=== PATIENT | female | born 1960 | race Two or more races ===

== ENCOUNTER → 2017-08-25 | Outpatient (REF) | payer BC, SELFPAY ==
[2017-08-25 16:26] LABS: BASO # 0.1 10^3/uL (0.0-0.2); BASO % 0.5 % (0.0-1.0); EOS % 0.4 % (0.0-3.0); IMMATURE GRANULOCYTE % 0.3 % (0-0); LYMPH # 2.6 10^3/uL (1.5-4.5); LYMPH % 27.1 % (24.0-44.0); MEAN CORPUSCULAR HEMOGLOBIN 32.8 pg (27.0-33.0); MEAN CORPUSCULAR HGB CONC 32.8 g/dl (32.0-36.5); MONO # 0.8 10^3/uL (0.0-0.8); MONO % 7.9 % (0.0-5.0); NEUTROPHILS # 6.2 10^3/uL (1.8-7.7); NEUTROPHILS % 63.8 % (36.0-66.0); PLATELET COUNT, AUTOMATED 323 10^3/uL (150-450); RED CELL DISTRIBUTION WIDTH 13.4 % (11.5-14.5); WHITE BLOOD COUNT 9.7 10^3/uL (4.0-10.0)
[2017-08-25 16:27] LABS: ADD MORPHOLOGY? NO
[2017-08-25 17:00] LABS: ESTRADIOL < 19.0 PG/ML; FOLLICLE STIMULATING HORMONE 45.3 mIU/mL; VITAMIN B12 LEVEL 240 PG/ML (247-911)
[2017-08-25 17:05] LABS: ALBUMIN/GLOBULIN RATIO 1.33 (1.00-1.93); ALKALINE PHOSPHATASE 128 U/L (45-117); ALT/SGPT 24 U/L (12-78); ANION GAP 12 MEQ/L (8-16); AST/SGOT 12 U/L (15-37); BILIRUBIN,TOTAL 0.3 MG/DL (0.2-1.0); BLOOD UREA NITROGEN 29 MG/DL (7-18); CALCIUM LEVEL 8.8 MG/DL (8.5-10.1); CARBON DIOXIDE LEVEL 20 MEQ/L (21-32); CHLORIDE LEVEL 104 MEQ/L (98-107); CHOLESTEROL LEVEL 146 MG/DL (<200); CREATININE FOR GFR 1.19 MG/DL (0.55-1.02); FERRITIN 67 NG/ML (8-252); FREE T4 1.21 NG/DL (0.76-1.46); GLOMERULAR FILTRATION RATE 50.1 (>51); GLUCOSE, FASTING 88 MG/DL (70-105); PERCENT SATURATION 20.6 % (13.2-45.0); POTASSIUM SERUM 4.3 MEQ/L (3.5-5.1); SODIUM LEVEL 136 MEQ/L (136-145); TOTAL IRON BINDING CAPACITY 369 UG/DL (250-450); TRIGLYCERIDES LEVEL 85 MG/DL (<150)
[2017-08-26 10:18] LABS: THYROID PEROXIDASE ANTIBODY < 28.0 U/ML (<60.0)
[2017-08-26 12:24] LABS: PRETREATED FOLATE FOR RBCFOL 5.2 NG/ML
== END ==
LOC: M SFHCPLAZ 14:33
PROVIDERS: ATTEND Family Medicine
DX: E06.3 Autoimmune thyroiditis (principal); I10 Essential (primary) hypertension; N92.1 Excessive and frequent menstruation with irregular cycle; D50.9 Iron deficiency anemia, unspecified; Z98.84 Bariatric surgery status

== ENCOUNTER → 2017-09-30 | Outpatient (CLI) | payer BC ==
--- NOTE | 2017-10-04 08:51 | DEXA ---
AP SPINE L1 - L4 1.231 0.3 1.1 LT FEMUR TOTAL 0.837 -1.4 -0.7 RT FEMUR TOTAL 0.805 -1.6 -0.9 TOTAL BODY TOTAL OTHER DUAL FEMUR FRAX* ASSESSMENT Risk factors: 10 year probability of fracture Major osteoporotic fracture % Hip fracture % COMMENTS: Normal bone densitometry of the spine. There is low bone density of the hips. FOLLOW-UP: Recommendation for the next bone density exam: 2 years. PUNEET
== END ==
LOC: M WHC 14:35
PROVIDERS: ATTEND Family Medicine
DX: Z12.31 Encounter for screening mammogram for malignant neoplasm of breast (principal); E55.9 Vitamin D deficiency, unspecified
CPT/HCPCS: 77080; G0202

== ENCOUNTER → 2017-10-07 | Outpatient (REF) | payer BC ==
[2017-10-07 18:04] LABS: BASO % 0.6 % (0.0-1.0); EOS # 0.1 10^3/uL (0.0-0.50); EOS % 0.9 % (0.0-3.0); IMMATURE GRANULOCYTE % 0.3 % (0-0); LYMPH # 2.4 10^3/uL (1.5-4.5); LYMPH % 36.7 % (24.0-44.0); MEAN CORPUSCULAR HEMOGLOBIN 32.4 pg (27.0-33.0); MEAN CORPUSCULAR HGB CONC 32.9 g/dl (32.0-36.5); MEAN CORPUSCULAR VOLUME 98.5 fl (80.0-96.0); MONO # 0.7 10^3/uL (0.0-0.8); MONO % 9.8 % (0.0-5.0); NEUTROPHILS # 3.4 10^3/uL (1.8-7.7); NEUTROPHILS % 51.7 % (36.0-66.0); PLATELET COUNT, AUTOMATED 330 10^3/uL (150-450); RED CELL DISTRIBUTION WIDTH 12.4 % (11.5-14.5); WHITE BLOOD COUNT 6.6 10^3/uL (4.0-10.0)
[2017-10-07 18:09] LABS: ALBUMIN 3.9 GM/DL (3.2-5.2); ALBUMIN/GLOBULIN RATIO 1.15 (1.00-1.93); ALKALINE PHOSPHATASE 162 U/L (45-117); ALT/SGPT 29 U/L (12-78); ANION GAP 10 MEQ/L (8-16); AST/SGOT 12 U/L (7-37); BILIRUBIN,TOTAL 0.3 MG/DL (0.2-1.0); BLOOD UREA NITROGEN 25 MG/DL (7-18); CALCIUM LEVEL 9.1 MG/DL (8.5-10.1); CARBON DIOXIDE LEVEL 23 MEQ/L (21-32); CHLORIDE LEVEL 104 MEQ/L (98-107); CREATININE FOR GFR 1.08 MG/DL (0.55-1.02); GLOMERULAR FILTRATION RATE 56.1 (>51); GLUCOSE, FASTING 96 MG/DL (70-105); SODIUM LEVEL 137 MEQ/L (136-145); TOTAL PROTEIN 7.3 GM/DL (6.4-8.2)
[2017-10-07 19:47] LABS: VITAMIN B12 LEVEL 998 PG/ML (247-911)
[2017-10-11 11:02] LABS: PRETREATED FOLATE FOR RBCFOL 7.7 NG/ML
[2017-10-11 13:48] LABS: ALBUMIN 4.16 GM/DL (3.29-5.55); GAMMA GLOBULIN % 13.6 % (11.1-18.8)
== END ==
LOC: M SFHCPLAZ 16:04
PROVIDERS: ATTEND Family Medicine
DX: E53.8 Deficiency of other specified B group vitamins (principal); E55.9 Vitamin D deficiency, unspecified; D50.9 Iron deficiency anemia, unspecified

== ENCOUNTER → 2017-10-18 | Outpatient (CLI) | payer BC ==
--- NOTE | 2017-10-18 10:39 | REP ---
Clinical: Stage III chronic medical renal disease. Technique: Simmons scale and color Doppler evaluation of the kidneys and renal vasculature using curved array transducer. Findings: The kidneys are essentially normal in size, echogenicity and reniform shape without hydronephrosis, nephrolithiasis, cystic or renal mass lesion. Mildly increased central sinus fat is consistent with chronic medical renal disease. Right kidney measures 9.7 x 4.9 x 4.8 cm . Left kidney measures 10.5 x 5.5 x 5.4 cm . Bladder is incompletely distended and grossly normal by current evaluation. Color Doppler evaluation of the renal vasculature demonstrates normal arterial wave patterns, velocities, renal aortic ratios, resistive indices and the acceleration time. No sonographic evidence for renal arterial stenosis noted. Renal vein is patent. Right Kidney: Peak arterial velocity: 87.7 cm/sec . Renal aortic ratio: 1.09 . Resistive indices: 0.76 - 0.81 . Acceleration times: 0.031 - 0.039 . Left kidney: Peak arterial velocity: 79 cm/sec . Renal aortic ratio: 0.98 . Resistive indices: 0.72 - 0.78 . Acceleration times: 0.033 - 0.044 . Impression: relatively normal appearance of the bilateral kidneys by ultrasound. No sonographic evidence for renal artery stenosis. Signed by Royce Allred MD 10/18/2017 10:31 A
--- NOTE | 2017-10-18 11:19 | REP ---
Clinical: Pain. Technique: AP, lateral, bilateral oblique views of the right and left knee. Findings: Marked, advanced tricompartmental osteoarthritic degenerative changes are appreciated (right greater than left). Findings include osteophytosis, cortical irregularity, joint space narrowing, and elements of chondrocalcinosis. Partially calcified loose bodies within the joint spaces (right greater left) are also suspected. No acute fracture dislocation. No definite effusion. Impression: Advanced bilateral arthritic changes (right greater than left). Signed by Royce Allred MD 10/18/2017 11:11 A
== END ==
LOC: M RAD 08:16
PROVIDERS: ATTEND Family Medicine
DX: N18.3 Chronic kidney disease, stage 3 (moderate) (principal); M17.0 Bilateral primary osteoarthritis of knee

== ENCOUNTER → 2017-11-02 | Outpatient (CLI) | payer BC ==
--- NOTE | 2017-11-02 14:19 | REP ---
NUCLEAR PARATHYROID SESTAMIBI SCAN: Following the intravenous administration of 25.4 mCi of technetium-99m sestamibi, multiple images of the neck are performed 15 minutes and 4 hours post injection. Delayed SPECT images are also performed. Initial images show bilateral salivary gland and thyroid gland uptake. Delayed images show persistent salivary gland uptake. There is washout of activity from the thyroid bed. There is no persistent focus of increased uptake in the region of the thyroid bed. IMPRESSION: No compelling scintigraphic evidence of parathyroid adenoma. Signed by J Carlos Simmons MD 11/03/2017 09:14 A
== END ==
LOC: M RAD 07:34
PROVIDERS: ATTEND Family Medicine
DX: E21.3 Hyperparathyroidism, unspecified (principal)
CPT/HCPCS: 78070; 78803; A9500

== ENCOUNTER → 2018-01-04 | Outpatient (REF) | payer BC ==
[2018-01-04 11:00] LABS: BASO % 0.7 % (0.0-1.0); EOS # 0.1 10^3/uL (0.0-0.50); EOS % 1.3 % (0.0-3.0); HEMATOCRIT 38.2 % (36.0-47.0); HEMOGLOBIN 12.5 g/dl (12.0-16.0); IMMATURE GRANULOCYTE % 0.4 % (0-3.0); LYMPH # 1.6 10^3/uL (1.5-4.5); LYMPH % 28.9 % (24.0-44.0); MEAN CORPUSCULAR HEMOGLOBIN 31.6 pg (27.0-33.0); MEAN CORPUSCULAR HGB CONC 32.7 g/dl (32.0-36.5); MEAN CORPUSCULAR VOLUME 96.5 fl (80.0-96.0); MONO # 0.5 10^3/uL (0.0-0.8); MONO % 9.1 % (0.0-5.0); NEUTROPHILS # 3.3 10^3/uL (1.8-7.7); NEUTROPHILS % 59.6 % (36.0-66.0); PLATELET COUNT, AUTOMATED 317 10^3/uL (150-450); RED BLOOD COUNT 3.96 10^6/uL (4.00-5.40); RED CELL DISTRIBUTION WIDTH 13.2 % (11.5-14.5); WHITE BLOOD COUNT 5.5 10^3/uL (4.0-10.0)
[2018-01-04 11:14] LABS: ALBUMIN 3.9 GM/DL (3.2-5.2); ALBUMIN/GLOBULIN RATIO 1.22 (1.00-1.93); ALKALINE PHOSPHATASE 156 U/L (45-117); ALT/SGPT 25 U/L (12-78); ANION GAP 9 MEQ/L (8-16); AST/SGOT 13 U/L (7-37); BILIRUBIN,TOTAL 0.4 MG/DL (0.2-1.0); BLOOD UREA NITROGEN 25 MG/DL (7-18); CALCIUM LEVEL 9.1 MG/DL (8.5-10.1); CARBON DIOXIDE LEVEL 25 MEQ/L (21-32); CHLORIDE LEVEL 106 MEQ/L (98-107); CREATININE FOR GFR 1.27 MG/DL (0.55-1.30); GLOMERULAR FILTRATION RATE 46.5 (>51); GLUCOSE, FASTING 106 MG/DL (70-100); POTASSIUM SERUM 4.5 MEQ/L (3.5-5.1); SODIUM LEVEL 140 MEQ/L (136-145); TOTAL PROTEIN 7.1 GM/DL (6.4-8.2)
[2018-01-04 11:18] LABS: ESTIMATED AVERAGE GLUCOSE 111 MG/DL (60-110); HEMOGLOBIN A1c 5.5 %
[2018-01-04 11:26] LABS: VITAMIN B12 LEVEL 1352 PG/ML (247-911)
[2018-01-05 14:17] LABS: INSULIN LEVEL 12.1 uIU/mL (2.6-24.9)
== END ==
LOC: M SFHCPLAZ 07:57
DX: E53.8 Deficiency of other specified B group vitamins (principal); R73.01 Impaired fasting glucose

== ENCOUNTER → 2018-01-10 | Outpatient (CLI) | payer BC | LOC: M PAIN 09:00 | DX: M53.3 Sacrococcygeal disorders, not elsewhere classified (principal); M54.40 Lumbago with sciatica, unspecified side; I10 Essential (primary) hypertension; J45.909 Unspecified asthma, uncomplicated; N18.3 Chronic kidney disease, stage 3 (moderate); E06.9 Thyroiditis, unspecified; E78.2 Mixed hyperlipidemia; Z98.84 Bariatric surgery status; Z79.899 Other long term (current) drug therapy; Z88.8 Allergy status to other drugs, medicaments and biological substances | CPT/HCPCS: G0463 ==

== ENCOUNTER → 2018-02-07 | Outpatient (CLI) | payer BC | LOC: M PAIN 09:30 | DX: R29.898 Other symptoms and signs involving the musculoskeletal system (principal); M53.3 Sacrococcygeal disorders, not elsewhere classified; M54.40 Lumbago with sciatica, unspecified side; E03.9 Hypothyroidism, unspecified; I10 Essential (primary) hypertension; K21.9 Gastro-esophageal reflux disease without esophagitis; Z79.899 Other long term (current) drug therapy; J30.9 Allergic rhinitis, unspecified; Z88.8 Allergy status to other drugs, medicaments and biological substances; Z98.84 Bariatric surgery status | CPT/HCPCS: G0463 ==

== ENCOUNTER → 2018-04-10 | Outpatient (CLI) | payer BC | LOC: M RAD 06:38 | DX: M79.604 Pain in right leg (principal); M79.605 Pain in left leg; I89.0 Lymphedema, not elsewhere classified | CPT/HCPCS: 93971 ==

== ENCOUNTER → 2018-04-11 | Outpatient (CLI) | payer BC | LOC: M RAD 06:41 | DX: M79.604 Pain in right leg (principal); M79.605 Pain in left leg; I89.0 Lymphedema, not elsewhere classified ==

== ENCOUNTER 2018-04-25 09:05 | Outpatient (RCR) | payer BC | END 2018-05-20 | LOC: M PT 09:05 | DX: Z51.89 Encounter for other specified aftercare (principal); I89.0 Lymphedema, not elsewhere classified | CPT/HCPCS: 97140 ==

== ENCOUNTER 2018-05-22 08:26 | Outpatient (RCR) | payer BC | END 2018-06-20 | LOC: M PT 08:26 | DX: Z51.89 Encounter for other specified aftercare (principal); I89.0 Lymphedema, not elsewhere classified; M79.604 Pain in right leg; M79.605 Pain in left leg ==

== ENCOUNTER → 2018-06-20 | Outpatient (CLI) | payer BC | LOC: M PAIN 14:45 | DX: R29.898 Other symptoms and signs involving the musculoskeletal system (principal); M53.3 Sacrococcygeal disorders, not elsewhere classified; M54.40 Lumbago with sciatica, unspecified side; J45.909 Unspecified asthma, uncomplicated; E11.22 Type 2 diabetes mellitus with diabetic chronic kidney disease; I12.9 Hypertensive chronic kidney disease with stage 1 through stage 4 chronic kidney disease, or unspecified chronic kidney disease; N18.3 Chronic kidney disease, stage 3 (moderate); F10.21 Alcohol dependence, in remission; M17.12 Unilateral primary osteoarthritis, left knee; D50.9 Iron deficiency anemia, unspecified; E53.8 Deficiency of other specified B group vitamins; Z79.84 Long term (current) use of oral hypoglycemic drugs; Z79.899 Other long term (current) drug therapy; Z88.1 Allergy status to other antibiotic agents; Z88.5 Allergy status to narcotic agent; Z88.8 Allergy status to other drugs, medicaments and biological substances; Z98.84 Bariatric surgery status | CPT/HCPCS: G0463 ==

== ENCOUNTER → 2018-07-10 | Outpatient (REF) | payer BC ==
[2018-07-10 12:20] LABS: APPEARANCE, URINE HAZY (CLEAR); BACTERIA, URINE AUTO NEGATIVE (NEGATIVE); BILIRUBIN, URINE AUTO NEGATIVE (NEGATIVE); BLOOD, URINE BLOOD NEGATIVE (NEGATIVE); COLOR, URINE YELLOW (YELLOW); GLUCOSE, URINE (UA) AUTO NEGATIVE (NEGATIVE); KETONE, URINE AUTO NEGATIVE (NEGATIVE); LEUKOCYTE ESTERASE, URINE AUTO NEGATIVE (NEGATIVE); NITRITE, URINE AUTO POSITIVE (NEGATIVE); PROTEIN, URINE AUTO NEGATIVE (NEGATIVE); RBC, URINE AUTO 3 /HPF (0-3); SPECIFIC GRAVITY URINE AUTO 1.013 (1.002-1.035); SQUAMOUS EPITHELIAL CELL UR AU 0 /HPF (0-6); UROBILINOGEN, URINE AUTO 0.2 mg/dL (0.0-2.0); WBC, URINE AUTO 0 /HPF (0-3)
[2018-07-10 12:21] LABS: ESTIMATED AVERAGE GLUCOSE 105 MG/DL (60-110); HEMOGLOBIN A1c 5.3 %
[2018-07-10 12:30] LABS: ALBUMIN 3.6 GM/DL (3.2-5.2); ANION GAP 9 MEQ/L (8-16); BLOOD UREA NITROGEN 23 MG/DL (7-18); CALCIUM LEVEL 9.3 MG/DL (8.5-10.1); CARBON DIOXIDE LEVEL 27 MEQ/L (21-32); CHLORIDE LEVEL 103 MEQ/L (98-107); CREATININE FOR GFR 1.24 MG/DL (0.55-1.30); FREE T4 1.19 NG/DL (0.76-1.46); GLOMERULAR FILTRATION RATE 47.6 (>51); GLUCOSE, FASTING 101 MG/DL (70-100); PHOSPHORUS LEVEL 3.5 MG/DL (2.5-4.9); POTASSIUM SERUM 4.7 MEQ/L (3.5-5.1); SODIUM LEVEL 139 MEQ/L (136-145)
[2018-07-10 12:31] LABS: TOTAL 25(OH) VITAMIN D 40.1 NG/ML (30.0-100.0)
[2018-07-10 12:32] LABS: PTH INTACT 124.6 PG/ML (18.5-88.0)
[2018-07-10 12:39] LABS: MALB URINE SIEMENS 7.3 MG/L; MAU/CREAT RATIO 7.3 MCG/MG (0.0-30.0)
[2018-07-10 13:03] LABS: BASO % 0.6 % (0.0-1.0); EOS # 0.1 10^3/uL (0.0-0.50); EOS % 1.1 % (0.0-3.0); HEMATOCRIT 36.7 % (36.0-47.0); IMMATURE GRANULOCYTE % 0.2 % (0-3.0); LYMPH # 1.4 10^3/uL (1.5-4.5); LYMPH % 26.2 % (24.0-44.0); MEAN CORPUSCULAR HEMOGLOBIN 31.5 pg (27.0-33.0); MEAN CORPUSCULAR HGB CONC 32.7 g/dl (32.0-36.5); MEAN CORPUSCULAR VOLUME 96.3 fl (80.0-96.0); MONO # 0.5 10^3/uL (0.0-0.8); MONO % 9.8 % (0.0-5.0); NEUTROPHILS # 3.3 10^3/uL (1.8-7.7); NEUTROPHILS % 62.1 % (36.0-66.0); PLATELET COUNT, AUTOMATED 282 10^3/uL (150-450); RED BLOOD COUNT 3.81 10^6/uL (4.00-5.40); RED CELL DISTRIBUTION WIDTH 13.7 % (11.5-14.5); RETIC HEMOGLOBIN EQUIVALENT 36.1 pg (24-36); RETICULOCYTE # 50.7 10^9/L (17-77); RETICULOCYTE % 1.3 % (0.5-1.5); WHITE BLOOD COUNT 5.3 10^3/uL (4.0-10.0)
== END ==
LOC: M SFHCPLAZ 08:41
DX: D50.9 Iron deficiency anemia, unspecified (principal); E06.3 Autoimmune thyroiditis; R73.01 Impaired fasting glucose; N18.3 Chronic kidney disease, stage 3 (moderate)
CPT/HCPCS: 84443

== ENCOUNTER → 2018-07-10 | Outpatient (CLI) | payer BC | LOC: M RAD 09:48 | DX: R29.898 Other symptoms and signs involving the musculoskeletal system (principal) ==

== ENCOUNTER → 2018-07-15 | Outpatient (CLI) | payer BC | LOC: M RAD 13:03 | DX: R29.898 Other symptoms and signs involving the musculoskeletal system (principal); M54.40 Lumbago with sciatica, unspecified side | CPT/HCPCS: 72148 ==

== ENCOUNTER → 2018-08-01 | Outpatient (CLI) | payer BC | LOC: M PAIN 14:30 | DX: M48.07 Spinal stenosis, lumbosacral region (principal); M43.17 Spondylolisthesis, lumbosacral region; J45.30 Mild persistent asthma, uncomplicated; F32.9 Major depressive disorder, single episode, unspecified; F41.1 Generalized anxiety disorder; E66.9 Obesity, unspecified; Z68.43 Body mass index [BMI] 50.0-59.9, adult; K21.9 Gastro-esophageal reflux disease without esophagitis; I89.0 Lymphedema, not elsewhere classified; N18.3 Chronic kidney disease, stage 3 (moderate); E53.8 Deficiency of other specified B group vitamins; E55.9 Vitamin D deficiency, unspecified; K58.1 Irritable bowel syndrome with constipation; E11.22 Type 2 diabetes mellitus with diabetic chronic kidney disease; Z98.84 Bariatric surgery status; Z79.84 Long term (current) use of oral hypoglycemic drugs; Z79.891 Long term (current) use of opiate analgesic; Z79.899 Other long term (current) drug therapy; Z88.5 Allergy status to narcotic agent; Z88.8 Allergy status to other drugs, medicaments and biological substances | CPT/HCPCS: G0463 ==

== ENCOUNTER → 2018-09-04 | Outpatient (CLI) | payer BC ==
[~2018-09-04] MED LIST: ISOVUE-M 300 61% 15ML VIAL (Q9967) As Ordered; LIDOCAINE 1% SDV INJ 30 ML VIAL As Ordered; diazePAM 5 MG TAB As Ordered; methylPREDNISolone SUSP 40 MG/ML (DEPO-medrol) VIAL (J1030) As Ordered; oxyCODONE 5MG TAB As Ordered
== END ==
LOC: M PAIN 08:45
DX: G89.29 Other chronic pain (principal); M48.061 Spinal stenosis, lumbar region without neurogenic claudication; M51.16 Intervertebral disc disorders with radiculopathy, lumbar region; J45.909 Unspecified asthma, uncomplicated; E11.22 Type 2 diabetes mellitus with diabetic chronic kidney disease; I12.9 Hypertensive chronic kidney disease with stage 1 through stage 4 chronic kidney disease, or unspecified chronic kidney disease; N18.3 Chronic kidney disease, stage 3 (moderate); F32.9 Major depressive disorder, single episode, unspecified; F10.21 Alcohol dependence, in remission; K21.9 Gastro-esophageal reflux disease without esophagitis; E53.8 Deficiency of other specified B group vitamins; M17.12 Unilateral primary osteoarthritis, left knee; E55.9 Vitamin D deficiency, unspecified; E66.01 Morbid (severe) obesity due to excess calories; Z68.43 Body mass index [BMI] 50.0-59.9, adult; Z79.84 Long term (current) use of oral hypoglycemic drugs; Z79.899 Other long term (current) drug therapy; Z88.1 Allergy status to other antibiotic agents; Z88.5 Allergy status to narcotic agent; Z88.8 Allergy status to other drugs, medicaments and biological substances; Z98.84 Bariatric surgery status
CPT/HCPCS: J1030

== ENCOUNTER 2018-09-21 08:55 | Outpatient (RCR) | payer MEDICAID, BC, SELFPAY | END 2018-10-20 | disposition home or self-care (01) | LOC: M PT 08:55 | DX: I89.0 Lymphedema, not elsewhere classified (principal) | CPT/HCPCS: 97140 ==

== ENCOUNTER → 2018-09-26 | Outpatient (CLI) | payer MEDICAID | LOC: M PAIN 14:15 | DX: M48.07 Spinal stenosis, lumbosacral region (principal); J45.909 Unspecified asthma, uncomplicated; E11.22 Type 2 diabetes mellitus with diabetic chronic kidney disease; I12.9 Hypertensive chronic kidney disease with stage 1 through stage 4 chronic kidney disease, or unspecified chronic kidney disease; N18.3 Chronic kidney disease, stage 3 (moderate); K21.9 Gastro-esophageal reflux disease without esophagitis; M17.0 Bilateral primary osteoarthritis of knee; E55.9 Vitamin D deficiency, unspecified; E53.8 Deficiency of other specified B group vitamins; F10.21 Alcohol dependence, in remission; E66.01 Morbid (severe) obesity due to excess calories; Z68.43 Body mass index [BMI] 50.0-59.9, adult; Z79.84 Long term (current) use of oral hypoglycemic drugs; Z79.899 Other long term (current) drug therapy; Z88.1 Allergy status to other antibiotic agents; Z88.5 Allergy status to narcotic agent; Z88.8 Allergy status to other drugs, medicaments and biological substances; Z98.84 Bariatric surgery status | CPT/HCPCS: G0463 ==

== ENCOUNTER → 2018-10-19 | Outpatient (CLI) | payer MEDICAID | LOC: M PAIN 08:45 | DX: G89.29 Other chronic pain (principal); M51.16 Intervertebral disc disorders with radiculopathy, lumbar region; M48.061 Spinal stenosis, lumbar region without neurogenic claudication; N18.3 Chronic kidney disease, stage 3 (moderate); J45.909 Unspecified asthma, uncomplicated; E11.22 Type 2 diabetes mellitus with diabetic chronic kidney disease; I12.9 Hypertensive chronic kidney disease with stage 1 through stage 4 chronic kidney disease, or unspecified chronic kidney disease; K21.9 Gastro-esophageal reflux disease without esophagitis; E53.8 Deficiency of other specified B group vitamins; E55.9 Vitamin D deficiency, unspecified; M16.0 Bilateral primary osteoarthritis of hip; E66.01 Morbid (severe) obesity due to excess calories; Z68.43 Body mass index [BMI] 50.0-59.9, adult; Z79.84 Long term (current) use of oral hypoglycemic drugs; Z79.899 Other long term (current) drug therapy; Z88.1 Allergy status to other antibiotic agents; Z88.5 Allergy status to narcotic agent; Z88.8 Allergy status to other drugs, medicaments and biological substances; Z86.59 Personal history of other mental and behavioral disorders; Z98.84 Bariatric surgery status | CPT/HCPCS: J1030 ==

== ENCOUNTER → 2018-11-06 | Outpatient (CLI) | payer OTHER ==
--- NOTE | 2018-11-30 01:25 | ECWPNPC ---
PATIENT NAME: MUNIR WILLAMS : 1960 GENDER: FEMALE VISIT DATE: 11/06/2018 DISCHARGE DATE: 11/06/18 1558 VISIT LOCKED DATE TIME: PHYSICIAN: TASHI RODRIGUEZ PHYSICIAN PAGER NO: [phone] RESOURCE: TASHI RODRIGUEZ REASON FOR APPOINTMENT 1. POST LESI HISTORY OF PRESENT ILLNESS HISTORY OF PRESENT ILLNESS: HERE FOR POST PROCEDURE F/U.HAD LESI ON 10-19-18.DOING WELL.RATING PAIN VAS 5/10.USING TRAMADO L50MG PRN FOR SEVERE PAIN WITH IMPROVEMENT.DISCUSSED MEDICATION AND TREATMENT OPTIONS. PAIN THE PATIENT DESCRIBES THE PAIN... FALL RISK SCREENING: SCREENING :NO FALLS IN THE PAST YEAR CURRENT MEDICATIONS TAKING ATORVASTATIN CALCIUM 20 MG TABLET 1 TABLET ORALLY ONCE A DAY TAKING FOLIC ACID 1 MG TABLET 1 TABLET ORALLY ONCE A DAY TAKING TUMS ULTRA 1000 1000 MG TABLET CHEWABLE 4 TABLET ORALLY DAILY TAKING CITALOPRAM HYDROBROMIDE 40 MG TABLET 1 TABLET ORALLY ONCE A DAY TAKING CYANOCOBALAMIN 500 MCG TABLET 1 TABLET ORALLY ONCE A DAY TAKING QVAR 80 MCG/ACT AEROSOL SOLUTION 1 PUFF INHALATION TWICE A DAY, NOTES: WEEKS AGO TAKING FERROUS SULFATE 325 (65 FE) MG TABLET 1 TABLET ORALLY ONCE A DAY TAKING PROAIR HFA 108 (90 BASE) MCG/ACT AEROSOL SOLUTION 2 PUFFS NEEDED INHALATION QID PRN, NOTES: WEEKS AGO TAKING BUPROPION HCL 150 MG TABLET EXTENDED RELEASE 1 TAB ORALLY BID TAKING LISINOPRIL 10 MG TABLET 1 TABLET ORALLY ONCE A DAY TAKING METFORMIN HCL ER 500 MG TABLET EXTENDED RELEASE 24 HOUR 1 TABLET WITH EVENING MEAL ORALLY AC DINNER TAKING LEVOTHYROXINE SODIUM 100 MCG TABLET 1 TABLET ON AN EMPTY STOMACH IN THE MORNING ORALLY ONCE A DAY TAKING ERGOCALCIFEROL 55523 UNIT CAPSULE 1 CAPSULE ORALLY ONCE A WEEK TAKING TRAMADOL HCL 50 MG TABLET 1-2 TABLETS NEEDED ORALLY EVERY 4-6 HRS MAXIMUM 6 PER DAY TAKING PREVACID 30 MG CAPSULE DELAYED RELEASE 1 CAPSULE ORALLY ONCE A DAY TAKING BLOOD GLUCOSE TEST - STRIP DIRECTED SUBCUTANEOUSLY DAILY DX: E11.9 TAKING NASONEX 50 MCG/ACT SUSPENSION 2 SPRAYS IN EACH NOSTRIL NASALLY ONCE A DAY, NOTES: 0630 TAKING SINGULAIR 10 MG TABLET TAKE ONE TABLET BY MOUTH EVERY DAY AT BEDTIME , NOTES: 10/18/18 1800 TAKING TRIAMTERENE-HCTZ 37.5-25 MG TABLET 1 TAB ORALLY DAILY, NOTES: 10/18/18 1800 UNKNOWN LANCETS - MISCELLANEOUS DIRECTED SUBCUTANEOUSLY DAILY DX: E11.9 UNKNOWN GLUCOMETER DIRECTED DX: E11.9 BID UNKNOWN TYLENOL EXTRA STRENGTH 500 MG TABLET 3TABLETS ORALLY TWICE DAILY MEDICATION LIST REVIEWED AND RECONCILED WITH THE PATIENT PAST MEDICAL HISTORY ASTHMA, MILD PERSISTENT ALLERGIC RHINITIS MDD/MORRO, H/O ETHOH ABUSE-NONE SINCE 04/2016 BLE LYMPHEDEMA/LIPEDEMA SUPER OBESITY S/P MEAGAN GB 09/2007-PRESURGICAL WEIGHT 650 GERD/H/O GASTRITIS DX BY PREVIOUS EGD CKD3-09/2017 NORMAL B RENAL US S EVIDENCE OF MINH VITAMIN B12/FA DEFICIENCY-09/2017 IF 1 (0-1), PARIETAL 34 (0-20) R>L MARKED ADVANCED KNEE OA BY 09/2017 XRAY VITAMIN D DEFICIENCY IRITABLE BOWEL SYNDROME, CONSTIPATION-TYPE MDD/MORRO TYPE II DIABETES LIPEDEMA CHRONIC KIDNEY DISEASE STAGE III ALLERGIES MORPHINE: NAUSEA/VOMITING: SIDE EFFECTS REGLAN: ANAPHYLAXIS: ALLERGY "CILLIANS": HIVES: SIDE EFFECTS Z-PACK: HIVES: SIDE EFFECTS SYMBICORT: THRUSH SEVERE: SIDE EFFECTS SURGICAL HISTORY GALLBLADDER/LIVER STONE REMOVAL 1989 GASTRIC BYPASS-DR.WOLF FRENCH 09/2007 FAMILY HISTORY FATHER: ALIVE, FIRST [place] AT 58Y, T2DM DX IN 70S, DIAGNOSED WITH DIABETES MOTHER: 57 YRS, FIRST [place] AT 37, 2 [place], HEAVY SMOKER/ETHOH, DIAGNOSED WITH HEART DISEASE, STROKE MATERNAL GRAND FATHER: DIAGNOSED WITH HEART DISEASE, CANCER 1 SISTER(S) . SISTER-SVT1/2 BROTHER-UNKNOWNNO CANCERS IN 1DRFATHER -DIAGNOSED WITH DM. SOCIAL HISTORY GENERAL: TOBACCO USE ARE YOU A:NONSMOKER BMI CARE GOAL FOLLOW-UP ABOVE NORMAL BMI FOLLOW-UPGIVING ENCOURAGEMENT TO EXERCISE ALCOHOL SCREENING DID YOU HAVE A DRINK CONTAINING ALCOHOL IN THE PAST YEAR?NO POINTS0 INTERPRETATIONNEGATIVE RECREATIONAL DRUG USE DRUG USE?NO PATIENT DENIES ABUSE OR MISSUSED OF ANY MEDICATION. PATIENT DENIES USE OF ANY ILLEGAL SUBSTANCE INCLUDING MARIJUANA OR COCAINE. CAFFEINE CAFFEINE USE?YES HOW OFTEN AND HOW MUCH? 2 CUPS OF COFFEE PER DAY SEXUAL HX HAD SEX IN THE LAST 12 MONTHS (VAGINAL, ORAL, OR ANAL)?NO HIV / HEP-C SCREENING HIV TEST OFFERED TO PATIENT:YES DATE OFFERED:08/25/2017 TEST ACCEPTED:NO HEP-C TEST OFFERED TO PATIENT:YES DATE OFFERED:08/25/2017 REASON:PATIENT DECLINED TEST ACCEPTED:NO REASON:PATIENT DECLINED HINDUISM [id number] CONGREGATION NO AMISH BELIEFS THAT WOULD IMPACT HEALTH CARE. 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 MARITAL STATUS: . PAIN CLINIC PFS, CLERGY, PUBLIC HEALTH REFERRALS HAS THE PATIENT BEEN EDUCATED REGARDING HIS/HER PLAN OF CARE?YES HAS THE PATIENT BEEN EDUCATED REGARDING PAIN, THE RISK FOR PAIN, THE IMPORTANCE OF EFFECTIVE PAIN MANAGEMENT, AND THE PAIN ASSESSMENT PROCESS?YES ADVANCE DIRECTIVE ADVANCE DIRECTIVE DISCUSSED WITH PATIENT:YES HEALTH CARE PROXY DAMI WILLAMS [phone] LIVES [facility] , DAMI WILLAMSREVIEWED WITH PT 08/01/18 1530 BVREVIEWED WITH PT 09/04/18 0910 LASREVIEWED WITH PATIENT 10/19/18 0915 JS. HOSPITALIZATION/MAJOR DIAGNOSTIC PROCEDURE SURGERIES REVIEW OF SYSTEMS REVIEWED BY: PROVIDER: TASHI GALEANO . CONSTITUTIONAL: ANY CHANGE IN YOUR MEDICAL CONDITION? NO . CHILLS NO . FEVER NO . INFECTION: DO YOU HAVE NEW INFECTIONS? NO . DO YOU HAVE HISTORY OF MRSA? NO . MUSCULOSKELETAL: ANY NEW PATTERNS OF PAIN OR NUMBNESS? NO . GASTROENTEROLOGY: ANY NEW CHANGE IN BOWEL CONTROL? NO . GENITOURINARY: ANY NEW CHANGE IN BLADDER CONTROL? NO . IS THERE A CHANCE YOU COULD BE ? NO . HEMATOLOGY/LYMPH: DO YOU TAKE ANY BLOOD THINNERS? (FOR EXAMPLE- COUMADIN, PLAVIX, AGGRENOX, PLATEL, PRADAXA, OR XARELTO) NO . WHEN WAS YOUR LAST DOSE? DATE: TIME: . NEUROLOGY: HAVE YOU FALLEN IN THE PAST 6 MONTHS? NO . ANY NEW EXTREMITY NUMBNESS OR WEAKNESS? NO . CARDIOLOGY: DO YOU HAVE A PACEMAKER OR DEFIBRILLATOR? NO . RESPIRATORY: HAVE YOU BEEN SICK IN THE PAST WEEK? NO . FEVER NO . FLU LIKE SYMPTOMS? NO . COUGH NO . INTEGUMENTARY: DO YOU HAVE ANY RASHES OR OPEN SORES? NO . ALLERGIC/IMMUNO: ARE YOU ALLERGIC TO SHELLFISH OR IV DYE? NO . ANY NEW ALLERGIES? NO . PSYCHIATRIC: DO YOU HAVE THOUGHTS OF HURTING YOURSELF OR SOMEONE ELSE? NO . ARE YOU ABUSED, NEGLECTED, OR IN AN UNSAFE ENVIRONMENT? NO . ENDOCRINOLOGY: ARE YOU DIABETIC? NO . OTHER: DO YOU NEED ANY PRESCRIPTIONS? NO . IF YES, PLEASE LIST: ____ . ANY NEW PROBLEMS WITH YOUR MEDICATIONS? NO . WHEN DID YOU LAST EAT? ____ . WHEN DID YOU LAST DRINK? ____ . WHAT DID YOU LAST DRINK? ____ . NAME OF PERSON DRIVING YOU HOME? ____ . DO YOU HAVE ANY OTHER QUESTIONS OR CONCERNS NO . VITAL SIGNS WT 316.2 LBS, HT 66", BMI 51.03 INDEX, BP 107/62 MM HG, HR 82 /MIN, RR 18 /MIN, TEMP 97.4 F, OXYGEN SAT % 99%, NA INITIALS SC 15:17, REVIEWED BY: KG. EXAMINATION GENERAL EXAMINATION: GENERAL APPEARANCE:AWAKE,ALERT ,PLEAASANT . PSYCHAFFECT NORMAL . LUNGS:LUNG SANDRA ARE CLEAR TO AUSCULTATION BILATERALLY. GOOD MOVEMENT OF AIR . HEART:S1, S2 IN A REGULAR RATE AND RHYTHM. NO SIGNIFICANT MURMURS, RUBS OR GALLOPS NOTED . ASSESSMENTS LUMBOSACRAL SPINAL STENOSIS - M48.07 (PRIMARY) TREATMENT LUMBOSACRAL SPINAL STENOSIS CONTINUE TRAMADOL HCL TABLET, 50 MG, 1-2 TABLETS NEEDED, ORALLY, EVERY 4-6 HRS MAXIMUM 6 PER DAY PROCEDURE CODES FA211 ESTABILISHED PATIENT [facility] CHARGE DISPOSITION & COMMUNICATION FOLLOW UP F/U December ELECTRONICALLY SIGNED BY FROYLAN LEUNG ON 11/29/2018 AT 09:26 AM EST DISCLAIMER : THIS IS A VISIT SUMMARY EXTRACTED FROM THE [employer] CHART. IT IS NOT A COPY OF THE [employer] PROGRESS NOTE. PUNEET
== END ==
LOC: M PAIN 15:00
PROVIDERS: ATTEND Nurse Practitioner Family
DX: M48.07 Spinal stenosis, lumbosacral region (principal); J45.909 Unspecified asthma, uncomplicated; I12.9 Hypertensive chronic kidney disease with stage 1 through stage 4 chronic kidney disease, or unspecified chronic kidney disease; N18.3 Chronic kidney disease, stage 3 (moderate); E11.22 Type 2 diabetes mellitus with diabetic chronic kidney disease; F10.10 Alcohol abuse, uncomplicated; M17.0 Bilateral primary osteoarthritis of knee; E66.01 Morbid (severe) obesity due to excess calories; Z68.43 Body mass index [BMI] 50.0-59.9, adult; Z79.84 Long term (current) use of oral hypoglycemic drugs; Z79.899 Other long term (current) drug therapy; Z88.1 Allergy status to other antibiotic agents; Z88.5 Allergy status to narcotic agent; Z88.8 Allergy status to other drugs, medicaments and biological substances; Z98.84 Bariatric surgery status

== ENCOUNTER → 2019-01-12 | Outpatient (REF) | payer OTHER ==
[2019-01-12 11:56] LABS: BASO % 0.6 % (0.0-1.0); EOS # 0.1 10^3/uL (0.0-0.50); EOS % 1.2 % (0.0-3.0); HEMATOCRIT 36.3 % (36.0-47.0); HEMOGLOBIN 11.8 g/dl (12.0-15.5); LYMPH # 1.4 10^3/uL (1.5-4.5); LYMPH % 28.3 % (24.0-44.0); MEAN CORPUSCULAR HEMOGLOBIN 31.3 pg (27.0-33.0); MEAN CORPUSCULAR HGB CONC 32.5 g/dl (32.0-36.5); MEAN CORPUSCULAR VOLUME 96.3 fl (80.0-96.0); MONO # 0.5 10^3/uL (0.0-0.8); MONO % 10.1 % (0.0-5.0); NEUTROPHILS % 59.2 % (36.0-66.0); PLATELET COUNT, AUTOMATED 273 10^3/uL (150-450); RED BLOOD COUNT 3.77 10^6/uL (4.00-5.40); WHITE BLOOD COUNT 5.1 10^3/uL (4.0-10.0)
[2019-01-12 12:32] LABS: ALBUMIN 3.9 GM/DL (3.2-5.2); ALT/SGPT 22 U/L (12-78); BILIRUBIN,TOTAL 0.4 MG/DL (0.2-1.0); BLOOD UREA NITROGEN 25 MG/DL (7-18); CALCIUM LEVEL 9.2 MG/DL (8.5-10.1); CARBON DIOXIDE LEVEL 23 MEQ/L (21-32); CHLORIDE LEVEL 108 MEQ/L (98-107); CHOLESTEROL LEVEL 163 MG/DL (<200); CHOLESTEROL RISK RATIO 2.116 (<5); CREATININE FOR GFR 1.12 MG/DL (0.55-1.30); FREE T4 1.25 NG/DL (0.76-1.46); GLOMERULAR FILTRATION RATE 53.6 (>51); GLUCOSE, FASTING 105 MG/DL (70-100); HDL CHOLESTEROL 77 MG/DL (>40); LDL CHOLESTEROL 70 MG/DL (<100); NON-HDL-C 86 MG/DL; POTASSIUM SERUM 4.7 MEQ/L (3.5-5.1); SODIUM LEVEL 139 MEQ/L (136-145); THYROID STIMULATING HORMONE 0.612 uIU/ML (0.358-3.740); TOTAL PROTEIN 7.2 GM/DL (6.4-8.2); TRIGLYCERIDES LEVEL 81 MG/DL (<150)
[2019-01-12 13:24] LABS: HEMOGLOBIN A1c 5.8 %
[2019-01-12 15:25] LABS: TOTAL 25(OH) VITAMIN D 46.4 NG/ML (30.0-100.0)
[2019-01-12 15:26] LABS: FOLATE > 24.0 NG/ML (>5.4); VITAMIN B12 LEVEL 1155 PG/ML (247-911)
== END ==
LOC: M SFHCPLAZ 08:48
PROVIDERS: ATTEND Nurse Practitioner Family
DX: N18.3 Chronic kidney disease, stage 3 (moderate) (principal); E53.8 Deficiency of other specified B group vitamins; E06.3 Autoimmune thyroiditis; R73.01 Impaired fasting glucose; E78.2 Mixed hyperlipidemia; E55.9 Vitamin D deficiency, unspecified

== ENCOUNTER → 2019-01-12 | Outpatient (CLI) | payer OTHER ==
--- NOTE | 2019-01-27 23:28 | ECWPNPC ---
PATIENT NAME: MUNIR WILLAMS : 1960 GENDER: FEMALE VISIT DATE: 01/12/2019 DISCHARGE DATE: 01/12/19 1127 VISIT LOCKED DATE TIME: PHYSICIAN: TASHI RODRIGUEZ PHYSICIAN PAGER NO: [phone] RESOURCE: TASHI RODRIGUEZ REASON FOR APPOINTMENT 1. F/U END OF DECEMBER HISTORY OF PRESENT ILLNESS HISTORY OF PRESENT ILLNESS: HERE FOR F/U OF CHRONIC LOW BACK PAIN.WAS DOING WELL UP UNTIL THE PAST FEW WEEKS.RATING PAIN VAS 9/10.PAIN IS ACROSS LOW BACK AND RADIATES INTO LEGS BILAT.HAS RESPONDED WELL TO LESI IN PAST. PAIN THE PATIENT DESCRIBES THE PAIN... FALL RISK SCREENING: SCREENING : NO FALLS IN THE PAST YEAR. CURRENT MEDICATIONS TAKING CYANOCOBALAMIN 500 MCG TABLET 1 TABLET ORALLY ONCE A DAY TAKING QVAR 80 MCG/ACT AEROSOL SOLUTION 1 PUFF INHALATION TWICE A DAY, NOTES: WEEKS AGO TAKING FERROUS SULFATE 325 (65 FE) MG TABLET 1 TABLET ORALLY ONCE A DAY TAKING PROAIR HFA 108 (90 BASE) MCG/ACT AEROSOL SOLUTION 2 PUFFS NEEDED INHALATION QID PRN, NOTES: WEEKS AGO TAKING LISINOPRIL 10 MG TABLET 1 TABLET ORALLY ONCE A DAY TAKING PREVACID 30 MG CAPSULE DELAYED RELEASE 1 CAPSULE ORALLY ONCE A DAY TAKING BLOOD GLUCOSE TEST - STRIP DIRECTED SUBCUTANEOUSLY DAILY DX: E11.9 TAKING NASONEX 50 MCG/ACT SUSPENSION 2 SPRAYS IN EACH NOSTRIL NASALLY ONCE A DAY, NOTES: 0630 TAKING TRIAMTERENE-HCTZ 37.5-25 MG TABLET 1 TAB ORALLY DAILY, NOTES: 10/18/18 1800 TAKING TRAMADOL HCL 50 MG TABLET 1-2 TABLETS NEEDED ORALLY EVERY 4-6 HRS MAXIMUM 6 PER DAY TAKING ERGOCALCIFEROL 33191 UNIT CAPSULE 1 CAPSULE ORALLY ONCE A WEEK TAKING LEVOTHYROXINE SODIUM 100 MCG TABLET 1 TABLET ON AN EMPTY STOMACH IN THE MORNING ORALLY ONCE A DAY TAKING BUPROPION HCL 150 MG TABLET EXTENDED RELEASE 1 TAB ORALLY BID TAKING FOLIC ACID 1 MG TABLET 1 TABLET ORALLY ONCE A DAY TAKING CITALOPRAM HYDROBROMIDE 40 MG TABLET 1 TABLET ORALLY ONCE A DAY TAKING METFORMIN HCL ER 500 MG TABLET EXTENDED RELEASE 24 HOUR 1 TABLET WITH EVENING MEAL ORALLY AC DINNER TAKING ATORVASTATIN CALCIUM 20 MG TABLET 1 TABLET ORALLY ONCE A DAY TAKING MONTELUKAST SODIUM 10 MG TABLET 1 TABLET ORALLY AT BEDTIME NOT-TAKING TUMS ULTRA 1000 1000 MG TABLET CHEWABLE 4 TABLET ORALLY DAILY NOT-TAKING LANCETS - MISCELLANEOUS DIRECTED SUBCUTANEOUSLY DAILY DX: E11.9 NOT-TAKING GLUCOMETER DIRECTED DX: E11.9 BID NOT-TAKING TYLENOL EXTRA STRENGTH 500 MG TABLET 3TABLETS ORALLY TWICE DAILY MEDICATION LIST REVIEWED AND RECONCILED WITH THE PATIENT PAST MEDICAL HISTORY ASTHMA, MILD PERSISTENT ALLERGIC RHINITIS MDD/MORRO, H/O ETHOH ABUSE-NONE SINCE 04/2016 BLE LYMPHEDEMA/LIPEDEMA SUPER OBESITY S/P MEAGAN GB 09/2007-PRESURGICAL WEIGHT 650 GERD/H/O GASTRITIS DX BY PREVIOUS EGD CKD3-09/2017 NORMAL B RENAL US S EVIDENCE OF MINH VITAMIN B12/FA DEFICIENCY-09/2017 IF 1 (0-1), PARIETAL 34 (0-20) R>L MARKED ADVANCED KNEE OA BY 09/2017 XRAY VITAMIN D DEFICIENCY IRITABLE BOWEL SYNDROME, CONSTIPATION-TYPE MDD/MORRO TYPE II DIABETES LIPEDEMA CHRONIC KIDNEY DISEASE STAGE III ALLERGIES MORPHINE: NAUSEA/VOMITING: SIDE EFFECTS REGLAN: ANAPHYLAXIS: ALLERGY "CILLIANS": HIVES: SIDE EFFECTS Z-PACK: HIVES: SIDE EFFECTS SYMBICORT: THRUSH SEVERE: SIDE EFFECTS SURGICAL HISTORY GALLBLADDER/LIVER STONE REMOVAL 1989 GASTRIC BYPASS-DR.WOLF FRENCH 09/2007 FAMILY HISTORY FATHER: ALIVE, FIRST [place] AT 58Y, T2DM DX IN 70S, DIAGNOSED WITH DIABETES MOTHER: 57 YRS, FIRST [place] AT 37, 2 [place], HEAVY SMOKER/ETHOH, DIAGNOSED WITH HEART DISEASE, STROKE MATERNAL GRAND FATHER: DIAGNOSED WITH HEART DISEASE, CANCER 1 SISTER(S) . SISTER-SVT1/2 BROTHER-UNKNOWNNO CANCERS IN 1DRFATHER -DIAGNOSED WITH DM. SOCIAL HISTORY GENERAL: TOBACCO USE ARE YOU A:NONSMOKER BMI CARE GOAL FOLLOW-UP ABOVE NORMAL BMI FOLLOW-UPGIVING ENCOURAGEMENT TO EXERCISE ALCOHOL SCREENING DID YOU HAVE A DRINK CONTAINING ALCOHOL IN THE PAST YEAR?NO POINTS0 INTERPRETATIONNEGATIVE RECREATIONAL DRUG USE DRUG USE?NO PATIENT DENIES ABUSE OR MISSUSED OF ANY MEDICATION. PATIENT DENIES USE OF ANY ILLEGAL SUBSTANCE INCLUDING MARIJUANA OR COCAINE. CAFFEINE CAFFEINE USE?YES HOW OFTEN AND HOW MUCH? 2 CUPS OF COFFEE PER DAY SEXUAL HX HAD SEX IN THE LAST 12 MONTHS (VAGINAL, ORAL, OR ANAL)?NO HIV / HEP-C SCREENING HIV TEST OFFERED TO PATIENT:YES DATE OFFERED:08/25/2017 TEST ACCEPTED:NO REASON:PATIENT DECLINED HEP-C TEST OFFERED TO PATIENT:YES DATE OFFERED:08/25/2017 TEST ACCEPTED:NO REASON:PATIENT DECLINED YAZDANISM [id number] JEW NO ORTHODOXY BELIEFS THAT WOULD IMPACT HEALTH CARE. 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 MARITAL STATUS: . PAIN CLINIC PFS, CLERGY, PUBLIC HEALTH REFERRALS HAS THE PATIENT BEEN EDUCATED REGARDING HIS/HER PLAN OF CARE?YES HAS THE PATIENT BEEN EDUCATED REGARDING PAIN, THE RISK FOR PAIN, THE IMPORTANCE OF EFFECTIVE PAIN MANAGEMENT, AND THE PAIN ASSESSMENT PROCESS?YES ADVANCE DIRECTIVE ADVANCE DIRECTIVE DISCUSSED WITH PATIENT:YES HEALTH CARE PROXY DAMI WILLAMS [phone] LIVES C , DAMI WILLAMSREVIEWED WITH PT 08/01/18 1530 BVREVIEWED WITH PT 09/04/18 0910 LASREVIEWED WITH PATIENT 10/19/18 0915 JS. HOSPITALIZATION/MAJOR DIAGNOSTIC PROCEDURE SURGERIES REVIEW OF SYSTEMS REVIEWED BY: PROVIDER: TASHI GALEANO . CONSTITUTIONAL: ANY CHANGE IN YOUR MEDICAL CONDITION? NO . CHILLS NO . FEVER NO . INFECTION: DO YOU HAVE NEW INFECTIONS? NO . DO YOU HAVE HISTORY OF MRSA? NO . MUSCULOSKELETAL: ANY NEW PATTERNS OF PAIN OR NUMBNESS? NO . GASTROENTEROLOGY: ANY NEW CHANGE IN BOWEL CONTROL? NO . GENITOURINARY: ANY NEW CHANGE IN BLADDER CONTROL? NO . IS THERE A CHANCE YOU COULD BE ? NO . HEMATOLOGY/LYMPH: DO YOU TAKE ANY BLOOD THINNERS? (FOR EXAMPLE- COUMADIN, PLAVIX, AGGRENOX, PLATEL, PRADAXA, OR XARELTO) NO . WHEN WAS YOUR LAST DOSE? DATE: TIME: . NEUROLOGY: HAVE YOU FALLEN IN THE PAST 12 MONTHS? NO . ANY NEW EXTREMITY NUMBNESS OR WEAKNESS? NO . CARDIOLOGY: DO YOU HAVE A PACEMAKER OR DEFIBRILLATOR? NO . RESPIRATORY: HAVE YOU BEEN SICK IN THE PAST WEEK? NO . FEVER NO . FLU LIKE SYMPTOMS? NO . COUGH NO . INTEGUMENTARY: DO YOU HAVE ANY RASHES OR OPEN SORES? NO . ALLERGIC/IMMUNO: ARE YOU ALLERGIC TO IV DYE? NO . ANY NEW ALLERGIES? NO . PSYCHIATRIC: DO YOU HAVE THOUGHTS OF HURTING YOURSELF OR SOMEONE ELSE? NO . ARE YOU ABUSED, NEGLECTED, OR IN AN UNSAFE ENVIRONMENT? NO . ENDOCRINOLOGY: ARE YOU DIABETIC? YES . OTHER: DO YOU NEED ANY PRESCRIPTIONS? NO . IF YES, PLEASE LIST: ____ . ANY NEW PROBLEMS WITH YOUR MEDICATIONS? NO . WHEN DID YOU LAST EAT? ____ . WHEN DID YOU LAST DRINK? ____ . WHAT DID YOU LAST DRINK? ____ . NAME OF PERSON DRIVING YOU HOME? ____ . DO YOU HAVE ANY OTHER QUESTIONS OR CONCERNS NO . VITAL SIGNS WT 316 LBS, HT 66", BMI 51.00 INDEX, BP 111/58 MM HG, HR 90 /MIN, RR 18 /MIN, TEMP 98.6 F, OXYGEN SAT % 96%, NA INITIALS AW 1025, REVIEWED BY: KATIE. EXAMINATION GENERAL EXAMINATION: GENERAL APPEARANCE:AWAKE,ALERT ,PLEAASANT . PSYCHAFFECT NORMAL . LUNGS:LUNG SANDRA ARE CLEAR TO AUSCULTATION BILATERALLY. GOOD MOVEMENT OF AIR . HEART:S1, S2 IN A REGULAR RATE AND RHYTHM. NO SIGNIFICANT MURMURS, RUBS OR GALLOPS NOTED . LUMBAR SACRAL SPINEPALPATION: + FOR PAIN OVER L/S SPINE. + FOR PAIN OVER L/S PARASPINALS. NEUROLOGIC EXAM:NORMAL SENSATION LIGHT TOUCH BILAT. LOWER EXTREMITIES. ASSESSMENTS LUMBOSACRAL SPINAL STENOSIS - M48.07 TREATMENT LUMBOSACRAL SPINAL STENOSIS CONTINUE TRAMADOL HCL TABLET, 50 MG, 1-2 TABLETS NEEDED, ORALLY, EVERY 4-6 HRS MAXIMUM 6 PER DAY START GABAPENTIN CAPSULE, 100 MG, 1 CAPSULE, ORALLY, BID, 30 DAY(S), 60 CAPSULE, REFILLS 5 OTHERS NOTES: L4/5 LESI. PROCEDURE CODES FA211 ESTABILISHED PATIENT [facility] CHARGE DISPOSITION & COMMUNICATION FOLLOW UP POST (REASON: L4/5 LESI) ELECTRONICALLY SIGNED BY FROYLAN LEUNG ON 01/26/2019 AT 01:45 PM EST DISCLAIMER : THIS IS A VISIT SUMMARY EXTRACTED FROM THE [employer] CHART. IT IS NOT A COPY OF THE [employer] PROGRESS NOTE. JAKID
== END ==
LOC: M PAIN 10:45
PROVIDERS: ATTEND Nurse Practitioner Family
DX: M48.07 Spinal stenosis, lumbosacral region (principal); G89.29 Other chronic pain; E11.22 Type 2 diabetes mellitus with diabetic chronic kidney disease; J45.30 Mild persistent asthma, uncomplicated; I12.9 Hypertensive chronic kidney disease with stage 1 through stage 4 chronic kidney disease, or unspecified chronic kidney disease; N18.3 Chronic kidney disease, stage 3 (moderate); F10.10 Alcohol abuse, uncomplicated; K21.9 Gastro-esophageal reflux disease without esophagitis; E66.01 Morbid (severe) obesity due to excess calories; Z68.43 Body mass index [BMI] 50.0-59.9, adult; Z79.84 Long term (current) use of oral hypoglycemic drugs; Z79.899 Other long term (current) drug therapy; Z88.5 Allergy status to narcotic agent; Z88.1 Allergy status to other antibiotic agents; Z88.8 Allergy status to other drugs, medicaments and biological substances; Z98.84 Bariatric surgery status

== ENCOUNTER → 2019-02-06 | Outpatient (CLI) | payer OTHER ==
[~2019-02-06] MED LIST changes: -ISOVUE-M 300 61% 15ML VIAL (Q9967) As Ordered; +ISOVUE-M 300 61% 15ML VIAL (Q9967) As Ordered ONE; -LIDOCAINE 1% SDV INJ 30 ML VIAL As Ordered; +LIDOCAINE 1% SDV INJ 30 ML VIAL As Ordered ONE; -diazePAM 5 MG TAB As Ordered; +diazePAM 5 MG TAB As Ordered ONE; -methylPREDNISolone SUSP 40 MG/ML (DEPO-medrol) VIAL (J1030) As Ordered; +methylPREDNISolone SUSP 40 MG/ML (DEPO-medrol) VIAL (J1030) As Ordered ONE; -oxyCODONE 5MG TAB As Ordered; +oxyCODONE 5MG TAB As Ordered ONE
--- NOTE | 2019-02-06 12:41 | REP ---
Partial lumbar spine series: Three views . History: Injection procedure for pain. 12 seconds of fluoroscopy time is reported. Findings: A sequence of three fluoroscopically obtained last image hold procedural spot radiographs of the lumbar spine document needle position and contrast injection associated with injection procedure. Electronically Signed by Arnulfo Alva MD 02/06/2019 12:33 P
--- NOTE | 2019-02-16 01:13 | ECWPNPC ---
PATIENT NAME: MUNIR WILLAMS : 1960 GENDER: FEMALE VISIT DATE: 02/06/2019 DISCHARGE DATE: 02/06/19 1056 VISIT LOCKED DATE TIME: PHYSICIAN: CHRISTY SALINAS MD PHYSICIAN PAGER NO: [phone] RESOURCE: CHRISTY SALINAS MD REASON FOR APPOINTMENT 1. LESI HISTORY OF PRESENT ILLNESS HISTORY OF PRESENT ILLNESS: PAIN THE PATIENT DESCRIBES THE PAIN... FALL RISK SCREENING: SCREENING : NO FALLS IN THE PAST YEAR. CURRENT MEDICATIONS TAKING PREVACID 30 MG CAPSULE DELAYED RELEASE 1 CAPSULE ORALLY ONCE A DAY, NOTES: 02/05/19 TAKING CLARISPRAY 50 MCG/ACT SUSPENSION 2 SPRAYS IN EACH NOSTRIL NASALLY TWICE DAILY, NOTES: 02/05/19 TAKING NASONEX 50 MCG/ACT SUSPENSION 2 SPRAYS IN EACH NOSTRIL NASALLY ONCE A DAY, NOTES: 02/05/19 TAKING TRIAMTERENE-HCTZ 37.5-25 MG TABLET 1 TAB ORALLY DAILY, NOTES: 02/05/19 TAKING ATORVASTATIN CALCIUM 20 MG TABLET 1 TABLET ORALLY ONCE A DAY, NOTES: 02/05/19 TAKING FOLIC ACID 1 MG TABLET 1 TABLET ORALLY ONCE A DAY, NOTES: 02/05/19 TAKING ERGOCALCIFEROL 56019 UNIT CAPSULE 1 CAPSULE ORALLY ONCE A WEEK, NOTES: TUESDAY TAKING TUMS ULTRA 1000 1000 MG TABLET CHEWABLE 1 TABLET ORALLY ONCE A DAY, NOTES: 02/05/19 TAKING METFORMIN HCL ER 500 MG TABLET EXTENDED RELEASE 24 HOUR 1 TABLET WITH EVENING MEAL ORALLY AC DINNER, NOTES: 02/05/19 TAKING CYANOCOBALAMIN 500 MCG TABLET 1 TABLET ORALLY ONCE A DAY, NOTES: 02/05/19 TAKING FERROUS SULFATE 325 (65 FE) MG TABLET 1 TABLET ORALLY EVER OTHER DAY, NOTES: 02/05/19 TAKING LEVOTHYROXINE SODIUM 100 MCG TABLET 1 TABLET ON AN EMPTY STOMACH IN THE MORNING ORALLY ONCE A DAY, NOTES: 02/05/19 TAKING QVAR 80 MCG/ACT AEROSOL SOLUTION 1 PUFF INHALATION TWICE A DAY, NOTES: NONE LATELY TAKING PROAIR HFA 108 (90 BASE) MCG/ACT AEROSOL SOLUTION 2 PUFFS NEEDED INHALATION QID PRN, NOTES: NONE LATELY TAKING MONTELUKAST SODIUM 10 MG TABLET 1 TABLET ORALLY AT BEDTIME, NOTES: 02/05/19 TAKING CITALOPRAM HYDROBROMIDE 40 MG TABLET 1 TABLET ORALLY ONCE A DAY, NOTES: 02/05/19 TAKING BUPROPION HCL 150 MG TABLET EXTENDED RELEASE 1 TAB ORALLY BID, NOTES: 02/05/19 TAKING TRAMADOL HCL 50 MG TABLET 1-2 TABLETS NEEDED ORALLY EVERY 4-6 HRS MAXIMUM 6 PER DAY, NOTES: 02/05/19 TAKING PREVACID 30 MG CAPSULE DELAYED RELEASE 1 CAPSULE ORALLY ONCE A DAY, NOTES: 02/05/19 TAKING BLOOD GLUCOSE TEST - STRIP DIRECTED SUBCUTANEOUSLY DAILY DX: E11.9 TAKING LISINOPRIL 10 MG TABLET 1 TABLET ORALLY ONCE A DAY, NOTES: 02/05/19 NOT-TAKING TYLENOL EXTRA STRENGTH 500 MG TABLET 3TABLETS ORALLY TWICE DAILY DISCONTINUED GABAPENTIN 100 MG CAPSULE 1 CAPSULE ORALLY BID DISCONTINUED NASONEX 50 MCG/ACT SUSPENSION 2 SPRAYS IN EACH NOSTRIL NASALLY ONCE A DAY, NOTES: 0630 DISCONTINUED TRIAMTERENE-HCTZ 37.5-25 MG TABLET 1 TAB ORALLY DAILY, NOTES: 10/18/18 1800 DISCONTINUED ERGOCALCIFEROL 09806 UNIT CAPSULE 1 CAPSULE ORALLY ONCE A WEEK DISCONTINUED LEVOTHYROXINE SODIUM 100 MCG TABLET 1 TABLET ON AN EMPTY STOMACH IN THE MORNING ORALLY ONCE A DAY DISCONTINUED CITALOPRAM HYDROBROMIDE 40 MG TABLET 1 TABLET ORALLY ONCE A DAY DISCONTINUED METFORMIN HCL ER 500 MG TABLET EXTENDED RELEASE 24 HOUR 1 TABLET WITH EVENING MEAL ORALLY AC DINNER DISCONTINUED MONTELUKAST SODIUM 10 MG TABLET 1 TABLET ORALLY AT BEDTIME MEDICATION LIST REVIEWED AND RECONCILED WITH THE PATIENT PAST MEDICAL HISTORY ASTHMA, MILD PERSISTENT ALLERGIC RHINITIS MDD/MORRO, H/O ETHOH ABUSE-NONE SINCE 04/2016 BLE LYMPHEDEMA/LIPEDEMA SUPER OBESITY S/P MEAGAN GB 09/2007-PRESURGICAL WEIGHT 650 GERD/H/O GASTRITIS DX BY PREVIOUS EGD CKD3-09/2017 NORMAL B RENAL US S EVIDENCE OF MINH VITAMIN B12/FA DEFICIENCY-09/2017 IF 1 (0-1), PARIETAL 34 (0-20) R>L MARKED ADVANCED KNEE OA BY 09/2017 XRAY VITAMIN D DEFICIENCY IRITABLE BOWEL SYNDROME, CONSTIPATION-TYPE MDD/MORRO TYPE II DIABETES LIPEDEMA CHRONIC KIDNEY DISEASE STAGE III 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, SEVERE L3/4 C GRADE 1 LITHESIS C B L3 COMPRESSION, MILD L4/5 C GRADE 1 LITHESIS, B L5 COMPRESSION IN NF BY 06/2018 MRI ALLERGIES MORPHINE: NAUSEA/VOMITING - SIDE EFFECTS REGLAN: ANAPHYLAXIS - ALLERGY "CILLIANS": HIVES - SIDE EFFECTS Z-PACK: HIVES - SIDE EFFECTS SYMBICORT: THRUSH SEVERE - SIDE EFFECTS SURGICAL HISTORY GALLBLADDER/LIVER STONE REMOVAL 1989 GASTRIC BYPASS-DR.WOLF FRENCH 09/2007 FAMILY HISTORY FATHER: ALIVE, FIRST [place] AT 58Y, T2DM DX IN 70S, DIAGNOSED WITH DIABETES MOTHER: 57 YRS, FIRST AL AT 37, 2 [place], HEAVY SMOKER/ETHOH, STROKE, HEART DISEASE MATERNAL GRAND FATHER: HEART DISEASE, CANCER 1 SISTER(S) . SISTER-SVT\\N1\\/2 BROTHER-UNKNOWN\\N\\NNO CANCERS IN 1DR\\NFATHER -DIAGNOSED WITH DM. SOCIAL HISTORY GENERAL: TOBACCO USE ARE YOU A:NONSMOKER BMI CARE GOAL FOLLOW-UP ABOVE NORMAL BMI FOLLOW-UPGIVING ENCOURAGEMENT TO EXERCISE ALCOHOL SCREENING DID YOU HAVE A DRINK CONTAINING ALCOHOL IN THE PAST YEAR?NO POINTS0 INTERPRETATIONNEGATIVE RECREATIONAL DRUG USE DRUG USE?NO PATIENT DENIES ABUSE OR MISSUSED OF ANY MEDICATION. PATIENT DENIES USE OF ANY ILLEGAL SUBSTANCE INCLUDING MARIJUANA OR COCAINE. CAFFEINE CAFFEINE USE?YES HOW OFTEN AND HOW MUCH? 2 CUPS OF COFFEE PER DAY SEXUAL HX HAD SEX IN THE LAST 12 MONTHS (VAGINAL, ORAL, OR ANAL)?NO HIV / HEP-C SCREENING HIV TEST OFFERED TO PATIENT:YES DATE OFFERED:08/25/2017 TEST ACCEPTED:NO HEP-C TEST OFFERED TO PATIENT:YES DATE OFFERED:08/25/2017 REASON:PATIENT DECLINED TEST ACCEPTED:NO REASON:PATIENT DECLINED MU-ISM [id number] NO BAHAI BELIEFS THAT WOULD IMPACT HEALTH CARE. 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 MARITAL STATUS: . PAIN CLINIC PFS, CLERGY, PUBLIC HEALTH REFERRALS HAS THE PATIENT BEEN EDUCATED REGARDING HIS/HER PLAN OF CARE?YES HAS THE PATIENT BEEN EDUCATED REGARDING PAIN, THE RISK FOR PAIN, THE IMPORTANCE OF EFFECTIVE PAIN MANAGEMENT, AND THE PAIN ASSESSMENT PROCESS?YES ADVANCE DIRECTIVE ADVANCE DIRECTIVE DISCUSSED WITH PATIENT:YES HEALTH CARE PROXY DAMI WILLAMS [phone] LIVES [facility] , DAMI WILLAMSREVIEWED WITH PT 08/01/18 1530 BVREVIEWED WITH PT 09/04/18 0910 LASREVIEWED WITH PATIENT 10/19/18 0915 JS. HOSPITALIZATION/MAJOR DIAGNOSTIC PROCEDURE SURGERIES REVIEW OF SYSTEMS REVIEWED BY: PROVIDER: . CONSTITUTIONAL: ANY CHANGE IN YOUR MEDICAL CONDITION? NO . CHILLS NO . FEVER NO . INFECTION: DO YOU HAVE NEW INFECTIONS? NO . DO YOU HAVE HISTORY OF MRSA? NO . MUSCULOSKELETAL: ANY NEW PATTERNS OF PAIN OR NUMBNESS? NO . GASTROENTEROLOGY: ANY NEW CHANGE IN BOWEL CONTROL? NO . GENITOURINARY: ANY NEW CHANGE IN BLADDER CONTROL? NO . IS THERE A CHANCE YOU COULD BE ? NO . HEMATOLOGY/LYMPH: DO YOU TAKE ANY BLOOD THINNERS? (FOR EXAMPLE- COUMADIN, PLAVIX, AGGRENOX, PLATEL, PRADAXA, OR XARELTO) NO . WHEN WAS YOUR LAST DOSE? DATE: TIME: . NEUROLOGY: HAVE YOU FALLEN IN THE PAST 12 MONTHS? NO . ANY NEW EXTREMITY NUMBNESS OR WEAKNESS? NO . CARDIOLOGY: DO YOU HAVE A PACEMAKER OR DEFIBRILLATOR? NO . RESPIRATORY: HAVE YOU BEEN SICK IN THE PAST WEEK? NO . FEVER NO . FLU LIKE SYMPTOMS? NO . COUGH NO . INTEGUMENTARY: DO YOU HAVE ANY RASHES OR OPEN SORES? NO . ALLERGIC/IMMUNO: ARE YOU ALLERGIC TO IV DYE? NO . ANY NEW ALLERGIES? NO . PSYCHIATRIC: DO YOU HAVE THOUGHTS OF HURTING YOURSELF OR SOMEONE ELSE? NO . ARE YOU ABUSED, NEGLECTED, OR IN AN UNSAFE ENVIRONMENT? NO . ENDOCRINOLOGY: ARE YOU DIABETIC? NO . OTHER: DO YOU NEED ANY PRESCRIPTIONS? NO . IF YES, PLEASE LIST: ____ . ANY NEW PROBLEMS WITH YOUR MEDICATIONS? NO . WHEN DID YOU LAST EAT? 02/05/19 1800 . WHEN DID YOU LAST DRINK? 02/05/19 1800 . WHAT DID YOU LAST DRINK? WATER . NAME OF PERSON DRIVING YOU HOME? . DO YOU HAVE ANY OTHER QUESTIONS OR CONCERNS NO . VITAL SIGNS WT 303.2 LBS, HT 66", BMI 48.93 INDEX, BP 117/69 MM HG, HR 85 /MIN, RR 18 /MIN, TEMP 97.2 F, OXYGEN SAT % 100%, NA INITIALS SC 09:14, REVIEWED BY: KATIE. ASSESSMENTS LUMBOSACRAL SPINAL STENOSIS - M48.07 (PRIMARY) INTERVERTEBRAL DISC DISORDER WITH RADICULOPATHY OF LUMBOSACRAL REGION - M51.17 TREATMENT LUMBOSACRAL SPINAL STENOSIS [facility] FLUORO GUIDE SPINE INJECTION (PAIN)[id number] PROCEDURES PRE PROCEDURE DIAGNOSIS LUMBOSACRAL SPINAL STENOSIS, LUMBOSACRAL DISC DISORDER WITH RADICULOPATHY POST PROCEDURE DIAGNOSIS LUMBOSACRAL SPINAL STENOSIS , LUMBOSACRAL DISC DISORDER WITH RADICULOPATHY PROCEDURE LUMBAR EPIDURAL STEROID INJECTION UNDER FLUOROSCOPIC GUIDANCE SURGEON DR. CHRISTY SALINAS TABLE SAW OPERATOR NONE ANESTHESIA LOCAL PRE PROCEDURE NOTE THE PATIENT HAS A HISTORY OF CHRONIC LOW BACK PAIN. I EVALUATE THE PATIENT AND REVIEWED THE CHART. I WENT OVER THE RISKS, ALTERNATIVES, AND BENEFITS ASSOCIATED WITH THIS PROCEDURE. THE PATIENT WOULD LIKE TO PROCEED AND GIVE CONSENT TO PERFORMED THE PROCEDURE. THE PATIENT DENIES UNEXPLAINABLE WEIGHT LOSS, FEVER, CHILLS, OR NEW CHANGES IN URINARY OR BOWEL CONTROL. DESCRIPTION OF PROCEDURE THE PATIENT WAS BROUGHT TO THE PROCEDURE ROOM AND PLACED IN THE PRONE POSITION. THE LUMBOSACRAL AREA WAS CLEANED WITH BETADINE SOLUTION AND DRAPED ASEPTICALLY. THE PROCEDURE WAS DONE UNDER STERILE CONDITIONS. I CHECKED LATERALITY AND THE LEVEL WHERE THE PROCEDURE WAS GOING TO BE PERFORMED WITH THE PATIENT AND THE SUPPORTING STAFF AT THE MOMENT OF THE TIME OUT IN THE PROCEDURE ROOM. UNDER FLUOROSCOPIC GUIDANCE, THE TARGET POINT WAS SELECTED AT THE INTERLAMINAR LEVEL OF L5-S1. LIDOCAINE WAS USED TO NUMB THE SKIN AND THE SUBCUTANEOUS TISSUE BELOW IT. EPIDURAL TUOHY NEEDLE, 17-GAUGE, WAS ADVANCED UNDER FLUOROSCOPIC GUIDANCE AND FOLLOWING PATIENT FEEDBACK UNTIL THE EPIDURAL SPACE WAS REACHED, 7 CM DEEP INTO THE SKIN BY THE LOSS OF RESISTANCE TECHNIQUE. ISOVUE M DYE 30%, 0.25 ML, WAS INJECTED SHOWING ADEQUATE SPREAD OF THE DYE. THEN, A SOLUTION OF 3 ML OF NORMAL SALINE WITH DEPO-MEDROL 60 MG WAS INJECTED SLOWLY FOLLOWING PATIENT FEEDBACK. THERE WAS NO EVIDENCE OF BLOOD, PARESTHESIA OR CEREBROSPINAL FLUID DURING THE PROCEDURE. THE PATIENT WAS SENT TO THE RECOVERY ROOM. THE PATIENT WAS MOVING THE EXTREMITIES AND DOING WELL. THERE WAS NO COMPLICATION DURING THE PROCEDURE. FLUOROSCOPY TIME WAS 12 SECONDS. POST PROCEDURE NOTE THE PATIENT WILL BE SEEN IN A FOLLOW UP IN THE NEXT FEW WEEKS. INSTRUCTIONS WERE GIVEN, QUESTIONS WERE ANSWERED, AND THE PATIENT EXPRESSED UNDERSTANDING AND AGREES WITH THE PLAN. I, SAMANTHA STALEY, DOCUMENTED THE ABOVE INFORMATION ACTING A SCRIBE FOR DR. SALINAS. I HAVE REVIEWED THE ABOVE DOCUMENT, WRITTEN BY SAMANTHA SILVER AND I VERIFY THAT IT IS ACCURATE. PROCEDURE CODES 6045F RADXPS IN END [id number] PXD [id number] LUMBAR/SACRAL W/ IMAGING DISPOSITION & COMMUNICATION FOLLOW UP 2 WEEKS ELECTRONICALLY SIGNED BY CHRISTY SALINAS MD, MD ON 02/15/2019 AT 09:27 AM EDT DISCLAIMER : THIS IS A VISIT SUMMARY EXTRACTED FROM THE [employer] CHART. IT IS NOT A COPY OF THE [employer] PROGRESS NOTE. MTDD
== END ==
LOC: M PAIN 08:30
PROVIDERS: ATTEND Anesthesiology
DX: G89.29 Other chronic pain (principal); M48.07 Spinal stenosis, lumbosacral region; M51.17 Intervertebral disc disorders with radiculopathy, lumbosacral region; N18.3 Chronic kidney disease, stage 3 (moderate); E11.22 Type 2 diabetes mellitus with diabetic chronic kidney disease; J45.909 Unspecified asthma, uncomplicated; I12.9 Hypertensive chronic kidney disease with stage 1 through stage 4 chronic kidney disease, or unspecified chronic kidney disease; K21.9 Gastro-esophageal reflux disease without esophagitis; E66.01 Morbid (severe) obesity due to excess calories; Z68.42 Body mass index [BMI] 45.0-49.9, adult; Z79.84 Long term (current) use of oral hypoglycemic drugs; Z79.899 Other long term (current) drug therapy; Z88.1 Allergy status to other antibiotic agents; Z88.5 Allergy status to narcotic agent; Z88.8 Allergy status to other drugs, medicaments and biological substances; Z86.59 Personal history of other mental and behavioral disorders
CPT/HCPCS: 62323; J1030; Q9967

== ENCOUNTER → 2019-03-09 | Outpatient (CLI) | payer OTHER ==
--- NOTE | 2019-03-09 07:54 | REP ---
Abdominal aorta ultrasound: Abdominal Aortic Measurements are as follows: Proximal 2.2 cm AP 2.5 cm TRV Renal Artery Level 2.1 cm AP 2.4 cm TRV Mid Aorta 2.0 cm AP 1.9 cm TRV Distal Aorta 1.8 cm AP 2.0 cm TRV R Iliac Artery 0.9 cm AP 1.0 cm TRV L Iliac Artery 1.0 cm AP 1.1 cm TRV Impression: There is no abdominal aortic aneurysm. There is occasional shallow atheromatous plaque. Electronically Signed by J Carlos Lawrence MD 03/09/2019 07:46 A
== END ==
LOC: M RAD 07:02
PROVIDERS: ATTEND Surgery Vascular Surgery
DX: Z86.79 Personal history of other diseases of the circulatory system (principal)

== ENCOUNTER → 2019-03-12 | Outpatient (CLI) | payer OTHER ==
--- NOTE | 2019-03-28 01:23 | ECWPNPC ---
PATIENT NAME: MUNIR WILLAMS : 1960 GENDER: FEMALE VISIT DATE: 03/12/2019 DISCHARGE DATE: 03/12/19 1008 VISIT LOCKED DATE TIME: PHYSICIAN: TASHI RODRIGUEZ PHYSICIAN PAGER NO: [phone] RESOURCE: TASHI RODRIGUEZ REASON FOR APPOINTMENT 1. POST PROC HISTORY OF PRESENT ILLNESS HISTORY OF PRESENT ILLNESS: HERE FOR POST PROCEDURE F/U.HAD L4/5 LESI ON 02-06-19.REPORTING 100 PERCENT REDUCTION IN PAIN X4 WEEKS THEN PAIN HAS ESCALATED OVER THE PAST 4 DAYS.RATING PAIN VAS 10/10.USING TRAMADO 50MG PRN FOR SEVERE PAIN WITHOUT IMPROVEMENT.GABAPENTIN 100MG TID STARTED AT LAST VISIT AND SHE STOPPED THIS DUE TO LOWER EXTREMITY SWELLING.DISCUSSED MEDICATION AND TREATMENT OPTIONS. PAIN THE PATIENT DESCRIBES THE PAIN... THE PATIENT DESCRIBES THE PAIN... FALL RISK SCREENING: SCREENING :NO FALLS REPORTED IN THE LAST YEAR CURRENT MEDICATIONS TAKING PREVACID 30 MG CAPSULE DELAYED RELEASE 1 CAPSULE ORALLY ONCE A DAY TAKING CLARISPRAY 50 MCG/ACT SUSPENSION 2 SPRAYS IN EACH NOSTRIL NASALLY TWICE DAILY TAKING NASONEX 50 MCG/ACT SUSPENSION 2 SPRAYS IN EACH NOSTRIL NASALLY ONCE A DAY TAKING ATORVASTATIN CALCIUM 20 MG TABLET 1 TABLET ORALLY ONCE A DAY TAKING FOLIC ACID 1 MG TABLET 1 TABLET ORALLY ONCE A DAY TAKING ERGOCALCIFEROL 04806 UNIT CAPSULE 1 CAPSULE ORALLY ONCE A WEEK TAKING TUMS ULTRA 1000 1000 MG TABLET CHEWABLE 1 TABLET ORALLY ONCE A DAY TAKING METFORMIN HCL ER 500 MG TABLET EXTENDED RELEASE 24 HOUR 1 TABLET WITH EVENING MEAL ORALLY AC DINNER TAKING CYANOCOBALAMIN 500 MCG TABLET 1 TABLET ORALLY ONCE A DAY TAKING FERROUS SULFATE 325 (65 FE) MG TABLET 1 TABLET ORALLY EVER OTHER DAY TAKING LEVOTHYROXINE SODIUM 100 MCG TABLET 1 TABLET ON AN EMPTY STOMACH IN THE MORNING ORALLY ONCE A DAY TAKING QVAR 80 MCG/ACT AEROSOL SOLUTION 1 PUFF INHALATION TWICE A DAY TAKING PROAIR HFA 108 (90 BASE) MCG/ACT AEROSOL SOLUTION 2 PUFFS NEEDED INHALATION QID PRN TAKING MONTELUKAST SODIUM 10 MG TABLET 1 TABLET ORALLY AT BEDTIME TAKING BUPROPION HCL 150 MG TABLET EXTENDED RELEASE 1 TAB ORALLY BID TAKING TRAMADOL HCL 50 MG TABLET 1-2 TABLETS NEEDED ORALLY EVERY 4-6 HRS MAXIMUM 6 PER DAY TAKING PREVACID 30 MG CAPSULE DELAYED RELEASE 1 CAPSULE ORALLY ONCE A DAY TAKING BLOOD GLUCOSE TEST - STRIP DIRECTED SUBCUTANEOUSLY DAILY DX: E11.9 TAKING LISINOPRIL 10 MG TABLET 1 TABLET ORALLY ONCE A DAY TAKING TRIAMTERENE-HCTZ 37.5-25 MG TABLET 1 TAB ORALLY DAILY TAKING CITALOPRAM HYDROBROMIDE 40 MG TABLET 1 TABLET ORALLY ONCE A DAY NOT-TAKING TYLENOL EXTRA STRENGTH 500 MG TABLET 3TABLETS ORALLY TWICE DAILY MEDICATION LIST REVIEWED AND RECONCILED WITH THE PATIENT PAST MEDICAL HISTORY ASTHMA, MILD PERSISTENT ALLERGIC RHINITIS MDD/MORRO, H/O ETHOH ABUSE-NONE SINCE 04/2016 BLE LYMPHEDEMA/LIPEDEMA SUPER OBESITY S/P MEAGAN GB 09/2007-PRESURGICAL WEIGHT 650 GERD/H/O GASTRITIS DX BY PREVIOUS EGD CKD3-09/2017 NORMAL B RENAL US S EVIDENCE OF MINH VITAMIN B12/FA DEFICIENCY-09/2017 IF 1 (0-1), PARIETAL 34 (0-20) R>L MARKED ADVANCED KNEE OA BY 09/2017 XRAY VITAMIN D DEFICIENCY IRITABLE BOWEL SYNDROME, CONSTIPATION-TYPE MDD/MORRO TYPE II DIABETES LIPEDEMA CHRONIC KIDNEY DISEASE STAGE III 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, SEVERE L3/4 C GRADE 1 LITHESIS C B L3 COMPRESSION, MILD L4/5 C GRADE 1 LITHESIS, B L5 COMPRESSION IN NF BY 06/2018 MRI ALLERGIES MORPHINE: NAUSEA/VOMITING - SIDE EFFECTS REGLAN: ANAPHYLAXIS - ALLERGY "CILLIANS": HIVES - SIDE EFFECTS Z-PACK: HIVES - SIDE EFFECTS SYMBICORT: THRUSH SEVERE - SIDE EFFECTS SURGICAL HISTORY GALLBLADDER/LIVER STONE REMOVAL 1989 GASTRIC BYPASS-DR.WOLF FRENCH 09/2007 FAMILY HISTORY FATHER: ALIVE, FIRST [place] AT 58Y, T2DM DX IN 70S, DIAGNOSED WITH DIABETES MOTHER: 57 YRS, FIRST WI AT 37, 2 WI, HEAVY SMOKER/ETHOH, STROKE, HEART DISEASE MATERNAL GRAND FATHER: HEART DISEASE, CANCER 1 SISTER(S) . SISTER-SVT\\\\N1\\\\\\/2 BROTHER-UNKNOWN\\\\N\\\\NNO CANCERS IN 1DR\\\\NFATHER -DIAGNOSED WITH DM. SOCIAL HISTORY GENERAL: TOBACCO USE ARE YOU A:NONSMOKER LATEX QUESTIONNAIRE LATEX ALLERGY : HAVE YOU EVER DEVELOPED ANY TYPE OF REACTION AFTER HANDLING LATEX PRODUCTS SUCH RUBBER GLOVES, CONDOMS, DIAPHRAGMS, BALLOONS, SOCKS, OR UNDERWEAR?NO LATEX ALLERGY : HAVE YOU EVER DEVELOPED ANY TYPE OF REACTION DURING OR AFTER DENTAL APPOINTMENT, VAGINAL/RECTAL EXAMINATION, SURGICAL PROCEDURE, OR ANY OTHER EXPOSURE?NO LATEX RISK : HAVE YOU EVER HAD ANY DIFFICULTY BREATHING OR HIVES AFTER EATING OR HANDLING ANY FRUITS, OR VEGETABLES; SUCH KIWI, BANANAS, STONE FRUITS, OR CHESTNUTSNO LATEX RISK : DO YOU HAVE A PREVIOUS PERSONAL HISTORY OF MORE THAN NINE SURGERIES, SPINA BIFIDA, OR REPEATED CATHERTIZATIONS? NO LATEX RISK : ARE YOU FREQUENTLY EXPOSED TO LATEX PRODUCTS IN YOUR OCCUPATION?NO DATE ASKED : 03/12/2019 BMI CARE GOAL FOLLOW-UP ABOVE NORMAL BMI FOLLOW-UPGIVING ENCOURAGEMENT TO EXERCISE ALCOHOL SCREENING DID YOU HAVE A DRINK CONTAINING ALCOHOL IN THE PAST YEAR?NO POINTS0 INTERPRETATIONNEGATIVE RECREATIONAL DRUG USE DRUG USE?NO PATIENT DENIES ABUSE OR MISSUSED OF ANY MEDICATION. PATIENT DENIES USE OF ANY ILLEGAL SUBSTANCE INCLUDING MARIJUANA OR COCAINE. CAFFEINE CAFFEINE USE?YES HOW OFTEN AND HOW MUCH? 2 CUPS OF COFFEE PER DAY SEXUAL HX HAD SEX IN THE LAST 12 MONTHS (VAGINAL, ORAL, OR ANAL)?NO HIV / HEP-C SCREENING HIV TEST OFFERED TO PATIENT:YES DATE OFFERED:08/25/2017 TEST ACCEPTED:NO HEP-C TEST OFFERED TO PATIENT:YES DATE OFFERED:08/25/2017 REASON:PATIENT DECLINED TEST ACCEPTED:NO REASON:PATIENT DECLINED MORMONISM [id number] YARS[employer] NO YAZIDI BELIEFS THAT WOULD IMPACT HEALTH CARE. 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 MARITAL STATUS: . PAIN CLINIC PFS, CLERGY, PUBLIC HEALTH REFERRALS HAS THE PATIENT BEEN EDUCATED REGARDING HIS/HER PLAN OF CARE?YES HAS THE PATIENT BEEN EDUCATED REGARDING PAIN, THE RISK FOR PAIN, THE IMPORTANCE OF EFFECTIVE PAIN MANAGEMENT, AND THE PAIN ASSESSMENT PROCESS?YES ADVANCE DIRECTIVE ADVANCE DIRECTIVE DISCUSSED WITH PATIENT:YES HEALTH CARE PROXY DAMI WILLAMS [phone] LIVES [facility] , DAMI WILLAMSREVIEWED WITH PT 08/01/18 1530 BVREVIEWED WITH PT 09/04/18 0910 LASREVIEWED WITH PATIENT 10/19/18 0915 JS REVIEWED WITH PATIENT 03/12/19 5560 KASEY. HOSPITALIZATION/MAJOR DIAGNOSTIC PROCEDURE SURGERIES REVIEW OF SYSTEMS REVIEWED BY: PROVIDER: TASHI GALEANO . CONSTITUTIONAL: ANY CHANGE IN YOUR MEDICAL CONDITION? NO . CHILLS NO . FEVER NO . INFECTION: DO YOU HAVE NEW INFECTIONS? NO . DO YOU HAVE HISTORY OF MRSA? NO . MUSCULOSKELETAL: ANY NEW PATTERNS OF PAIN OR NUMBNESS? NO . GASTROENTEROLOGY: ANY NEW CHANGE IN BOWEL CONTROL? NO . GENITOURINARY: ANY NEW CHANGE IN BLADDER CONTROL? NO . IS THERE A CHANCE YOU COULD BE ? NO . HEMATOLOGY/LYMPH: DO YOU TAKE ANY BLOOD THINNERS? (FOR EXAMPLE- COUMADIN, PLAVIX, AGGRENOX, PLATEL, PRADAXA, OR XARELTO) NO . WHEN WAS YOUR LAST DOSE? DATE: TIME: . NEUROLOGY: HAVE YOU FALLEN IN THE PAST 12 MONTHS? NO . ANY NEW EXTREMITY NUMBNESS OR WEAKNESS? NO . CARDIOLOGY: DO YOU HAVE A PACEMAKER OR DEFIBRILLATOR? NO . RESPIRATORY: HAVE YOU BEEN SICK IN THE PAST WEEK? NO . FEVER NO . FLU LIKE SYMPTOMS? NO . COUGH NO . INTEGUMENTARY: DO YOU HAVE ANY RASHES OR OPEN SORES? NO . ALLERGIC/IMMUNO: ARE YOU ALLERGIC TO IV DYE? NO . ANY NEW ALLERGIES? NO . PSYCHIATRIC: DO YOU HAVE THOUGHTS OF HURTING YOURSELF OR SOMEONE ELSE? NO . ARE YOU ABUSED, NEGLECTED, OR IN AN UNSAFE ENVIRONMENT? NO . ENDOCRINOLOGY: ARE YOU DIABETIC? YES . OTHER: DO YOU NEED ANY PRESCRIPTIONS? NO . IF YES, PLEASE LIST: ____ . ANY NEW PROBLEMS WITH YOUR MEDICATIONS? YES, TOOK THE GABAPENTIN FOR ABOUT 1 WEEK, CAUSED INCREASED LEG SWELLING SO SHE STOPPED THE MEDICATION . WHEN DID YOU LAST EAT? ____ . WHEN DID YOU LAST DRINK? ____ . WHAT DID YOU LAST DRINK? ____ . NAME OF PERSON DRIVING YOU HOME? ____ . DO YOU HAVE ANY OTHER QUESTIONS OR CONCERNS YES, STATES THE TRAMADOL NO LONGER HELPING WITH THE PAIN AT ALL . VITAL SIGNS WT 296.4 LBS, HT 66", BMI 47.83 INDEX, BP 112/72 MM HG, HR 88 /MIN, RR 18 /MIN, TEMP 96.4 F, OXYGEN SAT % 98%, SAFE IN ENV? (Y/N) YES, NA INITIALS KS 09:58, REVIEWED BY: KASEY. EXAMINATION GENERAL EXAMINATION: GENERAL APPEARANCE:AWAKE,ALERT ,PLEAASANT . PSYCHAFFECT NORMAL . LUNGS:LUNG SANDRA ARE CLEAR TO AUSCULTATION BILATERALLY. GOOD MOVEMENT OF AIR . HEART:S1, S2 IN A REGULAR RATE AND RHYTHM. NO SIGNIFICANT MURMURS, RUBS OR GALLOPS NOTED . LUMBAR SACRAL SPINEPALPATION: + FOR PAIN OVER L/S SPINE. + FOR PAIN OVER L/S PARASPINALS. NEUROLOGIC EXAM:NORMAL SENSATION LIGHT TOUCH BILAT. LOWER EXTREMITIES. ASSESSMENTS LUMBOSACRAL SPINAL STENOSIS - M48.07 (PRIMARY) TREATMENT LUMBOSACRAL SPINAL STENOSIS START LYRICA CAPSULE, 100 MG, 1 CAPSULE, ORALLY, BID MDD2, 30 DAY(S), 60, REFILLS 2 START PERCOCET TABLET, 5-325 MG, 1 TABLET NEEDED, ORALLY, Q8H PRN MDD3, 10 DAY(S), 30, REFILLS 0 NOTES: L5/S1 LESI, ISTOP REGISTRY REVIEWED AND DEMONSTRATES COMPLLIANCE. , RISKS AND BENEFITS OF NARCOTIC/OPIOD MEDICATIONS WERE REVIEWED WITH PATIENT - THIS INCLUDES BUT IS NOT LIMITED TO RISK OF DEPENDANCE/DEVELOPMENT OF ADDICTION, MOOD DISTURBANCE AND DEPRESSION, OSTEOPOROSIS, HORMONAL AND LABIDAL CHANGES, RESPIRATORY DEPRESSION AND . PATIENT IS ADVISED NOT TO DRIVE OR DRINK ALCOHOL WHILE ON THESE MEDICATIONS, [facility] NARCOTIC AGREEMENT WAS REVIEWED AND SIGNED TODAY BY THE PATIENT. SEE ATTACHED DOCUMENT FOR FULL DETAILS; SPECIFIC ISSUES WERE REVIEWED: 1) KEEP PAIN MEDS IN THEIR ORIGINAL BOTTLES AND ANY WEEKLY PLANNERS ARE TO BE BROUGHT TO THE PAIN CENTER AT EVERY VISIT. 2) THE PATIENT IS NOT TO INCREASE DOSING OR TIMING OF THEIR PAIN MEDICATION WITHOUT SPECIFIC DIRECTION OF THEIR PAIN CENTERPROVIDER (NOT ER OR OTHER PROVIDERS). 3) ALL PAIN MEDS ARE TO BE KEPT SECURED, IN A LOCKED BOX. 4) NO PAIN MEDS ARE TO BE SHARED WITH ANY OTHER PERSON FOR ANY REASON. 5) NO PAIN MEDS MAY BE TAKEN FROM ANY FRIENDS OR RELATIVES FOR ANY REASON 6) NO MEDS OR SUBSTANCES WHICH ARE NOT LEGAL ARE TO BE USED- NO MARIJUANA, NO COCAINE, AMPHETAMINES, HEROIN, OR OTHERS ARE EVER TO BE USED. 7)URINE TESTING IS DONE TO ACCOUNT FOR MEDS AND SUBSTANCES BEING TAKEN AND WILL BE DONE RANDOMLY. PREVENTIVE MEDICINE PAIN CLINIC TEACHING: MEDICATIONS PRINTED AND REVIEWED INFORMATION ON NEW MEDICATIONS, PERCOCET AND LYRICA. PATIENT VERBALIZED AN UNDERSTANDING. ESTEFANI TIWARI 03/12/2019 10:10:14 AM > . PROCEDURE TEACHING REVIEWED INFORMATION ON EPIDURAL PROCEDURE WITH PATIENT. ALSO REVIEWED PRE-PROCEDURE INSTRUCTIONS. PATIENT VERBALIZED AN UNDERSTANDING. ESTEFANI TIWARI 03/12/2019 10:09:38 AM > . PROCEDURE CODES FA211 ESTABILISHED PATIENT [facility] CHARGE DISPOSITION & COMMUNICATION FOLLOW UP POST (REASON: L5/S1 LESI) ELECTRONICALLY SIGNED BY FROYLAN LEUNG ON 03/27/2019 AT 10:26 AM EDT DISCLAIMER : THIS IS A VISIT SUMMARY EXTRACTED FROM THE [employer] CHART. IT IS NOT A COPY OF THE [employer] PROGRESS NOTE. PUNEET
== END ==
LOC: M PAIN 09:15
PROVIDERS: ATTEND Nurse Practitioner Family
DX: M48.07 Spinal stenosis, lumbosacral region (principal); J45.909 Unspecified asthma, uncomplicated; I12.9 Hypertensive chronic kidney disease with stage 1 through stage 4 chronic kidney disease, or unspecified chronic kidney disease; N18.3 Chronic kidney disease, stage 3 (moderate); E11.22 Type 2 diabetes mellitus with diabetic chronic kidney disease; K21.9 Gastro-esophageal reflux disease without esophagitis; M17.0 Bilateral primary osteoarthritis of knee; E55.9 Vitamin D deficiency, unspecified; E53.8 Deficiency of other specified B group vitamins; E66.01 Morbid (severe) obesity due to excess calories; Z68.42 Body mass index [BMI] 45.0-49.9, adult; Z79.84 Long term (current) use of oral hypoglycemic drugs; Z79.899 Other long term (current) drug therapy; Z88.5 Allergy status to narcotic agent; Z88.1 Allergy status to other antibiotic agents; Z88.8 Allergy status to other drugs, medicaments and biological substances; Z86.59 Personal history of other mental and behavioral disorders; Z98.84 Bariatric surgery status

== ENCOUNTER → 2019-03-28 | Outpatient (CLI) | payer OTHER ==
--- NOTE | 2019-03-28 14:53 | REP ---
Partial lumbar spine series: Four views . History: Injection procedure for pain. 22 seconds of fluoroscopy time is reported. Findings: A sequence of four fluoroscopically obtained last image hold procedural spot radiographs of the lumbar spine document needle position and contrast injection associated with injection procedure. Electronically Signed by Arnulfo Alva MD 03/28/2019 02:45 P
--- NOTE | 2019-04-14 23:23 | ECWPNPC ---
PATIENT NAME: MUNIR WILLAMS : 1960 GENDER: FEMALE VISIT DATE: 03/28/2019 DISCHARGE DATE: 03/28/19 1139 VISIT LOCKED DATE TIME: PHYSICIAN: CHRISTY SALINAS MD PHYSICIAN PAGER NO: [phone] RESOURCE: CHRISTY SALINAS MD REASON FOR APPOINTMENT 1. L5/S1 LESI HISTORY OF PRESENT ILLNESS HISTORY OF PRESENT ILLNESS: PAIN THE PATIENT DESCRIBES THE PAIN... FALL RISK SCREENING: SCREENING :NO FALLS REPORTED IN THE LAST YEAR CURRENT MEDICATIONS TAKING PREVACID 30 MG CAPSULE DELAYED RELEASE 1 CAPSULE ORALLY ONCE A DAY, NOTES: 03/27/192099 TAKING CLARISPRAY 50 MCG/ACT SUSPENSION 2 SPRAYS IN EACH NOSTRIL NASALLY TWICE DAILY, NOTES: 03/27/19 AM TAKING NASONEX 50 MCG/ACT SUSPENSION 2 SPRAYS IN EACH NOSTRIL NASALLY ONCE A DAY, NOTES: 03/27/19 TAKING ATORVASTATIN CALCIUM 20 MG TABLET 1 TABLET ORALLY ONCE A DAY, NOTES: 03/27/192099 TAKING FOLIC ACID 1 MG TABLET 1 TABLET ORALLY ONCE A DAY, NOTES: 03/27/19 TAKING ERGOCALCIFEROL 29279 UNIT CAPSULE 1 CAPSULE ORALLY ONCE A WEEK, NOTES: 03/24/19 TAKING TUMS ULTRA 1000 1000 MG TABLET CHEWABLE 1 TABLET ORALLY ONCE A DAY, NOTES: 03/27/19 AM TAKING METFORMIN HCL ER 500 MG TABLET EXTENDED RELEASE 24 HOUR 1 TABLET WITH EVENING MEAL ORALLY AC DINNER, NOTES: 03/27/19 AM TAKING CYANOCOBALAMIN 500 MCG TABLET 1 TABLET ORALLY ONCE A DAY, NOTES: 03/27/19 AM TAKING FERROUS SULFATE 325 (65 FE) MG TABLET 1 TABLET ORALLY EVER OTHER DAY, NOTES: 03/27/192099 TAKING LEVOTHYROXINE SODIUM 100 MCG TABLET 1 TABLET ON AN EMPTY STOMACH IN THE MORNING ORALLY ONCE A DAY, NOTES: 03/27/192099 TAKING QVAR 80 MCG/ACT AEROSOL SOLUTION 1 PUFF INHALATION TWICE A DAY, NOTES: WEEKS AGO TAKING PROAIR HFA 108 (90 BASE) MCG/ACT AEROSOL SOLUTION 2 PUFFS NEEDED INHALATION QID PRN, NOTES: WEEKS AGO TAKING MONTELUKAST SODIUM 10 MG TABLET 1 TABLET ORALLY AT BEDTIME, NOTES: 03/27/192099 TAKING BUPROPION HCL 150 MG TABLET EXTENDED RELEASE 1 TAB ORALLY BID, NOTES: 03/27/192099 TAKING LISINOPRIL 10 MG TABLET 1 TABLET ORALLY ONCE A DAY, NOTES: 03/27/192099 TAKING TRIAMTERENE-HCTZ 37.5-25 MG TABLET 1 TAB ORALLY DAILY, NOTES: 03/27/19 AM TAKING CITALOPRAM HYDROBROMIDE 40 MG TABLET 1 TABLET ORALLY ONCE A DAY, NOTES: 03/27/192099 TAKING LYRICA 100 MG CAPSULE 1 CAPSULE ORALLY BID MDD2, NOTES: 03/27/192099 TAKING PERCOCET 5-325 MG TABLET 1 TABLET NEEDED ORALLY Q8H PRN MDD3, NOTES: 3-4 DAYS AGO TAKING BLOOD GLUCOSE TEST - STRIP DIRECTED SUBCUTANEOUSLY DAILY DX: E11.9 TAKING LANCETS - MISCELLANEOUS DIRECTED SUBCUTANEOUSLY DAILY DX: E11.9 NOT-TAKING TRAMADOL HCL 50 MG TABLET 1-2 TABLETS NEEDED ORALLY EVERY 4-6 HRS MAXIMUM 6 PER DAY NOT-TAKING PREVACID 30 MG CAPSULE DELAYED RELEASE 1 CAPSULE ORALLY ONCE A DAY, NOTES: DUPLICATE NOT-TAKING TYLENOL EXTRA STRENGTH 500 MG TABLET 3TABLETS ORALLY TWICE DAILY MEDICATION LIST REVIEWED AND RECONCILED WITH THE PATIENT PAST MEDICAL HISTORY ASTHMA, MILD PERSISTENT ALLERGIC RHINITIS MDD/MORRO, H/O ETHOH ABUSE-NONE SINCE 04/2016 BLE LYMPHEDEMA/LIPEDEMA SUPER OBESITY S/P MEAGAN GB 09/2007-PRESURGICAL WEIGHT 650 GERD/H/O GASTRITIS DX BY PREVIOUS EGD CKD3-09/2017 NORMAL B RENAL US S EVIDENCE OF MINH VITAMIN B12/FA DEFICIENCY-09/2017 IF 1 (0-1), PARIETAL 34 (0-20) R>L MARKED ADVANCED KNEE OA BY 09/2017 XRAY VITAMIN D DEFICIENCY IRITABLE BOWEL SYNDROME, CONSTIPATION-TYPE MDD/MORRO TYPE II DIABETES LIPEDEMA CHRONIC KIDNEY DISEASE STAGE III 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, SEVERE L3/4 C GRADE 1 LITHESIS C B L3 COMPRESSION, MILD L4/5 C GRADE 1 LITHESIS, B L5 COMPRESSION IN NF BY 06/2018 MRI ALLERGIES MORPHINE: NAUSEA/VOMITING - SIDE EFFECTS REGLAN: ANAPHYLAXIS - ALLERGY "CILLIANS": HIVES - SIDE EFFECTS Z-PACK: HIVES - SIDE EFFECTS SYMBICORT: THRUSH SEVERE - SIDE EFFECTS SURGICAL HISTORY GALLBLADDER/LIVER STONE REMOVAL 1989 GASTRIC BYPASS-DR.WOLF FRENCH 09/2007 FAMILY HISTORY FATHER: ALIVE, FIRST MD AT 58Y, T2DM DX IN 70S, DIAGNOSED WITH DIABETES MOTHER: 57 YRS, FIRST MD AT 37, 2 MD, HEAVY SMOKER/ETHOH, HEART DISEASE, STROKE MATERNAL GRAND FATHER: HEART DISEASE, CANCER 1 SISTER(S) . SISTER-SVT\\\\\\\\N1\\\\\\\\\\\\\\/2 BROTHER-UNKNOWN\\\\\\\\N\\\\\\\\NNO CANCERS IN 1DR\\\\\\\\NFATHER -DIAGNOSED WITH DM. SOCIAL HISTORY GENERAL: TOBACCO USE ARE YOU A:NONSMOKER HIV / HEP-C SCREENING HIV TEST OFFERED TO PATIENT:YES DATE OFFERED:08/25/2017 TEST ACCEPTED:NO HEP-C TEST OFFERED TO PATIENT:YES DATE OFFERED:08/25/2017 REASON:PATIENT DECLINED TEST ACCEPTED:NO REASON:PATIENT DECLINED DIET: LOW CARB, HIGH VEGETABLES AND FRUITS, 8-10 OZ PER DAY OF LEAN PROTEIN. LANGUAGE LANGUAGES SPOKEN:FRISIAN DOMESTIC VIOLENCE DO YOU FEEL SAFE IN YOUR ENVIRONMENT?YES BMI CARE GOAL FOLLOW-UP ABOVE NORMAL BMI FOLLOW-UPGIVING ENCOURAGEMENT TO EXERCISE RECREATIONAL DRUG USE DRUG USE?NO PATIENT DENIES ABUSE OR MISSUSED OF ANY MEDICATION. PATIENT DENIES USE OF ANY ILLEGAL SUBSTANCE INCLUDING MARIJUANA OR COCAINE. LEARNING BARRIERS / SPECIAL NEEDS CHANGE FROM LAST VISIT?NO BARRIERS TO LEARNING?NO HEARING IMPAIRED?NO VISION IMPAIRED?YES COGNITIVELY IMPAIRED?NO :CORRECTIVE LENSES READINESS TO LEARN?YES LEARNING PREFERENCES?NO LEARNING CAPABILITIES PRESENT?YES EMOTIONAL BARRIERS?NO SPECIAL DEVICES?YES :CANE RELATIONSHIP ASSOC NEEDED?NO PAIN CLINIC PFS, CLERGY, PUBLIC HEALTH REFERRALS HAS THE PATIENT BEEN EDUCATED REGARDING HIS/HER PLAN OF CARE?YES HAS THE PATIENT BEEN EDUCATED REGARDING PAIN, THE RISK FOR PAIN, THE IMPORTANCE OF EFFECTIVE PAIN MANAGEMENT, AND THE PAIN ASSESSMENT PROCESS?YES LATEX QUESTIONNAIRE LATEX ALLERGY : HAVE YOU EVER DEVELOPED ANY TYPE OF REACTION AFTER HANDLING LATEX PRODUCTS SUCH RUBBER GLOVES, CONDOMS, DIAPHRAGMS, BALLOONS, SOCKS, OR UNDERWEAR?NO LATEX ALLERGY : HAVE YOU EVER DEVELOPED ANY TYPE OF REACTION DURING OR AFTER DENTAL APPOINTMENT, VAGINAL/RECTAL EXAMINATION, SURGICAL PROCEDURE, OR ANY OTHER EXPOSURE?NO DATE ASKED : 03/12/2019 LATEX RISK : HAVE YOU EVER HAD ANY DIFFICULTY BREATHING OR HIVES AFTER EATING OR HANDLING ANY FRUITS, OR VEGETABLES; SUCH KIWI, BANANAS, STONE FRUITS, OR CHESTNUTSNO LATEX RISK : DO YOU HAVE A PREVIOUS PERSONAL HISTORY OF MORE THAN NINE SURGERIES, SPINA BIFIDA, OR REPEATED CATHERTIZATIONS? NO LATEX RISK : ARE YOU FREQUENTLY EXPOSED TO LATEX PRODUCTS IN YOUR OCCUPATION?NO CAFFEINE CAFFEINE USE?YES HOW OFTEN AND HOW MUCH? 2 CUPS OF COFFEE PER DAY ADVANCE DIRECTIVE ADVANCE DIRECTIVE DISCUSSED WITH PATIENT:YES HEALTH CARE PROXY DAMI WILLAMS [phone] SABIANIST [id number] MANDAEISM NO ANGLICAN BELIEFS THAT WOULD IMPACT HEALTH CARE. MARITAL STATUS: . ALCOHOL SCREENING DID YOU HAVE A DRINK CONTAINING ALCOHOL IN THE PAST YEAR?NO POINTS0 INTERPRETATIONNEGATIVE SEXUAL HX HAD SEX IN THE LAST 12 MONTHS (VAGINAL, ORAL, OR ANAL)?NO LIVES C , DAMI WILLAMSREVIEWED WITH PT 08/01/18 1530 BVREVIEWED WITH PT 09/04/18 0910 LASREVIEWED WITH PATIENT 10/19/18 0915 JS REVIEWED WITH PATIENT 03/12/19 0936 JSREVIEWED WITH PATIENT 03/28/19 0925 JS. HOSPITALIZATION/MAJOR DIAGNOSTIC PROCEDURE SURGERIES REVIEW OF SYSTEMS REVIEWED BY: PROVIDER: . CONSTITUTIONAL: ANY CHANGE IN YOUR MEDICAL CONDITION? NO . CHILLS NO . FEVER NO . INFECTION: DO YOU HAVE NEW INFECTIONS? NO . DO YOU HAVE HISTORY OF MRSA? NO . MUSCULOSKELETAL: ANY NEW PATTERNS OF PAIN OR NUMBNESS? NO . GASTROENTEROLOGY: ANY NEW CHANGE IN BOWEL CONTROL? NO . GENITOURINARY: ANY NEW CHANGE IN BLADDER CONTROL? NO . IS THERE A CHANCE YOU COULD BE ? NO . HEMATOLOGY/LYMPH: DO YOU TAKE ANY BLOOD THINNERS? (FOR EXAMPLE- COUMADIN, PLAVIX, AGGRENOX, PLATEL, PRADAXA, OR XARELTO) NO . WHEN WAS YOUR LAST DOSE? DATE: TIME: . NEUROLOGY: HAVE YOU FALLEN IN THE PAST 12 MONTHS? NO . ANY NEW EXTREMITY NUMBNESS OR WEAKNESS? NO . CARDIOLOGY: DO YOU HAVE A PACEMAKER OR DEFIBRILLATOR? NO . RESPIRATORY: HAVE YOU BEEN SICK IN THE PAST WEEK? NO . FEVER NO . FLU LIKE SYMPTOMS? NO . COUGH NO . INTEGUMENTARY: DO YOU HAVE ANY RASHES OR OPEN SORES? NO . ALLERGIC/IMMUNO: ARE YOU ALLERGIC TO IV DYE? NO . ANY NEW ALLERGIES? NO . PSYCHIATRIC: DO YOU HAVE THOUGHTS OF HURTING YOURSELF OR SOMEONE ELSE? NO . ARE YOU ABUSED, NEGLECTED, OR IN AN UNSAFE ENVIRONMENT? NO . ENDOCRINOLOGY: ARE YOU DIABETIC? YES, FSBS 87 AT 0700 THIS MORNING . OTHER: DO YOU NEED ANY PRESCRIPTIONS? NO . IF YES, PLEASE LIST: ____ . ANY NEW PROBLEMS WITH YOUR MEDICATIONS? NO . WHEN DID YOU LAST EAT? ____03/27/19 1800 . WHEN DID YOU LAST DRINK? ____03/27/19 1800 . WHAT DID YOU LAST DRINK? ____ICED TEA . NAME OF PERSON DRIVING YOU HOME? ____DAMI WILLAMS () . DO YOU HAVE ANY OTHER QUESTIONS OR CONCERNS NO . VITAL SIGNS WT 302.4 LBS, HT 66", BMI 48.80 INDEX, BP 92/51 MM HG, REPEAT BP 100/60 MM HG, HR 70 /MIN, RR 18 /MIN, TEMP 97.9 F, OXYGEN SAT % 99%, BLOOD GLUCOSE LEVEL 87 THIS AM, SAFE IN ENV? (Y/N) YES, NA INITIALS SC 09:10, REVIEWED BY: KASEY. ASSESSMENTS INTERVERTEBRAL DISC DISORDER WITH RADICULOPATHY OF LUMBOSACRAL REGION - M51.17 (PRIMARY) LUMBOSACRAL SPINAL STENOSIS - M48.07 TREATMENT INTERVERTEBRAL DISC DISORDER WITH RADICULOPATHY OF LUMBOSACRAL REGION [facility] FLUORO GUIDE SPINE INJECTION (PAIN)[id number] PROCEDURES PRE PROCEDURE DIAGNOSIS LUMBOSACRAL DISC DISORDER WITH RADICULOPATHY, LUMBOSACRAL SPINAL STENOSIS POST PROCEDURE DIAGNOSIS LUMBOSACRAL DISC DISORDER WITH RADICULOPATHY , LUMBOSACRAL SPINAL STENOSIS PROCEDURE LUMBAR EPIDURAL STEROID INJECTION UNDER FLUOROSCOPIC GUIDANCE SURGEON DR. CHRISTY SALINAS ASTRONOMY TEACHER NONE ANESTHESIA LOCAL PRE PROCEDURE NOTE THE PATIENT HAS A HISTORY OF CHRONIC LOW BACK PAIN. I EVALUATE THE PATIENT AND REVIEWED THE CHART. I WENT OVER THE RISKS, ALTERNATIVES, AND BENEFITS ASSOCIATED WITH THIS PROCEDURE. THE PATIENT WOULD LIKE TO PROCEED AND GIVE CONSENT TO PERFORMED THE PROCEDURE. THE PATIENT DENIES UNEXPLAINABLE WEIGHT LOSS, FEVER, CHILLS, OR NEW CHANGES IN URINARY OR BOWEL CONTROL. DESCRIPTION OF PROCEDURE THE PATIENT WAS BROUGHT TO THE PROCEDURE ROOM AND PLACED IN THE PRONE POSITION. THE LUMBOSACRAL AREA WAS CLEANED WITH BETADINE SOLUTION AND DRAPED ASEPTICALLY. THE PROCEDURE WAS DONE UNDER STERILE CONDITIONS. I CHECKED LATERALITY AND THE LEVEL WHERE THE PROCEDURE WAS GOING TO BE PERFORMED WITH THE PATIENT AND THE SUPPORTING STAFF AT THE MOMENT OF THE TIME OUT IN THE PROCEDURE ROOM. UNDER FLUOROSCOPIC GUIDANCE, THE TARGET POINT WAS SELECTED AT THE INTERLAMINAR LEVEL OF L5-S1. LIDOCAINE WAS USED TO NUMB THE SKIN AND THE SUBCUTANEOUS TISSUE BELOW IT. EPIDURAL TUOHY NEEDLE, 17-GAUGE, WAS ADVANCED UNDER FLUOROSCOPIC GUIDANCE AND FOLLOWING PATIENT FEEDBACK UNTIL THE EPIDURAL SPACE WAS REACHED, 7 CM DEEP INTO THE SKIN BY THE LOSS OF RESISTANCE TECHNIQUE. ISOVUE M DYE 30%, 0.25 ML, WAS INJECTED SHOWING ADEQUATE SPREAD OF THE DYE. THEN, A SOLUTION OF 3 ML OF NORMAL SALINE WITH DEPO-MEDROL 60 MG WAS INJECTED SLOWLY FOLLOWING PATIENT FEEDBACK. THERE WAS NO EVIDENCE OF BLOOD, PARESTHESIA OR CEREBROSPINAL FLUID DURING THE PROCEDURE. THE PATIENT WAS SENT TO THE RECOVERY ROOM. THE PATIENT WAS MOVING THE EXTREMITIES AND DOING WELL. THERE WAS NO COMPLICATION DURING THE PROCEDURE. FLUOROSCOPY TIME WAS 22 SECONDS. POST PROCEDURE NOTE THE PATIENT WILL BE SEEN IN A FOLLOW UP IN THE NEXT FEW WEEKS. INSTRUCTIONS WERE GIVEN, QUESTIONS WERE ANSWERED, AND THE PATIENT EXPRESSED UNDERSTANDING AND AGREES WITH THE PLAN. I, SAMANTHA STALEY, DOCUMENTED THE ABOVE INFORMATION ACTING A SCRIBE FOR DR. SALINAS. I HAVE REVIEWED THE ABOVE DOCUMENT, WRITTEN BY SAMANTHA STALEY SCRIBE AND I VERIFY THAT IT IS ACCURATE. PROCEDURE CODES 6045F RADXPS IN END [id number] PXD [id number] LUMBAR/SACRAL W/ IMAGING DISPOSITION & COMMUNICATION FOLLOW UP 2 WEEKS ELECTRONICALLY SIGNED BY CHRISTY SALINAS MD, MD ON 04/14/2019 AT 04:04 PM EDT DISCLAIMER : THIS IS A VISIT SUMMARY EXTRACTED FROM THE Interactive TKO CHART. IT IS NOT A COPY OF THE Interactive TKO PROGRESS NOTE. MTDD
== END ==
LOC: M PAIN 08:30
PROVIDERS: ATTEND Anesthesiology
DX: G89.29 Other chronic pain (principal); M51.17 Intervertebral disc disorders with radiculopathy, lumbosacral region; M48.07 Spinal stenosis, lumbosacral region; J45.909 Unspecified asthma, uncomplicated; I12.9 Hypertensive chronic kidney disease with stage 1 through stage 4 chronic kidney disease, or unspecified chronic kidney disease; N18.3 Chronic kidney disease, stage 3 (moderate); E11.22 Type 2 diabetes mellitus with diabetic chronic kidney disease; F10.10 Alcohol abuse, uncomplicated; I89.0 Lymphedema, not elsewhere classified; K21.9 Gastro-esophageal reflux disease without esophagitis; M17.0 Bilateral primary osteoarthritis of knee; Z79.84 Long term (current) use of oral hypoglycemic drugs; Z79.899 Other long term (current) drug therapy; Z88.1 Allergy status to other antibiotic agents; Z88.5 Allergy status to narcotic agent; Z88.8 Allergy status to other drugs, medicaments and biological substances; Z98.84 Bariatric surgery status
CPT/HCPCS: 62323; J1030; Q9967

== ENCOUNTER → 2019-05-16 | Outpatient (CLI) | payer OTHER ==
--- NOTE | 2019-06-05 01:49 | ECWPNPC ---
PATIENT NAME: MUNIR WILLAMS : 1960 GENDER: FEMALE VISIT DATE: 05/16/2019 DISCHARGE DATE: 05/16/19 1449 VISIT LOCKED DATE TIME: PHYSICIAN: TASHI RODRIGUEZ PHYSICIAN PAGER NO: [phone] RESOURCE: TASHI RODRIGUEZ REASON FOR APPOINTMENT 1. POST PROC HISTORY OF PRESENT ILLNESS HISTORY OF PRESENT ILLNESS: HERE FOR POST PROCEDURE F/U.HAD L5/S1 LESI ON 03-28-19.REPORTING REDUCTION IN PAIN X7-10 DAYS THEN PAIN HAS ESCALATED OVER THE PAST 10 DAYS.RATING PAIN VAS 10/10. LYRICA STARTED AT LAST VIST IS HELPING WITH RIGHT LEG PAIN ALTHOUGH TODAY SHE IS VERY UNCOMFORTABLE.USING TRAMADOL 50MG PRN FOR SEVERE PAIN WITH SOME IMPROVEMENT.DISCUSSED MEDICATION AND TREATMENT OPTIONS. PAIN THE PATIENT DESCRIBES THE PAIN... THE PATIENT DESCRIBES THE PAIN... THE PATIENT DESCRIBES THE PAIN... FALL RISK SCREENING: SCREENING :NO FALLS REPORTED IN THE LAST YEAR CURRENT MEDICATIONS TAKING CLARISPRAY 50 MCG/ACT SUSPENSION 2 SPRAYS IN EACH NOSTRIL NASALLY TWICE DAILY TAKING NASONEX 50 MCG/ACT SUSPENSION 2 SPRAYS IN EACH NOSTRIL NASALLY ONCE A DAY TAKING ATORVASTATIN CALCIUM 20 MG TABLET 1 TABLET ORALLY ONCE A DAY TAKING TUMS ULTRA 1000 1000 MG TABLET CHEWABLE 1 TABLET ORALLY ONCE A DAY TAKING CYANOCOBALAMIN 500 MCG TABLET 1 TABLET ORALLY ONCE A DAY TAKING FERROUS SULFATE 325 (65 FE) MG TABLET 1 TABLET ORALLY EVER OTHER DAY TAKING QVAR 80 MCG/ACT AEROSOL SOLUTION 1 PUFF INHALATION TWICE A DAY TAKING PROAIR HFA 108 (90 BASE) MCG/ACT AEROSOL SOLUTION 2 PUFFS NEEDED INHALATION QID PRN TAKING MONTELUKAST SODIUM 10 MG TABLET 1 TABLET ORALLY AT BEDTIME TAKING LISINOPRIL 10 MG TABLET 1 TABLET ORALLY ONCE A DAY TAKING TRIAMTERENE-HCTZ 37.5-25 MG TABLET 1 TAB ORALLY DAILY TAKING CITALOPRAM HYDROBROMIDE 40 MG TABLET 1 TABLET ORALLY ONCE A DAY TAKING LYRICA 100 MG CAPSULE 1 CAPSULE ORALLY BID MDD2 TAKING PERCOCET 5-325 MG TABLET 1 TABLET NEEDED ORALLY Q8H PRN MDD3 TAKING BLOOD GLUCOSE TEST - STRIP DIRECTED SUBCUTANEOUSLY DAILY DX: E11.9 TAKING LANCETS - MISCELLANEOUS DIRECTED SUBCUTANEOUSLY DAILY DX: E11.9 TAKING METFORMIN HCL ER 500 MG TABLET EXTENDED RELEASE 24 HOUR 1 TABLET WITH EVENING MEAL ORALLY AC DINNER TAKING PREVACID 30 MG CAPSULE DELAYED RELEASE 1 CAPSULE ORALLY ONCE A DAY TAKING LEVOTHYROXINE SODIUM 100 MCG TABLET 1 TABLET ON AN EMPTY STOMACH IN THE MORNING ORALLY ONCE A DAY TAKING BUPROPION HCL 150 MG TABLET EXTENDED RELEASE 1 TAB ORALLY BID TAKING FOLIC ACID 1 MG TABLET 1 TABLET ORALLY ONCE A DAY TAKING ERGOCALCIFEROL 34710 UNIT CAPSULE 1 CAPSULE ORALLY ONCE A WEEK NOT-TAKING TRAMADOL HCL 50 MG TABLET 1-2 TABLETS NEEDED ORALLY EVERY 4-6 HRS MAXIMUM 6 PER DAY NOT-TAKING PREVACID 30 MG CAPSULE DELAYED RELEASE 1 CAPSULE ORALLY ONCE A DAY, NOTES: DUPLICATE NOT-TAKING TYLENOL EXTRA STRENGTH 500 MG TABLET 3TABLETS ORALLY TWICE DAILY MEDICATION LIST REVIEWED AND RECONCILED WITH THE PATIENT PAST MEDICAL HISTORY ASTHMA, MILD PERSISTENT ALLERGIC RHINITIS MDD/MORRO, H/O ETHOH ABUSE-NONE SINCE 04/2016 BLE LYMPHEDEMA/LIPEDEMA SUPER OBESITY S/P MEAGAN GB 09/2007-PRESURGICAL WEIGHT 650 GERD/H/O GASTRITIS DX BY PREVIOUS EGD CKD3-09/2017 NORMAL B RENAL US S EVIDENCE OF MINH VITAMIN B12/FA DEFICIENCY-09/2017 IF 1 (0-1), PARIETAL 34 (0-20) R>L MARKED ADVANCED KNEE OA BY 09/2017 XRAY VITAMIN D DEFICIENCY IRITABLE BOWEL SYNDROME, CONSTIPATION-TYPE MDD/MORRO TYPE II DIABETES LIPEDEMA CHRONIC KIDNEY DISEASE STAGE III 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, SEVERE L3/4 C GRADE 1 LITHESIS C B L3 COMPRESSION, MILD L4/5 C GRADE 1 LITHESIS, B L5 COMPRESSION IN NF BY 06/2018 MRI ALLERGIES MORPHINE: NAUSEA/VOMITING - SIDE EFFECTS REGLAN: ANAPHYLAXIS - ALLERGY "CILLIANS": HIVES - SIDE EFFECTS Z-PACK: HIVES - SIDE EFFECTS SYMBICORT: THRUSH SEVERE - SIDE EFFECTS SURGICAL HISTORY GALLBLADDER/LIVER STONE REMOVAL 1989 GASTRIC BYPASS-DR.WOLF FRENCH 09/2007 FAMILY HISTORY FATHER: ALIVE, FIRST VA AT 58Y, T2DM DX IN 70S, DIAGNOSED WITH DIABETES MOTHER: 57 YRS, FIRST VA AT 37, 2 VA, HEAVY SMOKER/ETHOH, HEART DISEASE, STROKE MATERNAL GRAND FATHER: HEART DISEASE, CANCER 1 SISTER(S) . SISTER-SVT\\\\\\\\N1\\\\\\\\\\\\\\/2 BROTHER-UNKNOWN\\\\\\\\N\\\\\\\\NNO CANCERS IN 1DR\\\\\\\\NFATHER -DIAGNOSED WITH DM. SOCIAL HISTORY GENERAL: TOBACCO USE ARE YOU A:NONSMOKER HIV / HEP-C SCREENING HIV TEST OFFERED TO PATIENT:YES DATE OFFERED:08/25/2017 TEST ACCEPTED:NO HEP-C TEST OFFERED TO PATIENT:YES DATE OFFERED:08/25/2017 REASON:PATIENT DECLINED TEST ACCEPTED:NO REASON:PATIENT DECLINED DIET: LOW CARB, HIGH VEGETABLES AND FRUITS, 8-10 OZ PER DAY OF LEAN PROTEIN. LANGUAGE LANGUAGES SPOKEN:HUNGARIAN DOMESTIC VIOLENCE DO YOU FEEL SAFE IN YOUR ENVIRONMENT?YES BMI CARE GOAL FOLLOW-UP ABOVE NORMAL BMI FOLLOW-UPGIVING ENCOURAGEMENT TO EXERCISE RECREATIONAL DRUG USE DRUG USE?NO PATIENT DENIES ABUSE OR MISSUSED OF ANY MEDICATION. PATIENT DENIES USE OF ANY ILLEGAL SUBSTANCE INCLUDING MARIJUANA OR COCAINE. LEARNING BARRIERS / SPECIAL NEEDS CHANGE FROM LAST VISIT?NO BARRIERS TO LEARNING?NO HEARING IMPAIRED?NO VISION IMPAIRED?YES COGNITIVELY IMPAIRED?NO :CORRECTIVE LENSES READINESS TO LEARN?YES LEARNING PREFERENCES?NO LEARNING CAPABILITIES PRESENT?YES EMOTIONAL BARRIERS?NO SPECIAL DEVICES?YES :CANE WELT BUTTER HAND NEEDED?NO PAIN CLINIC PFS, CLERGY, PUBLIC HEALTH REFERRALS HAS THE PATIENT BEEN EDUCATED REGARDING HIS/HER PLAN OF CARE?YES HAS THE PATIENT BEEN EDUCATED REGARDING PAIN, THE RISK FOR PAIN, THE IMPORTANCE OF EFFECTIVE PAIN MANAGEMENT, AND THE PAIN ASSESSMENT PROCESS?YES LATEX QUESTIONNAIRE LATEX ALLERGY : HAVE YOU EVER DEVELOPED ANY TYPE OF REACTION AFTER HANDLING LATEX PRODUCTS SUCH RUBBER GLOVES, CONDOMS, DIAPHRAGMS, BALLOONS, SOCKS, OR UNDERWEAR?NO LATEX ALLERGY : HAVE YOU EVER DEVELOPED ANY TYPE OF REACTION DURING OR AFTER DENTAL APPOINTMENT, VAGINAL/RECTAL EXAMINATION, SURGICAL PROCEDURE, OR ANY OTHER EXPOSURE?NO DATE ASKED : 03/12/2019 LATEX RISK : HAVE YOU EVER HAD ANY DIFFICULTY BREATHING OR HIVES AFTER EATING OR HANDLING ANY FRUITS, OR VEGETABLES; SUCH KIWI, BANANAS, STONE FRUITS, OR CHESTNUTSNO LATEX RISK : DO YOU HAVE A PREVIOUS PERSONAL HISTORY OF MORE THAN NINE SURGERIES, SPINA BIFIDA, OR REPEATED CATHERTIZATIONS? NO LATEX RISK : ARE YOU FREQUENTLY EXPOSED TO LATEX PRODUCTS IN YOUR OCCUPATION?NO CAFFEINE CAFFEINE USE?YES HOW OFTEN AND HOW MUCH? 2 CUPS OF COFFEE PER DAY ADVANCE DIRECTIVE ADVANCE DIRECTIVE DISCUSSED WITH PATIENT:YES HEALTH CARE PROXY DAMI WILLAMS [phone] [employer] [id number] SCIENTOLOGIST NO RASTAFARIAN BELIEFS THAT WOULD IMPACT HEALTH CARE. MARITAL STATUS: . ALCOHOL SCREENING DID YOU HAVE A DRINK CONTAINING ALCOHOL IN THE PAST YEAR?NO POINTS0 INTERPRETATIONNEGATIVE SEXUAL HX HAD SEX IN THE LAST 12 MONTHS (VAGINAL, ORAL, OR ANAL)?NO LIVES C , DAMI WILLAMSREVIEWED WITH PT 08/01/18 1530 BVREVIEWED WITH PT 09/04/18 0910 LASREVIEWED WITH PATIENT 10/19/18 0915 JS REVIEWED WITH PATIENT 03/12/19 0936 JSREVIEWED WITH PATIENT 03/28/19 0925 JS. HOSPITALIZATION/MAJOR DIAGNOSTIC PROCEDURE SURGERIES REVIEW OF SYSTEMS REVIEWED BY: PROVIDER: TASHI GALEANO . CONSTITUTIONAL: ANY CHANGE IN YOUR MEDICAL CONDITION? NO . CHILLS NO . FEVER NO . INFECTION: DO YOU HAVE NEW INFECTIONS? NO . DO YOU HAVE HISTORY OF MRSA? NO . MUSCULOSKELETAL: ANY NEW PATTERNS OF PAIN OR NUMBNESS? NO . GASTROENTEROLOGY: ANY NEW CHANGE IN BOWEL CONTROL? NO . GENITOURINARY: ANY NEW CHANGE IN BLADDER CONTROL? NO . IS THERE A CHANCE YOU COULD BE ? NO . HEMATOLOGY/LYMPH: DO YOU TAKE ANY BLOOD THINNERS? (FOR EXAMPLE- COUMADIN, PLAVIX, AGGRENOX, PLATEL, PRADAXA, OR XARELTO) NO . WHEN WAS YOUR LAST DOSE? DATE: TIME: . NEUROLOGY: HAVE YOU FALLEN IN THE PAST 12 MONTHS? NO . ANY NEW EXTREMITY NUMBNESS OR WEAKNESS? NO . CARDIOLOGY: DO YOU HAVE A PACEMAKER OR DEFIBRILLATOR? NO . RESPIRATORY: HAVE YOU BEEN SICK IN THE PAST WEEK? NO . FEVER NO . FLU LIKE SYMPTOMS? NO . COUGH NO . INTEGUMENTARY: DO YOU HAVE ANY RASHES OR OPEN SORES? NO . ALLERGIC/IMMUNO: ARE YOU ALLERGIC TO IV DYE? NO . ANY NEW ALLERGIES? NO . PSYCHIATRIC: DO YOU HAVE THOUGHTS OF HURTING YOURSELF OR SOMEONE ELSE? NO . ARE YOU ABUSED, NEGLECTED, OR IN AN UNSAFE ENVIRONMENT? NO . ENDOCRINOLOGY: ARE YOU DIABETIC? YES . OTHER: DO YOU NEED ANY PRESCRIPTIONS? NO . IF YES, PLEASE LIST: ____ . ANY NEW PROBLEMS WITH YOUR MEDICATIONS? NO . WHEN DID YOU LAST EAT? ____ . WHEN DID YOU LAST DRINK? ____ . WHAT DID YOU LAST DRINK? ____ . NAME OF PERSON DRIVING YOU HOME? ____ . DO YOU HAVE ANY OTHER QUESTIONS OR CONCERNS NO . VITAL SIGNS WT 296.4 LBS, HT 66", BMI 47.83 INDEX, BP 109/75 MM HG, HR 73 /MIN, RR 16 /MIN, TEMP 97.0 F, OXYGEN SAT % 99%, NA INITIALS SC 14:01, REVIEWED BY: KATIE. EXAMINATION GENERAL EXAMINATION: GENERALAWAKE,ALERT ,PLEAASANT . PSYCHAFFECT NORMAL . LUNGS:LUNG SANDRA ARE CLEAR TO AUSCULTATION BILATERALLY. GOOD MOVEMENT OF AIR . HEART:S1, S2 IN A REGULAR RATE AND RHYTHM. NO SIGNIFICANT MURMURS, RUBS OR GALLOPS NOTED . LUMBAR SACRAL SPINEPALPATION: + FOR PAIN OVER L/S SPINE. + FOR PAIN OVER L/S PARASPINALS.SPECIFIC TENDERNESS NOTED OVER BILAT. L3/4-L4/5 LUMBAR FACETS WITH FACET LOADING. NEUROLOGIC EXAM:NORMAL SENSATION LIGHT TOUCH BILAT. LOWER EXTREMITIES. ASSESSMENTS LUMBOSACRAL SPINAL STENOSIS - M48.07 (PRIMARY) LUMBAR FACET ARTHROPATHY - M47.816 TREATMENT LUMBOSACRAL SPINAL STENOSIS INCREASE LYRICA CAPSULE, 200 MG, 1 CAPSULE, ORALLY, BID MDD2, 30 DAY(S), 60, REFILLS 2 CONTINUE PERCOCET TABLET, 5-325 MG, 1 TABLET NEEDED, ORALLY, Q8H PRN MDD3 NOTES: L3/4-L4/5 LFBT BILAT, ISTOP REGISTRY REVIEWED AND DEMONSTRATES COMPLLIANCE. BRINGS IN MEDICATIONS WHICH IS APPROPRIATE FOR WHAT WAS DISPENSED. RECENT URINE TOXICOLOGY REVIEWED. NO UNAUTHORIZED MEDICATIONS. NO ILLICIT SUBSTANCES AND PRESCRIBED MEDICATIONS WERE PRESENT. , RISKS AND BENEFITS OF NARCOTIC/OPIOD MEDICATIONS WERE REVIEWED WITH PATIENT - THIS INCLUDES BUT IS NOT LIMITED TO RISK OF DEPENDANCE/DEVELOPMENT OF ADDICTION, MOOD DISTURBANCE AND DEPRESSION, OSTEOPOROSIS, HORMONAL AND LABIDAL CHANGES, RESPIRATORY DEPRESSION AND . PATIENT IS ADVISED NOT TO DRIVE OR DRINK ALCOHOL WHILE ON THESE MEDICATIONS. OTHERS NOTES: OPTIONS: FACET JOINT INJECTION MATERIAL WAS PRINTED. PREVENTIVE MEDICINE PAIN CLINIC TEACHING: PROCEDURE TEACHING PRINTED AND REVIEWED INFORMATION ON FACET JOINT INJECTION PROCEDURE WITH PATIENT. ALSO REVIEWED PRE-PROCEDURE INSTRUCTIONS WITH PATIENT. PATIENT VEBALIZED AN UNDERTANDING. ESTEFANI TIWARI 05/16/2019 2:49:04 PM > . PROCEDURE CODES FA211 ESTABILISHED PATIENT [facility] CHARGE DISPOSITION & COMMUNICATION FOLLOW UP POST (REASON: L3/4-L4/5 LFBT BILAT) ELECTRONICALLY SIGNED BY FROYLAN LEUNG ON 06/04/2019 AT 08:56 AM EDT DISCLAIMER : THIS IS A VISIT SUMMARY EXTRACTED FROM THE [employer] CHART. IT IS NOT A COPY OF THE [employer] PROGRESS NOTE. PUNEET
== END ==
LOC: M PAIN 13:30
PROVIDERS: ATTEND Nurse Practitioner Family
DX: M48.07 Spinal stenosis, lumbosacral region (principal); J45.30 Mild persistent asthma, uncomplicated; I12.9 Hypertensive chronic kidney disease with stage 1 through stage 4 chronic kidney disease, or unspecified chronic kidney disease; F32.9 Major depressive disorder, single episode, unspecified; F41.1 Generalized anxiety disorder; K21.9 Gastro-esophageal reflux disease without esophagitis; N18.3 Chronic kidney disease, stage 3 (moderate); E55.9 Vitamin D deficiency, unspecified; E53.8 Deficiency of other specified B group vitamins; M17.0 Bilateral primary osteoarthritis of knee; K58.1 Irritable bowel syndrome with constipation; E66.9 Obesity, unspecified; E11.22 Type 2 diabetes mellitus with diabetic chronic kidney disease; M47.816 Spondylosis without myelopathy or radiculopathy, lumbar region; Z98.84 Bariatric surgery status; I89.0 Lymphedema, not elsewhere classified; Z79.891 Long term (current) use of opiate analgesic; Z79.84 Long term (current) use of oral hypoglycemic drugs; Z79.899 Other long term (current) drug therapy; Z88.5 Allergy status to narcotic agent; Z88.8 Allergy status to other drugs, medicaments and biological substances; Z68.42 Body mass index [BMI] 45.0-49.9, adult

== ENCOUNTER → 2019-05-18 | Outpatient (REF) | payer OTHER ==
[2019-05-18 10:50] LABS: BASO % 0.7 % (0.0-1.0); EOS # 0.1 10^3/uL (0.0-0.50); EOS % 2.9 % (0.0-3.0); HEMATOCRIT 36.4 % (36.0-47.0); HEMOGLOBIN 11.8 g/dl (12.0-15.5); LYMPH # 1.8 10^3/uL (1.5-4.5); MEAN CORPUSCULAR HEMOGLOBIN 32.5 pg (27.0-33.0); MEAN CORPUSCULAR HGB CONC 32.4 g/dl (32.0-36.5); MEAN CORPUSCULAR VOLUME 100.3 fl (80.0-96.0); MONO # 0.4 10^3/uL (0.0-0.8); MONO % 9.2 % (0.0-5.0); NEUTROPHILS # 1.8 10^3/uL (1.8-7.7); PLATELET COUNT, AUTOMATED 225 10^3/uL (150-450); RED BLOOD COUNT 3.63 10^6/uL (4.00-5.40); WHITE BLOOD COUNT 4.1 10^3/uL (4.0-10.0)
[2019-05-18 10:56] LABS: HEMATOCRIT 36.4 % (36.0-47.0)
[2019-05-18 10:57] LABS: ALBUMIN 3.4 GM/DL (3.2-5.2); BILIRUBIN,TOTAL 0.3 MG/DL (0.2-1.0); CALCIUM LEVEL 8.8 MG/DL (8.5-10.1); CREATININE FOR GFR 1.47 MG/DL (0.55-1.30); POTASSIUM SERUM 4.2 MEQ/L (3.5-5.1); TOTAL PROTEIN 6.7 GM/DL (6.4-8.2)
[2019-05-18 11:05] LABS: TOTAL 25(OH) VITAMIN D 33.2 NG/ML (30.0-100.0)
[2019-05-18 11:06] LABS: PTH INTACT 140.3 PG/ML (18.5-88.0)
[2019-05-18 11:29] LABS: HEMOGLOBIN A1c 5.5 %
== END ==
LOC: M SFHCPLAZ 07:53
PROVIDERS: ATTEND Family Medicine
DX: R73.01 Impaired fasting glucose (principal); E55.9 Vitamin D deficiency, unspecified; E53.8 Deficiency of other specified B group vitamins

== ENCOUNTER → 2019-05-29 | Outpatient (REF) | payer OTHER ==
[2019-05-29 16:56] LABS: APPEARANCE, URINE HAZY (CLEAR); BACTERIA, URINE AUTO NEGATIVE (NEGATIVE); BILIRUBIN, URINE AUTO NEGATIVE (NEGATIVE); BLOOD, URINE BLOOD NEGATIVE (NEGATIVE); COLOR, URINE YELLOW (YELLOW); GLUCOSE, URINE (UA) AUTO NEGATIVE (NEGATIVE); KETONE, URINE AUTO NEGATIVE (NEGATIVE); LEUKOCYTE ESTERASE, URINE AUTO TRACE (NEGATIVE); NITRITE, URINE AUTO POSITIVE (NEGATIVE); PROTEIN, URINE AUTO NEGATIVE (NEGATIVE); RBC, URINE AUTO 2 /HPF (0-3); SPECIFIC GRAVITY URINE AUTO 1.012 (1.002-1.035); SQUAMOUS EPITHELIAL CELL UR AU 0 /HPF (0-6); UROBILINOGEN, URINE AUTO 0.2 mg/dL (0.0-2.0); WBC, URINE AUTO 2 /HPF (0-3)
== END ==
LOC: M SFHCPLAZ 16:23
PROVIDERS: ATTEND Physician Assistant Medical
DX: R30.0 Dysuria (principal)

== ENCOUNTER → 2019-06-21 | Outpatient (REF) | payer OTHER ==
[~2019-06-21] MED LIST changes: +ACET-897 PO; +ATOR1TAB21 PO; +BUPR15TASR PO; +CITA20TA6 PO; +FOLI1TAB11 PO; -ISOVUE-M 300 61% 15ML VIAL (Q9967) As Ordered ONE; +LANS30CA PO; +LEVO100T5 PO; -LIDOCAINE 1% SDV INJ 30 ML VIAL As Ordered ONE; +LISI10TA4 PO; +METF500T13 PO; +OXAY1TAB PO; +PROAAER10 INH; +SING10TA32 PO; +TRIA37.5 PO; +VITA500045 PO; -diazePAM 5 MG TAB As Ordered ONE; -methylPREDNISolone SUSP 40 MG/ML (DEPO-medrol) VIAL (J1030) As Ordered ONE; -oxyCODONE 5MG TAB As Ordered ONE
[2019-06-21 14:00] LABS: BILIRUBIN,TOTAL 0.4 MG/DL (0.2-1.0); CALCIUM LEVEL 9.5 MG/DL (8.5-10.1); CREATININE FOR GFR 1.18 MG/DL (0.55-1.30); GLOMERULAR FILTRATION RATE 50.3 (>51); POTASSIUM SERUM 4.7 MEQ/L (3.5-5.1); TOTAL PROTEIN 7.6 GM/DL (6.4-8.2)
== END ==
LOC: M SFHCPLAZ 11:31
PROVIDERS: ATTEND Family Medicine
DX: N18.3 Chronic kidney disease, stage 3 (moderate) (principal)

== ENCOUNTER 2019-07-03 06:26 | Day surgery (SDC) | payer OTHER ==
[~2019-07-03] VITALS: Ht 170.2 cm; Wt 129.3 kg
[~2019-07-03 06:26] MED LIST changes: +NS 1,000 ML IV ONE
[2019-07-03] MEDS ORDERED: LIDOCAINE 2% INJ 100 MG/5 ML SDV (FOR ANES.) As Ordered ONE (07:07)
[2019-07-03] MEDS ORDERED: PROPOFOL 200 MG/20 ML VIAL As Ordered ONE ×2 (07:07→07:54)
--- NOTE | 2019-07-03 07:59 | ROOR ---
Patient Name: Mima Gramajo Procedure Date: 07/03/2019 7:29 AM Date of : 1960 Age: 59 Room: [facility] Gender: Female Note Status: Finalized Procedure: Colonoscopy Indications: Screening for colorectal malignant neoplasm Providers: Yon MORA MD Referring MD: Avila Patricia MD Requesting Provider: Medicines: Monitored Anesthesia Care Complications: No immediate complications. Procedure: Pre-Anesthesia Assessment: - The heart rate, respiratory rate, oxygen saturations, blood pressure, adequacy of pulmonary ventilation, and response to care were monitored throughout the procedure. The Colonoscope was introduced through the anus and advanced to the terminal ileum, with identification of the appendiceal orifice and IC valve. The colonoscopy was performed without difficulty. The patient tolerated the procedure well. The quality of the bowel preparation was good. The bowel preparation used was TriLyte via split dose instruction. The bowel preparation used was magnesium citrate via single dose instruction. Findings: The perianal and digital rectal examinations were normal. Two sessile polyps were found in the sigmoid colon and splenic flexure. The polyps were diminutive in size. These polyps were removed with a cold snare. Resection and retrieval were complete. Mild sigmoid diverticulosis and small internal hemorrhoids. The exam was otherwise without abnormality on direct and retroflexion views. Impression: - Two diminutive polyps in the sigmoid colon and at the splenic flexure, removed with a cold snare. Resected and retrieved. - Mild sigmoid diverticulosis and small internal hemorrhoids. - The examination was otherwise normal on direct and retroflexion views. Recommendation: - Repeat colonoscopy in 5 years for surveillance. Yon Mora MD Yon MORA MD 07/03/2019 7:58:44 AM Electronically signed by Yon MORA MD Number of Addenda: 0 Note Initiated On: 07/03/2019 7:29 AM Estimated Blood Loss: Estimated blood loss: none.
[2019-07-03 08:20] VITALS: BP 132/89
== END 2019-07-03 08:35 | disposition home or self-care (01) ==
LOC: M OPP 06:26
PROVIDERS: ATTEND Internal Medicine Gastroenterology
DX: Z12.11 Encounter for screening for malignant neoplasm of colon (principal); K63.5 Polyp of colon; D12.3 Benign neoplasm of transverse colon; K57.30 Diverticulosis of large intestine without perforation or abscess without bleeding; K64.8 Other hemorrhoids; E11.9 Type 2 diabetes mellitus without complications; I10 Essential (primary) hypertension; E78.00 Pure hypercholesterolemia, unspecified; E03.9 Hypothyroidism, unspecified; R12 Heartburn; F41.9 Anxiety disorder, unspecified; F32.9 Major depressive disorder, single episode, unspecified; J44.9 Chronic obstructive pulmonary disease, unspecified; Z80.0 Family history of malignant neoplasm of digestive organs; Z80.42 Family history of malignant neoplasm of prostate; Z88.0 Allergy status to penicillin; Z88.1 Allergy status to other antibiotic agents; Z88.5 Allergy status to narcotic agent; Z88.8 Allergy status to other drugs, medicaments and biological substances; Z79.84 Long term (current) use of oral hypoglycemic drugs; Z79.899 Other long term (current) drug therapy; Z98.84 Bariatric surgery status

== ENCOUNTER → 2019-07-12 | Outpatient (CLI) | payer OTHER ==
[~2019-07-12] MED LIST changes: +BUPIVACAINE HCL 0.25% 30 ML VIAL As Ordered ONE; +ISOVUE-M 200 41% 20ML VIAL (Q9966) As Ordered ONE; +LIDOCAINE 1% SDV INJ 30 ML VIAL As Ordered ONE; -NS 1,000 ML IV ONE; +TRIAMCINOLONE ACETONIDE SUSP 40 MG/ML VIAL (J3301) As Ordered ONE; +diazePAM 5 MG TAB As Ordered ONE; +oxyCODONE 5MG TAB As Ordered ONE
--- NOTE | 2019-07-12 12:39 | REP ---
Partial lumbar spine series: Four views . History: Injection procedure for pain. 25 seconds of fluoroscopy time is reported. Findings: A sequence of four fluoroscopically obtained last image hold procedural spot radiographs of the lumbar spine document needle position and contrast injection associated with injection procedure. Electronically Signed by Arnulfo Alva MD 07/12/2019 12:30 P
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
== END ==
LOC: M PAIN 09:45
PROVIDERS: ATTEND Anesthesiology
DX: G89.29 Other chronic pain (principal); M47.816 Spondylosis without myelopathy or radiculopathy, lumbar region; M47.817 Spondylosis without myelopathy or radiculopathy, lumbosacral region; Z79.84 Long term (current) use of oral hypoglycemic drugs; Z79.899 Other long term (current) drug therapy; Z88.5 Allergy status to narcotic agent; Z88.8 Allergy status to other drugs, medicaments and biological substances; Z88.1 Allergy status to other antibiotic agents
CPT/HCPCS: 64493; 64494; J3301; Q9966

== ENCOUNTER → 2019-08-03 | Outpatient (CLI) | payer OTHER ==
[~2019-08-03] MED LIST changes: -BUPIVACAINE HCL 0.25% 30 ML VIAL As Ordered ONE; -ISOVUE-M 200 41% 20ML VIAL (Q9966) As Ordered ONE; -LIDOCAINE 1% SDV INJ 30 ML VIAL As Ordered ONE; -TRIAMCINOLONE ACETONIDE SUSP 40 MG/ML VIAL (J3301) As Ordered ONE; -diazePAM 5 MG TAB As Ordered ONE; -oxyCODONE 5MG TAB As Ordered ONE
--- NOTE | 2019-08-18 01:59 | ECWPNPC ---
PATIENT NAME: MUNIR WILLAMS : 1960 GENDER: FEMALE VISIT DATE: 08/03/2019 DISCHARGE DATE: 08/03/19 1043 VISIT LOCKED DATE TIME: PHYSICIAN: TASHI RODRIGUEZ PHYSICIAN PAGER NO: [phone] RESOURCE: TASHI RODRIGUEZ REASON FOR APPOINTMENT 1. POST PROC HISTORY OF PRESENT ILLNESS HISTORY OF PRESENT ILLNESS: HERE FOR POST PROCEDURE F/U.HAD BILAT L4/5-L5/S1 LFBT ON 07-12-19.REPORTING REDUCTION IN PAIN X7-10 DAYS THEN PAIN HAS ESCALATED OVER THE PAST 10 DAYS.RATING PAIN VAS 10/10. LYRICA TRIALED CAUSED SIGNIFICANT FLUID REDUCTION VERTIGO AND FALLS. USING TRAMADOL 50MG PRN FOR SEVERE PAIN WITH MINIMAL IMPROVEMENT.DISCUSSED MEDICATION AND TREATMENT OPTIONS. PAIN THE PATIENT DESCRIBES THE PAIN... THE PATIENT DESCRIBES THE PAIN... THE PATIENT DESCRIBES THE PAIN... THE PATIENT DESCRIBES THE PAIN... FALL RISK SCREENING: SCREENING :NO FALLS REPORTED IN THE LAST YEAR CURRENT MEDICATIONS TAKING PREVACID 30 MG CAPSULE DELAYED RELEASE 1 CAPSULE ORALLY ONCE A DAY TAKING CLARISPRAY 50 MCG/ACT SUSPENSION 2 SPRAYS IN EACH NOSTRIL NASALLY TWICE DAILY TAKING NASONEX 50 MCG/ACT SUSPENSION 2 SPRAYS IN EACH NOSTRIL NASALLY ONCE A DAY TAKING ATORVASTATIN CALCIUM 20 MG TABLET 1 TABLET ORALLY ONCE A DAY TAKING FOLIC ACID 1 MG TABLET 1 TABLET ORALLY ONCE A DAY TAKING TYLENOL EXTRA STRENGTH 500 MG TABLET 3TABLETS ORALLY TWICE DAILY TAKING ERGOCALCIFEROL 11265 UNIT CAPSULE 1 CAPSULE ORALLY ONCE A WEEK TAKING TUMS ULTRA 1000 1000 MG TABLET CHEWABLE 1 TABLET ORALLY ONCE A DAY TAKING CYANOCOBALAMIN 500 MCG TABLET 1 TABLET ORALLY ONCE A DAY TAKING LEVOTHYROXINE SODIUM 100 MCG TABLET 1 TABLET ON AN EMPTY STOMACH IN THE MORNING ORALLY ONCE A DAY TAKING QVAR 80 MCG/ACT AEROSOL SOLUTION 1 PUFF INHALATION TWICE A DAY TAKING PROAIR HFA 108 (90 BASE) MCG/ACT AEROSOL SOLUTION 2 PUFFS NEEDED INHALATION QID PRN TAKING MONTELUKAST SODIUM 10 MG TABLET 1 TABLET ORALLY AT BEDTIME TAKING BUPROPION HCL 150 MG TABLET EXTENDED RELEASE 1 TAB ORALLY BID TAKING BLOOD GLUCOSE TEST - STRIP DIRECTED SUBCUTANEOUSLY DAILY DX: E11.9 TAKING LANCETS - MISCELLANEOUS DIRECTED SUBCUTANEOUSLY DAILY DX: E11.9 TAKING FERROUS SULFATE 325 (65 FE) MG TABLET 1 TABLET ORALLY EVER OTHER DAY TAKING TRIAMTERENE-HCTZ 37.5-25 MG TABLET 1 TAB ORALLY DAILY TAKING CITALOPRAM HYDROBROMIDE 40 MG TABLET 1 TABLET ORALLY ONCE A DAY TAKING METFORMIN HCL ER 500 MG TABLET EXTENDED RELEASE 24 HOUR 1 TABLET WITH EVENING MEAL ORALLY AC DINNER TAKING LISINOPRIL 10 MG TABLET 1 TABLET ORALLY ONCE A DAY NOT-TAKING PERCOCET 5-325 MG TABLET 1 TABLET NEEDED ORALLY Q8H PRN MDD3 MEDICATION LIST REVIEWED AND RECONCILED WITH THE PATIENT PAST MEDICAL HISTORY ASTHMA, MILD PERSISTENT ALLERGIC RHINITIS MDD/MORRO, H/O ETHOH ABUSE-NONE SINCE 04/2016 BLE LYMPHEDEMA/LIPEDEMA SUPER OBESITY S/P MEAGAN GB 09/2007-PRESURGICAL WEIGHT 650 GERD/H/O GASTRITIS DX BY PREVIOUS EGD CKD3-09/2017 NORMAL B RENAL US S EVIDENCE OF MINH VITAMIN B12/FA DEFICIENCY-09/2017 IF 1 (0-1), PARIETAL 34 (0-20) R>L MARKED ADVANCED KNEE OA BY 09/2017 XRAY VITAMIN D DEFICIENCY IRITABLE BOWEL SYNDROME, CONSTIPATION-TYPE MDD/MORRO TYPE II DIABETES LIPEDEMA CHRONIC KIDNEY DISEASE STAGE III 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, SEVERE L3/4 C GRADE 1 LITHESIS C B L3 COMPRESSION, MILD L4/5 C GRADE 1 LITHESIS, B L5 COMPRESSION IN NF BY 06/2018 MRI ALLERGIES MORPHINE: NAUSEA/VOMITING - SIDE EFFECTS REGLAN: ANAPHYLAXIS - ALLERGY "CILLIANS": HIVES - SIDE EFFECTS Z-PACK: HIVES - SIDE EFFECTS SYMBICORT: THRUSH SEVERE - SIDE EFFECTS SURGICAL HISTORY GALLBLADDER/LIVER STONE REMOVAL 1989 GASTRIC BYPASS-DR.WOLF FRENCH 09/2007 FAMILY HISTORY FATHER: ALIVE, FIRST AL AT 58Y, T2DM DX IN 70S, DIAGNOSED WITH DIABETES MOTHER: 57 YRS, FIRST AL AT 37, 2 AL, HEAVY SMOKER/ETHOH, UNSPECIFIED HEART DISEASE, UNSPECIFIED CEREBRAL ARTERY OCCLUSION WITH CEREBRAL INFARCTION MATERNAL GRAND FATHER: UNSPECIFIED HEART DISEASE, OTHER MALIGNANT NEOPLASM OF UNSPECIFIED SITE 1 SISTER(S) . SISTER-SVT\\\\\\\\N1\\\\\\\\\\\\\\/2 BROTHER-UNKNOWN\\\\\\\\N\\\\\\\\NNO CANCERS IN 1DR\\\\\\\\NFATHER -DIAGNOSED WITH DM. SOCIAL HISTORY GENERAL: TOBACCO USE ARE YOU A:NONSMOKER HIV / HEP-C SCREENING HIV TEST OFFERED TO PATIENT:YES DATE OFFERED:08/25/2017 TEST ACCEPTED:NO HEP-C TEST OFFERED TO PATIENT:YES DATE OFFERED:08/25/2017 REASON:PATIENT DECLINED TEST ACCEPTED:NO REASON:PATIENT DECLINED DIET: LOW CARB, HIGH VEGETABLES AND FRUITS, 8-10 OZ PER DAY OF LEAN PROTEIN. LANGUAGE LANGUAGES SPOKEN:ITALIAN DOMESTIC VIOLENCE DO YOU FEEL SAFE IN YOUR ENVIRONMENT?YES BMI CARE GOAL FOLLOW-UP ABOVE NORMAL BMI FOLLOW-UPGIVING ENCOURAGEMENT TO EXERCISE RECREATIONAL DRUG USE DRUG USE?NO PATIENT DENIES ABUSE OR MISSUSED OF ANY MEDICATION. PATIENT DENIES USE OF ANY ILLEGAL SUBSTANCE INCLUDING MARIJUANA OR COCAINE. 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 CLINIC PFS, CLERGY, PUBLIC HEALTH REFERRALS HAS THE PATIENT BEEN EDUCATED REGARDING HIS/HER PLAN OF CARE?YES HAS THE PATIENT BEEN EDUCATED REGARDING PAIN, THE RISK FOR PAIN, THE IMPORTANCE OF EFFECTIVE PAIN MANAGEMENT, AND THE PAIN ASSESSMENT PROCESS?YES LATEX QUESTIONNAIRE LATEX ALLERGY : HAVE YOU EVER DEVELOPED ANY TYPE OF REACTION AFTER HANDLING LATEX PRODUCTS SUCH RUBBER GLOVES, CONDOMS, DIAPHRAGMS, BALLOONS, SOCKS, OR UNDERWEAR?NO LATEX ALLERGY : HAVE YOU EVER DEVELOPED ANY TYPE OF REACTION DURING OR AFTER DENTAL APPOINTMENT, VAGINAL/RECTAL EXAMINATION, SURGICAL PROCEDURE, OR ANY OTHER EXPOSURE?NO DATE ASKED : 03/12/2019 LATEX RISK : HAVE YOU EVER HAD ANY DIFFICULTY BREATHING OR HIVES AFTER EATING OR HANDLING ANY FRUITS, OR VEGETABLES; SUCH KIWI, BANANAS, STONE FRUITS, OR CHESTNUTSNO LATEX RISK : DO YOU HAVE A PREVIOUS PERSONAL HISTORY OF MORE THAN NINE SURGERIES, SPINA BIFIDA, OR REPEATED CATHERIZATIONS? NO LATEX RISK : ARE YOU FREQUENTLY EXPOSED TO LATEX PRODUCTS IN YOUR OCCUPATION?NO CAFFEINE CAFFEINE USE?YES HOW OFTEN AND HOW MUCH? 2 CUPS OF COFFEE PER DAY ADVANCE DIRECTIVE ADVANCE DIRECTIVE DISCUSSED WITH PATIENT:YES HEALTH CARE PROXY DAMI WILLAMS [phone] PRESYBETERIAN [id number] ORIENTAL ORTHODOX NO YARSANISM BELIEFS THAT WOULD IMPACT HEALTH CARE. MARITAL STATUS: . ALCOHOL SCREENING DID YOU HAVE A DRINK CONTAINING ALCOHOL IN THE PAST YEAR?NO POINTS0 INTERPRETATIONNEGATIVE SEXUAL HX HAD SEX IN THE LAST 12 MONTHS (VAGINAL, ORAL, OR ANAL)?NO LIVES C , DAMI WILLAMSREVIEWED WITH PT 08/01/18 1530 BVREVIEWED WITH PT 09/04/18 0910 LASREVIEWED WITH PATIENT 10/19/18 0915 JS REVIEWED WITH PATIENT 03/12/19 0936 JSREVIEWED WITH PATIENT 08/03/19 1000 LASREVIEWED WITH PATIENT 03/28/19 0925 JS. HOSPITALIZATION/MAJOR DIAGNOSTIC PROCEDURE SURGERIES REVIEW OF SYSTEMS REVIEWED BY: PROVIDER: TASHI GALEANO . CONSTITUTIONAL: ANY CHANGE IN YOUR MEDICAL CONDITION? NO . CHILLS NO . FEVER NO . INFECTION: DO YOU HAVE NEW INFECTIONS? NO . DO YOU HAVE HISTORY OF MRSA? NO . MUSCULOSKELETAL: ANY NEW PATTERNS OF PAIN OR NUMBNESS? NO . GASTROENTEROLOGY: ANY NEW CHANGE IN BOWEL CONTROL? NO . GENITOURINARY: ANY NEW CHANGE IN BLADDER CONTROL? NO . IS THERE A CHANCE YOU COULD BE ? NO . HEMATOLOGY/LYMPH: DO YOU TAKE ANY BLOOD THINNERS? (FOR EXAMPLE- COUMADIN, PLAVIX, AGGRENOX, PLATEL, PRADAXA, OR XARELTO) NO . WHEN WAS YOUR LAST DOSE? DATE: TIME: . NEUROLOGY: HAVE YOU FALLEN IN THE PAST 12 MONTHS? YES PT REPORTS SHE FELL THREE TIMES WHILE ON LYRICA, NO LONGER ON THIS MEDICATION AND HAS NOT FALLEN SINCE . ANY NEW EXTREMITY NUMBNESS OR WEAKNESS? NO . CARDIOLOGY: DO YOU HAVE A PACEMAKER OR DEFIBRILLATOR? NO . RESPIRATORY: HAVE YOU BEEN SICK IN THE PAST WEEK? NO . FEVER NO . FLU LIKE SYMPTOMS? NO . COUGH NO . INTEGUMENTARY: DO YOU HAVE ANY RASHES OR OPEN SORES? NO . ALLERGIC/IMMUNO: ARE YOU ALLERGIC TO IV DYE? NO . ANY NEW ALLERGIES? NO . PSYCHIATRIC: DO YOU HAVE THOUGHTS OF HURTING YOURSELF OR SOMEONE ELSE? NO . ARE YOU ABUSED, NEGLECTED, OR IN AN UNSAFE ENVIRONMENT? NO . ENDOCRINOLOGY: ARE YOU DIABETIC? YES . OTHER: DO YOU NEED ANY PRESCRIPTIONS? NO . IF YES, PLEASE LIST: ____ . ANY NEW PROBLEMS WITH YOUR MEDICATIONS? NO . WHEN DID YOU LAST EAT? ____ . WHEN DID YOU LAST DRINK? ____ . WHAT DID YOU LAST DRINK? ____ . NAME OF PERSON DRIVING YOU HOME? ____ . DO YOU HAVE ANY OTHER QUESTIONS OR CONCERNS YES PT REPORTS SHE FEELS SHE MAY NEEDS SOME PAIN MEDICATIONS, WOULD LIKE TO DISCUSS. . VITAL SIGNS WT 277.8 LBS, HT 66", BMI 44.83 INDEX, BP 104/64 MM HG, HR 91 /MIN, RR 18 /MIN, TEMP 96.6 F, OXYGEN SAT % 97%, SAFE IN ENV? (Y/N) YES, NA INITIALS AW 0941, REVIEWED BY: MARYCHUY. EXAMINATION GENERAL EXAMINATION: GENERALAWAKE,ALERT ,PLEAASANT . PSYCHAFFECT NORMAL . LUNGS:LUNG SANDRA ARE CLEAR TO AUSCULTATION BILATERALLY. GOOD MOVEMENT OF AIR . HEART:S1, S2 IN A REGULAR RATE AND RHYTHM. NO SIGNIFICANT MURMURS, RUBS OR GALLOPS NOTED . LUMBAR SACRAL SPINEPALPATION: + FOR PAIN OVER L/S SPINE. + FOR PAIN OVER L/S PARASPINALS.SPECIFIC TENDERNESS NOTED OVER BILAT. L3/4-L4/5 LUMBAR FACETS WITH FACET LOADING. NEUROLOGIC EXAM:NORMAL SENSATION LIGHT TOUCH BILAT. LOWER EXTREMITIES. ASSESSMENTS SPONDYLOSIS OF LUMBAR REGION WITHOUT MYELOPATHY OR RADICULOPATHY - M47.816 (PRIMARY) TREATMENT SPONDYLOSIS OF LUMBAR REGION WITHOUT MYELOPATHY OR RADICULOPATHY START TRAMADOL HCL TABLET, 50 MG, 2, ORALLY, BID MDD4-Q10HRS, 30 DAYS, 120, REFILLS 2 START AMITRIPTYLINE HCL TABLET, 25 MG, 1 TABLET AT BEDTIME, ORALLY, ONCE A DAY AT BEDTIME, 30 DAY(S), 30, REFILLS 2 NOTES: BILAT. L4/5-L5/S1 LFB DX. PREVENTIVE MEDICINE PAIN CLINIC TEACHING: MEDICATIONS INFORMATION HAND OUT FOR AMITRIPTYLINE AND TRAMADOL PRINTED AND REVIEWED WITH PATIENT, PATIENT VERBALIZES UNDERSTANDING. PROCEDURE TEACHING DIAGNOSTIC FACET PROCEDURE REVIEWED WITH PATIENT, PRE PROCEDURE INSTRUCTIONS REVIEWED, PT VERBALIZES UNDERSTANDING. PROCEDURE CODES FA211 ESTABILISHED PATIENT [facility] DISPOSITION & COMMUNICATION FOLLOW UP POST (REASON: BILAT. L4/5-L5/S1 LFB DX) ELECTRONICALLY SIGNED BY FROYLAN LEUNG ON 08/17/2019 AT 01:52 PM EDT DISCLAIMER : THIS IS A VISIT SUMMARY EXTRACTED FROM THE [facility] CHART. IT IS NOT A COPY OF THE [facility] PROGRESS NOTE. PUNEET
== END ==
LOC: M PAIN 09:45
PROVIDERS: ATTEND Nurse Practitioner Family
DX: M47.816 Spondylosis without myelopathy or radiculopathy, lumbar region (principal); J45.20 Mild intermittent asthma, uncomplicated; I10 Essential (primary) hypertension; Z86.59 Personal history of other mental and behavioral disorders; K21.9 Gastro-esophageal reflux disease without esophagitis; D50.9 Iron deficiency anemia, unspecified; E11.9 Type 2 diabetes mellitus without complications; Z98.84 Bariatric surgery status; Z88.1 Allergy status to other antibiotic agents; Z88.5 Allergy status to narcotic agent; Z88.8 Allergy status to other drugs, medicaments and biological substances; E66.01 Morbid (severe) obesity due to excess calories; Z68.41 Body mass index [BMI] 40.0-44.9, adult; Z79.84 Long term (current) use of oral hypoglycemic drugs; Z79.899 Other long term (current) drug therapy

== ENCOUNTER → 2019-09-18 | Outpatient (CLI) | payer OTHER ==
[~2019-09-18] MED LIST changes: +BUPIVACAINE HCL 0.25% 30 ML VIAL As Ordered ONE; +ISOVUE-M 300 61% 15ML VIAL (Q9967) As Ordered ONE; +LIDOCAINE 1% SDV INJ 30 ML VIAL As Ordered ONE
--- NOTE | 2019-09-18 13:15 | REP ---
C-ARM VIEWS LUMBAR SPINE: CLINICAL HISTORY: Pain. Two C-arm views of the lower lumbar spine performed during facet block injection performed by Dr. Marmolejo. [place] are seen along the lower lumbar facet joints. A tiny amount of contrast is injected. 39 seconds fluoroscopy time utilized. Electronically Signed by J Carlos Simmons MD 09/18/2019 02:02 P
--- NOTE | 2019-09-25 01:54 | ECWPNPC ---
PATIENT NAME: MUNIR WILLAMS : 1960 GENDER: FEMALE VISIT DATE: 09/18/2019 DISCHARGE DATE: 09/18/19 1121 VISIT LOCKED DATE TIME: PHYSICIAN: CHRISTY SALINAS MD PHYSICIAN PAGER NO: [phone] RESOURCE: CHRISTY SALINAS MD REASON FOR APPOINTMENT 1. CINTIA DIAGNOSTIC LUMBAR FB #1 HISTORY OF PRESENT ILLNESS HISTORY OF PRESENT ILLNESS: PAIN THE PATIENT DESCRIBES THE PAIN... FALL RISK SCREENING: SCREENING :NO FALLS REPORTED IN THE LAST YEAR CURRENT MEDICATIONS TAKING PREVACID 30 MG CAPSULE DELAYED RELEASE 1 CAPSULE ORALLY ONCE A DAY, NOTES: 09/17/19 PM TAKING CLARISPRAY 50 MCG/ACT SUSPENSION 2 SPRAYS IN EACH NOSTRIL NASALLY TWICE DAILY, NOTES: 09/18/19 0800 TAKING NASONEX 50 MCG/ACT SUSPENSION 2 SPRAYS IN EACH NOSTRIL NASALLY ONCE A DAY, NOTES: 09/17/19 TAKING ATORVASTATIN CALCIUM 20 MG TABLET 1 TABLET ORALLY ONCE A DAY, NOTES: 09/17/19 AM TAKING TYLENOL EXTRA STRENGTH 500 MG TABLET 3TABLETS ORALLY TWICE DAILY, NOTES: NONE RECENT TAKING ERGOCALCIFEROL 89032 UNIT CAPSULE 1 CAPSULE ORALLY ONCE A WEEK, STOP DATE 09/04/2019, NOTES: TAKES ON SATURDAYS TAKING TUMS ULTRA 1000 1000 MG TABLET CHEWABLE 1 TABLET ORALLY ONCE A DAY, NOTES: 09/17/19 TAKING QVAR 80 MCG/ACT AEROSOL SOLUTION 1 PUFF INHALATION TWICE A DAY, NOTES: NONE RECENT TAKING PROAIR HFA 108 (90 BASE) MCG/ACT AEROSOL SOLUTION 2 PUFFS NEEDED INHALATION QID PRN, NOTES: NONE RECENT TAKING MONTELUKAST SODIUM 10 MG TABLET 1 TABLET ORALLY AT BEDTIME, NOTES: 09/17/19 TAKING BUPROPION HCL 150 MG TABLET EXTENDED RELEASE 1 TAB ORALLY BID, NOTES: 09/17/19 PM TAKING BLOOD GLUCOSE TEST - STRIP DIRECTED SUBCUTANEOUSLY DAILY DX: E11.9 TAKING LANCETS - MISCELLANEOUS DIRECTED SUBCUTANEOUSLY DAILY DX: E11.9 TAKING FERROUS SULFATE 325 (65 FE) MG TABLET 1 TABLET ORALLY EVER OTHER DAY, NOTES: 09/17/19 PM TAKING TRIAMTERENE-HCTZ 37.5-25 MG TABLET 1 TAB ORALLY DAILY, NOTES: 09/17/19 AM TAKING CITALOPRAM HYDROBROMIDE 40 MG TABLET 1 TABLET ORALLY ONCE A DAY, NOTES: 09/17/19 PM TAKING METFORMIN HCL ER 500 MG TABLET EXTENDED RELEASE 24 HOUR 1 TABLET WITH EVENING MEAL ORALLY AC DINNER, NOTES: 09/17/19 PM TAKING LISINOPRIL 10 MG TABLET 1 TABLET ORALLY ONCE A DAY, NOTES: 09/17/19 AM TAKING TRAMADOL HCL 50 MG TABLET 2 ORALLY BID MDD4-Q10HRS, NOTES: 3 DAYS AGO TAKING AMITRIPTYLINE HCL 25 MG TABLET 1 TABLET AT BEDTIME ORALLY ONCE A DAY AT BEDTIME, NOTES: 09/16/19 TAKING LEVOTHYROXINE SODIUM 100 MCG TABLET 1 TABLET ON AN EMPTY STOMACH IN THE MORNING ORALLY ONCE A DAY, NOTES: 09/17/19 AM TAKING FOLIC ACID 1 MG TABLET 1 TABLET ORALLY ONCE A DAY, NOTES: 09/17/19 AM NOT-TAKING CYANOCOBALAMIN 500 MCG TABLET 1 TABLET ORALLY ONCE A DAY NOT-TAKING PERCOCET 5-325 MG TABLET 1 TABLET NEEDED ORALLY Q8H PRN MDD3 DISCONTINUED BUPROPION HCL ER (SR) 150 MG TABLET EXTENDED RELEASE 12 HOUR TAKE ONE TABLET BY MOUTH TWICE A DAY , NOTES: DUPLICATE MEDICATION LIST REVIEWED AND RECONCILED WITH THE PATIENT PAST MEDICAL HISTORY ASTHMA, MILD PERSISTENT ALLERGIC RHINITIS MDD/MORRO, H/O ETHOH ABUSE-NONE SINCE 04/2016 BLE LYMPHEDEMA/LIPEDEMA SUPER OBESITY S/P MEAGAN GB 09/2007-PRESURGICAL WEIGHT 650 GERD/H/O GASTRITIS DX BY PREVIOUS EGD CKD3-09/2017 NORMAL B RENAL US S EVIDENCE OF MINH VITAMIN B12/FA DEFICIENCY-09/2017 IF 1 (0-1), PARIETAL 34 (0-20) R>L MARKED ADVANCED KNEE OA BY 09/2017 XRAY VITAMIN D DEFICIENCY IRITABLE BOWEL SYNDROME, CONSTIPATION-TYPE MDD/MORRO TYPE II DIABETES LIPEDEMA CHRONIC KIDNEY DISEASE STAGE III 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, SEVERE L3/4 C GRADE 1 LITHESIS C B L3 COMPRESSION, MILD L4/5 C GRADE 1 LITHESIS, B L5 COMPRESSION IN NF BY 06/2018 MRI ALLERGIES MORPHINE: NAUSEA/VOMITING - SIDE EFFECTS REGLAN: ANAPHYLAXIS - ALLERGY "CILLIANS": HIVES - SIDE EFFECTS Z-PACK: HIVES - SIDE EFFECTS SYMBICORT: THRUSH SEVERE - SIDE EFFECTS SURGICAL HISTORY GALLBLADDER/LIVER STONE REMOVAL 1989 GASTRIC BYPASS-DR.WOLF FRENCH 09/2007 FAMILY HISTORY FATHER: ALIVE, FIRST CT AT 58Y, T2DM DX IN 70S, DIAGNOSED WITH DIABETES MOTHER: 57 YRS, FIRST CT AT 37, 2 CT, HEAVY SMOKER/ETHOH, UNSPECIFIED HEART DISEASE, UNSPECIFIED CEREBRAL ARTERY OCCLUSION WITH CEREBRAL INFARCTION MATERNAL GRAND FATHER: UNSPECIFIED HEART DISEASE, OTHER MALIGNANT NEOPLASM OF UNSPECIFIED SITE 1 SISTER(S) . SISTER-SVT\\\\\\\\N1\\\\\\\\\\\\\\/2 BROTHER-UNKNOWN\\\\\\\\N\\\\\\\\NNO CANCERS IN 1DR\\\\\\\\NFATHER -DIAGNOSED WITH DM. SOCIAL HISTORY GENERAL: TOBACCO USE ARE YOU A:NONSMOKER HIV / HEP-C SCREENING HIV TEST OFFERED TO PATIENT:YES DATE OFFERED:08/25/2017 TEST ACCEPTED:NO HEP-C TEST OFFERED TO PATIENT:YES DATE OFFERED:08/25/2017 REASON:PATIENT DECLINED TEST ACCEPTED:NO REASON:PATIENT DECLINED DIET: LOW CARB, HIGH VEGETABLES AND FRUITS, 8-10 OZ PER DAY OF LEAN PROTEIN. LANGUAGE LANGUAGES SPOKEN:KHMER DOMESTIC VIOLENCE DO YOU FEEL SAFE IN YOUR ENVIRONMENT?YES BMI CARE GOAL FOLLOW-UP ABOVE NORMAL BMI FOLLOW-UPGIVING ENCOURAGEMENT TO EXERCISE RECREATIONAL DRUG USE DRUG USE?NO PATIENT DENIES ABUSE OR MISSUSED OF ANY MEDICATION. PATIENT DENIES USE OF ANY ILLEGAL SUBSTANCE INCLUDING MARIJUANA OR COCAINE. 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 CLINIC PFS, CLERGY, PUBLIC HEALTH REFERRALS HAS THE PATIENT BEEN EDUCATED REGARDING HIS/HER PLAN OF CARE?YES HAS THE PATIENT BEEN EDUCATED REGARDING PAIN, THE RISK FOR PAIN, THE IMPORTANCE OF EFFECTIVE PAIN MANAGEMENT, AND THE PAIN ASSESSMENT PROCESS?YES LATEX QUESTIONNAIRE LATEX ALLERGY : HAVE YOU EVER DEVELOPED ANY TYPE OF REACTION AFTER HANDLING LATEX PRODUCTS SUCH RUBBER GLOVES, CONDOMS, DIAPHRAGMS, BALLOONS, SOCKS, OR UNDERWEAR?NO LATEX ALLERGY : HAVE YOU EVER DEVELOPED ANY TYPE OF REACTION DURING OR AFTER DENTAL APPOINTMENT, VAGINAL/RECTAL EXAMINATION, SURGICAL PROCEDURE, OR ANY OTHER EXPOSURE?NO DATE ASKED : 03/12/2019 LATEX RISK : HAVE YOU EVER HAD ANY DIFFICULTY BREATHING OR HIVES AFTER EATING OR HANDLING ANY FRUITS, OR VEGETABLES; SUCH KIWI, BANANAS, STONE FRUITS, OR CHESTNUTSNO LATEX RISK : DO YOU HAVE A PREVIOUS PERSONAL HISTORY OF MORE THAN NINE SURGERIES, SPINA BIFIDA, OR REPEATED CATHERIZATIONS? NO LATEX RISK : ARE YOU FREQUENTLY EXPOSED TO LATEX PRODUCTS IN YOUR OCCUPATION?NO CAFFEINE CAFFEINE USE?YES HOW OFTEN AND HOW MUCH? 2 CUPS OF COFFEE PER DAY ADVANCE DIRECTIVE ADVANCE DIRECTIVE DISCUSSED WITH PATIENT:YES HEALTH CARE PROXY DAMI WILLAMS [phone] LUTHERAN [id number] JEW NO BUDDHIST BELIEFS THAT WOULD IMPACT HEALTH CARE. MARITAL STATUS: . ALCOHOL SCREENING DID YOU HAVE A DRINK CONTAINING ALCOHOL IN THE PAST YEAR?NO POINTS0 INTERPRETATIONNEGATIVE SEXUAL HX HAD SEX IN THE LAST 12 MONTHS (VAGINAL, ORAL, OR ANAL)?NO LIVES C , DAMI WILLAMSREVIEWED WITH PT 08/01/18 1530 BVREVIEWED WITH PT 09/04/18 0910 LASREVIEWED WITH PATIENT 10/19/18 0915 JS REVIEWED WITH PATIENT 03/12/19 0936 JSREVIEWED WITH PATIENT 08/03/19 1000 LASREVIEWED WITH PATIENT 03/28/19 0925 JS REVIEWED WITH PATIENT 09/18/19 0945 BV. HOSPITALIZATION/MAJOR DIAGNOSTIC PROCEDURE SURGERIES REVIEW OF SYSTEMS REVIEWED BY: PROVIDER: . CONSTITUTIONAL: ANY CHANGE IN YOUR MEDICAL CONDITION? NO . CHILLS NO . FEVER NO . INFECTION: DO YOU HAVE NEW INFECTIONS? NO . DO YOU HAVE HISTORY OF MRSA? NO . MUSCULOSKELETAL: ANY NEW PATTERNS OF PAIN OR NUMBNESS? NO . GASTROENTEROLOGY: ANY NEW CHANGE IN BOWEL CONTROL? NO . GENITOURINARY: ANY NEW CHANGE IN BLADDER CONTROL? NO . IS THERE A CHANCE YOU COULD BE ? NO . HEMATOLOGY/LYMPH: DO YOU TAKE ANY BLOOD THINNERS? (FOR EXAMPLE- COUMADIN, PLAVIX, AGGRENOX, PLATEL, PRADAXA, OR XARELTO) NO . WHEN WAS YOUR LAST DOSE? DATE: TIME: . NEUROLOGY: HAVE YOU FALLEN IN THE PAST 12 MONTHS? YES, PT REPORTS A FEW FALLS WHILE TAKING LYRICA, STATES SHE HAS WEAK LEGS. CURRENTLY NOT TAKING LYRICA . ANY NEW EXTREMITY NUMBNESS OR WEAKNESS? PT REPORTS NEW INTERMITTENT NUMBNESS AND TINGLING IN LEFT FOOT OVER THE PAST 2 MONTHS . CARDIOLOGY: DO YOU HAVE A PACEMAKER OR DEFIBRILLATOR? NO . RESPIRATORY: HAVE YOU BEEN SICK IN THE PAST WEEK? NO . FEVER NO . FLU LIKE SYMPTOMS? NO . COUGH NO . INTEGUMENTARY: DO YOU HAVE ANY RASHES OR OPEN SORES? NO . ALLERGIC/IMMUNO: ARE YOU ALLERGIC TO IV DYE? NO . ANY NEW ALLERGIES? NO . PSYCHIATRIC: DO YOU HAVE THOUGHTS OF HURTING YOURSELF OR SOMEONE ELSE? NO . ARE YOU ABUSED, NEGLECTED, OR IN AN UNSAFE ENVIRONMENT? NO . ENDOCRINOLOGY: ARE YOU DIABETIC? YES, FSBS 93 . OTHER: DO YOU NEED ANY PRESCRIPTIONS? NO . IF YES, PLEASE LIST: ____ . ANY NEW PROBLEMS WITH YOUR MEDICATIONS? NO . WHEN DID YOU LAST EAT? 09/17/191929 . WHEN DID YOU LAST DRINK? 09/17/191929 . WHAT DID YOU LAST DRINK? ____ . NAME OF PERSON DRIVING YOU HOME? DAMI WILLAMS . DO YOU HAVE ANY OTHER QUESTIONS OR CONCERNS NO . VITAL SIGNS WT 284.2 LBS, HT 66", BMI 45.87 INDEX, BP 156/92 MM HG, HR 90 /MIN, RR 18 /MIN, TEMP 97.3 F, OXYGEN SAT % 97%, NA INITIALS SC 09:41, REVIEWED BY: BV. ASSESSMENTS LUMBAR SPONDYLOSIS - M47.816 (PRIMARY) SPONDYLOSIS WITHOUT MYELOPATHY OR RADICULOPATHY, LUMBOSACRAL REGION - M47.817 TREATMENT LUMBAR SPONDYLOSIS SMC FACET BLOCK (PAIN)[id number] PROCEDURES PN LUMBAR FACET BLOCK DIAGNOSTIC PRE PROCEDURE DIAGNOSIS LUMBAR SPONDYLOSIS, LUMBOSACRAL SPONDYLOSIS POST PROCEDURE DIAGNOSIS LUMBAR SPONDYLOSIS, LUMBOSACRAL SPONDYLOSIS PROCEDURE BILATERAL L4-L5 AND L5-S1 FACET BLOCK DIAGNOSTIC NUMBER [address] CHRISTY SALINAS AIR ROUTE CONTROLLER NONE ANESTHESIA LOCAL PRE PROCEDURE NOTE THE PATIENT WITH HISTORY OF CHRONIC LOW BACK PAIN. I EVALUATED THE PATIENT AND REVIEWED THE CHART. I WENT OVER THE RISKS, ALTERNATIVES, AND BENEFITS ASSOCIATED WITH THIS PROCEDURE. THE PATIENT WOULD LIKE TO PROCEED AND GAVE CONSENT TO PERFORM THE PROCEDURE. AGREED WITH THE PATIENT WE ARE DOING THIS PROCEDURE TO DETERMINE IF THE PATIENT IS A CANDIDATE FOR A RADIOFREQUENCY ABLATION OF THE FACETS JOINTS. THE PATIENT DENIES UNEXPLAINABLE WEIGHT LOSS, FEVER, CHILLS, OR NEW CHANGES IN URINARY OR BOWEL CONTROL DESCRIPTION OF PROCEDURE THE PATIENT WAS BROUGHT TO THE PROCEDURE ROOM AND PLACED IN THE PRONE POSITION. THE LUMBOSACRAL AREA WAS CLEANED WITH CHLORAPREP SOLUTION AND DRAPED ASEPTICALLY. THE PROCEDURE WAS DONE UNDER STERILE CONDITIONS. I CHECKED LATERALITY AND THE LEVEL WHERE THE PROCEDURE WAS GOING TO BE PERFORMED WITH THE PATIENT AND THE SUPPORTING STAFF AT THE MOMENT OF THE TIME OUT IN THE PROCEDURE ROOM. UNDER FLUOROSCOPIC GUIDANCE, TARGETS WERE SELECTED AT THE INTERSECTION OF THE RIGHT AND LEFT TRANSVERSE PROCESS OF L4, L5 AND ALA OF S1 WITH ITS RESPECTIVE SUPERIOR ARTICULAR PROCESS. LIDOCAINE WAS USED TO NUMB THE SKIN AND THE SUBCUTANEOUS TISSUE BELOW IT. SPINAL NEEDLE, 22-GAUGE WAS ADVANCED UNDER FLUOROSCOPIC GUIDANCE AND FOLLOWING PATIENT FEEDBACK UNTIL THE TARGETS WERE REACHED. POSITION OF THE NEEDLES WAS VERIFIED WITH AP AND LATERAL VIEWS. AFTER PROPER POSITION OF THE NEEDLES WAS ACHIEVED, ISOVUE-M DYE 30% 0.1 ML WAS INJECTED AT EACH SITE SHOWING ADEQUATE SPREAD OF THE DYE. THEN A SOLUTION OF 0.4 ML OF BUPIVACAINE 0.25% WAS INJECTED AT EACH SITE. THERE WAS NO EVIDENCE OF BLOOD, PARESTHESIA OR CEREBROSPINAL FLUID DURING THE PROCEDURE. THE PATIENT WAS SENT TO THE RECOVERY ROOM. THE PATIENT WAS MOVING THE EXTREMITIES AND DOING WELL. THERE WAS NO COMPLICATION DURING THE PROCEDURE. FLUOROSCOPY TIME WAS 39 SECONDS POST PROCEDURE NOTE THE PATIENT WILL DOCUMENT HIS PAIN LEVEL AND RESPONSE TO THIS PROCEDURE EVERY 30 MINUTES. THE PATIENT WILL BE SEEN IN A FOLLOW UP IN THE NEXT FEW WEEKS. FURTHER DETERMINATION FOR HIS CASE WILL BE DONE AT THE NEXT VISIT. INSTRUCTIONS WERE GIVEN, QUESTIONS WERE ANSWERED, AND THE PATIENT EXPRESSED UNDERSTANDING AND AGREED WITH THE PLAN. I, PATEL PINEDA, DOCUMENTED THE ABOVE INFORMATION ACTING A SCRIBE FOR DR. SALINAS. I HAVE REVIEWED THE ABOVE DOCUMENT, WRITTEN BY PATEL SILVER AND I VERIFY THAT IT IS ACCURATE. PROCEDURE CODES 52309 INJ PARAVERT F JNT L/S 1 LEV, MODIFIERS: 50 [id number] INJ PARAVERT F JNT L/S 2 LEV, MODIFIERS: 50 [id number] RADXPS IN END [id number] PXD DISPOSITION & COMMUNICATION FOLLOW UP 3 WEEKS ELECTRONICALLY SIGNED BY CHRISTY SALINAS MD, MD ON 09/24/2019 AT 04:50 PM EST DISCLAIMER : THIS IS A VISIT SUMMARY EXTRACTED FROM THE [employer] CHART. IT IS NOT A COPY OF THE [employer] PROGRESS NOTE. MTDD
== END ==
LOC: M PAIN 10:15
PROVIDERS: ATTEND Anesthesiology
DX: M47.816 Spondylosis without myelopathy or radiculopathy, lumbar region (principal); M47.817 Spondylosis without myelopathy or radiculopathy, lumbosacral region; J45.30 Mild persistent asthma, uncomplicated; I12.9 Hypertensive chronic kidney disease with stage 1 through stage 4 chronic kidney disease, or unspecified chronic kidney disease; F32.9 Major depressive disorder, single episode, unspecified; F41.1 Generalized anxiety disorder; I89.0 Lymphedema, not elsewhere classified; E66.9 Obesity, unspecified; K21.9 Gastro-esophageal reflux disease without esophagitis; N18.3 Chronic kidney disease, stage 3 (moderate); E53.8 Deficiency of other specified B group vitamins; E55.9 Vitamin D deficiency, unspecified; K58.1 Irritable bowel syndrome with constipation; E11.22 Type 2 diabetes mellitus with diabetic chronic kidney disease; Z79.84 Long term (current) use of oral hypoglycemic drugs; Z79.899 Other long term (current) drug therapy; Z88.5 Allergy status to narcotic agent; Z88.8 Allergy status to other drugs, medicaments and biological substances; Z68.42 Body mass index [BMI] 45.0-49.9, adult
CPT/HCPCS: 64493; 64494; Q9967

== ENCOUNTER → 2019-10-03 | Outpatient (CLI) | payer OTHER ==
[~2019-10-03] MED LIST changes: -BUPIVACAINE HCL 0.25% 30 ML VIAL As Ordered ONE; -ISOVUE-M 300 61% 15ML VIAL (Q9967) As Ordered ONE; -LIDOCAINE 1% SDV INJ 30 ML VIAL As Ordered ONE
--- NOTE | 2019-10-23 04:38 | ECWPNPC ---
PATIENT NAME: MUNIR WILLAMS : 1960 GENDER: FEMALE VISIT DATE: 10/03/2019 DISCHARGE DATE: 10/03/19 1405 VISIT LOCKED DATE TIME: PHYSICIAN: TASHI RODRIGUEZ PHYSICIAN PAGER NO: [phone] RESOURCE: TASHI RODRIGUEZ REASON FOR APPOINTMENT 1. POST DIAG LESI HISTORY OF PRESENT ILLNESS HISTORY OF PRESENT ILLNESS: HERE FOR POST PROCEDURE F/U.HAD BILAT. LFB DX ON 09/18/19.REPORTING 24HRS OF 100% REDUCTION IN PAIN THEN PAIN RETURNED TO BASELINE.SHE IS QUITE UNCOMFORTABLE TODAY.STATES HER NEUROPATHY IN HER FEET HAS BEEN WORSE LATELY.SHE HAS TRIALED BOTH GABAPENTIN AND LYRICA AND HAS HAD INCREASE IN SWELLING AND HAD TO STOP.DISCUSSED TRIAL OF CYMBALTA.SHE WOULD HAVE TO STOP CITALOPRAM WHICH HER PCP WOULD HAVE TO OK.RATING PAIN VAS 10/10. PAIN THE PATIENT DESCRIBES THE PAIN... FALL RISK SCREENING: SCREENING :NO FALLS REPORTED IN THE LAST YEAR CURRENT MEDICATIONS TAKING PREVACID 30 MG CAPSULE DELAYED RELEASE 1 CAPSULE ORALLY ONCE A DAY TAKING CLARISPRAY 50 MCG/ACT SUSPENSION 2 SPRAYS IN EACH NOSTRIL NASALLY TWICE DAILY TAKING NASONEX 50 MCG/ACT SUSPENSION 2 SPRAYS IN EACH NOSTRIL NASALLY ONCE A DAY TAKING ATORVASTATIN CALCIUM 20 MG TABLET 1 TABLET ORALLY ONCE A DAY TAKING TUMS ULTRA 1000 1000 MG TABLET CHEWABLE 1 TABLET ORALLY ONCE A DAY TAKING QVAR 80 MCG/ACT AEROSOL SOLUTION 1 PUFF INHALATION TWICE A DAY TAKING PROAIR HFA 108 (90 BASE) MCG/ACT AEROSOL SOLUTION 2 PUFFS NEEDED INHALATION QID PRN TAKING MONTELUKAST SODIUM 10 MG TABLET 1 TABLET ORALLY AT BEDTIME TAKING BUPROPION HCL 150 MG TABLET EXTENDED RELEASE 1 TAB ORALLY BID TAKING BLOOD GLUCOSE TEST - STRIP DIRECTED SUBCUTANEOUSLY DAILY DX: E11.9 TAKING LANCETS - MISCELLANEOUS DIRECTED SUBCUTANEOUSLY DAILY DX: E11.9 TAKING FERROUS SULFATE 325 (65 FE) MG TABLET 1 TABLET ORALLY EVER OTHER DAY TAKING TRIAMTERENE-HCTZ 37.5-25 MG TABLET 1 TAB ORALLY DAILY TAKING CITALOPRAM HYDROBROMIDE 40 MG TABLET 1 TABLET ORALLY ONCE A DAY TAKING METFORMIN HCL ER 500 MG TABLET EXTENDED RELEASE 24 HOUR 1 TABLET WITH EVENING MEAL ORALLY AC DINNER TAKING LISINOPRIL 10 MG TABLET 1 TABLET ORALLY ONCE A DAY TAKING TRAMADOL HCL 50 MG TABLET 2 ORALLY BID MDD4-Q10HRS TAKING AMITRIPTYLINE HCL 25 MG TABLET 1 TABLET AT BEDTIME ORALLY ONCE A DAY AT BEDTIME TAKING LEVOTHYROXINE SODIUM 100 MCG TABLET 1 TABLET ON AN EMPTY STOMACH IN THE MORNING ORALLY ONCE A DAY TAKING FOLIC ACID 1 MG TABLET 1 TABLET ORALLY ONCE A DAY NOT-TAKING TYLENOL EXTRA STRENGTH 500 MG TABLET 3TABLETS ORALLY TWICE DAILY NOT-TAKING CYANOCOBALAMIN 500 MCG TABLET 1 TABLET ORALLY ONCE A DAY NOT-TAKING PERCOCET 5-325 MG TABLET 1 TABLET NEEDED ORALLY Q8H PRN MDD3 MEDICATION LIST REVIEWED AND RECONCILED WITH THE PATIENT PAST MEDICAL HISTORY ASTHMA, MILD PERSISTENT ALLERGIC RHINITIS MDD/MORRO, H/O ETHOH ABUSE-NONE SINCE 04/2016 BLE LYMPHEDEMA/LIPEDEMA SUPER OBESITY S/P MEAGAN GB 09/2007-PRESURGICAL WEIGHT 650 GERD/H/O GASTRITIS DX BY PREVIOUS EGD CKD3-09/2017 NORMAL B RENAL US S EVIDENCE OF MINH VITAMIN B12/FA DEFICIENCY-09/2017 IF 1 (0-1), PARIETAL 34 (0-20) R>L MARKED ADVANCED KNEE OA BY 09/2017 XRAY VITAMIN D DEFICIENCY IRITABLE BOWEL SYNDROME, CONSTIPATION-TYPE MDD/MORRO TYPE II DIABETES LIPEDEMA CHRONIC KIDNEY DISEASE STAGE III 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, SEVERE L3/4 C GRADE 1 LITHESIS C B L3 COMPRESSION, MILD L4/5 C GRADE 1 LITHESIS, B L5 COMPRESSION IN NF BY 06/2018 MRI ALLERGIES MORPHINE: NAUSEA/VOMITING - SIDE EFFECTS REGLAN: ANAPHYLAXIS - ALLERGY "CILLIANS": HIVES - SIDE EFFECTS Z-PACK: HIVES - SIDE EFFECTS SYMBICORT: THRUSH SEVERE - SIDE EFFECTS SURGICAL HISTORY GALLBLADDER/LIVER STONE REMOVAL 1989 GASTRIC BYPASS-DR.WOLF FRENCH 09/2007 FAMILY HISTORY FATHER: ALIVE, FIRST AK AT 58Y, T2DM DX IN 70S, DIAGNOSED WITH DIABETES MOTHER: 57 YRS, FIRST AK AT 37, 2 [place], HEAVY SMOKER/ETHOH, UNSPECIFIED HEART DISEASE, UNSPECIFIED CEREBRAL ARTERY OCCLUSION WITH CEREBRAL INFARCTION MATERNAL GRAND FATHER: UNSPECIFIED HEART DISEASE, OTHER MALIGNANT NEOPLASM OF UNSPECIFIED SITE 1 SISTER(S) . SISTER-SVT\\\\\\\\N1\\\\\\\\\\\\\\/2 BROTHER-UNKNOWN\\\\\\\\N\\\\\\\\NNO CANCERS IN 1DR\\\\\\\\NFATHER -DIAGNOSED WITH DM. SOCIAL HISTORY GENERAL: TOBACCO USE ARE YOU A:NONSMOKER HIV / HEP-C SCREENING HIV TEST OFFERED TO PATIENT:YES DATE OFFERED:08/25/2017 TEST ACCEPTED:NO HEP-C TEST OFFERED TO PATIENT:YES DATE OFFERED:08/25/2017 REASON:PATIENT DECLINED TEST ACCEPTED:NO REASON:PATIENT DECLINED DIET: LOW CARB, HIGH VEGETABLES AND FRUITS, 8-10 OZ PER DAY OF LEAN PROTEIN. LANGUAGE LANGUAGES SPOKEN:NEPALI DOMESTIC VIOLENCE DO YOU FEEL SAFE IN YOUR ENVIRONMENT?YES BMI CARE GOAL FOLLOW-UP ABOVE NORMAL BMI FOLLOW-UPGIVING ENCOURAGEMENT TO EXERCISE RECREATIONAL DRUG USE DRUG USE?NO PATIENT DENIES ABUSE OR MISSUSED OF ANY MEDICATION. PATIENT DENIES USE OF ANY ILLEGAL SUBSTANCE INCLUDING MARIJUANA OR COCAINE. 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 TECHNICAL NEEDED?NO PAIN CLINIC PFS, CLERGY, PUBLIC HEALTH REFERRALS HAS THE PATIENT BEEN EDUCATED REGARDING HIS/HER PLAN OF CARE?YES HAS THE PATIENT BEEN EDUCATED REGARDING PAIN, THE RISK FOR PAIN, THE IMPORTANCE OF EFFECTIVE PAIN MANAGEMENT, AND THE PAIN ASSESSMENT PROCESS?YES LATEX QUESTIONNAIRE LATEX ALLERGY : HAVE YOU EVER DEVELOPED ANY TYPE OF REACTION AFTER HANDLING LATEX PRODUCTS SUCH RUBBER GLOVES, CONDOMS, DIAPHRAGMS, BALLOONS, SOCKS, OR UNDERWEAR?NO LATEX ALLERGY : HAVE YOU EVER DEVELOPED ANY TYPE OF REACTION DURING OR AFTER DENTAL APPOINTMENT, VAGINAL/RECTAL EXAMINATION, SURGICAL PROCEDURE, OR ANY OTHER EXPOSURE?NO DATE ASKED : 03/12/2019 LATEX RISK : HAVE YOU EVER HAD ANY DIFFICULTY BREATHING OR HIVES AFTER EATING OR HANDLING ANY FRUITS, OR VEGETABLES; SUCH KIWI, BANANAS, STONE FRUITS, OR CHESTNUTSNO LATEX RISK : DO YOU HAVE A PREVIOUS PERSONAL HISTORY OF MORE THAN NINE SURGERIES, SPINA BIFIDA, OR REPEATED CATHERIZATIONS? NO LATEX RISK : ARE YOU FREQUENTLY EXPOSED TO LATEX PRODUCTS IN YOUR OCCUPATION?NO CAFFEINE CAFFEINE USE?YES HOW OFTEN AND HOW MUCH? 2 CUPS OF COFFEE PER DAY ADVANCE DIRECTIVE ADVANCE DIRECTIVE DISCUSSED WITH PATIENT:YES HEALTH CARE PROXY DAMI WILLAMS [phone] ALEVISM [id number] JEHOVAH'S WITNESS NO LATTER-DAY BELIEFS THAT WOULD IMPACT HEALTH CARE. MARITAL STATUS: . ALCOHOL SCREENING DID YOU HAVE A DRINK CONTAINING ALCOHOL IN THE PAST YEAR?NO POINTS0 INTERPRETATIONNEGATIVE SEXUAL HX HAD SEX IN THE LAST 12 MONTHS (VAGINAL, ORAL, OR ANAL)?NO LIVES C , DAMI WILLAMSREVIEWED WITH PT 08/01/18 1530 BVREVIEWED WITH PT 09/04/18 0910 LASREVIEWED WITH PATIENT 10/19/18 0915 JS REVIEWED WITH PATIENT 03/12/19 0936 JSREVIEWED WITH PATIENT 08/03/19 1000 LASREVIEWED WITH PATIENT 03/28/19 0925 JS REVIEWED WITH PATIENT 09/18/19 0945 BV. HOSPITALIZATION/MAJOR DIAGNOSTIC PROCEDURE SURGERIES REVIEW OF SYSTEMS REVIEWED BY: PROVIDER: TASHI GALEANO . CONSTITUTIONAL: ANY CHANGE IN YOUR MEDICAL CONDITION? NO . CHILLS NO . FEVER NO . INFECTION: DO YOU HAVE NEW INFECTIONS? NO . DO YOU HAVE HISTORY OF MRSA? NO . MUSCULOSKELETAL: ANY NEW PATTERNS OF PAIN OR NUMBNESS? YES, BILAT FOOT NEUROPATHY PAIN IS SEVERE . GASTROENTEROLOGY: ANY NEW CHANGE IN BOWEL CONTROL? NO . GENITOURINARY: ANY NEW CHANGE IN BLADDER CONTROL? NO . IS THERE A CHANCE YOU COULD BE ? NO . HEMATOLOGY/LYMPH: DO YOU TAKE ANY BLOOD THINNERS? (FOR EXAMPLE- COUMADIN, PLAVIX, AGGRENOX, PLATEL, PRADAXA, OR XARELTO) NO . WHEN WAS YOUR LAST DOSE? DATE: TIME: . NEUROLOGY: HAVE YOU FALLEN IN THE PAST 12 MONTHS? YES, PRIOR TO LAST VISIT . ANY NEW EXTREMITY NUMBNESS OR WEAKNESS? YES, BILAT TOES NEUROPATHY PAIN . CARDIOLOGY: DO YOU HAVE A PACEMAKER OR DEFIBRILLATOR? NO . RESPIRATORY: HAVE YOU BEEN SICK IN THE PAST WEEK? NO . FEVER NO . FLU LIKE SYMPTOMS? NO . COUGH NO . INTEGUMENTARY: DO YOU HAVE ANY RASHES OR OPEN SORES? NO . ALLERGIC/IMMUNO: ARE YOU ALLERGIC TO IV DYE? NO . ANY NEW ALLERGIES? NO . PSYCHIATRIC: DO YOU HAVE THOUGHTS OF HURTING YOURSELF OR SOMEONE ELSE? NO . ARE YOU ABUSED, NEGLECTED, OR IN AN UNSAFE ENVIRONMENT? NO . ENDOCRINOLOGY: ARE YOU DIABETIC? YES . OTHER: DO YOU NEED ANY PRESCRIPTIONS? NO . IF YES, PLEASE LIST: ____ . ANY NEW PROBLEMS WITH YOUR MEDICATIONS? NO . WHEN DID YOU LAST EAT? ____ . WHEN DID YOU LAST DRINK? ____ . WHAT DID YOU LAST DRINK? ____ . NAME OF PERSON DRIVING YOU HOME? ____ . DO YOU HAVE ANY OTHER QUESTIONS OR CONCERNS YES, REVEIVED FLU VACCINE TODAY . VITAL SIGNS WT 289.02 LBS, HT 66", BMI 46.64 INDEX, BP 117/62 MM HG, HR 84 /MIN, RR 16 /MIN, TEMP 97.5 F, OXYGEN SAT % 99, REVIEWED BY: EM. EXAMINATION GENERAL EXAMINATION: GENERALAWAKE,ALERT ,PLEAASANT . PSYCHAFFECT NORMAL . LUNGS:LUNG SANDRA ARE CLEAR TO AUSCULTATION BILATERALLY. GOOD MOVEMENT OF AIR . HEART:S1, S2 IN A REGULAR RATE AND RHYTHM. NO SIGNIFICANT MURMURS, RUBS OR GALLOPS NOTED . LUMBAR SACRAL SPINEPALPATION: + FOR PAIN OVER L/S SPINE. + FOR PAIN OVER L/S PARASPINALS.SPECIFIC TENDERNESS NOTED OVER BILAT. L3/4-L4/5 LUMBAR FACETS WITH FACET LOADING R>L. NEUROLOGIC EXAM:NORMAL SENSATION LIGHT TOUCH BILAT. LOWER EXTREMITIES. ASSESSMENTS LUMBAR SPONDYLOSIS - M47.816 (PRIMARY) SPONDYLOSIS WITHOUT MYELOPATHY OR RADICULOPATHY, LUMBOSACRAL REGION - M47.817 TREATMENT LUMBAR SPONDYLOSIS START CYMBALTA CAPSULE DELAYED RELEASE PARTICLES, 30 MG, 1 CAPSULE, ORALLY, ONCE A DAY, 30 DAY(S), 30, REFILLS 2 STOP BUPROPION HCL TABLET EXTENDED RELEASE, 150 MG, 1 TAB, ORALLY, BID NOTES: L3/4-L4/5 RIGHT LFB DXTAKE WELLBUTRIN 150MG DAILY X5 DAYS THEN STOP.START CYMBALTA 30MG DAILY. OTHERS NOTES: DULOXETINE MATERIAL WAS PRINTED. PROCEDURE CODES FA211 ESTABILISHED PATIENT [facility] CHARGE DISPOSITION & COMMUNICATION FOLLOW UP POST (REASON: L3/4-L4/5 RIGHT LFB DX) ELECTRONICALLY SIGNED BY FROYLAN LEUNG ON 10/22/2019 AT 08:42 AM EST DISCLAIMER : THIS IS A VISIT SUMMARY EXTRACTED FROM THE [employer] CHART. IT IS NOT A COPY OF THE [employer] PROGRESS NOTE. MTDD
--- NOTE | 2019-10-23 04:39 | ECWPNPC ---
PATIENT NAME: MUNIR WILLAMS : 1960 GENDER: FEMALE VISIT DATE: 10/03/2019 DISCHARGE DATE: 10/03/19 1405 VISIT LOCKED DATE TIME: PHYSICIAN: TASHI RODRIGUEZ PHYSICIAN PAGER NO: [phone] RESOURCE: TASHI RODRIGUEZ REASON FOR APPOINTMENT 1. POST DIAG LESI HISTORY OF PRESENT ILLNESS HISTORY OF PRESENT ILLNESS: HERE FOR POST PROCEDURE F/U.HAD BILAT. LFB DX ON 09/18/19.REPORTING 24HRS OF 100% REDUCTION IN PAIN THEN PAIN RETURNED TO BASELINE.SHE IS QUITE UNCOMFORTABLE TODAY.STATES HER NEUROPATHY IN HER FEET HAS BEEN WORSE LATELY.SHE HAS TRIALED BOTH GABAPENTIN AND LYRICA AND HAS HAD INCREASE IN SWELLING AND HAD TO STOP.DISCUSSED TRIAL OF CYMBALTA.SHE WOULD HAVE TO STOP CITALOPRAM WHICH HER PCP WOULD HAVE TO OK.RATING PAIN VAS 10/10. PAIN THE PATIENT DESCRIBES THE PAIN... FALL RISK SCREENING: SCREENING :NO FALLS REPORTED IN THE LAST YEAR CURRENT MEDICATIONS TAKING PREVACID 30 MG CAPSULE DELAYED RELEASE 1 CAPSULE ORALLY ONCE A DAY TAKING CLARISPRAY 50 MCG/ACT SUSPENSION 2 SPRAYS IN EACH NOSTRIL NASALLY TWICE DAILY TAKING NASONEX 50 MCG/ACT SUSPENSION 2 SPRAYS IN EACH NOSTRIL NASALLY ONCE A DAY TAKING ATORVASTATIN CALCIUM 20 MG TABLET 1 TABLET ORALLY ONCE A DAY TAKING TUMS ULTRA 1000 1000 MG TABLET CHEWABLE 1 TABLET ORALLY ONCE A DAY TAKING QVAR 80 MCG/ACT AEROSOL SOLUTION 1 PUFF INHALATION TWICE A DAY TAKING PROAIR HFA 108 (90 BASE) MCG/ACT AEROSOL SOLUTION 2 PUFFS NEEDED INHALATION QID PRN TAKING MONTELUKAST SODIUM 10 MG TABLET 1 TABLET ORALLY AT BEDTIME TAKING BUPROPION HCL 150 MG TABLET EXTENDED RELEASE 1 TAB ORALLY BID TAKING BLOOD GLUCOSE TEST - STRIP DIRECTED SUBCUTANEOUSLY DAILY DX: E11.9 TAKING LANCETS - MISCELLANEOUS DIRECTED SUBCUTANEOUSLY DAILY DX: E11.9 TAKING FERROUS SULFATE 325 (65 FE) MG TABLET 1 TABLET ORALLY EVER OTHER DAY TAKING TRIAMTERENE-HCTZ 37.5-25 MG TABLET 1 TAB ORALLY DAILY TAKING CITALOPRAM HYDROBROMIDE 40 MG TABLET 1 TABLET ORALLY ONCE A DAY TAKING METFORMIN HCL ER 500 MG TABLET EXTENDED RELEASE 24 HOUR 1 TABLET WITH EVENING MEAL ORALLY AC DINNER TAKING LISINOPRIL 10 MG TABLET 1 TABLET ORALLY ONCE A DAY TAKING TRAMADOL HCL 50 MG TABLET 2 ORALLY BID MDD4-Q10HRS TAKING AMITRIPTYLINE HCL 25 MG TABLET 1 TABLET AT BEDTIME ORALLY ONCE A DAY AT BEDTIME TAKING LEVOTHYROXINE SODIUM 100 MCG TABLET 1 TABLET ON AN EMPTY STOMACH IN THE MORNING ORALLY ONCE A DAY TAKING FOLIC ACID 1 MG TABLET 1 TABLET ORALLY ONCE A DAY NOT-TAKING TYLENOL EXTRA STRENGTH 500 MG TABLET 3TABLETS ORALLY TWICE DAILY NOT-TAKING CYANOCOBALAMIN 500 MCG TABLET 1 TABLET ORALLY ONCE A DAY NOT-TAKING PERCOCET 5-325 MG TABLET 1 TABLET NEEDED ORALLY Q8H PRN MDD3 MEDICATION LIST REVIEWED AND RECONCILED WITH THE PATIENT PAST MEDICAL HISTORY ASTHMA, MILD PERSISTENT ALLERGIC RHINITIS MDD/MORRO, H/O ETHOH ABUSE-NONE SINCE 04/2016 BLE LYMPHEDEMA/LIPEDEMA SUPER OBESITY S/P MEAGAN GB 09/2007-PRESURGICAL WEIGHT 650 GERD/H/O GASTRITIS DX BY PREVIOUS EGD CKD3-09/2017 NORMAL B RENAL US S EVIDENCE OF MINH VITAMIN B12/FA DEFICIENCY-09/2017 IF 1 (0-1), PARIETAL 34 (0-20) R>L MARKED ADVANCED KNEE OA BY 09/2017 XRAY VITAMIN D DEFICIENCY IRITABLE BOWEL SYNDROME, CONSTIPATION-TYPE MDD/MORRO TYPE II DIABETES LIPEDEMA CHRONIC KIDNEY DISEASE STAGE III 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, SEVERE L3/4 C GRADE 1 LITHESIS C B L3 COMPRESSION, MILD L4/5 C GRADE 1 LITHESIS, B L5 COMPRESSION IN NF BY 06/2018 MRI ALLERGIES MORPHINE: NAUSEA/VOMITING - SIDE EFFECTS REGLAN: ANAPHYLAXIS - ALLERGY "CILLIANS": HIVES - SIDE EFFECTS Z-PACK: HIVES - SIDE EFFECTS SYMBICORT: THRUSH SEVERE - SIDE EFFECTS SURGICAL HISTORY GALLBLADDER/LIVER STONE REMOVAL 1989 GASTRIC BYPASS-DR.WOLF FRENCH 09/2007 FAMILY HISTORY FATHER: ALIVE, FIRST ID AT 58Y, T2DM DX IN 70S, DIAGNOSED WITH DIABETES MOTHER: 57 YRS, FIRST ID AT 37, 2 ID, HEAVY SMOKER/ETHOH, UNSPECIFIED HEART DISEASE, UNSPECIFIED CEREBRAL ARTERY OCCLUSION WITH CEREBRAL INFARCTION MATERNAL GRAND FATHER: UNSPECIFIED HEART DISEASE, OTHER MALIGNANT NEOPLASM OF UNSPECIFIED SITE 1 SISTER(S) . SISTER-SVT\\\\\\\\N1\\\\\\\\\\\\\\/2 BROTHER-UNKNOWN\\\\\\\\N\\\\\\\\NNO CANCERS IN 1DR\\\\\\\\NFATHER -DIAGNOSED WITH DM. SOCIAL HISTORY GENERAL: TOBACCO USE ARE YOU A:NONSMOKER HIV / HEP-C SCREENING HIV TEST OFFERED TO PATIENT:YES DATE OFFERED:08/25/2017 TEST ACCEPTED:NO HEP-C TEST OFFERED TO PATIENT:YES DATE OFFERED:08/25/2017 REASON:PATIENT DECLINED TEST ACCEPTED:NO REASON:PATIENT DECLINED DIET: LOW CARB, HIGH VEGETABLES AND FRUITS, 8-10 OZ PER DAY OF LEAN PROTEIN. LANGUAGE LANGUAGES SPOKEN:UZBEK DOMESTIC VIOLENCE DO YOU FEEL SAFE IN YOUR ENVIRONMENT?YES BMI CARE GOAL FOLLOW-UP ABOVE NORMAL BMI FOLLOW-UPGIVING ENCOURAGEMENT TO EXERCISE RECREATIONAL DRUG USE DRUG USE?NO PATIENT DENIES ABUSE OR MISSUSED OF ANY MEDICATION. PATIENT DENIES USE OF ANY ILLEGAL SUBSTANCE INCLUDING MARIJUANA OR COCAINE. 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?NO PAIN CLINIC PFS, CLERGY, PUBLIC HEALTH REFERRALS HAS THE PATIENT BEEN EDUCATED REGARDING HIS/HER PLAN OF CARE?YES HAS THE PATIENT BEEN EDUCATED REGARDING PAIN, THE RISK FOR PAIN, THE IMPORTANCE OF EFFECTIVE PAIN MANAGEMENT, AND THE PAIN ASSESSMENT PROCESS?YES LATEX QUESTIONNAIRE LATEX ALLERGY : HAVE YOU EVER DEVELOPED ANY TYPE OF REACTION AFTER HANDLING LATEX PRODUCTS SUCH RUBBER GLOVES, CONDOMS, DIAPHRAGMS, BALLOONS, SOCKS, OR UNDERWEAR?NO LATEX ALLERGY : HAVE YOU EVER DEVELOPED ANY TYPE OF REACTION DURING OR AFTER DENTAL APPOINTMENT, VAGINAL/RECTAL EXAMINATION, SURGICAL PROCEDURE, OR ANY OTHER EXPOSURE?NO DATE ASKED : 03/12/2019 LATEX RISK : HAVE YOU EVER HAD ANY DIFFICULTY BREATHING OR HIVES AFTER EATING OR HANDLING ANY FRUITS, OR VEGETABLES; SUCH KIWI, BANANAS, STONE FRUITS, OR CHESTNUTSNO LATEX RISK : DO YOU HAVE A PREVIOUS PERSONAL HISTORY OF MORE THAN NINE SURGERIES, SPINA BIFIDA, OR REPEATED CATHERIZATIONS? NO LATEX RISK : ARE YOU FREQUENTLY EXPOSED TO LATEX PRODUCTS IN YOUR OCCUPATION?NO CAFFEINE CAFFEINE USE?YES HOW OFTEN AND HOW MUCH? 2 CUPS OF COFFEE PER DAY ADVANCE DIRECTIVE ADVANCE DIRECTIVE DISCUSSED WITH PATIENT:YES HEALTH CARE PROXY DAMI WILLAMS [phone] SABIANISM [id number] DENOMINATIONAL NO RELIGION BELIEFS THAT WOULD IMPACT HEALTH CARE. MARITAL STATUS: . ALCOHOL SCREENING DID YOU HAVE A DRINK CONTAINING ALCOHOL IN THE PAST YEAR?NO POINTS0 INTERPRETATIONNEGATIVE SEXUAL HX HAD SEX IN THE LAST 12 MONTHS (VAGINAL, ORAL, OR ANAL)?NO LIVES C , DAMI WILLAMSREVIEWED WITH PT 08/01/18 1530 BVREVIEWED WITH PT 09/04/18 0910 LASREVIEWED WITH PATIENT 10/19/18 0915 JS REVIEWED WITH PATIENT 03/12/19 0936 JSREVIEWED WITH PATIENT 08/03/19 1000 LASREVIEWED WITH PATIENT 03/28/19 0925 JS REVIEWED WITH PATIENT 09/18/19 0945 BV. HOSPITALIZATION/MAJOR DIAGNOSTIC PROCEDURE SURGERIES REVIEW OF SYSTEMS REVIEWED BY: PROVIDER: TASHI GALEANO . CONSTITUTIONAL: ANY CHANGE IN YOUR MEDICAL CONDITION? NO . CHILLS NO . FEVER NO . INFECTION: DO YOU HAVE NEW INFECTIONS? NO . DO YOU HAVE HISTORY OF MRSA? NO . MUSCULOSKELETAL: ANY NEW PATTERNS OF PAIN OR NUMBNESS? YES, BILAT FOOT NEUROPATHY PAIN IS SEVERE . GASTROENTEROLOGY: ANY NEW CHANGE IN BOWEL CONTROL? NO . GENITOURINARY: ANY NEW CHANGE IN BLADDER CONTROL? NO . IS THERE A CHANCE YOU COULD BE ? NO . HEMATOLOGY/LYMPH: DO YOU TAKE ANY BLOOD THINNERS? (FOR EXAMPLE- COUMADIN, PLAVIX, AGGRENOX, PLATEL, PRADAXA, OR XARELTO) NO . WHEN WAS YOUR LAST DOSE? DATE: TIME: . NEUROLOGY: HAVE YOU FALLEN IN THE PAST 12 MONTHS? YES, PRIOR TO LAST VISIT . ANY NEW EXTREMITY NUMBNESS OR WEAKNESS? YES, BILAT TOES NEUROPATHY PAIN . CARDIOLOGY: DO YOU HAVE A PACEMAKER OR DEFIBRILLATOR? NO . RESPIRATORY: HAVE YOU BEEN SICK IN THE PAST WEEK? NO . FEVER NO . FLU LIKE SYMPTOMS? NO . COUGH NO . INTEGUMENTARY: DO YOU HAVE ANY RASHES OR OPEN SORES? NO . ALLERGIC/IMMUNO: ARE YOU ALLERGIC TO IV DYE? NO . ANY NEW ALLERGIES? NO . PSYCHIATRIC: DO YOU HAVE THOUGHTS OF HURTING YOURSELF OR SOMEONE ELSE? NO . ARE YOU ABUSED, NEGLECTED, OR IN AN UNSAFE ENVIRONMENT? NO . ENDOCRINOLOGY: ARE YOU DIABETIC? YES . OTHER: DO YOU NEED ANY PRESCRIPTIONS? NO . IF YES, PLEASE LIST: ____ . ANY NEW PROBLEMS WITH YOUR MEDICATIONS? NO . WHEN DID YOU LAST EAT? ____ . WHEN DID YOU LAST DRINK? ____ . WHAT DID YOU LAST DRINK? ____ . NAME OF PERSON DRIVING YOU HOME? ____ . DO YOU HAVE ANY OTHER QUESTIONS OR CONCERNS YES, REVEIVED FLU VACCINE TODAY . VITAL SIGNS WT 289.02 LBS, HT 66", BMI 46.64 INDEX, BP 117/62 MM HG, HR 84 /MIN, RR 16 /MIN, TEMP 97.5 F, OXYGEN SAT % 99, REVIEWED BY: EM. EXAMINATION GENERAL EXAMINATION: GENERALAWAKE,ALERT ,PLEAASANT . PSYCHAFFECT NORMAL . LUNGS:LUNG SANDRA ARE CLEAR TO AUSCULTATION BILATERALLY. GOOD MOVEMENT OF AIR . HEART:S1, S2 IN A REGULAR RATE AND RHYTHM. NO SIGNIFICANT MURMURS, RUBS OR GALLOPS NOTED . LUMBAR SACRAL SPINEPALPATION: + FOR PAIN OVER L/S SPINE. + FOR PAIN OVER L/S PARASPINALS.SPECIFIC TENDERNESS NOTED OVER BILAT. L3/4-L4/5 LUMBAR FACETS WITH FACET LOADING R>L. NEUROLOGIC EXAM:NORMAL SENSATION LIGHT TOUCH BILAT. LOWER EXTREMITIES. ASSESSMENTS LUMBAR SPONDYLOSIS - M47.816 (PRIMARY) SPONDYLOSIS WITHOUT MYELOPATHY OR RADICULOPATHY, LUMBOSACRAL REGION - M47.817 TREATMENT LUMBAR SPONDYLOSIS START CYMBALTA CAPSULE DELAYED RELEASE PARTICLES, 30 MG, 1 CAPSULE, ORALLY, ONCE A DAY, 30 DAY(S), 30, REFILLS 2 STOP BUPROPION HCL TABLET EXTENDED RELEASE, 150 MG, 1 TAB, ORALLY, BID NOTES: L3/4-L4/5 RIGHT LFB DXTAKE WELLBUTRIN 150MG DAILY X5 DAYS THEN STOP.START CYMBALTA 30MG DAILY. OTHERS NOTES: DULOXETINE MATERIAL WAS PRINTED. PROCEDURE CODES FA211 ESTABILISHED PATIENT [facility] CHARGE DISPOSITION & COMMUNICATION FOLLOW UP POST (REASON: L3/4-L4/5 RIGHT LFB DX) ELECTRONICALLY SIGNED BY FROYLAN LEUNG ON 10/22/2019 AT 08:42 AM EST DISCLAIMER : THIS IS A VISIT SUMMARY EXTRACTED FROM THE [employer] CHART. IT IS NOT A COPY OF THE [employer] PROGRESS NOTE. MTDD
== END ==
LOC: M PAIN 13:15
PROVIDERS: ATTEND Nurse Practitioner Family
DX: M47.816 Spondylosis without myelopathy or radiculopathy, lumbar region (principal); M47.817 Spondylosis without myelopathy or radiculopathy, lumbosacral region; J45.30 Mild persistent asthma, uncomplicated; I10 Essential (primary) hypertension; K21.9 Gastro-esophageal reflux disease without esophagitis; E11.9 Type 2 diabetes mellitus without complications; Z98.84 Bariatric surgery status; Z88.0 Allergy status to penicillin; Z88.1 Allergy status to other antibiotic agents; Z88.5 Allergy status to narcotic agent; Z88.8 Allergy status to other drugs, medicaments and biological substances; E66.01 Morbid (severe) obesity due to excess calories; Z68.42 Body mass index [BMI] 45.0-49.9, adult; Z79.84 Long term (current) use of oral hypoglycemic drugs; Z79.891 Long term (current) use of opiate analgesic; Z79.899 Other long term (current) drug therapy

== ENCOUNTER → 2019-11-22 | Outpatient (CLI) | payer OTHER ==
[2019-11-22 11:09] LABS: BASO # 0.1 10^3/uL (0.0-0.2); BASO % 0.9 % (0.0-1.0); EOS # 0.1 10^3/uL (0.0-0.5); EOS % 1.1 % (0.0-3.0); HEMATOCRIT 37.4 % (36.0-47.0); HEMOGLOBIN 12.2 g/dl (12.0-15.5); LYMPH # 1.7 10^3/uL (1.5-5.0); LYMPH % 30.6 % (24.0-44.0); MEAN CORPUSCULAR HEMOGLOBIN 32.2 pg (27.0-33.0); MEAN CORPUSCULAR HGB CONC 32.6 g/dl (32.0-36.5); MEAN CORPUSCULAR VOLUME 98.7 fl (80.0-96.0); MONO # 0.5 10^3/uL (0.0-0.8); MONO % 9.2 % (0.0-5.0); NEUTROPHILS # 3.1 10^3/uL (1.5-8.5); NEUTROPHILS % 57.8 % (36.0-66.0); PLATELET COUNT, AUTOMATED 327 10^3/uL (150-450); RED BLOOD COUNT 3.79 10^6/uL (4.00-5.40); WHITE BLOOD COUNT 5.4 10^3/uL (4.0-10.0)
[2019-11-22 11:37] LABS: ALBUMIN 3.4 GM/DL (3.2-5.2); ALT/SGPT 29 U/L (12-78); BILIRUBIN,TOTAL 0.4 MG/DL (0.2-1.0); BLOOD UREA NITROGEN 28 MG/DL (7-18); CARBON DIOXIDE LEVEL 23 MEQ/L (21-32); CHLORIDE LEVEL 105 MEQ/L (98-107); CREATININE FOR GFR 0.95 MG/DL (0.55-1.30); FREE T4 1.06 NG/DL (0.76-1.46); GLOMERULAR FILTRATION RATE > 60.0 (>51); GLUCOSE, FASTING 85 MG/DL (70-100); POTASSIUM SERUM 4.5 MEQ/L (3.5-5.1); SODIUM LEVEL 137 MEQ/L (136-145); TOTAL PROTEIN 6.8 GM/DL (6.4-8.2)
[2019-11-22 12:43] LABS: TOTAL 25(OH) VITAMIN D 47.9 NG/ML (30.0-100.0)
[2019-11-22 12:44] LABS: PTH INTACT 167.2 PG/ML (18.5-88.0)
== END ==
LOC: M PLALAB 08:04
PROVIDERS: ATTEND Family Medicine
DX: E55.9 Vitamin D deficiency, unspecified (principal); D50.9 Iron deficiency anemia, unspecified; N18.3 Chronic kidney disease, stage 3 (moderate); R73.01 Impaired fasting glucose; E06.3 Autoimmune thyroiditis

== ENCOUNTER → 2019-12-04 | Outpatient (CLI) | payer OTHER ==
[~2019-12-04] MED LIST changes: +BUPIVACAINE HCL 0.25% 30 ML VIAL As Ordered ONE; +ISOVUE-M 300 61% 15ML VIAL (Q9967) As Ordered ONE; +LIDOCAINE 1% SDV INJ 30 ML VIAL As Ordered ONE
--- NOTE | 2019-12-04 12:04 | REP ---
C-ARM VIEWS LUMBAR SPINE: CLINICAL HISTORY: Pain. Two C-arm views of the lower lumbar spine performed during facet injection performed by Dr. Marmolejo. Widener are seen along the lower lumbar spine. 20 seconds of fluoroscopy time utilized. Electronically Signed by J Carlos Simmons MD 12/04/2019 07:20 P
--- NOTE | 2019-12-14 04:15 | ECWPNPC ---
PATIENT NAME: MUNIR WILLAMS : 1960 GENDER: FEMALE VISIT DATE: 12/04/2019 DISCHARGE DATE: 12/04/19 1141 VISIT LOCKED DATE TIME: PHYSICIAN: CHRISTY SALINAS MD PHYSICIAN PAGER NO: [phone] RESOURCE: CHRISTY SALINAS MD REASON FOR APPOINTMENT 1. L4-L5, L5-S1 RIGHT LFB DX #2 HISTORY OF PRESENT ILLNESS HISTORY OF PRESENT ILLNESS: PAIN THE PATIENT DESCRIBES THE PAIN... FALL RISK SCREENING: SCREENING :NO FALLS REPORTED IN THE LAST YEAR CURRENT MEDICATIONS TAKING PREVACID 30 MG CAPSULE DELAYED RELEASE 1 CAPSULE ORALLY ONCE A DAY, NOTES: 12/03/19 TAKING TRIAMTERENE-HCTZ 37.5-25 MG TABLET 1 TAB ORALLY DAILY, NOTES: 12/03/19 TAKING LISINOPRIL 10 MG TABLET 1 TABLET ORALLY ONCE A DAY, NOTES: 12/03/19 TAKING ATORVASTATIN CALCIUM 20 MG TABLET 1 TABLET ORALLY ONCE A DAY, NOTES: 12/03/19 TAKING METFORMIN HCL ER 500 MG TABLET EXTENDED RELEASE 24 HOUR 1 TABLET WITH EVENING MEAL ORALLY AC DINNER, NOTES: 12/03/19 TAKING CYANOCOBALAMIN 500 MCG TABLET 1 TABLET ORALLY ONCE A DAY, NOTES: 12/03/19 TAKING LEVOTHYROXINE SODIUM 100 MCG TABLET 1 TABLET ON AN EMPTY STOMACH IN THE MORNING ORALLY ONCE A DAY, NOTES: 12/03/19 TAKING QVAR 80 MCG/ACT AEROSOL SOLUTION 1 PUFF INHALATION TWICE A DAY, NOTES: NONE LATELY TAKING PROAIR HFA 108 (90 BASE) MCG/ACT AEROSOL SOLUTION 2 PUFFS NEEDED INHALATION QID PRN, NOTES: NONE LATELY TAKING MONTELUKAST SODIUM 10 MG TABLET 1 TABLET ORALLY AT BEDTIME, NOTES: 12/03/19 TAKING FERROUS SULFATE 325 (65 FE) MG TABLET 1 TABLET ORALLY EVER OTHER DAY, NOTES: 12/03/19 TAKING BLOOD GLUCOSE TEST - STRIP DIRECTED SUBCUTANEOUSLY DAILY DX: E11.9 TAKING LANCETS - MISCELLANEOUS DIRECTED SUBCUTANEOUSLY DAILY DX: E11.9 TAKING TRAMADOL HCL 50 MG TABLET 2 ORALLY BID MDD4-Q10HRS, NOTES: NONE LATELY TAKING TUMS ULTRA 1000 1000 MG TABLET CHEWABLE 1 TABLET ORALLY AT BEDTIME, NOTES: NONE LATELY TAKING FOLIC ACID 1 MG TABLET 1 TABLET ORALLY ONCE A DAY, NOTES: 12/03/19 TAKING NASONEX 50 MCG/ACT SUSPENSION 2 SPRAYS IN EACH NOSTRIL NASALLY ONCE A DAY, NOTES: 12/03/19 TAKING ERGOCALCIFEROL 83508 UNIT CAPSULE 1 CAPSULE ORALLY ONCE A WEEK, NOTES: NONE LATELY TAKING CITALOPRAM HYDROBROMIDE 40 MG TABLET 1 TABLET ORALLY ONCE A DAY, NOTES: 12/03/19 TAKING AMITRIPTYLINE HCL 25 MG TABLET 1 TAB ORALLY AT BEDTIME, NOTES: NONE LATELY TAKING BUPROPION HCL 150 MG TABLET EXTENDED RELEASE 1 TAB ORALLY BID, NOTES: FEW DAYS AGO TAKING VITAMIN D 50 MCG (2000 UT) TABLET 1 TABLET ORALLY ONCE A DAY, NOTES: 10,000 UNITS DAILY NOT-TAKING PERCOCET 5-325 MG TABLET 1 TABLET NEEDED ORALLY Q8H PRN MDD3 NOT-TAKING LISINOPRIL 10 MG TABLET 1 TABLET ORALLY ONCE A DAY NOT-TAKING LEVOTHYROXINE SODIUM 100 MCG TABLET 1 TABLET ON AN EMPTY STOMACH IN THE MORNING ORALLY ONCE A DAY NOT-TAKING FOLIC ACID 1 MG TABLET 1 TABLET ORALLY ONCE A DAY NOT-TAKING TRIAMTERENE-HCTZ 37.5-25 MG TABLET 1 TAB ORALLY DAILY NOT-TAKING METFORMIN HCL ER 500 MG TABLET EXTENDED RELEASE 24 HOUR 1 TABLET WITH EVENING MEAL ORALLY AC DINNER DISCONTINUED TYLENOL EXTRA STRENGTH 500 MG TABLET 3TABLETS ORALLY TWICE DAILY DISCONTINUED ATORVASTATIN CALCIUM 20 MG TABLET 1 TABLET ORALLY ONCE A DAY MEDICATION LIST REVIEWED AND RECONCILED WITH THE PATIENT PAST MEDICAL HISTORY ASTHMA, MILD PERSISTENT ALLERGIC RHINITIS MDD/MORRO, H/O ETHOH ABUSE-NONE SINCE 04/2016 BLE LYMPHEDEMA/LIPEDEMA SUPER OBESITY S/P MEAGAN GB 09/2007-PRESURGICAL WEIGHT 650 GERD/H/O GASTRITIS DX BY PREVIOUS EGD CKD3-09/2017 NORMAL B RENAL US S EVIDENCE OF MINH VITAMIN B12/FA DEFICIENCY-09/2017 IF 1 (0-1), PARIETAL 34 (0-20) R>L MARKED ADVANCED KNEE OA BY 09/2017 XRAY VITAMIN D DEFICIENCY IRITABLE BOWEL SYNDROME, CONSTIPATION-TYPE MDD/MORRO IFG LIPEDEMA CHRONIC KIDNEY DISEASE STAGE III 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, SEVERE L3/4 C GRADE 1 LITHESIS C B L3 COMPRESSION, MILD L4/5 C GRADE 1 LITHESIS, B L5 COMPRESSION IN NF BY 06/2018 MRI FIBROMYALGIA ALLERGIES MORPHINE: NAUSEA/VOMITING - SIDE EFFECTS REGLAN: ANAPHYLAXIS - ALLERGY "CILLIANS": HIVES - SIDE EFFECTS Z-PACK: HIVES - SIDE EFFECTS SYMBICORT: THRUSH SEVERE - SIDE EFFECTS SURGICAL HISTORY GALLBLADDER/LIVER STONE REMOVAL 1989 GASTRIC BYPASS-DR.WOLF FRENCH 09/2007 FAMILY HISTORY FATHER: ALIVE, FIRST PA AT 58Y, T2DM DX IN 70S, DIAGNOSED WITH DIABETES MOTHER: 57 YRS, FIRST PA AT 37, 2 PA, HEAVY SMOKER/ETHOH, UNSPECIFIED HEART DISEASE, UNSPECIFIED CEREBRAL ARTERY OCCLUSION WITH CEREBRAL INFARCTION MATERNAL GRAND FATHER: UNSPECIFIED HEART DISEASE, OTHER MALIGNANT NEOPLASM OF UNSPECIFIED SITE 1 SISTER(S) . SISTER-SVT\\\\\\\\N1\\\\\\\\\\\\\\/2 BROTHER-UNKNOWN\\\\\\\\N\\\\\\\\NNO CANCERS IN 1DR\\\\\\\\NFATHER -DIAGNOSED WITH DM. SOCIAL HISTORY GENERAL: TOBACCO USE ARE YOU A:NONSMOKER HIV / HEP-C SCREENING HIV TEST OFFERED TO PATIENT:YES DATE OFFERED:08/25/2017 TEST ACCEPTED:NO HEP-C TEST OFFERED TO PATIENT:YES DATE OFFERED:08/25/2017 REASON:PATIENT DECLINED TEST ACCEPTED:NO REASON:PATIENT DECLINED DIET: LOW CARB, HIGH VEGETABLES AND FRUITS, 8-10 OZ PER DAY OF LEAN PROTEIN. LANGUAGE LANGUAGES SPOKEN:ESTONIAN DOMESTIC VIOLENCE DO YOU FEEL SAFE IN YOUR ENVIRONMENT?YES BMI CARE GOAL FOLLOW-UP ABOVE NORMAL BMI FOLLOW-UPGIVING ENCOURAGEMENT TO EXERCISE RECREATIONAL DRUG USE DRUG USE?NO PATIENT DENIES ABUSE OR MISSUSED OF ANY MEDICATION. PATIENT DENIES USE OF ANY ILLEGAL SUBSTANCE INCLUDING MARIJUANA OR COCAINE. LEARNING BARRIERS / SPECIAL NEEDS CHANGE FROM LAST VISIT?NO BARRIERS TO LEARNING?NO HEARING IMPAIRED?NO VISION IMPAIRED?YES COGNITIVELY IMPAIRED?NO :CORRECTIVE LENSES READINESS TO LEARN?YES LEARNING PREFERENCES?NO LEARNING CAPABILITIES PRESENT?YES EMOTIONAL BARRIERS?NO SPECIAL DEVICES?YES :CANE BUYER BROKER NEEDED?NO PAIN CLINIC PFS, CLERGY, PUBLIC HEALTH REFERRALS HAS THE PATIENT BEEN EDUCATED REGARDING HIS/HER PLAN OF CARE?YES HAS THE PATIENT BEEN EDUCATED REGARDING PAIN, THE RISK FOR PAIN, THE IMPORTANCE OF EFFECTIVE PAIN MANAGEMENT, AND THE PAIN ASSESSMENT PROCESS?YES LATEX QUESTIONNAIRE LATEX ALLERGY : HAVE YOU EVER DEVELOPED ANY TYPE OF REACTION AFTER HANDLING LATEX PRODUCTS SUCH RUBBER GLOVES, CONDOMS, DIAPHRAGMS, BALLOONS, SOCKS, OR UNDERWEAR?NO LATEX ALLERGY : HAVE YOU EVER DEVELOPED ANY TYPE OF REACTION DURING OR AFTER DENTAL APPOINTMENT, VAGINAL/RECTAL EXAMINATION, SURGICAL PROCEDURE, OR ANY OTHER EXPOSURE?NO DATE ASKED : 03/12/2019 LATEX RISK : HAVE YOU EVER HAD ANY DIFFICULTY BREATHING OR HIVES AFTER EATING OR HANDLING ANY FRUITS, OR VEGETABLES; SUCH KIWI, BANANAS, STONE FRUITS, OR CHESTNUTSNO LATEX RISK : DO YOU HAVE A PREVIOUS PERSONAL HISTORY OF MORE THAN NINE SURGERIES, SPINA BIFIDA, OR REPEATED CATHERIZATIONS? NO LATEX RISK : ARE YOU FREQUENTLY EXPOSED TO LATEX PRODUCTS IN YOUR OCCUPATION?NO CAFFEINE CAFFEINE USE?YES HOW OFTEN AND HOW MUCH? 2 CUPS OF COFFEE PER DAY ADVANCE DIRECTIVE ADVANCE DIRECTIVE DISCUSSED WITH PATIENT:YES HEALTH CARE PROXY DAMI WILLAMS [phone] BAPTISM [id number] SABIANISM NO ANABAPTIST BELIEFS THAT WOULD IMPACT HEALTH CARE. MARITAL STATUS: . ALCOHOL SCREENING DID YOU HAVE A DRINK CONTAINING ALCOHOL IN THE PAST YEAR?NO POINTS0 INTERPRETATIONNEGATIVE SEXUAL HX HAD SEX IN THE LAST 12 MONTHS (VAGINAL, ORAL, OR ANAL)?NO LIVES C , DAMI WILLAMSREVIEWED WITH PT 08/01/18 1530 BVREVIEWED WITH PT 09/04/18 0910 LASREVIEWED WITH PATIENT 10/19/18 0915 JS REVIEWED WITH PATIENT 03/12/19 0936 JSPRE ADMISSION COMPLETE FOR [id number] ADMISSION COMPLETED FOR PROCEDURE 12-04-19 KEGREVIEWED WITH PATIENT 08/03/19 1000 LASREVIEWED WITH PATIENT 03/28/19 0925 JS REVIEWED WITH PATIENT 09/18/19 0945 BV. HOSPITALIZATION/MAJOR DIAGNOSTIC PROCEDURE SURGERIES REVIEW OF SYSTEMS REVIEWED BY: PROVIDER: . CONSTITUTIONAL: ANY CHANGE IN YOUR MEDICAL CONDITION? YES, FIBROMYALGIA . CHILLS NO . FEVER NO . INFECTION: DO YOU HAVE NEW INFECTIONS? NO . DO YOU HAVE HISTORY OF MRSA? NO . MUSCULOSKELETAL: ANY NEW PATTERNS OF PAIN OR NUMBNESS? PT WRITES IT IS WORSE . GASTROENTEROLOGY: ANY NEW CHANGE IN BOWEL CONTROL? NO . GENITOURINARY: ANY NEW CHANGE IN BLADDER CONTROL? PT WRITES SHE HAS CHRONICKIDNEY DISEASE . IS THERE A CHANCE YOU COULD BE ? NO . HEMATOLOGY/LYMPH: DO YOU TAKE ANY BLOOD THINNERS? (FOR EXAMPLE- COUMADIN, PLAVIX, AGGRENOX, PLATEL, PRADAXA, OR XARELTO) NO . WHEN WAS YOUR LAST DOSE? DATE: TIME: . NEUROLOGY: HAVE YOU FALLEN IN THE PAST 12 MONTHS? 6 MONTHS AGO . ANY NEW EXTREMITY NUMBNESS OR WEAKNESS? NO . CARDIOLOGY: DO YOU HAVE A PACEMAKER OR DEFIBRILLATOR? NO . RESPIRATORY: HAVE YOU BEEN SICK IN THE PAST WEEK? NO . FEVER NO . FLU LIKE SYMPTOMS? NO . COUGH NO . INTEGUMENTARY: DO YOU HAVE ANY RASHES OR OPEN SORES? NO . ALLERGIC/IMMUNO: ARE YOU ALLERGIC TO IV DYE? NO . ANY NEW ALLERGIES? NO . PSYCHIATRIC: DO YOU HAVE THOUGHTS OF HURTING YOURSELF OR SOMEONE ELSE? NO . ARE YOU ABUSED, NEGLECTED, OR IN AN UNSAFE ENVIRONMENT? NO . ENDOCRINOLOGY: ARE YOU DIABETIC? YES, FS 99 THIS AM . OTHER: DO YOU NEED ANY PRESCRIPTIONS? NO . IF YES, PLEASE LIST: ____ . ANY NEW PROBLEMS WITH YOUR MEDICATIONS? YES, TRAMADOL IS NOT WORKING . WHEN DID YOU LAST EAT? ____LAST NIGHT AT 6 PM . WHEN DID YOU LAST DRINK? ____LAST NIGHT AT 6 PM 12-03-19 . WHAT DID YOU LAST DRINK? ____ICE TEA . NAME OF PERSON DRIVING YOU HOME? ____HUSBAND DAMI WILLAMS . DO YOU HAVE ANY OTHER QUESTIONS OR CONCERNS NO . VITAL SIGNS WT 290.0 LBS, HT 66", BMI 46.80 INDEX, BP 126/73 MM HG, HR 81 /MIN, RR 18 /MIN, TEMP 97..0, OXYGEN SAT % 97.8, NA INITIALS AW 0841, REVIEWED BY: EM. ASSESSMENTS SPONDYLOSIS WITHOUT MYELOPATHY OR RADICULOPATHY, LUMBAR REGION - M47.816 (PRIMARY) SPONDYLOSIS WITHOUT MYELOPATHY OR RADICULOPATHY, LUMBOSACRAL REGION - M47.817 PROCEDURES PN LUMBAR FACET BLOCK DIAGNOSTIC PRE PROCEDURE DIAGNOSIS LUMBAR SPONDYLOSIS, LUMBOSACRAL SPONDYLOSIS POST PROCEDURE DIAGNOSIS LUMBAR SPONDYLOSIS, LUMBOSACRAL SPONDYLOSIS PROCEDURE RIGHT L4-L5 AND RIGHT L5-S1 FACET BLOCK DIAGNOSTIC NUMBER [address] CHRISTY SALINAS [employer] ARCHITECT NONE ANESTHESIA LOCAL PRE PROCEDURE NOTE THE PATIENT HAS A HISTORY OF CHRONIC LOW BACK PAIN. I EVALUATED THE PATIENT AND REVIEWED THE CHART. I WENT OVER THE RISKS, ALTERNATIVES, AND BENEFITS ASSOCIATED WITH THIS PROCEDURE. THE PATIENT WOULD LIKE TO PROCEED AND GAVE CONSENT TO PERFORM THE PROCEDURE. AGREED WITH THE PATIENT WE ARE DOING THIS PROCEDURE TO DETERMINE IF THE PATIENT IS A CANDIDATE FOR A RADIOFREQUENCY ABLATION OF THE FACETS JOINTS. THE PATIENT DENIES UNEXPLAINABLE WEIGHT LOSS, FEVER, CHILLS, OR NEW CHANGES IN URINARY OR BOWEL CONTROL DESCRIPTION OF PROCEDURE THE PATIENT WAS BROUGHT TO THE PROCEDURE ROOM AND PLACED IN THE PRONE POSITION. THE LUMBOSACRAL AREA WAS CLEANED WITH CHLORAPREP SOLUTION AND DRAPED ASEPTICALLY. THE PROCEDURE WAS DONE UNDER STERILE CONDITIONS. I CHECKED LATERALITY AND THE LEVEL WHERE THE PROCEDURE WAS GOING TO BE PERFORMED WITH THE PATIENT AND THE SUPPORTING STAFF AT THE MOMENT OF THE TIME OUT IN THE PROCEDURE ROOM. UNDER FLUOROSCOPIC GUIDANCE, TARGETS WERE SELECTED AT THE INTERSECTION OF THE RIGHT TRANSVERSE PROCESS OF L4, L5 AND ALA OF S1 WITH ITS RESPECTIVE SUPERIOR ARTICULAR PROCESS. LIDOCAINE WAS USED TO NUMB THE SKIN AND THE SUBCUTANEOUS TISSUE BELOW IT. SPINAL NEEDLE, 22-GAUGE WAS ADVANCED UNDER FLUOROSCOPIC GUIDANCE AND FOLLOWING PATIENT FEEDBACK UNTIL THE TARGETS WERE REACHED. POSITION OF THE NEEDLES WAS VERIFIED WITH AP AND LATERAL VIEWS. AFTER PROPER POSITION OF THE NEEDLES WAS ACHIEVED, ISOVUE-M DYE 30% 0.1 ML WAS INJECTED AT EACH SITE SHOWING ADEQUATE SPREAD OF THE DYE. THEN A SOLUTION OF 0.4 ML OF BUPIVACAINE 0.25% WAS INJECTED AT EACH SITE. THERE WAS NO EVIDENCE OF BLOOD, PARESTHESIA OR CEREBROSPINAL FLUID DURING THE PROCEDURE. THE PATIENT WAS SENT TO THE RECOVERY ROOM. THE PATIENT WAS MOVING THE EXTREMITIES AND DOING WELL. THERE WAS NO COMPLICATION DURING THE PROCEDURE. FLUOROSCOPY TIME WAS 20 SECONDS POST PROCEDURE NOTE THE PATIENT WILL DOCUMENT HER PAIN LEVEL AND RESPONSE TO THIS PROCEDURE EVERY 30 MINUTES. THE PATIENT WILL BE SEEN IN A FOLLOWUP IN THE NEXT FEW WEEKS. FURTHER DETERMINATION FOR HIS CASE WILL BE DONE AT THE NEXT VISIT. INSTRUCTIONS WERE GIVEN, QUESTIONS WERE ANSWERED, AND THE PATIENT EXPRESSED UNDERSTANDING AND AGREED WITH THE PLAN. I, CHELSEA HAWLEY, DOCUMENTED THE ABOVE INFORMATION ACTING A SCRIBE FOR DR. SALINAS. I HAVE REVIEWED THE ABOVE DOCUMENT, WRITTEN BY ADRIANNE HERNANDEZ, AND I VERIFY THAT IT IS ACCURATE DIAGNOSTIC IMAGING [facility] FACET BLOCK (PAIN)[id number] PROCEDURE CODES 58359 INJ PARAVERT F JNT L/S 1 LEV, MODIFIERS: [place] 27921 INJ PARAVERT F JNT L/S 2 LEV, MODIFIERS: RT 6045F RADXPS IN END [id number] PXD DISPOSITION & COMMUNICATION FOLLOW UP 3 WEEKS ELECTRONICALLY SIGNED BY CHRISTY SALINAS MD, MD ON 12/13/2019 AT 10:41 AM EST DISCLAIMER : THIS IS A VISIT SUMMARY EXTRACTED FROM THE [employer] CHART. IT IS NOT A COPY OF THE [employer] PROGRESS NOTE. MTDD
== END ==
LOC: M PAIN 09:45
PROVIDERS: ATTEND Anesthesiology
DX: M47.816 Spondylosis without myelopathy or radiculopathy, lumbar region (principal); M47.817 Spondylosis without myelopathy or radiculopathy, lumbosacral region; J45.20 Mild intermittent asthma, uncomplicated; I10 Essential (primary) hypertension; E11.9 Type 2 diabetes mellitus without complications; K21.9 Gastro-esophageal reflux disease without esophagitis; D50.9 Iron deficiency anemia, unspecified; E55.9 Vitamin D deficiency, unspecified; M79.7 Fibromyalgia; Z98.84 Bariatric surgery status; Z88.0 Allergy status to penicillin; Z88.1 Allergy status to other antibiotic agents; Z88.5 Allergy status to narcotic agent; Z88.8 Allergy status to other drugs, medicaments and biological substances; E66.01 Morbid (severe) obesity due to excess calories; Z68.42 Body mass index [BMI] 45.0-49.9, adult; Z79.84 Long term (current) use of oral hypoglycemic drugs; Z79.891 Long term (current) use of opiate analgesic; Z79.899 Other long term (current) drug therapy
CPT/HCPCS: 64493; 64494; Q9967

== ENCOUNTER → 2019-12-20 | Outpatient (CLI) | payer OTHER ==
[~2019-12-20] MED LIST changes: -BUPIVACAINE HCL 0.25% 30 ML VIAL As Ordered ONE; -ISOVUE-M 300 61% 15ML VIAL (Q9967) As Ordered ONE; -LIDOCAINE 1% SDV INJ 30 ML VIAL As Ordered ONE
--- NOTE | 2019-12-27 02:14 | ECWPNPC ---
PATIENT NAME: MUNIR WILLAMS : 1960 GENDER: FEMALE VISIT DATE: 12/20/2019 DISCHARGE DATE: 12/20/19 1551 VISIT LOCKED DATE TIME: PHYSICIAN: TASHI RODRIGUEZ PHYSICIAN PAGER NO: [phone] RESOURCE: TASHI RODRIGUEZ REASON FOR APPOINTMENT 1. POST FACET BLK HISTORY OF PRESENT ILLNESS HISTORY OF PRESENT ILLNESS: HERE FOR POST PROCEDURE F/U.HAD RIGHT LFB DX ON 12/04/2019.REPORTING 24HRS OF 100% REDUCTION IN PAIN THEN PAIN RETURNED TO BASELINE.SHE IS QUITE UNCOMFORTABLE TODAY.RATING PAIN VAS 10/10. CONTINUES TO COMPLAIN OF SEVERE PAIN AND DISABILITY DUE TO BOTH FEET AND LEGS GOING NUMB. ALSO SUFFERS FROM FIBROMYALGIA. REPORTS THAT TRAMADOL. SHE CURRENTLY IS TAKING DOESN'T WORK OR TOUCH THE PAIN. DISCUSSED MEDICATION AND TREATMENT OPTIONS. PAIN THE PATIENT DESCRIBES THE PAIN... FALL RISK SCREENING: SCREENING :NO FALLS REPORTED IN THE LAST YEAR CURRENT MEDICATIONS TAKING PREVACID 30 MG CAPSULE DELAYED RELEASE 1 CAPSULE ORALLY ONCE A DAY TAKING TRIAMTERENE-HCTZ 37.5-25 MG TABLET 1 TAB ORALLY DAILY TAKING LISINOPRIL 10 MG TABLET 1 TABLET ORALLY ONCE A DAY TAKING ATORVASTATIN CALCIUM 20 MG TABLET 1 TABLET ORALLY ONCE A DAY TAKING METFORMIN HCL ER 500 MG TABLET EXTENDED RELEASE 24 HOUR 1 TABLET WITH EVENING MEAL ORALLY AC DINNER TAKING CYANOCOBALAMIN 500 MCG TABLET 1 TABLET ORALLY ONCE A DAY TAKING LEVOTHYROXINE SODIUM 100 MCG TABLET 1 TABLET ON AN EMPTY STOMACH IN THE MORNING ORALLY ONCE A DAY TAKING QVAR 80 MCG/ACT AEROSOL SOLUTION 1 PUFF INHALATION TWICE A DAY TAKING PROAIR HFA 108 (90 BASE) MCG/ACT AEROSOL SOLUTION 2 PUFFS NEEDED INHALATION QID PRN TAKING MONTELUKAST SODIUM 10 MG TABLET 1 TABLET ORALLY AT BEDTIME TAKING FERROUS SULFATE 325 (65 FE) MG TABLET 1 TABLET ORALLY EVER OTHER DAY TAKING BLOOD GLUCOSE TEST - STRIP DIRECTED SUBCUTANEOUSLY DAILY DX: E11.9 TAKING LANCETS - MISCELLANEOUS DIRECTED SUBCUTANEOUSLY DAILY DX: E11.9 TAKING TRAMADOL HCL 50 MG TABLET 2 ORALLY BID MDD4-Q10HRS TAKING TUMS ULTRA 1000 1000 MG TABLET CHEWABLE 1 TABLET ORALLY AT BEDTIME TAKING FOLIC ACID 1 MG TABLET 1 TABLET ORALLY ONCE A DAY TAKING NASONEX 50 MCG/ACT SUSPENSION 2 SPRAYS IN EACH NOSTRIL NASALLY ONCE A DAY TAKING CITALOPRAM HYDROBROMIDE 40 MG TABLET 1 TABLET ORALLY ONCE A DAY TAKING AMITRIPTYLINE HCL 25 MG TABLET 1 TAB ORALLY AT BEDTIME TAKING BUPROPION HCL 150 MG TABLET EXTENDED RELEASE 1 TAB ORALLY BID TAKING VITAMIN D 50 MCG (2000 UT) TABLET 1 TABLET ORALLY ONCE A DAY NOT-TAKING PERCOCET 5-325 MG TABLET 1 TABLET NEEDED ORALLY Q8H PRN MDD3 NOT-TAKING LISINOPRIL 10 MG TABLET 1 TABLET ORALLY ONCE A DAY NOT-TAKING LEVOTHYROXINE SODIUM 100 MCG TABLET 1 TABLET ON AN EMPTY STOMACH IN THE MORNING ORALLY ONCE A DAY NOT-TAKING FOLIC ACID 1 MG TABLET 1 TABLET ORALLY ONCE A DAY NOT-TAKING TRIAMTERENE-HCTZ 37.5-25 MG TABLET 1 TAB ORALLY DAILY NOT-TAKING METFORMIN HCL ER 500 MG TABLET EXTENDED RELEASE 24 HOUR 1 TABLET WITH EVENING MEAL ORALLY AC DINNER DISCONTINUED ERGOCALCIFEROL 88551 UNIT CAPSULE 1 CAPSULE ORALLY ONCE A WEEK MEDICATION LIST REVIEWED AND RECONCILED WITH THE PATIENT PAST MEDICAL HISTORY ASTHMA, MILD PERSISTENT ALLERGIC RHINITIS MDD/MORRO, H/O ETHOH ABUSE-NONE SINCE 04/2016 BLE LYMPHEDEMA/LIPEDEMA SUPER OBESITY S/P MEAGAN GB 09/2007-PRESURGICAL WEIGHT 650 GERD/H/O GASTRITIS DX BY PREVIOUS EGD CKD3-09/2017 NORMAL B RENAL US S EVIDENCE OF MINH VITAMIN B12/FA DEFICIENCY-09/2017 IF 1 (0-1), PARIETAL 34 (0-20) R>L MARKED ADVANCED KNEE OA BY 09/2017 XRAY VITAMIN D DEFICIENCY IRITABLE BOWEL SYNDROME, CONSTIPATION-TYPE MDD/MORRO IFG LIPEDEMA CHRONIC KIDNEY DISEASE STAGE III 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, SEVERE L3/4 C GRADE 1 LITHESIS C B L3 COMPRESSION, MILD L4/5 C GRADE 1 LITHESIS, B L5 COMPRESSION IN NF BY 06/2018 MRI FIBROMYALGIA ALLERGIES MORPHINE: NAUSEA/VOMITING - SIDE EFFECTS REGLAN: ANAPHYLAXIS - ALLERGY "CILLIANS": HIVES - SIDE EFFECTS Z-PACK: HIVES - SIDE EFFECTS SYMBICORT: THRUSH SEVERE - SIDE EFFECTS SURGICAL HISTORY GALLBLADDER/LIVER STONE REMOVAL 1989 GASTRIC BYPASS-DR.WOLF FRENCH 09/2007 FAMILY HISTORY FATHER: ALIVE, FIRST NM AT 58Y, T2DM DX IN 70S, DIAGNOSED WITH DIABETES MOTHER: 57 YRS, FIRST NM AT 37, 2 NM, HEAVY SMOKER/ETHOH, UNSPECIFIED HEART DISEASE, UNSPECIFIED CEREBRAL ARTERY OCCLUSION WITH CEREBRAL INFARCTION MATERNAL GRAND FATHER: UNSPECIFIED HEART DISEASE, OTHER MALIGNANT NEOPLASM OF UNSPECIFIED SITE 1 SISTER(S) . SISTER-SVT\\\\\\\\N1\\\\\\\\\\\\\\/2 BROTHER-UNKNOWN\\\\\\\\N\\\\\\\\NNO CANCERS IN 1DR\\\\\\\\NFATHER -DIAGNOSED WITH DM. SOCIAL HISTORY GENERAL: TOBACCO USE ARE YOU A:NONSMOKER HIV / HEP-C SCREENING HIV TEST OFFERED TO PATIENT:YES DATE OFFERED:08/25/2017 TEST ACCEPTED:NO HEP-C TEST OFFERED TO PATIENT:YES DATE OFFERED:08/25/2017 REASON:PATIENT DECLINED TEST ACCEPTED:NO REASON:PATIENT DECLINED DIET: LOW CARB, HIGH VEGETABLES AND FRUITS, 8-10 OZ PER DAY OF LEAN PROTEIN. LANGUAGE LANGUAGES SPOKEN:MALTESE DOMESTIC VIOLENCE DO YOU FEEL SAFE IN YOUR ENVIRONMENT?YES BMI CARE GOAL FOLLOW-UP ABOVE NORMAL BMI FOLLOW-UPGIVING ENCOURAGEMENT TO EXERCISE RECREATIONAL DRUG USE DRUG USE?NO PATIENT DENIES ABUSE OR MISSUSED OF ANY MEDICATION. PATIENT DENIES USE OF ANY ILLEGAL SUBSTANCE INCLUDING MARIJUANA OR COCAINE. LEARNING BARRIERS / SPECIAL NEEDS CHANGE FROM LAST VISIT?NO BARRIERS TO LEARNING?NO HEARING IMPAIRED?NO VISION IMPAIRED?YES COGNITIVELY IMPAIRED?NO :CORRECTIVE LENSES READINESS TO LEARN?YES LEARNING PREFERENCES?NO LEARNING CAPABILITIES PRESENT?YES EMOTIONAL BARRIERS?NO SPECIAL DEVICES?YES :CANE SPINNERET PERSON NEEDED?NO PAIN CLINIC PFS, CLERGY, PUBLIC HEALTH REFERRALS HAS THE PATIENT BEEN EDUCATED REGARDING HIS/HER PLAN OF CARE?YES HAS THE PATIENT BEEN EDUCATED REGARDING PAIN, THE RISK FOR PAIN, THE IMPORTANCE OF EFFECTIVE PAIN MANAGEMENT, AND THE PAIN ASSESSMENT PROCESS?YES LATEX QUESTIONNAIRE LATEX ALLERGY : HAVE YOU EVER DEVELOPED ANY TYPE OF REACTION AFTER HANDLING LATEX PRODUCTS SUCH RUBBER GLOVES, CONDOMS, DIAPHRAGMS, BALLOONS, SOCKS, OR UNDERWEAR?NO LATEX ALLERGY : HAVE YOU EVER DEVELOPED ANY TYPE OF REACTION DURING OR AFTER DENTAL APPOINTMENT, VAGINAL/RECTAL EXAMINATION, SURGICAL PROCEDURE, OR ANY OTHER EXPOSURE?NO DATE ASKED : 03/12/2019 LATEX RISK : HAVE YOU EVER HAD ANY DIFFICULTY BREATHING OR HIVES AFTER EATING OR HANDLING ANY FRUITS, OR VEGETABLES; SUCH KIWI, BANANAS, STONE FRUITS, OR CHESTNUTSNO LATEX RISK : DO YOU HAVE A PREVIOUS PERSONAL HISTORY OF MORE THAN NINE SURGERIES, SPINA BIFIDA, OR REPEATED CATHERIZATIONS? NO LATEX RISK : ARE YOU FREQUENTLY EXPOSED TO LATEX PRODUCTS IN YOUR OCCUPATION?NO CAFFEINE CAFFEINE USE?YES HOW OFTEN AND HOW MUCH? 2 CUPS OF COFFEE PER DAY ADVANCE DIRECTIVE ADVANCE DIRECTIVE DISCUSSED WITH PATIENT:YES HEALTH CARE PROXY DAMI WILLAMS [phone] NONDENOMINATIONAL [id number] HINDUISM NO RASTAFARI BELIEFS THAT WOULD IMPACT HEALTH CARE. MARITAL STATUS: . ALCOHOL SCREENING DID YOU HAVE A DRINK CONTAINING ALCOHOL IN THE PAST YEAR?NO POINTS0 INTERPRETATIONNEGATIVE SEXUAL HX HAD SEX IN THE LAST 12 MONTHS (VAGINAL, ORAL, OR ANAL)?NO LIVES C , DAMI WILLAMSREVIEWED WITH PT 08/01/18 1530 BVREVIEWED WITH PT 09/04/18 0910 LASREVIEWED WITH PATIENT 10/19/18 0915 JS REVIEWED WITH PATIENT 03/12/19 0936 JSPRE ADMISSION COMPLETE FOR [id number] ADMISSION COMPLETED FOR PROCEDURE 12-04-19 KEGREVIEWED WITH PATIENT 08/03/19 1000 LASREVIEWED WITH PATIENT 03/28/19 0925 JS REVIEWED WITH PATIENT 09/18/19 0945 BV. HOSPITALIZATION/MAJOR DIAGNOSTIC PROCEDURE SURGERIES REVIEW OF SYSTEMS REVIEWED BY: PROVIDER: TASHI GALEANO . CONSTITUTIONAL: ANY CHANGE IN YOUR MEDICAL CONDITION? YES, FIBROMYALGIA . CHILLS NO . FEVER NO . INFECTION: DO YOU HAVE NEW INFECTIONS? NO . DO YOU HAVE HISTORY OF MRSA? NO . MUSCULOSKELETAL: ANY NEW PATTERNS OF PAIN OR NUMBNESS? YES, BILAT FOOT NUMBNESS . GASTROENTEROLOGY: ANY NEW CHANGE IN BOWEL CONTROL? NO . GENITOURINARY: ANY NEW CHANGE IN BLADDER CONTROL? NO . IS THERE A CHANCE YOU COULD BE ? NO . HEMATOLOGY/LYMPH: DO YOU TAKE ANY BLOOD THINNERS? (FOR EXAMPLE- COUMADIN, PLAVIX, AGGRENOX, PLATEL, PRADAXA, OR XARELTO) NO . WHEN WAS YOUR LAST DOSE? DATE: TIME: . NEUROLOGY: HAVE YOU FALLEN IN THE PAST 12 MONTHS? YES, PRIOR TO LAST VISIT . ANY NEW EXTREMITY NUMBNESS OR WEAKNESS? NO . CARDIOLOGY: DO YOU HAVE A PACEMAKER OR DEFIBRILLATOR? NO . RESPIRATORY: HAVE YOU BEEN SICK IN THE PAST WEEK? NO . FEVER NO . FLU LIKE SYMPTOMS? NO . COUGH NO . INTEGUMENTARY: DO YOU HAVE ANY RASHES OR OPEN SORES? NO . ALLERGIC/IMMUNO: ARE YOU ALLERGIC TO IV DYE? NO . ANY NEW ALLERGIES? NO . PSYCHIATRIC: DO YOU HAVE THOUGHTS OF HURTING YOURSELF OR SOMEONE ELSE? NO . ARE YOU ABUSED, NEGLECTED, OR IN AN UNSAFE ENVIRONMENT? NO . ENDOCRINOLOGY: ARE YOU DIABETIC? YES . OTHER: DO YOU NEED ANY PRESCRIPTIONS? YES, TRAMADOL NOT WORKING . IF YES, PLEASE LIST: ____ . ANY NEW PROBLEMS WITH YOUR MEDICATIONS? NO . WHEN DID YOU LAST EAT? ____ . WHEN DID YOU LAST DRINK? ____ . WHAT DID YOU LAST DRINK? ____ . NAME OF PERSON DRIVING YOU HOME? ____ . DO YOU HAVE ANY OTHER QUESTIONS OR CONCERNS NO . VITAL SIGNS WT 292 LBS, HT 66", BMI 47.12 INDEX, BP 115/65 MM HG, HR 73 /MIN, RR 16 /MIN, TEMP 97.8 F, OXYGEN SAT % 99, REVIEWED BY: EM. EXAMINATION GENERAL EXAMINATION: GENERALAWAKE,ALERT ,PLEAASANT . PSYCHAFFECT NORMAL . LUNGS:LUNG SANDRA ARE CLEAR TO AUSCULTATION BILATERALLY. GOOD MOVEMENT OF AIR . HEART:S1, S2 IN A REGULAR RATE AND RHYTHM. NO SIGNIFICANT MURMURS, RUBS OR GALLOPS NOTED . LUMBAR:PALPATION: + FOR PAIN OVER L/S SPINE. + FOR PAIN OVER L/S PARASPINALS.SPECIFIC TENDERNESS NOTED OVER BILAT. L3/4-L4/5 LUMBAR FACETS WITH FACET LOADING R>L. NEUROLOGIC EXAM:NORMAL SENSATION LIGHT TOUCH BILAT. LOWER EXTREMITIES. ASSESSMENTS SPONDYLOSIS WITHOUT MYELOPATHY OR RADICULOPATHY, LUMBAR REGION - M47.816 (PRIMARY) TREATMENT SPONDYLOSIS WITHOUT MYELOPATHY OR RADICULOPATHY, LUMBAR REGION CONTINUE TRAMADOL HCL TABLET, 50 MG, 2, ORALLY, BID MDD4-Q10HRS START TIZANIDINE HCL TABLET, 2 MG, 1 TABLET NEEDED, ORALLY, THREE TIMES A DAY, 30 DAYS, 90 TABLET, REFILLS 1 NOTES: L5-S1 RADIOFREQUENCY RIGHT,LUMBAR RADIOFREQUENCY NEUROTOMY MATERIAL WAS PUBLISHED TO [employer]. PRE[facility] MEDICINE PAIN CLINIC TEACHING: MEDICATIONS NEW MEDICATION TIZANIDINE WRITTEN INFORMATION PROVIDED AND DISCUSSED WITH PT. VERBALIZED UNDERSTANDING. PROCEDURE TEACHING RADIOFREQUENCY FACET BLOCK INFORMATION PROVIDED AND DISCUSSED WITH PT. VERBALIZED UNDERSTANDING.. PROCEDURE CODES FA211 ESTABILISHED PATIENT [facility] FACILITY CHARGE DISPOSITION & COMMUNICATION FOLLOW UP POST (REASON: L4/5-L5/S1 RF--RIGHT) ELECTRONICALLY SIGNED BY FROYLAN LEUNG ON 12/26/2019 AT 03:28 PM EST DISCLAIMER : THIS IS A VISIT SUMMARY EXTRACTED FROM THE [email or web address] CHART. IT IS NOT A COPY OF THE [employer] PROGRESS NOTE. PUNEET
== END ==
LOC: M PAIN 14:30
PROVIDERS: ATTEND Nurse Practitioner Family
DX: M47.816 Spondylosis without myelopathy or radiculopathy, lumbar region (principal); J45.30 Mild persistent asthma, uncomplicated; I10 Essential (primary) hypertension; K21.9 Gastro-esophageal reflux disease without esophagitis; E55.9 Vitamin D deficiency, unspecified; E11.9 Type 2 diabetes mellitus without complications; M79.7 Fibromyalgia; Z98.84 Bariatric surgery status; Z88.0 Allergy status to penicillin; Z88.1 Allergy status to other antibiotic agents; Z88.5 Allergy status to narcotic agent; Z88.8 Allergy status to other drugs, medicaments and biological substances; E66.01 Morbid (severe) obesity due to excess calories; Z68.42 Body mass index [BMI] 45.0-49.9, adult; Z79.84 Long term (current) use of oral hypoglycemic drugs; Z79.891 Long term (current) use of opiate analgesic; Z79.899 Other long term (current) drug therapy

== ENCOUNTER → 2020-02-05 | Outpatient (CLI) | payer OTHER ==
[~2020-02-05] MED LIST changes: +BUPIVACAINE HCL 0.25% 30 ML VIAL As Ordered ONE; +ISOVUE-M 300 61% 15ML VIAL (Q9967) As Ordered ONE; +LIDOCAINE 1% SDV INJ 30 ML VIAL As Ordered ONE; +TRIAMCINOLONE ACETONIDE SUSP 40 MG/ML VIAL (J3301) As Ordered ONE
--- NOTE | 2020-02-05 11:27 | REP ---
Partial lumbar spine series: Four views . History: Injection procedure for pain. 54 seconds of fluoroscopy time is reported. Findings: A sequence of four fluoroscopically obtained last image hold procedural spot radiographs of the lumbar spine document needle position and contrast injection associated with injection procedure. Electronically Signed by Arnulfo Alva MD 02/05/2020 11:18 A
--- NOTE | 2020-02-15 03:54 | ECWPNPC ---
PATIENT NAME: MUNIR WILLAMS : 1960 GENDER: FEMALE VISIT DATE: 02/05/2020 DISCHARGE DATE: 02/05/20 1148 VISIT LOCKED DATE TIME: PHYSICIAN: CHRISTY SALINAS MD PHYSICIAN PAGER NO: [phone] RESOURCE: CHRISTY SALINAS MD REASON FOR APPOINTMENT 1. RADIOFREQUINCY HISTORY OF PRESENT ILLNESS HISTORY OF PRESENT ILLNESS: PAIN THE PATIENT DESCRIBES THE PAIN... FALL RISK SCREENING: SCREENING :NO FALLS REPORTED IN THE LAST YEAR CURRENT MEDICATIONS TAKING PREVACID 30 MG CAPSULE DELAYED RELEASE 1 CAPSULE ORALLY ONCE A DAY, NOTES: 02/03 2100 TAKING TRIAMTERENE-HCTZ 37.5-25 MG TABLET 1 TAB ORALLY DAILY, NOTES: 02/04 800 TAKING ATORVASTATIN CALCIUM 20 MG TABLET 1 TABLET ORALLY ONCE A DAY, NOTES: 02/03 2100 TAKING METFORMIN HCL ER 500 MG TABLET EXTENDED RELEASE 24 HOUR 1 TABLET WITH EVENING MEAL ORALLY AC DINNER, NOTES: 02/04 800 TAKING CYANOCOBALAMIN 500 MCG TABLET 1 TABLET ORALLY ONCE A DAY, NOTES: 02/04 800 TAKING QVAR 80 MCG/ACT AEROSOL SOLUTION 1 PUFF INHALATION TWICE A DAY, NOTES: TAKES NEEDED, NONE RECENT TAKING PROAIR HFA 108 (90 BASE) MCG/ACT AEROSOL SOLUTION 2 PUFFS NEEDED INHALATION QID PRN, NOTES: NONE RECENT TAKING FERROUS SULFATE 325 (65 FE) MG TABLET 1 TABLET ORALLY EVER OTHER DAY, NOTES: 02/03 2100 TAKING BLOOD GLUCOSE TEST - STRIP DIRECTED SUBCUTANEOUSLY DAILY DX: E11.9 TAKING LANCETS - MISCELLANEOUS DIRECTED SUBCUTANEOUSLY DAILY DX: E11.9 TAKING TUMS ULTRA 1000 1000 MG TABLET CHEWABLE 1 TABLET ORALLY AT BEDTIME, NOTES: NONE RECENT TAKING NASONEX 50 MCG/ACT SUSPENSION 2 SPRAYS IN EACH NOSTRIL NASALLY ONCE A DAY, NOTES: 02/05 800 TAKING CITALOPRAM HYDROBROMIDE 40 MG TABLET 1 TABLET ORALLY ONCE A DAY, NOTES: 02/04 800 TAKING AMITRIPTYLINE HCL 25 MG TABLET 1 TAB ORALLY AT BEDTIME, NOTES: 02/03 2100 TAKING BUPROPION HCL 150 MG TABLET EXTENDED RELEASE 1 TAB ORALLY BID, NOTES: 02/03 2100 TAKING VITAMIN D 50 MCG (2000 UT) TABLET 1 TABLET ORALLY ONCE A DAY, NOTES: 02/04 800 TAKING TIZANIDINE HCL 2 MG TABLET 1 TABLET NEEDED ORALLY THREE TIMES A DAY, NOTES: 02/04 0800 TAKING FOLIC ACID 1 MG TABLET 1 TABLET ORALLY ONCE A DAY, NOTES: 02/03 08 TAKING LEVOTHYROXINE SODIUM 100 MCG TABLET 1 TABLET ON AN EMPTY STOMACH IN THE MORNING ORALLY ONCE A DAY, NOTES: 02/03 08 TAKING MONTELUKAST SODIUM 10 MG TABLET 1 TABLET ORALLY AT BEDTIME, NOTES: 02/03 2100 TAKING LISINOPRIL 10 MG TABLET 1 TABLET ORALLY ONCE A DAY, NOTES: 02/04 800 NOT-TAKING TRAMADOL HCL 50 MG TABLET 2 ORALLY BID MDD4-Q10HRS NOT-TAKING PERCOCET 5-325 MG TABLET 1 TABLET NEEDED ORALLY Q8H PRN MDD3 DISCONTINUED TRIAMTERENE-HCTZ 37.5-25 MG TABLET 1 TAB ORALLY DAILY, NOTES: DUPLICATE DISCONTINUED METFORMIN HCL ER 500 MG TABLET EXTENDED RELEASE 24 HOUR 1 TABLET WITH EVENING MEAL ORALLY AC DINNER, NOTES: DUPLICATE MEDICATION LIST REVIEWED AND RECONCILED WITH THE PATIENT PAST MEDICAL HISTORY ASTHMA, MILD PERSISTENT ALLERGIC RHINITIS MDD/MORRO, H/O ETHOH ABUSE-NONE SINCE 04/2016 BLE LYMPHEDEMA/LIPEDEMA SUPER OBESITY S/P MEAGAN GB 09/2007-PRESURGICAL WEIGHT 650 GERD/H/O GASTRITIS DX BY PREVIOUS EGD CKD3-09/2017 NORMAL B RENAL US S EVIDENCE OF MINH VITAMIN B12/FA DEFICIENCY-09/2017 IF 1 (0-1), PARIETAL 34 (0-20) R>L MARKED ADVANCED KNEE OA BY 09/2017 XRAY VITAMIN D DEFICIENCY IRITABLE BOWEL SYNDROME, CONSTIPATION-TYPE MDD/MORRO IFG LIPEDEMA CHRONIC KIDNEY DISEASE STAGE III 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, SEVERE L3/4 C GRADE 1 LITHESIS C B L3 COMPRESSION, MILD L4/5 C GRADE 1 LITHESIS, B L5 COMPRESSION IN NF BY 06/2018 MRI FIBROMYALGIA ALLERGIES MORPHINE: NAUSEA/VOMITING - SIDE EFFECTS REGLAN: ANAPHYLAXIS - ALLERGY "CILLIANS": HIVES - ALLERGY Z-PACK: HIVES - ALLERGY SYMBICORT: THRUSH SEVERE - SIDE EFFECTS SURGICAL HISTORY GALLBLADDER/LIVER STONE REMOVAL 1989 GASTRIC BYPASS-DR.WOLF FRENCH 09/2007 FAMILY HISTORY FATHER: ALIVE, FIRST [place] AT 58Y, T2DM DX IN 70S, DIAGNOSED WITH DIABETES MOTHER: 57 YRS, FIRST [place] AT 37, 2 [place], HEAVY SMOKER/ETHOH, UNSPECIFIED HEART DISEASE, UNSPECIFIED CEREBRAL ARTERY OCCLUSION WITH CEREBRAL INFARCTION MATERNAL GRAND FATHER: UNSPECIFIED HEART DISEASE, OTHER MALIGNANT NEOPLASM OF UNSPECIFIED SITE 1 SISTER(S) . SISTER-SVT\\\\\\\\N1\\\\\\\\\\\\\\/2 BROTHER-UNKNOWN\\\\\\\\N\\\\\\\\NNO CANCERS IN 1DR\\\\\\\\NFATHER -DIAGNOSED WITH DM. SOCIAL HISTORY GENERAL: TOBACCO USE ARE YOU A:NONSMOKER HIV / HEP-C SCREENING HIV TEST OFFERED TO PATIENT:YES DATE OFFERED:08/25/2017 TEST ACCEPTED:NO HEP-C TEST OFFERED TO PATIENT:YES DATE OFFERED:08/25/2017 REASON:PATIENT DECLINED TEST ACCEPTED:NO REASON:PATIENT DECLINED DIET: LOW CARB, HIGH VEGETABLES AND FRUITS, 8-10 OZ PER DAY OF LEAN PROTEIN. LANGUAGE LANGUAGES SPOKEN:[place] DOMESTIC VIOLENCE DO YOU FEEL SAFE IN YOUR ENVIRONMENT?YES BMI CARE GOAL FOLLOW-UP ABOVE NORMAL BMI FOLLOW-UPGIVING ENCOURAGEMENT TO EXERCISE RECREATIONAL DRUG USE DRUG USE?NO PATIENT DENIES ABUSE OR MISSUSED OF ANY MEDICATION. PATIENT DENIES USE OF ANY ILLEGAL SUBSTANCE INCLUDING MARIJUANA OR COCAINE. LEARNING BARRIERS / SPECIAL NEEDS CHANGE FROM LAST VISIT?NO BARRIERS TO LEARNING?NO HEARING IMPAIRED?NO VISION IMPAIRED?YES COGNITIVELY IMPAIRED?NO :CORRECTIVE LENSES READINESS TO LEARN?YES LEARNING PREFERENCES?NO LEARNING CAPABILITIES PRESENT?YES EMOTIONAL BARRIERS?NO SPECIAL DEVICES?YES :CANE PLASTIC SURGERY NURSE NEEDED?NO PAIN CLINIC PFS, CLERGY, PUBLIC HEALTH REFERRALS HAS THE PATIENT BEEN EDUCATED REGARDING HIS/HER PLAN OF CARE?YES HAS THE PATIENT BEEN EDUCATED REGARDING PAIN, THE RISK FOR PAIN, THE IMPORTANCE OF EFFECTIVE PAIN MANAGEMENT, AND THE PAIN ASSESSMENT PROCESS?YES LATEX QUESTIONNAIRE LATEX ALLERGY : HAVE YOU EVER DEVELOPED ANY TYPE OF REACTION AFTER HANDLING LATEX PRODUCTS SUCH RUBBER GLOVES, CONDOMS, DIAPHRAGMS, BALLOONS, SOCKS, OR UNDERWEAR?NO LATEX ALLERGY : HAVE YOU EVER DEVELOPED ANY TYPE OF REACTION DURING OR AFTER DENTAL APPOINTMENT, VAGINAL/RECTAL EXAMINATION, SURGICAL PROCEDURE, OR ANY OTHER EXPOSURE?NO DATE ASKED : 03/12/2019 LATEX RISK : HAVE YOU EVER HAD ANY DIFFICULTY BREATHING OR HIVES AFTER EATING OR HANDLING ANY FRUITS, OR VEGETABLES; SUCH KIWI, BANANAS, STONE FRUITS, OR CHESTNUTSNO LATEX RISK : DO YOU HAVE A PREVIOUS PERSONAL HISTORY OF MORE THAN NINE SURGERIES, SPINA BIFIDA, OR REPEATED CATHERIZATIONS? NO LATEX RISK : ARE YOU FREQUENTLY EXPOSED TO LATEX PRODUCTS IN YOUR OCCUPATION?NO CAFFEINE CAFFEINE USE?YES HOW OFTEN AND HOW MUCH? 2 CUPS OF COFFEE PER DAY ADVANCE DIRECTIVE ADVANCE DIRECTIVE DISCUSSED WITH PATIENT:YES HEALTH CARE PROXY DAMI WILLAMS [phone] RASTAFARIAN [id number] ORTHODOXY NO BUDDHISM BELIEFS THAT WOULD IMPACT HEALTH CARE. MARITAL STATUS: . ALCOHOL SCREENING DID YOU HAVE A DRINK CONTAINING ALCOHOL IN THE PAST YEAR?NO POINTS0 INTERPRETATIONNEGATIVE SEXUAL HX HAD SEX IN THE LAST 12 MONTHS (VAGINAL, ORAL, OR ANAL)?NO LIVES C , DAMI WILLAMSREVIEWED WITH PT 08/01/18 1530 BVREVIEWED WITH PT 09/04/18 0910 LASREVIEWED WITH PATIENT 10/19/18 0915 JS REVIEWED WITH PATIENT 03/12/19 0936 JSPRE ADMISSION COMPLETE FOR [id number] ADMISSION COMPLETED FOR PROCEDURE 12-04-19 KEGREVIEWED WITH PATIENT 08/03/19 1000 LASREVIEWED WITH PATIENT 03/28/19 0925 JS REVIEWED WITH PATIENT 09/18/19 0945 BV. HOSPITALIZATION/MAJOR DIAGNOSTIC PROCEDURE SURGERIES REVIEW OF SYSTEMS REVIEWED BY: PROVIDER: . CONSTITUTIONAL: ANY CHANGE IN YOUR MEDICAL CONDITION? NO . CHILLS NO . FEVER NO . INFECTION: DO YOU HAVE NEW INFECTIONS? NO . DO YOU HAVE HISTORY OF MRSA? NO . MUSCULOSKELETAL: ANY NEW PATTERNS OF PAIN OR NUMBNESS? NO . GASTROENTEROLOGY: ANY NEW CHANGE IN BOWEL CONTROL? NO . GENITOURINARY: ANY NEW CHANGE IN BLADDER CONTROL? NO . IS THERE A CHANCE YOU COULD BE ? NO . HEMATOLOGY/LYMPH: DO YOU TAKE ANY BLOOD THINNERS? (FOR EXAMPLE- COUMADIN, PLAVIX, AGGRENOX, PLATEL, PRADAXA, OR XARELTO) NO . WHEN WAS YOUR LAST DOSE? DATE: TIME: . NEUROLOGY: HAVE YOU FALLEN IN THE PAST 12 MONTHS? NO . ANY NEW EXTREMITY NUMBNESS OR WEAKNESS? NO . CARDIOLOGY: DO YOU HAVE A PACEMAKER OR DEFIBRILLATOR? NO . RESPIRATORY: HAVE YOU BEEN SICK IN THE PAST WEEK? NO . FEVER NO . FLU LIKE SYMPTOMS? NO . COUGH NO . INTEGUMENTARY: DO YOU HAVE ANY RASHES OR OPEN SORES? NO . ALLERGIC/IMMUNO: ARE YOU ALLERGIC TO IV DYE? NO . ANY NEW ALLERGIES? NO . PSYCHIATRIC: DO YOU HAVE THOUGHTS OF HURTING YOURSELF OR SOMEONE ELSE? NO . ARE YOU ABUSED, NEGLECTED, OR IN AN UNSAFE ENVIRONMENT? NO . ENDOCRINOLOGY: ARE YOU DIABETIC? YES, FSBS 112 @ 0800 . OTHER: DO YOU NEED ANY PRESCRIPTIONS? NO . IF YES, PLEASE LIST: ____ . ANY NEW PROBLEMS WITH YOUR MEDICATIONS? NO . WHEN DID YOU LAST EAT? 02/03 1900 . WHEN DID YOU LAST DRINK? 02/03 1900 . WHAT DID YOU LAST DRINK? WATER . NAME OF PERSON DRIVING YOU HOME? DAMI WILLAMS . DO YOU HAVE ANY OTHER QUESTIONS OR CONCERNS NO . VITAL SIGNS WT 290 LBS, HT 66", BMI 46.80 INDEX, BP 122/74 MM HG, HR 86 /MIN, RR 16 /MIN, TEMP 97.4 F, OXYGEN SAT % 98, REVIEWED BY: LS. ASSESSMENTS LUMBAR SPONDYLOSIS - M47.816 (PRIMARY) SPONDYLOSIS WITHOUT MYELOPATHY OR RADICULOPATHY, LUMBOSACRAL REGION - M47.817 TREATMENT LUMBAR SPONDYLOSIS SMC FACET BLOCK (PAIN) PROCEDURES PN RADIOFREQUENCY PRE PROCEDURE DIAGNOSES 1. LUMBAR SPONDYLOSIS. 2. LUMBOSACRAL SPONDYLOSIS POST PROCEDURE DIAGNOSES 1. LUMBAR SPONDYLOSIS. 2. LUMBOSACRAL SPONDYLOSIS PROCEDURE RIGHT L4-L5 AND RIGHT L5-S1 LUMBAR FACET RADIOFREQUENCY SURGEON DR. CHRISTY SALINAS WAX ENGRAVER NONE ANESTHESIA LOCAL PRE PROCEDURE REPORT THE PATIENT HAS HISTORY OF CHRONIC LOW BACK PAIN. I EVALUATED THE PATIENT AND REVIEWED THE CHART. I WENT OVER THE RISKS, ALTERNATIVES, AND BENEFITS ASSOCIATED WITH THIS PROCEDURE. THE PATIENT WOULD LIKE TO PROCEED AND GIVE CONSENT TO PERFORMED THE PROCEDURE. THE PATIENT DENIES UNEXPLAINABLE WEIGHT LOSS, FEVER, CHILLS, OR NEW CHANGES IN URINARY OR BOWEL CONTROL DESCRIPTION OF PROCEDURE THE PATIENT WAS BROUGHT TO THE PROCEDURE ROOM AND PLACED IN THE PRONE POSITION. THE LUMBOSACRAL AREA WAS CLEANED WITH CHLORAPREP SOLUTION AND DRAPED ASEPTICALLY. THE PROCEDURE WAS DONE UNDER STERILE CONDITIONS. I CHECKED LATERALITY AND THE LEVEL WHERE THE PROCEDURE WAS GOING TO BE PERFORMED WITH THE PATIENT AND THE SUPPORTING STAFF AT THE MOMENT OF THE TIME OUT IN THE PROCEDURE ROOM. UNDER FLUOROSCOPIC GUIDANCE, TARGETS WERE SELECTED AT THE INTERSECTION OF THE RIGHT TRANSVERSE PROCESS OF L4, L5 AND ALA OF S1 WITH ITS RESPECTIVE SUPERIOR ARTICULAR PROCESS. LIDOCAINE WAS USED TO NUMB THE SKIN AND THE SUBCUTANEOUS TISSUE BELOW IT. RADIOFREQUENCY NEEDLES 22-GAUGE 15 CM LONG WITH 10 MM ACTIVE CURVE TIP WERE ADVANCED UNDER FLUOROSCOPIC GUIDANCE AND FOLLOWING PATIENT FEEDBACK UNTIL THE TARGET AREA WAS REACHED. POSITION OF THE NEEDLES WAS VERIFIED WITH AP AND LATERAL VIEWS. AFTER PROPER POSITION OF THE NEEDLE WAS ACHIEVED, WE WORKED WITH THE RIGHT SELECTED MEDIAN BRANCHES OF L3, L4 AND THE DORSAL RAMI OF L5. WE MEASURED THE CORRESPONDING IMPEDANCES, SENSORY STIMULATION AND MOTOR RESPONSES INDICATED IN THE RADIOFREQUENCY WORKSHEET. POSITION OF THE NEEDLES WAS VERIFIED AGAIN WITH AP AND LATERAL VIEWS. LIDOCAINE 1%, 2 ML, WAS INJECTED AT EACH LEVEL. RADIOFREQUENCY WAS DONE AT EACH LEVEL AT 80 DEGREES FOR 90 SECONDS. AFTER RADIOFREQUENCY WAS DONE, THE PATIENT RECEIVED BUPIVACAINE 0.125% 1 CC WITH KENALOG 5 MG AT EACH SITE. THERE WAS NO EVIDENCE OF BLOOD, PARESTHESIA OR CEREBROSPINAL FLUID DURING THE PROCEDURE. THE PATIENT WAS SENT TO THE RECOVERY ROOM. THE PATIENT WAS MOVING THE EXTREMITIES AND DOING WELL. THERE WAS NO COMPLICATION DURING THE PROCEDURE. FLUOROSCOPY TIME WAS 54 SECONDS POST PROCEDURE NOTE THE PATIENT WILL BE SEEN IN A FOLLOW UP IN THE NEXT FEW WEEKS. INSTRUCTIONS WERE GIVEN, QUESTIONS WERE ANSWERED, AND THE PATIENT EXPRESSED UNDERSTANDING AND AGREES WITH THE PLAN. I, PATEL PINEDA, DOCUMENTED THE ABOVE INFORMATION ACTING A SCRIBE FOR DR. SALINAS. I HAVE REVIEWED THE ABOVE DOCUMENT, WRITTEN BY PATEL PINEDA SCRIBJeffrey AND I VERIFY THAT IT IS ACCURATE. PREVENTIVE MEDICINE PAIN CLINIC TEACHING: PROCEDURE TEACHING PRE-SCREENING CALL DONE 02/04/20 EM. PROCEDURE CODES 82015 DESTROY LUMB/SAC FACET JNT, MODIFIERS: RT [address]689 DESTROY L/S FACET JNT ADDL, MODIFIERS: RT [id number] RADXPS IN END [id number] PXD DISPOSITION & COMMUNICATION FOLLOW UP 3 WEEKS ELECTRONICALLY SIGNED BY CHRISTY SALINAS MD, MD ON 02/14/2020 AT 12:35 PM EDT DISCLAIMER : THIS IS A VISIT SUMMARY EXTRACTED FROM THE [employer] CHART. IT IS NOT A COPY OF THE [employer] PROGRESS NOTE. MTDD
== END ==
LOC: M PAIN 09:15
PROVIDERS: ATTEND Anesthesiology
DX: M47.816 Spondylosis without myelopathy or radiculopathy, lumbar region (principal); M47.817 Spondylosis without myelopathy or radiculopathy, lumbosacral region
CPT/HCPCS: 64635; 64636; J3301

== ENCOUNTER → 2020-02-19 | Outpatient (CLI) | payer OTHER ==
[~2020-02-19] MED LIST changes: -BUPIVACAINE HCL 0.25% 30 ML VIAL As Ordered ONE; -ISOVUE-M 300 61% 15ML VIAL (Q9967) As Ordered ONE; -LIDOCAINE 1% SDV INJ 30 ML VIAL As Ordered ONE; -TRIAMCINOLONE ACETONIDE SUSP 40 MG/ML VIAL (J3301) As Ordered ONE
--- NOTE | 2020-02-23 03:10 | ECWPNPC ---
PATIENT NAME: MUNIR WILLAMS : 1960 GENDER: FEMALE VISIT DATE: 02/19/2020 DISCHARGE DATE: 02/19/20 1424 VISIT LOCKED DATE TIME: PHYSICIAN: TASHI RODRIGUEZ PHYSICIAN PAGER NO: [phone] RESOURCE: TASHI RODRIGUEZ REASON FOR APPOINTMENT 1. POST RADIOFREQUENCY HISTORY OF PRESENT ILLNESS HISTORY OF PRESENT ILLNESS: PHONE CALL TO PATIENT AND PERMISSION TO DO TELEPHONE VISIT RECEIVED. HAD RIGHT L4-5, L5-S1 RADIOFREQUENCY ON 02/05/2020. REPORTS MARKED REDUCTION IN PAIN THAT CONTINUES TODAY. RATING PAIN VAS 0/10. REPORTING IMPROVED ACTIVITY TOLERANCE. REPORTING IMPROVED SLEEP. TAKING TIZANIDINE 3 TIMES DAILY AND STATES THAT SHE DOES NOT HAVE ANY MUSCLE SPASM PAIN ANYMORE. DENIES SIDE EFFECTS. PAIN THE PATIENT DESCRIBES THE PAIN... FALL RISK SCREENING: SCREENING :NO FALLS REPORTED IN THE LAST YEAR CURRENT MEDICATIONS TAKING PREVACID 30 MG CAPSULE DELAYED RELEASE 1 CAPSULE ORALLY ONCE A DAY TAKING TRIAMTERENE-HCTZ 37.5-25 MG TABLET 1 TAB ORALLY DAILY TAKING ATORVASTATIN CALCIUM 20 MG TABLET 1 TABLET ORALLY ONCE A DAY TAKING METFORMIN HCL ER 500 MG TABLET EXTENDED RELEASE 24 HOUR 1 TABLET WITH EVENING MEAL ORALLY AC DINNER TAKING CYANOCOBALAMIN 500 MCG TABLET 1 TABLET ORALLY ONCE A DAY TAKING QVAR 80 MCG/ACT AEROSOL SOLUTION 1 PUFF INHALATION TWICE A DAY TAKING PROAIR HFA 108 (90 BASE) MCG/ACT AEROSOL SOLUTION 2 PUFFS NEEDED INHALATION QID PRN TAKING FERROUS SULFATE 325 (65 FE) MG TABLET 1 TABLET ORALLY EVER OTHER DAY TAKING BLOOD GLUCOSE TEST - STRIP DIRECTED SUBCUTANEOUSLY DAILY DX: E11.9 TAKING LANCETS - MISCELLANEOUS DIRECTED SUBCUTANEOUSLY DAILY DX: E11.9 TAKING TUMS ULTRA 1000 1000 MG TABLET CHEWABLE 1 TABLET ORALLY AT BEDTIME TAKING NASONEX 50 MCG/ACT SUSPENSION 2 SPRAYS IN EACH NOSTRIL NASALLY ONCE A DAY TAKING CITALOPRAM HYDROBROMIDE 40 MG TABLET 1 TABLET ORALLY ONCE A DAY TAKING AMITRIPTYLINE HCL 25 MG TABLET 1 TAB ORALLY AT BEDTIME TAKING BUPROPION HCL 150 MG TABLET EXTENDED RELEASE 1 TAB ORALLY BID TAKING VITAMIN D 50 MCG (2000 UT) TABLET 1 TABLET ORALLY ONCE A DAY TAKING TIZANIDINE HCL 2 MG TABLET 1 TABLET NEEDED ORALLY THREE TIMES A DAY TAKING FOLIC ACID 1 MG TABLET 1 TABLET ORALLY ONCE A DAY TAKING LEVOTHYROXINE SODIUM 100 MCG TABLET 1 TABLET ON AN EMPTY STOMACH IN THE MORNING ORALLY ONCE A DAY TAKING MONTELUKAST SODIUM 10 MG TABLET 1 TABLET ORALLY AT BEDTIME TAKING LISINOPRIL 10 MG TABLET 1 TABLET ORALLY ONCE A DAY NOT-TAKING TRAMADOL HCL 50 MG TABLET 2 ORALLY BID MDD4-Q10HRS NOT-TAKING PERCOCET 5-325 MG TABLET 1 TABLET NEEDED ORALLY Q8H PRN MDD3 MEDICATION LIST REVIEWED AND RECONCILED WITH THE PATIENT PAST MEDICAL HISTORY ASTHMA, MILD PERSISTENT ALLERGIC RHINITIS MDD/MORRO, H/O ETHOH ABUSE-NONE SINCE 04/2016 BLE LYMPHEDEMA/LIPEDEMA SUPER OBESITY S/P MEAGAN GB 09/2007-PRESURGICAL WEIGHT 650 GERD/H/O GASTRITIS DX BY PREVIOUS EGD CKD3-09/2017 NORMAL B RENAL US S EVIDENCE OF MINH VITAMIN B12/FA DEFICIENCY-09/2017 IF 1 (0-1), PARIETAL 34 (0-20) R>L MARKED ADVANCED KNEE OA BY 09/2017 XRAY VITAMIN D DEFICIENCY IRITABLE BOWEL SYNDROME, CONSTIPATION-TYPE MDD/MORRO IFG LIPEDEMA CHRONIC KIDNEY DISEASE STAGE III 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, SEVERE L3/4 C GRADE 1 LITHESIS C B L3 COMPRESSION, MILD L4/5 C GRADE 1 LITHESIS, B L5 COMPRESSION IN NF BY 06/2018 MRI FIBROMYALGIA ALLERGIES MORPHINE: NAUSEA/VOMITING - SIDE EFFECTS REGLAN: ANAPHYLAXIS - ALLERGY "CILLIANS": HIVES - ALLERGY Z-PACK: HIVES - ALLERGY SYMBICORT: THRUSH SEVERE - SIDE EFFECTS SURGICAL HISTORY GALLBLADDER/LIVER STONE REMOVAL 1989 GASTRIC BYPASS-DR.WOLF FRENCH 09/2007 FAMILY HISTORY FATHER: ALIVE, FIRST [place] AT 58Y, T2DM DX IN 70S, DIAGNOSED WITH DIABETES MOTHER: 57 YRS, FIRST [place] AT 37, 2 [place], HEAVY SMOKER/ETHOH, UNSPECIFIED HEART DISEASE, UNSPECIFIED CEREBRAL ARTERY OCCLUSION WITH CEREBRAL INFARCTION MATERNAL GRAND FATHER: UNSPECIFIED HEART DISEASE, OTHER MALIGNANT NEOPLASM OF UNSPECIFIED SITE 1 SISTER(S) . SISTER-SVT\\\\\\\\N1\\\\\\\\\\\\\\/2 BROTHER-UNKNOWN\\\\\\\\N\\\\\\\\NNO CANCERS IN 1DR\\\\\\\\NFATHER -DIAGNOSED WITH DM. SOCIAL HISTORY GENERAL: TOBACCO USE ARE YOU A:NONSMOKER HIV / HEP-C SCREENING HIV TEST OFFERED TO PATIENT:YES DATE OFFERED:08/25/2017 TEST ACCEPTED:NO HEP-C TEST OFFERED TO PATIENT:YES DATE OFFERED:08/25/2017 REASON:PATIENT DECLINED TEST ACCEPTED:NO REASON:PATIENT DECLINED DIET: LOW CARB, HIGH VEGETABLES AND FRUITS, 8-10 OZ PER DAY OF LEAN PROTEIN. LANGUAGE LANGUAGES SPOKEN:[place] DOMESTIC VIOLENCE DO YOU FEEL SAFE IN YOUR ENVIRONMENT?YES NEW PATIENT PAIN DIARY FROM 0-10, WHAT LEVEL IS YOUR PAIN TODAY?0 BMI CARE GOAL FOLLOW-UP ABOVE NORMAL BMI FOLLOW-UPGIVING ENCOURAGEMENT TO EXERCISE RECREATIONAL DRUG USE DRUG USE?NO PATIENT DENIES ABUSE OR MISSUSED OF ANY MEDICATION. PATIENT DENIES USE OF ANY ILLEGAL SUBSTANCE INCLUDING MARIJUANA OR COCAINE. LEARNING BARRIERS / SPECIAL NEEDS CHANGE FROM LAST VISIT?NO BARRIERS TO LEARNING?NO HEARING IMPAIRED?NO VISION IMPAIRED?YES COGNITIVELY IMPAIRED?NO :CORRECTIVE LENSES READINESS TO LEARN?YES LEARNING PREFERENCES?NO LEARNING CAPABILITIES PRESENT?YES EMOTIONAL BARRIERS?NO SPECIAL DEVICES?YES :CANE NEEDLE MAKER NEEDED?NO PAIN CLINIC PFS, CLERGY, PUBLIC HEALTH REFERRALS HAS THE PATIENT BEEN EDUCATED REGARDING HIS/HER PLAN OF CARE?YES HAS THE PATIENT BEEN EDUCATED REGARDING PAIN, THE RISK FOR PAIN, THE IMPORTANCE OF EFFECTIVE PAIN MANAGEMENT, AND THE PAIN ASSESSMENT PROCESS?YES LATEX QUESTIONNAIRE LATEX ALLERGY : HAVE YOU EVER DEVELOPED ANY TYPE OF REACTION AFTER HANDLING LATEX PRODUCTS SUCH RUBBER GLOVES, CONDOMS, DIAPHRAGMS, BALLOONS, SOCKS, OR UNDERWEAR?NO LATEX ALLERGY : HAVE YOU EVER DEVELOPED ANY TYPE OF REACTION DURING OR AFTER DENTAL APPOINTMENT, VAGINAL/RECTAL EXAMINATION, SURGICAL PROCEDURE, OR ANY OTHER EXPOSURE?NO DATE ASKED : 03/12/2019 LATEX RISK : HAVE YOU EVER HAD ANY DIFFICULTY BREATHING OR HIVES AFTER EATING OR HANDLING ANY FRUITS, OR VEGETABLES; SUCH KIWI, BANANAS, STONE FRUITS, OR CHESTNUTSNO LATEX RISK : DO YOU HAVE A PREVIOUS PERSONAL HISTORY OF MORE THAN NINE SURGERIES, SPINA BIFIDA, OR REPEATED CATHERIZATIONS? NO LATEX RISK : ARE YOU FREQUENTLY EXPOSED TO LATEX PRODUCTS IN YOUR OCCUPATION?NO CAFFEINE CAFFEINE USE?YES HOW OFTEN AND HOW MUCH? 2 CUPS OF COFFEE PER DAY ADVANCE DIRECTIVE ADVANCE DIRECTIVE DISCUSSED WITH PATIENT:YES HEALTH CARE PROXY DAMI WILLAMS [phone] PENTECOSTALISM [id number] EVANGELICAL NO RASTAFARIAN BELIEFS THAT WOULD IMPACT HEALTH CARE. MARITAL STATUS: . ALCOHOL SCREENING DID YOU HAVE A DRINK CONTAINING ALCOHOL IN THE PAST YEAR?NO POINTS0 INTERPRETATIONNEGATIVE SEXUAL HX HAD SEX IN THE LAST 12 MONTHS (VAGINAL, ORAL, OR ANAL)?NO LIVES C , DAMI WILLAMSREVIEWED WITH PT 08/01/18 1530 BVREVIEWED WITH PT 09/04/18 0910 LASREVIEWED WITH PATIENT 10/19/18 0915 JS REVIEWED WITH PATIENT 03/12/19 0936 JSPRE ADMISSION COMPLETE FOR [id number] ADMISSION COMPLETED FOR PROCEDURE 12-04-19 JOHNIEWED WITH PATIENT 08/03/19 1000 LASREVIEWED WITH PATIENT 03/28/19 0925 JS REVIEWED WITH PATIENT 09/18/19 0945 BV. HOSPITALIZATION/MAJOR DIAGNOSTIC PROCEDURE SURGERIES REVIEW OF SYSTEMS REVIEWED BY: PROVIDER: TASHI GALEANO . CONSTITUTIONAL: ANY CHANGE IN YOUR MEDICAL CONDITION? NO . CHILLS NO . FEVER NO . INFECTION: DO YOU HAVE NEW INFECTIONS? NO . DO YOU HAVE HISTORY OF MRSA? NO . MUSCULOSKELETAL: ANY NEW PATTERNS OF PAIN OR NUMBNESS? YES, PAIN IS GONE EXCEPT FOR OCCASIONAL MUSCLE SPASMS WHICH TIZANIDINE HEKPS . GASTROENTEROLOGY: ANY NEW CHANGE IN BOWEL CONTROL? NO . GENITOURINARY: ANY NEW CHANGE IN BLADDER CONTROL? NO . IS THERE A CHANCE YOU COULD BE ? NO . HEMATOLOGY/LYMPH: DO YOU TAKE ANY BLOOD THINNERS? (FOR EXAMPLE- COUMADIN, PLAVIX, AGGRENOX, PLATEL, PRADAXA, OR XARELTO) NO . WHEN WAS YOUR LAST DOSE? DATE: TIME: . NEUROLOGY: HAVE YOU FALLEN IN THE PAST 12 MONTHS? NO . ANY NEW EXTREMITY NUMBNESS OR WEAKNESS? NO . CARDIOLOGY: DO YOU HAVE A PACEMAKER OR DEFIBRILLATOR? NO . RESPIRATORY: HAVE YOU BEEN SICK IN THE PAST WEEK? NO . FEVER NO . FLU LIKE SYMPTOMS? NO . COUGH NO . INTEGUMENTARY: DO YOU HAVE ANY RASHES OR OPEN SORES? NO . ALLERGIC/IMMUNO: ARE YOU ALLERGIC TO IV DYE? NO . ANY NEW ALLERGIES? NO . PSYCHIATRIC: DO YOU HAVE THOUGHTS OF HURTING YOURSELF OR SOMEONE ELSE? NO . ARE YOU ABUSED, NEGLECTED, OR IN AN UNSAFE ENVIRONMENT? NO . ENDOCRINOLOGY: ARE YOU DIABETIC? YES . OTHER: DO YOU NEED ANY PRESCRIPTIONS? YES, TIZANIDINE . IF YES, PLEASE LIST: ____ . ANY NEW PROBLEMS WITH YOUR MEDICATIONS? NO . WHEN DID YOU LAST EAT? ____ . WHEN DID YOU LAST DRINK? ____ . WHAT DID YOU LAST DRINK? ____ . NAME OF PERSON DRIVING YOU HOME? ____ . DO YOU HAVE ANY OTHER QUESTIONS OR CONCERNS NO . ASSESSMENTS SPONDYLOSIS WITHOUT MYELOPATHY OR RADICULOPATHY, LUMBAR REGION - M47.816 (PRIMARY) TREATMENT SPONDYLOSIS WITHOUT MYELOPATHY OR RADICULOPATHY, LUMBAR REGION REFILL TIZANIDINE HCL TABLET, 2 MG, 1 TABLET NEEDED, ORALLY, THREE TIMES A DAY, 30 DAYS, 90 TABLET, REFILLS 1 NOTES: APPROXIMATELY 11 MINUTES WAS SPENT IN TELEPHONE CONVERSATION REGARDING MEDICATION AND TREATMENT PLAN FOR CHRONIC PAIN. DISPOSITION & COMMUNICATION FOLLOW UP 2 MONTHS (REASON: LBP) ELECTRONICALLY SIGNED BY FROYLAN LEUNG ON 02/22/2020 AT 04:18 PM EDT DISCLAIMER : THIS IS A VISIT SUMMARY EXTRACTED FROM THE [employer] CHART. IT IS NOT A COPY OF THE [employer] PROGRESS NOTE. PUNEET
== END ==
LOC: M PAIN 11:45
PROVIDERS: ATTEND Nurse Practitioner Family
DX: M47.816 Spondylosis without myelopathy or radiculopathy, lumbar region (principal); I12.9 Hypertensive chronic kidney disease with stage 1 through stage 4 chronic kidney disease, or unspecified chronic kidney disease; N18.9 Chronic kidney disease, unspecified; Z79.84 Long term (current) use of oral hypoglycemic drugs; Z79.899 Other long term (current) drug therapy; Z88.1 Allergy status to other antibiotic agents; Z88.5 Allergy status to narcotic agent; Z88.8 Allergy status to other drugs, medicaments and biological substances; Z98.84 Bariatric surgery status

== ENCOUNTER → 2020-04-18 | Outpatient (CLI) | payer MEDICARE ==
--- NOTE | 2020-04-23 03:16 | ECWPNPC ---
PATIENT NAME: MUNIR WILLAMS : 1960 GENDER: FEMALE VISIT DATE: 04/18/2020 DISCHARGE DATE: 04/18/20 1447 VISIT LOCKED DATE TIME: PHYSICIAN: TASHI RODRIGUEZ PHYSICIAN PAGER NO: [phone] RESOURCE: TASHI RODRIGUEZ REASON FOR APPOINTMENT 1. LOW BACK HISTORY OF PRESENT ILLNESS GENERAL: HERE FOR FOLLOW-UP OF CHRONIC LOW BACK PAIN. CONTINUES TO DO WELL POST RADIOFREQUENCY. RATING PAIN LEVEL 0-2/10 VAS. PAIN IS LOCATED IN THE RIGHT LUMBOSACRAL REGION. FINDINGS TIZANIDINE EFFECTIVE AT REDUCING MUSCLE SPASM TYPE PAIN THROUGHOUT THE DAY. DENIES SIDE EFFECTS. -. PAIN SCREENING: PATIENT HAS A COMPLAINT OF ACUTE OR CHRONIC PAIN :YES LOCATION OF PAIN:LOW BACK INTENSITY OF PAIN (SCALE OF 1 TO 10):2 WHAT DOES YOUR PAIN FEEL LIKE: DULL PAIN DURATION:INTERMITTENT PAIN IS DECREASED BY:USE OF PAIN MEDICATIONS FALL RISK SCREENING: SCREENING :NO FALLS REPORTED IN THE LAST YEAR DEPRESSION SCREENING: PHQ-2 (2015 EDITION) LITTLE INTEREST OR PLEASURE IN DOING THINGS?NOT AT ALL FEELING DOWN, DEPRESSED, OR HOPELESS?NOT AT ALL TOTAL SCORE0 PAIN CENTER INTAKE QUESTIONS: DO YOU HAVE A HISTORY OF MRSA? :NO DO YOU TAKE A BLOOD THINNERS? :NO DO YOU HAVE ANY BLEEDING DISORDERS? :NO ANY NEW NUMBNESS OR WEAKNESS IN YOUR LEGS OR ARMS? :NO ANY PACEMAKER,DEFIBRILLATOR, OR DORSAL COLUMN STIMULATOR? :NO DO YOU HAVE ANY RASHES OR OPEN SORES? :NO ARE YOU ALLERGIC TO IV DYE? :NO ARE YOU DIABETIC? :YES PRE-DIABETIC ANY NEW PROBLEMS WITH YOUR MEDICATIONS? :NO HAVE YOU RECEIVED A VACCINE IN THE PAST 30 DAYS? :NO DO YOU PLAN TO RECEIVE A VACCINE IN THE NEXT 21 DAYS? :NO DO YOU NEED ANY PRESCRIPTION? :NO DO YOU TAKE ANY IMMUNOSUPPRESSIVE MEDICATIONS? :NO NURSING NOTE: PT. C/O HAVING MUSCLE SPASMS -. CURRENT MEDICATIONS TAKING TRIAMTERENE-HCTZ 37.5-25 MG TABLET 1 TAB ORALLY DAILY TAKING LISINOPRIL 10 MG TABLET 1 TABLET ORALLY ONCE A DAY TAKING ATORVASTATIN CALCIUM 20 MG TABLET 1 TABLET ORALLY ONCE A DAY TAKING TYLENOL EXTRA STRENGTH 500 MG TABLET 3TABLETS ORALLY TWICE DAILY TAKING METFORMIN HCL ER 500 MG TABLET EXTENDED RELEASE 24 HOUR 1 TABLET WITH EVENING MEAL ORALLY AC DINNER TAKING CYANOCOBALAMIN 500 MCG TABLET 1 TABLET ORALLY ONCE A DAY TAKING LEVOTHYROXINE SODIUM 100 MCG TABLET 1 TABLET ON AN EMPTY STOMACH IN THE MORNING ORALLY ONCE A DAY TAKING QVAR 80 MCG/ACT AEROSOL SOLUTION 1 PUFF INHALATION TWICE A DAY TAKING PROAIR HFA 108 (90 BASE) MCG/ACT AEROSOL SOLUTION 2 PUFFS NEEDED INHALATION QID PRN TAKING MONTELUKAST SODIUM 10 MG TABLET 1 TABLET ORALLY AT BEDTIME TAKING FERROUS SULFATE 325 (65 FE) MG TABLET 1 TABLET ORALLY EVER OTHER DAY TAKING NASONEX 50 MCG/ACT SUSPENSION 2 SPRAYS IN EACH NOSTRIL NASALLY ONCE A DAY TAKING ERGOCALCIFEROL 62670 UNIT CAPSULE 1 CAPSULE ORALLY ONCE A WEEK TAKING TUMS ULTRA 1000 1000 MG TABLET CHEWABLE 1 TABLET ORALLY AT BEDTIME TAKING CITALOPRAM HYDROBROMIDE 40 MG TABLET 1 TABLET ORALLY ONCE A DAY TAKING BUPROPION HCL 150 MG TABLET EXTENDED RELEASE 1 TAB ORALLY BID TAKING AMITRIPTYLINE HCL 25 MG TABLET 1 TAB ORALLY AT BEDTIME TAKING LANSOPRAZOLE 30 MG CAPSULE DELAYED RELEASE 1 CAPSULE ORALLY EVERY MORNING TAKING BLOOD GLUCOSE TEST - STRIP DIRECTED SUBCUTANEOUSLY DAILY DX: E11.9 TAKING LANCETS - MISCELLANEOUS DIRECTED SUBCUTANEOUSLY DAILY DX: E11.9 TAKING CITALOPRAM HYDROBROMIDE 40 MG TABLET 1 TABLET ORALLY ONCE A DAY TAKING VITAMIN D 50 MCG (2000 UT) TABLET 1 TABLET ORALLY ONCE A DAY TAKING MONTELUKAST SODIUM 10 MG TABLET 1 TABLET ORALLY AT BEDTIME TAKING LISINOPRIL 10 MG TABLET 1 TABLET ORALLY ONCE A DAY TAKING TIZANIDINE HCL 2 MG TABLET 1 TABLET NEEDED ORALLY THREE TIMES A DAY TAKING LEVOTHYROXINE SODIUM 100 MCG TABLET 1 TABLET ON AN EMPTY STOMACH IN THE MORNING ORALLY ONCE A DAY TAKING AMITRIPTYLINE HCL 25 MG TABLET TAKE ONE TABLET BY MOUTH AT BEDTIME TAKING LANSOPRAZOLE 30 MG CAPSULE DELAYED RELEASE 1 CAPSULE ORALLY EVERY MORNING TAKING FOLIC ACID 1 MG TABLET 1 TABLET ORALLY ONCE A DAY MEDICATION LIST REVIEWED AND RECONCILED WITH THE PATIENT PAST MEDICAL HISTORY ASTHMA, MILD PERSISTENT ALLERGIC RHINITIS MDD/MORRO, H/O ETHOH ABUSE-NONE SINCE 04/2016 BLE LYMPHEDEMA/LIPEDEMA SUPER OBESITY S/P MEAGAN GB 09/2007-PRESURGICAL WEIGHT 650 GERD/H/O GASTRITIS DX BY PREVIOUS EGD CKD3-09/2017 NORMAL B RENAL US S EVIDENCE OF MINH VITAMIN B12/FA DEFICIENCY-09/2017 IF 1 (0-1), PARIETAL 34 (0-20) R>L MARKED ADVANCED KNEE OA BY 09/2017 XRAY VITAMIN D DEFICIENCY IRITABLE BOWEL SYNDROME, CONSTIPATION-TYPE MDD/MORRO IFG LIPEDEMA CHRONIC KIDNEY DISEASE STAGE III 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, SEVERE L3/4 C GRADE 1 LITHESIS C B L3 COMPRESSION, MILD L4/5 C GRADE 1 LITHESIS, B L5 COMPRESSION IN NF BY 06/2018 MRI FIBROMYALGIA DIMINUITIVE HYPERPLASTIC AND ADENO P BY 07/03/19 COLON-R ALLERGIES MORPHINE: NAUSEA/VOMITING - SIDE EFFECTS REGLAN: ANAPHYLAXIS - ALLERGY "CILLIANS": HIVES - ALLERGY Z-PACK: HIVES - ALLERGY SYMBICORT: THRUSH SEVERE - SIDE EFFECTS SURGICAL HISTORY GALLBLADDER/LIVER STONE REMOVAL 1989 GASTRIC BYPASS-DR.WOLF FRENCH 09/2007 FAMILY HISTORY FATHER: ALIVE, FIRST TN AT 58Y, T2DM DX IN 70S, DIAGNOSED WITH DIABETES MOTHER: 57 YRS, FIRST TN AT 37, 2 TN, HEAVY SMOKER/ETHOH, UNSPECIFIED HEART DISEASE, UNSPECIFIED CEREBRAL ARTERY OCCLUSION WITH CEREBRAL INFARCTION MATERNAL GRAND FATHER: UNSPECIFIED HEART DISEASE, OTHER MALIGNANT NEOPLASM OF UNSPECIFIED SITE 1 SISTER(S) . SISTER-SVT\\\\\\\\N1\\\\\\\\\\\\\\/2 BROTHER-UNKNOWN\\\\\\\\N\\\\\\\\NNO CANCERS IN 1DR\\\\\\\\NFATHER -DIAGNOSED WITH DM. SOCIAL HISTORY GENERAL: TOBACCO USE ARE YOU A:NONSMOKER LATEX QUESTIONNAIRE LATEX ALLERGY : HAVE YOU EVER DEVELOPED ANY TYPE OF REACTION AFTER HANDLING LATEX PRODUCTS SUCH RUBBER GLOVES, CONDOMS, DIAPHRAGMS, BALLOONS, SOCKS, OR UNDERWEAR?NO LATEX ALLERGY : HAVE YOU EVER DEVELOPED ANY TYPE OF REACTION DURING OR AFTER DENTAL APPOINTMENT, VAGINAL/RECTAL EXAMINATION, SURGICAL PROCEDURE, OR ANY OTHER EXPOSURE?NO DATE ASKED : 03/12/2019 LATEX RISK : HAVE YOU EVER HAD ANY DIFFICULTY BREATHING OR HIVES AFTER EATING OR HANDLING ANY FRUITS, OR VEGETABLES; SUCH KIWI, BANANAS, STONE FRUITS, OR CHESTNUTSNO LATEX RISK : DO YOU HAVE A PREVIOUS PERSONAL HISTORY OF MORE THAN NINE SURGERIES, SPINA BIFIDA, OR REPEATED CATHERIZATIONS? NO LATEX RISK : ARE YOU FREQUENTLY EXPOSED TO LATEX PRODUCTS IN YOUR OCCUPATION?NO BMI CARE GOAL FOLLOW-UP ABOVE NORMAL BMI FOLLOW-UPGIVING ENCOURAGEMENT TO EXERCISE ALCOHOL SCREENING DID YOU HAVE A DRINK CONTAINING ALCOHOL IN THE PAST YEAR?NO POINTS0 INTERPRETATIONNEGATIVE RECREATIONAL DRUG USE DRUG USE?NO PATIENT DENIES ABUSE OR MISSUSED OF ANY MEDICATION. PATIENT DENIES USE OF ANY ILLEGAL SUBSTANCE INCLUDING MARIJUANA OR COCAINE. CAFFEINE CAFFEINE USE?YES HOW OFTEN AND HOW MUCH? 2 CUPS OF COFFEE PER DAY SEXUAL HX HAD SEX IN THE LAST 12 MONTHS (VAGINAL, ORAL, OR ANAL)?NO HIV / HEP-C SCREENING HIV TEST OFFERED TO PATIENT:YES DATE OFFERED:08/25/2017 TEST ACCEPTED:NO HEP-C TEST OFFERED TO PATIENT:YES DATE OFFERED:08/25/2017 REASON:PATIENT DECLINED TEST ACCEPTED:NO REASON:PATIENT DECLINED CONGREGATIONAL [id number] JEW NO RESTORATION BELIEFS THAT WOULD IMPACT HEALTH CARE. LANGUAGE LANGUAGES SPOKEN:[place] LEARNING BARRIERS / SPECIAL NEEDS CHANGE FROM LAST VISIT?NO BARRIERS TO LEARNING?NO HEARING IMPAIRED?NO VISION IMPAIRED?YES COGNITIVELY IMPAIRED?NO :CORRECTIVE LENSES READINESS TO LEARN?YES LEARNING PREFERENCES?NO LEARNING CAPABILITIES PRESENT?YES EMOTIONAL BARRIERS?NO SPECIAL DEVICES?YES :CANE RESIDENCE HALL DIRECTOR NEEDED?NO DOMESTIC VIOLENCE DO YOU FEEL SAFE IN YOUR ENVIRONMENT?YES DIET: LOW CARB, HIGH VEGETABLES AND FRUITS, 8-10 OZ PER DAY OF LEAN PROTEIN. MARITAL STATUS: . NEW PATIENT PAIN DIARY FROM 0-10, WHAT LEVEL IS YOUR PAIN TODAY?0 PAIN CLINIC PFS, CLERGY, PUBLIC HEALTH REFERRALS HAS THE PATIENT BEEN EDUCATED REGARDING HIS/HER PLAN OF CARE?YES HAS THE PATIENT BEEN EDUCATED REGARDING PAIN, THE RISK FOR PAIN, THE IMPORTANCE OF EFFECTIVE PAIN MANAGEMENT, AND THE PAIN ASSESSMENT PROCESS?YES ADVANCE DIRECTIVE ADVANCE DIRECTIVE DISCUSSED WITH PATIENT:YES HEALTH CARE PROXY DAMI WILLAMS [phone] HOSPITALIZATION/MAJOR DIAGNOSTIC PROCEDURE SURGERIES REVIEW OF SYSTEMS CONSTITUTIONAL: ANY RECENT FEVER OR ILLNESS NO . CHILLS NO . GASTROENTEROLOGY: BOWEL INCONTINENCE NO . ANY NEW CHANGE IN BOWEL CONTROL? NO . ABDOMINAL PAIN NO . CONSTIPATION NO . GENITOURINARY: ANY NEW CHANGE IN BLADDER CONTROL? NO . IS THERE A CHANCE YOU COULD BE ? NO . URINARY INCONTINENCE NO . CARDIOLOGY: CHEST PRESSURE NO . CHEST PAIN NO . RESPIRATORY: COUGH NO . SHORTNESS OF BREATH NO . VITAL SIGNS WT 298.0 LBS, HT 66", BMI 48.09 INDEX, BP 127/77 MM HG, HR 92 /MIN, RR 18 /MIN, TEMP 98.1 F, OXYGEN SAT % 98%, NA INITIALS TL 1420PT WAS UNABLE TO STAND STATES WGT WAS DONE LAST @ A DRS VISIT- T.L. EXAMINATION GENERAL EXAMINATION: GENERALAWAKE,ALERT ,PLEASANT . PSYCHAFFECT NORMAL . LUNGS:LUNG SANDRA ARE CLEAR TO AUSCULTATION BILATERALLY. GOOD MOVEMENT OF AIR . HEART:S1, S2 IN A REGULAR RATE AND RHYTHM. NO SIGNIFICANT MURMURS, RUBS OR GALLOPS NOTED . ASSESSMENTS SPONDYLOSIS WITHOUT MYELOPATHY OR RADICULOPATHY, LUMBAR REGION - M47.816 (PRIMARY) TREATMENT SPONDYLOSIS WITHOUT MYELOPATHY OR RADICULOPATHY, LUMBAR REGION CONTINUE TIZANIDINE HCL TABLET, 2 MG, 1 TABLET NEEDED, ORALLY, THREE TIMES A DAY PROCEDURE CODES FA211 ESTABILISHED PATIENT [facility] CHARGE DISPOSITION & COMMUNICATION FOLLOW UP 2 MONTHS (REASON: LBP) ELECTRONICALLY SIGNED BY FROYLAN LEUNG ON 04/22/2020 AT 08:36 AM EDT DISCLAIMER : THIS IS A VISIT SUMMARY EXTRACTED FROM THE [employer] CHART. IT IS NOT A COPY OF THE [employer] PROGRESS NOTE. PUNEET
== END ==
LOC: M PAIN 14:30
PROVIDERS: ATTEND Nurse Practitioner Family
DX: M47.816 Spondylosis without myelopathy or radiculopathy, lumbar region (principal)

== ENCOUNTER → 2020-06-19 | Outpatient (POV) | payer MEDICARE | LOC: M PAIN 10:00 | PROVIDERS: ATTEND Nurse Practitioner Family | DX: M47.817 Spondylosis without myelopathy or radiculopathy, lumbosacral region (principal); G57.90 Unspecified mononeuropathy of unspecified lower limb ==

== ENCOUNTER → 2020-09-01 | Outpatient (REF) | payer MEDICARE ==
[2020-09-01 13:44] LABS: BASO % 0.7 % (0.0-1.0); EOS # 0.1 10^3/uL (0.0-0.5); EOS % 1.5 % (0.0-3.0); HEMATOCRIT 38.9 % (36.0-47.0); HEMOGLOBIN 12.2 g/dl (12.0-15.5); LYMPH # 1.5 10^3/uL (1.5-5.0); LYMPH % 32.5 % (24.0-44.0); MEAN CORPUSCULAR HEMOGLOBIN 31.1 pg (27.0-33.0); MEAN CORPUSCULAR HGB CONC 31.4 g/dl (32.0-36.5); MEAN CORPUSCULAR VOLUME 99.2 fl (80.0-96.0); MONO # 0.4 10^3/uL (0.0-0.8); MONO % 9.6 % (0.0-5.0); NEUTROPHILS # 2.5 10^3/uL (1.5-8.5); NEUTROPHILS % 55.3 % (36.0-66.0); PLATELET COUNT, AUTOMATED 283 10^3/uL (150-450); RED BLOOD COUNT 3.92 10^6/uL (4.00-5.40); WHITE BLOOD COUNT 4.6 10^3/uL (4.0-10.0)
[2020-09-01 13:49] LABS: HEMATOCRIT 38.9 % (36.0-47.0)
[2020-09-01 14:19] LABS: ALBUMIN 3.5 GM/DL (3.2-5.2); BILIRUBIN,TOTAL 0.5 MG/DL (0.2-1.0); CALCIUM LEVEL 9.2 MG/DL (8.5-10.1); CREATININE FOR GFR 1.29 MG/DL (0.55-1.30); GLOMERULAR FILTRATION RATE 45.2 (>51); PERCENT SATURATION 32.2 % (13.2-45.0); POTASSIUM SERUM 4.5 MEQ/L (3.5-5.1); TOTAL PROTEIN 6.9 GM/DL (6.4-8.2)
== END ==
LOC: M PLALAB 10:43
PROVIDERS: ATTEND Family Medicine
DX: E53.8 Deficiency of other specified B group vitamins (principal); R73.01 Impaired fasting glucose; D50.9 Iron deficiency anemia, unspecified

== ENCOUNTER → 2020-09-16 | Outpatient (CLI) | payer MEDICARE ==
--- NOTE | 2020-09-20 06:08 | ECWPNPC ---
PATIENT NAME: MUNIR WILLAMS : 1960 GENDER: FEMALE VISIT DATE: 09/16/2020 DISCHARGE DATE: 09/16/20 1548 VISIT LOCKED DATE TIME: PHYSICIAN: TASHI RODRIGUEZ PHYSICIAN PAGER NO: ACTIVE RESOURCE: TASHI RODRIGUEZ REASON FOR APPOINTMENT 1. 3 MOS F/U...NO PLAN AT CHECK OUT HISTORY OF PRESENT ILLNESS DEPRESSION SCREENING: PHQ-2 (2015 EDITION) LITTLE INTEREST OR PLEASURE IN DOING THINGS?NOT AT ALL FEELING DOWN, DEPRESSED, OR HOPELESS?NOT AT ALL TOTAL SCORE0 GENERAL: HERE FOR FOLLOW-UP OF CHRONIC LOW BACK PAIN WITH BILATERAL LEG RADICULOPATHY RIGHT GREATER THAN LEFT. CHIEF AREA OF PAIN IS RIGHT LEG PAIN THAT SHE DESCRIBES SCIATIC PAIN. PAIN STARTS IN THE LOWER BACK GOES THROUGH THE BUTTOCK AND DOWN TO THE CALF ON THE RIGHT SIDE. REVIEWED MRI OF THE LS-SPINE. HAS SEVERE SPINAL STENOSIS ALONG WITH SPONDYLOLISTHESIS. DISCUSSED DOING LUMBAR EPIDURAL STEROID INJECTION IN HOPES TO CONTROL RIGHT LEG SYMPTOMS. IT SEEMS LIKE SHE CONTINUES TO BENEFIT FROM RADIOFREQUENCY PROCEDURE DONE SEVERAL MONTHS AGO. CONTINUES WITH DIFFICULTY WITH SLEEP AT NIGHT DESPITE 2 MG TIZANIDINE AND AMITRIPTYLINE.-. FALL RISK SCREENING: SCREENING :NO FALLS REPORTED IN THE LAST YEAR NONE PAIN SCREENING: PATIENT HAS A COMPLAINT OF ACUTE OR CHRONIC PAIN :YES LOCATION OF PAIN:LOW BACK INTENSITY OF PAIN (SCALE OF 1 TO 10):7 WHAT DOES YOUR PAIN FEEL LIKE:ACHING, BURNING, SHARP, STABBING, TENDER, THROBBING, SHOOTING DURATION:CONTINOUS, ALL DAY PAIN IS INCREASED BY:ACTIVITIES GETS WORSE AT NIGHT PAIN IS DECREASED BY:USE OF PAIN MEDICATIONS NURSING NOTE: -. PAIN CENTER INTAKE QUESTIONS: DO YOU HAVE A HISTORY OF MRSA? :NO DO YOU TAKE A BLOOD THINNERS? :NO DO YOU HAVE ANY BLEEDING DISORDERS? :NO ANY NEW NUMBNESS OR WEAKNESS IN YOUR LEGS OR ARMS? :NO ANY PACEMAKER,DEFIBRILLATOR, OR DORSAL COLUMN STIMULATOR? :NO DO YOU HAVE ANY RASHES OR OPEN SORES? :NO ARE YOU ALLERGIC TO IV DYE? :NO ARE YOU DIABETIC? :YES BORDERLINE ANY NEW PROBLEMS WITH YOUR MEDICATIONS? :NO HAVE YOU RECEIVED A VACCINE IN THE PAST 30 DAYS? :YES FIRST WEEK August DO YOU PLAN TO RECEIVE A VACCINE IN THE NEXT 21 DAYS? :NO DO YOU NEED ANY PRESCRIPTION? :YES TIZAIDINE GUTIERREZ CHOPPER IN [place] DO YOU TAKE ANY IMMUNOSUPPRESSIVE MEDICATIONS? :NO IS THERE A CHANCE YOU COULD BE ? :NO ARE YOU BREAST FEEDING? :NO CURRENT MEDICATIONS TAKING LISINOPRIL 10 MG TABLET 1 TABLET ORALLY ONCE A DAY TAKING TYLENOL EXTRA STRENGTH 500 MG TABLET 3TABLETS ORALLY TWICE DAILY TAKING METFORMIN HCL ER 500 MG TABLET EXTENDED RELEASE 24 HOUR 1 TABLET WITH EVENING MEAL ORALLY AC DINNER TAKING CYANOCOBALAMIN 500 MCG TABLET 1 TABLET ORALLY ONCE A DAY TAKING QVAR 80 MCG/ACT AEROSOL SOLUTION 1 PUFF INHALATION TWICE A DAY TAKING PROAIR HFA 108 (90 BASE) MCG/ACT AEROSOL SOLUTION 2 PUFFS NEEDED INHALATION QID PRN TAKING FERROUS SULFATE 325 (65 FE) MG TABLET 1 TABLET ORALLY EVER OTHER DAY TAKING NASONEX 50 MCG/ACT SUSPENSION 2 SPRAYS IN EACH NOSTRIL NASALLY ONCE A DAY TAKING ERGOCALCIFEROL 18620 UNIT CAPSULE 1 CAPSULE ORALLY ONCE A WEEK TAKING CITALOPRAM HYDROBROMIDE 40 MG TABLET 1 TABLET ORALLY ONCE A DAY TAKING BUPROPION HCL 150 MG TABLET EXTENDED RELEASE 1 TAB ORALLY BID TAKING AMITRIPTYLINE HCL 25 MG TABLET 1 TAB ORALLY AT BEDTIME TAKING LANSOPRAZOLE 30 MG CAPSULE DELAYED RELEASE 1 CAPSULE ORALLY EVERY MORNING TAKING LANCETS - MISCELLANEOUS DIRECTED SUBCUTANEOUSLY DAILY DX: E11.9 TAKING CITALOPRAM HYDROBROMIDE 40 MG TABLET 1 TABLET ORALLY ONCE A DAY TAKING VITAMIN D 50 MCG (2000 UT) TABLET 1 TABLET ORALLY ONCE A DAY TAKING LISINOPRIL 10 MG TABLET 1 TABLET ORALLY ONCE A DAY TAKING AMITRIPTYLINE HCL 25 MG TABLET TAKE ONE TABLET BY MOUTH AT BEDTIME TAKING LANSOPRAZOLE 30 MG CAPSULE DELAYED RELEASE 1 CAPSULE ORALLY EVERY MORNING TAKING FOLIC ACID 1 MG TABLET 1 TABLET ORALLY ONCE A DAY TAKING TIZANIDINE HCL 2 MG TABLET 1 TABLET NEEDED ORALLY THREE TIMES A DAY TAKING ATORVASTATIN CALCIUM 20 MG TABLET 1 TABLET ORALLY ONCE A DAY TAKING TRIAMTERENE-HCTZ 37.5-25 MG TABLET 1 TAB ORALLY DAILY TAKING LEVOTHYROXINE SODIUM 100 MCG TABLET 1 TABLET ON AN EMPTY STOMACH IN THE MORNING ORALLY ONCE A DAY TAKING BLOOD GLUCOSE TEST - STRIP DIRECTED SUBCUTANEOUSLY DAILY DX: E11.9 TAKING MONTELUKAST SODIUM 10 MG TABLET 1 TABLET ORALLY AT BEDTIME NOT-TAKING TUMS ULTRA 1000 1000 MG TABLET CHEWABLE 1 TABLET ORALLY AT BEDTIME MEDICATION LIST REVIEWED AND RECONCILED WITH THE PATIENT PAST MEDICAL HISTORY ASTHMA, MILD PERSISTENT ALLERGIC RHINITIS MDD/MORRO, H/O ETHOH ABUSE-NONE SINCE 04/2016 BLE LYMPHEDEMA/LIPEDEMA SUPER OBESITY S/P MEAGAN GB 09/2007-PRESURGICAL WEIGHT 650 GERD/H/O GASTRITIS DX BY PREVIOUS EGD CKD3-09/2017 NORMAL B RENAL US S EVIDENCE OF MINH VITAMIN B12/FA DEFICIENCY-09/2017 IF 1 (0-1), PARIETAL 34 (0-20) R>L MARKED ADVANCED KNEE OA BY 09/2017 XRAY VITAMIN D DEFICIENCY IRITABLE BOWEL SYNDROME, CONSTIPATION-TYPE MDD/MORRO IFG LIPEDEMA CHRONIC KIDNEY DISEASE STAGE III 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, SEVERE L3/4 C GRADE 1 LITHESIS C B L3 COMPRESSION, MILD L4/5 C GRADE 1 LITHESIS, B L5 COMPRESSION IN NF BY 06/2018 MRI FIBROMYALGIA DIMINUITIVE HYPERPLASTIC AND ADENO P BY 07/03/19 COLON-R ALLERGIES MORPHINE: NAUSEA/VOMITING - SIDE EFFECTS REGLAN: ANAPHYLAXIS - ALLERGY "CILLIANS": HIVES - ALLERGY Z-PACK: HIVES - ALLERGY SYMBICORT: THRUSH SEVERE - SIDE EFFECTS SURGICAL HISTORY GALLBLADDER/LIVER STONE REMOVAL 1989 GASTRIC BYPASS-DR.WOLF FRENCH 09/2007 FAMILY HISTORY FATHER: ALIVE, FIRST ID AT 58Y, T2DM DX IN 70S, DIAGNOSED WITH DIABETES MOTHER: 57 YRS, FIRST ID AT 37, 2 ID, HEAVY SMOKER/ETHOH, UNSPECIFIED HEART DISEASE, UNSPECIFIED CEREBRAL ARTERY OCCLUSION WITH CEREBRAL INFARCTION MATERNAL GRAND FATHER: UNSPECIFIED HEART DISEASE, OTHER MALIGNANT NEOPLASM OF UNSPECIFIED SITE 1 SISTER(S) . SISTER-SVT\\\\\\\\N1\\\\\\\\\\\\\\/2 BROTHER-UNKNOWN\\\\\\\\N\\\\\\\\NNO CANCERS IN 1DR\\\\\\\\NFATHER -DIAGNOSED WITH DM. SOCIAL HISTORY GENERAL: TOBACCO USE ARE YOU A:NONSMOKER LATEX QUESTIONNAIRE LATEX ALLERGY : HAVE YOU EVER DEVELOPED ANY TYPE OF REACTION AFTER HANDLING LATEX PRODUCTS SUCH RUBBER GLOVES, CONDOMS, DIAPHRAGMS, BALLOONS, SOCKS, OR UNDERWEAR?NO LATEX ALLERGY : HAVE YOU EVER DEVELOPED ANY TYPE OF REACTION DURING OR AFTER DENTAL APPOINTMENT, VAGINAL/RECTAL EXAMINATION, SURGICAL PROCEDURE, OR ANY OTHER EXPOSURE?NO LATEX RISK : HAVE YOU EVER HAD ANY DIFFICULTY BREATHING OR HIVES AFTER EATING OR HANDLING ANY FRUITS, OR VEGETABLES; SUCH KIWI, BANANAS, STONE FRUITS, OR CHESTNUTSNO LATEX RISK : DO YOU HAVE A PREVIOUS PERSONAL HISTORY OF MORE THAN NINE SURGERIES, SPINA BIFIDA, OR REPEATED CATHERIZATIONS? NO LATEX RISK : ARE YOU FREQUENTLY EXPOSED TO LATEX PRODUCTS IN YOUR OCCUPATION?NO DATE ASKED : 09/16/2020 BMI CARE GOAL FOLLOW-UP ABOVE NORMAL BMI FOLLOW-UPGIVING ENCOURAGEMENT TO EXERCISE ALCOHOL SCREENING DID YOU HAVE A DRINK CONTAINING ALCOHOL IN THE PAST YEAR?NO POINTS0 INTERPRETATIONNEGATIVE RECREATIONAL DRUG USE DRUG USE?NO PATIENT DENIES ABUSE OR MISSUSED OF ANY MEDICATION. PATIENT DENIES USE OF ANY ILLEGAL SUBSTANCE INCLUDING MARIJUANA OR COCAINE. CAFFEINE CAFFEINE USE?YES HOW OFTEN AND HOW MUCH? 2 CUPS OF COFFEE PER DAY SEXUAL HX HAD SEX IN THE LAST 12 MONTHS (VAGINAL, ORAL, OR ANAL)?NO HIV / HEP-C SCREENING HIV TEST OFFERED TO PATIENT:YES DATE OFFERED:08/25/2017 TEST ACCEPTED:NO HEP-C TEST OFFERED TO PATIENT:YES DATE OFFERED:08/25/2017 REASON:PATIENT DECLINED TEST ACCEPTED:NO REASON:PATIENT DECLINED YAZIDI [id number] CHEONDOISM NO HOLINESS BELIEFS THAT WOULD IMPACT HEALTH CARE. LANGUAGE LANGUAGES SPOKEN:DJIBOUTIAN LEARNING BARRIERS / SPECIAL NEEDS CHANGE FROM LAST VISIT?NO BARRIERS TO LEARNING?NO HEARING IMPAIRED?NO VISION IMPAIRED?YES COGNITIVELY IMPAIRED?NO :CORRECTIVE LENSES READINESS TO LEARN?YES LEARNING PREFERENCES?NO LEARNING CAPABILITIES PRESENT?YES EMOTIONAL BARRIERS?NO SPECIAL DEVICES?YES :CANE WHARF HAND NEEDED?NO DOMESTIC VIOLENCE DO YOU FEEL SAFE IN YOUR ENVIRONMENT?YES DIET: LOW CARB, HIGH VEGETABLES AND FRUITS, 8-10 OZ PER DAY OF LEAN PROTEIN. MARITAL STATUS: . FROM 0-10, WHAT LEVEL IS YOUR PAIN TODAY? 0. PAIN CLINIC PFS, CLERGY, PUBLIC HEALTH REFERRALS HAS THE PATIENT BEEN EDUCATED REGARDING HIS/HER PLAN OF CARE?YES HAS THE PATIENT BEEN EDUCATED REGARDING PAIN, THE RISK FOR PAIN, THE IMPORTANCE OF EFFECTIVE PAIN MANAGEMENT, AND THE PAIN ASSESSMENT PROCESS?YES ADVANCE DIRECTIVE ADVANCE DIRECTIVE DISCUSSED WITH PATIENT:YES HEALTH CARE PROXY DAMI WILLAMS [phone] HOSPITALIZATION/MAJOR DIAGNOSTIC PROCEDURE SURGERIES REVIEW OF SYSTEMS CONSTITUTIONAL: ANY RECENT FEVER NO . CHILLS NO . WEIGHT CHANGE OF UNKNOWN REASONS NO . GASTROENTEROLOGY: NEW UNEXPLAINABLE CHANGES IN BOWEL CONTROL NO . CONSTIPATION NO . GENITOURINARY: ANY NEW CHANGE IN BLADDER CONTROL? NO . NEUROLOGY: NEW ONSET DIZZINESS OR NEUROLOGICAL CHANGES NOT MENTIONED NO . NEW NUMBNESS OR PAIN PATTERNS NOT MENTIONED AND PERTINENT TO TODAY'S VISIT NO . CARDIOLOGY: NEW CHEST PRESSURE NO . NEW CHEST PAIN NO . RESPIRATORY: UNEXPLAINABLE COUGH NO . NEW SHORTNESS OF BREATH NO . VITAL SIGNS WT 310 LBS, HT 66", BMI 50.03 INDEX, BP 117/67 MM HG, HR 78 /MIN, RR 18 /MIN, TEMP 98.6 F, OXYGEN SAT % 100%, SAFE IN ENV? (Y/N) YES, NA INITIALS DE 15:13, REVIEWED BY: KASEY. EXAMINATION GENERAL EXAMINATION: GENERAL AWAKE,ALERT ,PLEASANT . PSYCH AFFECT NORMAL . LUNGS: LUNG SANDRA ARE CLEAR TO AUSCULTATION BILATERALLY. GOOD MOVEMENT OF AIR . HEART: S1, S2 IN A REGULAR RATE AND RHYTHM. NO SIGNIFICANT MURMURS, RUBS OR GALLOPS NOTED . LUMBAR: PALPATION: + FOR PAIN OVER L/S SPINE. + FOR PAIN OVER L/S PARASPINALS MODIFIED SLE: POSITIVE OVER RIGHT LEG AT 45. DIAGNOSTIC TESTS REVIEWEDI L/S SPINE 2018 . ASSESSMENTS SPONDYLOLISTHESIS, LUMBOSACRAL REGION - M43.17 (PRIMARY) RADICULOPATHY, LUMBAR REGION - M54.16 TREATMENT SPONDYLOLISTHESIS, LUMBOSACRAL REGION INCREASE TIZANIDINE HCL TABLET, 2 MG, 1 TABLET NEEDED, ORALLY, TAKE 1 TABLET IN THE MORNING AND 2 TABLETS AT BEDTIME, 30 DAYS, 90, REFILLS 2 NOTES: L5-S1 LESI RIGHT. PROCEDURE CODES FA211 ESTABILISHED PATIENT [facility] FACILITY CHARGE DISPOSITION & COMMUNICATION FOLLOW UP POST PROCEDURE (REASON: L5-S1 LESI RIGHT) ELECTRONICALLY SIGNED BY FROYLAN LEUNG ON 09/19/2020 AT 04:19 PM EDT DISCLAIMER : THIS IS A VISIT SUMMARY EXTRACTED FROM THE [employer] CHART. IT IS NOT A COPY OF THE [employer] PROGRESS NOTE. PUNEET
== END ==
LOC: M PAIN 14:45
PROVIDERS: ATTEND Nurse Practitioner Family
DX: M43.17 Spondylolisthesis, lumbosacral region (principal); M54.16 Radiculopathy, lumbar region; J45.30 Mild persistent asthma, uncomplicated; I12.9 Hypertensive chronic kidney disease with stage 1 through stage 4 chronic kidney disease, or unspecified chronic kidney disease; F32.9 Major depressive disorder, single episode, unspecified; F41.1 Generalized anxiety disorder; E66.01 Morbid (severe) obesity due to excess calories; I89.0 Lymphedema, not elsewhere classified; K21.9 Gastro-esophageal reflux disease without esophagitis; N18.30 Chronic kidney disease, stage 3 unspecified; E53.8 Deficiency of other specified B group vitamins; E55.9 Vitamin D deficiency, unspecified; K58.1 Irritable bowel syndrome with constipation; R73.01 Impaired fasting glucose; M79.7 Fibromyalgia; Z79.84 Long term (current) use of oral hypoglycemic drugs; Z79.899 Other long term (current) drug therapy; Z88.5 Allergy status to narcotic agent; Z88.8 Allergy status to other drugs, medicaments and biological substances; Z68.43 Body mass index [BMI] 50.0-59.9, adult

== ENCOUNTER → 2020-10-08 | Outpatient (CLI) | payer MEDICARE ==
--- NOTE | 2020-10-09 14:58 | REP ---
INDICATION: CKD III. COMPARISON: 10/18/2017 FINDINGS: Multiple ultrasonographic images of the right kidney show the right kidney to measure . The renal cortical echotexture is unremarkable. There are no masses. There is good corticomedullary differentiation. There is no hydronephrosis. There are no perinephric fluid collections. Multiple ultrasonographic images of the left kidney show the left kidney to measure . The renal cortical echotexture is unremarkable. There are no masses. There is good corticomedullary differentiation. There is no hydronephrosis. There are no perinephric fluid collections. There is a 6 mm sized hypoechoic areas seen in the superficial cortex of the interpolar region. This likely represents a tiny complex cyst. It was not present on the prior exam. IMPRESSION: Probable tiny complex cyst left kidney. Three-month follow-up is recommended. <Electronically signed by Phill Steinberg > 10/09/20 [id number]
== END ==
LOC: M RAD 15:58
PROVIDERS: ATTEND Family Medicine
DX: N18.30 Chronic kidney disease, stage 3 unspecified (principal)

== ENCOUNTER → 2020-10-24 | Outpatient (CLI) | payer MEDICARE | LOC: M LABSMTC 14:50 | PROVIDERS: ATTEND Anesthesiology | DX: Z20.828 Contact with and (suspected) exposure to other viral communicable diseases (principal) ==

== ENCOUNTER → 2020-10-29 | Outpatient (CLI) | payer MEDICARE ==
[~2020-10-29] MED LIST changes: +ISOVUE-M 300 61% 15ML VIAL As Ordered ONE; +LIDOCAINE 1% SDV 30ML VIAL As Ordered ONE; +diazePAM 5MG TABLET As Ordered ONE; +methylPREDNISolone SUSP 40MG/ML 1ML VIAL (DEPO MEDROL) As Ordered ONE; +oxyCODONE 5MG TAB As Ordered ONE
--- NOTE | 2020-10-29 14:54 | REP ---
INDICATION: LUMBAR EPIDURAL. COMPARISON: None. TECHNIQUE: Four views. 13.5 seconds of fluoroscopy time is reported. FINDINGS: A sequence of 4 last image hold fluoroscopically obtained spot radiograph(s) of the lumbar spine document(s) needle position(s) and contrast injection associated with injection procedure. IMPRESSION: Procedural imaging. <Electronically signed by Henry Alva > 10/29/20 [id number]
--- NOTE | 2020-10-30 05:01 | ECWPNPC ---
PATIENT NAME: MUNIR WILLAMS : 1960 GENDER: FEMALE VISIT DATE: 10/29/2020 DISCHARGE DATE: 10/29/20 1116 VISIT LOCKED DATE TIME: PHYSICIAN: CHRISTY SALINAS MD PHYSICIAN PAGER NO: ACTIVE RESOURCE: CHRISTY SALINAS MD REASON FOR APPOINTMENT 1. LUMBAR EPIDURAL STEROID INJECTION HISTORY OF PRESENT ILLNESS GENERAL: -. FALL RISK SCREENING: SCREENING :NO FALLS REPORTED IN THE LAST YEAR PAIN SCREENING: PATIENT HAS A COMPLAINT OF ACUTE OR CHRONIC PAIN :YES LOCATION OF PAIN:LOW BACK, LEG(S) RIGHT LEG INTENSITY OF PAIN (SCALE OF 1 TO 10):9 WHAT DOES YOUR PAIN FEEL LIKE:ACHING, CONTINOUS, SHARP, THROBBING DURATION:CONTINOUS, CONSTANT PAIN IS INCREASED BY:ACTIVITIES, PROLONGED STANDING PAIN IS DECREASED BY:USE OF PAIN MEDICATIONS, SITTING NURSING NOTE: -. PAIN CENTER INTAKE QUESTIONS: DO YOU HAVE A HISTORY OF MRSA? :NO DO YOU TAKE A BLOOD THINNERS? :NO DO YOU HAVE ANY BLEEDING DISORDERS? :NO ANY NEW NUMBNESS OR WEAKNESS IN YOUR LEGS OR ARMS? :NO ANY PACEMAKER,DEFIBRILLATOR, OR DORSAL COLUMN STIMULATOR? :NO DO YOU HAVE ANY RASHES OR OPEN SORES? :NO ARE YOU ALLERGIC TO IV DYE? :NO ARE YOU DIABETIC? :YES ANY NEW PROBLEMS WITH YOUR MEDICATIONS? :NO HAVE YOU RECEIVED A VACCINE IN THE PAST 30 DAYS? :NO DO YOU PLAN TO RECEIVE A VACCINE IN THE NEXT 21 DAYS? :NO DO YOU TAKE ANY IMMUNOSUPPRESSIVE MEDICATIONS? :NO ANY HISTORY OF SEIZURES? :NO ANY HISTORY OF CARDIAC ISSUES OR EVENTS? :NO DO YOU HAVE SLEEP APNEA? :NO ANY RECENT HEAD INJURY? :NO DO YOU HAVE ANY NEW INFECTIONS? :NO IS THERE A CHANCE YOU COULD BE ? :NO ARE YOU BREAST FEEDING? :NO WHEN DID YOU LAST EAT? : - WHEN DID YOU LAST DRINK? : -YESTERDAY 1829 WHAT DID YOU LAST DRINK? : -0700 THIS AM NAME OF PERSON DRIVING YOU HOME? : -DAMI DO YOU HAVE ANY OTHER QUESTIONS OR CONCERNS? : - CURRENT MEDICATIONS TAKING LISINOPRIL 10 MG TABLET 1 TABLET ORALLY ONCE A DAY, NOTES: 10-28-20 0800 TAKING METFORMIN HCL ER 500 MG TABLET EXTENDED RELEASE 24 HOUR 1 TABLET WITH EVENING MEAL ORALLY AC DINNER, NOTES: 10-28-20 2100 TAKING CYANOCOBALAMIN 500 MCG TABLET 1 TABLET ORALLY ONCE A DAY, NOTES: 10-28-20 0700 TAKING LEVOTHYROXINE SODIUM 100 MCG TABLET 1 TABLET ON AN EMPTY STOMACH IN THE MORNING ORALLY ONCE A DAY, NOTES: 10-28-20 0900 TAKING QVAR 80 MCG/ACT AEROSOL SOLUTION 1 PUFF INHALATION TWICE A DAY NEEDED, NOTES: NOT LATELY TAKING PROAIR HFA 108 (90 BASE) MCG/ACT AEROSOL SOLUTION 2 PUFFS NEEDED INHALATION QID PRN, NOTES: NOT LATELY TAKING MONTELUKAST SODIUM 10 MG TABLET 1 TABLET ORALLY AT BEDTIME, NOTES: 10-28-202099 TAKING FERROUS SULFATE 325 (65 FE) MG TABLET 1 TABLET ORALLY EVERY DAY, NOTES: 10-28-202099 TAKING FOLIC ACID 1 MG TABLET 1 TABLET ORALLY ONCE A DAY, NOTES: 10-28-201199 TAKING NASONEX 50 MCG/ACT SUSPENSION 2 SPRAYS IN EACH NOSTRIL NASALLY ONCE A DAY, NOTES: 10-28-20 08 TAKING CITALOPRAM HYDROBROMIDE 40 MG TABLET 1 TABLET ORALLY ONCE A DAY, NOTES: 10-28-202099 TAKING BUPROPION HCL 150 MG TABLET EXTENDED RELEASE 1 TAB ORALLY BID, NOTES: 10-28-202099 TAKING AMITRIPTYLINE HCL 25 MG TABLET 1 TAB ORALLY AT BEDTIME, NOTES: 10-28-202099 TAKING LANSOPRAZOLE 30 MG CAPSULE DELAYED RELEASE 1 CAPSULE ORALLY EVERY MORNING, NOTES: 10-28-202099 TAKING LANCETS - MISCELLANEOUS DIRECTED SUBCUTANEOUSLY DAILY DX: E11.9 TAKING ATORVASTATIN CALCIUM 20 MG TABLET 1 TABLET ORALLY ONCE A DAY, NOTES: 10-28-202099 NOT-TAKING TYLENOL EXTRA STRENGTH 500 MG TABLET 3TABLETS ORALLY TWICE DAILY NOT-TAKING ERGOCALCIFEROL 05873 UNIT CAPSULE 1 CAPSULE ORALLY ONCE A WEEK NOT-TAKING TUMS ULTRA 1000 1000 MG TABLET CHEWABLE 1 TABLET ORALLY AT BEDTIME NOT-TAKING CITALOPRAM HYDROBROMIDE 40 MG TABLET 1 TABLET ORALLY ONCE A DAY, NOTES: SEE ABOVE NOT-TAKING VITAMIN D 50 MCG (2000 UT) TABLET 1 TABLET ORALLY ONCE A DAY NOT-TAKING LEVOTHYROXINE SODIUM 100 MCG TABLET 1 TABLET ON AN EMPTY STOMACH IN THE MORNING ORALLY ONCE A DAY, NOTES: SEE ABOVE NOT-TAKING BLOOD GLUCOSE TEST - STRIP DIRECTED SUBCUTANEOUSLY DAILY DX: E11.9 NOT-TAKING MONTELUKAST SODIUM 10 MG TABLET 1 TABLET ORALLY AT BEDTIME, NOTES: SEE ABOVE NOT-TAKING TIZANIDINE HCL 2 MG TABLET 1 TAB ORALLY 1 TABLET IN THE MORNING AND 2 TABLETS AT BEDTIME UNKNOWN TRIAMTERENE-HCTZ 37.5-25 MG TABLET 1 TAB ORALLY DAILY, NOTES: 10-28-20 0800 MEDICATION LIST REVIEWED AND RECONCILED WITH THE PATIENT PAST MEDICAL HISTORY ASTHMA, MILD PERSISTENT ALLERGIC RHINITIS MDD/MORRO, H/O ETHOH ABUSE-NONE SINCE 04/2016 BLE LYMPHEDEMA/LIPEDEMA SUPER OBESITY S/P MEAGAN GB 09/2007-PRESURGICAL WEIGHT 650 GERD/H/O GASTRITIS DX BY PREVIOUS EGD CKD III-09/2017 NORMAL B RENAL US S EVIDENCE OF MINH VITAMIN B12/FA DEFICIENCY-09/2017 IF 1 (0-1), PARIETAL 34 (0-20) R>L MARKED ADVANCED KNEE OA BY 09/2017 XRAY VITAMIN D DEFICIENCY IRITABLE BOWEL SYNDROME, CONSTIPATION-TYPE MDD/MORRO IFG LIPEDEMA 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, SEVERE L3/4 C GRADE 1 LITHESIS C B L3 COMPRESSION, MILD L4/5 C GRADE 1 LITHESIS, B L5 COMPRESSION IN NF BY 06/2018 MRI FIBROMYALGIA DIMINUITIVE HYPERPLASTIC AND ADENO P BY 07/03/19 COLON-R ALLERGIES MORPHINE: NAUSEA/VOMITING - SIDE EFFECTS REGLAN: ANAPHYLAXIS - ALLERGY "CILLIANS": HIVES - ALLERGY Z-PACK: HIVES - ALLERGY SYMBICORT: THRUSH SEVERE - SIDE EFFECTS SURGICAL HISTORY GALLBLADDER/LIVER STONE REMOVAL 1989 GASTRIC BYPASS-DR.WOLF FRENCH 09/2007 FAMILY HISTORY FATHER: ALIVE, FIRST MA AT 58Y, T2DM DX IN 70S, DIAGNOSED WITH DIABETES MOTHER: 57 YRS, FIRST MA AT 37, 2 MA, HEAVY SMOKER/ETHOH, UNSPECIFIED HEART DISEASE, UNSPECIFIED CEREBRAL ARTERY OCCLUSION WITH CEREBRAL INFARCTION MATERNAL GRAND FATHER: UNSPECIFIED HEART DISEASE, OTHER MALIGNANT NEOPLASM OF UNSPECIFIED SITE 1 SISTER(S) . SISTER-SVT\\\\\\\\N1\\\\\\\\\\\\\\/2 BROTHER-UNKNOWN\\\\\\\\N\\\\\\\\NNO CANCERS IN 1DR\\\\\\\\NFATHER -DIAGNOSED WITH DM. SOCIAL HISTORY GENERAL: TOBACCO USE ARE YOU A:NONSMOKER LATEX QUESTIONNAIRE LATEX ALLERGY : HAVE YOU EVER DEVELOPED ANY TYPE OF REACTION AFTER HANDLING LATEX PRODUCTS SUCH RUBBER GLOVES, CONDOMS, DIAPHRAGMS, BALLOONS, SOCKS, OR UNDERWEAR?NO LATEX ALLERGY : HAVE YOU EVER DEVELOPED ANY TYPE OF REACTION DURING OR AFTER DENTAL APPOINTMENT, VAGINAL/RECTAL EXAMINATION, SURGICAL PROCEDURE, OR ANY OTHER EXPOSURE?NO LATEX RISK : HAVE YOU EVER HAD ANY DIFFICULTY BREATHING OR HIVES AFTER EATING OR HANDLING ANY FRUITS, OR VEGETABLES; SUCH KIWI, BANANAS, STONE FRUITS, OR CHESTNUTSNO LATEX RISK : DO YOU HAVE A PREVIOUS PERSONAL HISTORY OF MORE THAN NINE SURGERIES, SPINA BIFIDA, OR REPEATED CATHERIZATIONS? NO LATEX RISK : ARE YOU FREQUENTLY EXPOSED TO LATEX PRODUCTS IN YOUR OCCUPATION?NO DATE ASKED : 10/28/2020 BMI CARE GOAL FOLLOW-UP ABOVE NORMAL BMI FOLLOW-UPGIVING ENCOURAGEMENT TO EXERCISE ALCOHOL SCREENING DID YOU HAVE A DRINK CONTAINING ALCOHOL IN THE PAST YEAR?NO POINTS0 INTERPRETATIONNEGATIVE RECREATIONAL DRUG USE DRUG USE?NO PATIENT DENIES ABUSE OR MISSUSED OF ANY MEDICATION. PATIENT DENIES USE OF ANY ILLEGAL SUBSTANCE INCLUDING MARIJUANA OR COCAINE. CAFFEINE CAFFEINE USE?YES HOW OFTEN AND HOW MUCH? 2 CUPS OF COFFEE PER DAY SEXUAL HX HAD SEX IN THE LAST 12 MONTHS (VAGINAL, ORAL, OR ANAL)?NO HIV / HEP-C SCREENING HIV TEST OFFERED TO PATIENT:YES DATE OFFERED:08/25/2017 TEST ACCEPTED:NO HEP-C TEST OFFERED TO PATIENT:YES DATE OFFERED:08/25/2017 REASON:PATIENT DECLINED TEST ACCEPTED:NO REASON:PATIENT DECLINED JAINISM [id number] CHEONDOISM NO CATHOLIC BELIEFS THAT WOULD IMPACT HEALTH CARE. LANGUAGE LANGUAGES SPOKEN:PAPUA [place] LEARNING BARRIERS / SPECIAL NEEDS CHANGE FROM LAST VISIT?NO BARRIERS TO LEARNING?NO HEARING IMPAIRED?NO VISION IMPAIRED?YES :CORRECTIVE LENSES COGNITIVELY IMPAIRED?NO READINESS TO LEARN?YES LEARNING PREFERENCES?NO LEARNING CAPABILITIES PRESENT?YES EMOTIONAL BARRIERS?NO SPECIAL DEVICES?YES :CANE, WHEELCHAIR BOILER ROOM HELPER NEEDED?NO DOMESTIC VIOLENCE DO YOU FEEL SAFE IN YOUR ENVIRONMENT?YES DIET: LOW CARB, HIGH VEGETABLES AND FRUITS, 8-10 OZ PER DAY OF LEAN PROTEIN. MARITAL STATUS: . FROM 0-10, WHAT LEVEL IS YOUR PAIN TODAY? 0. PAIN CLINIC PFS, CLERGY, PUBLIC HEALTH REFERRALS HAS THE PATIENT BEEN EDUCATED REGARDING HIS/HER PLAN OF CARE?YES HAS THE PATIENT BEEN EDUCATED REGARDING PAIN, THE RISK FOR PAIN, THE IMPORTANCE OF EFFECTIVE PAIN MANAGEMENT, AND THE PAIN ASSESSMENT PROCESS?YES ADVANCE DIRECTIVE ADVANCE DIRECTIVE DISCUSSED WITH PATIENT:YES HEALTH CARE PROXY DAMI WILLAMS [phone] PAT REVIEWED WITH PATIENT 10/28/20. HOSPITALIZATION/MAJOR DIAGNOSTIC PROCEDURE SURGERIES VITAL SIGNS WT 308.8 LBS, HT 66", BMI 49.84 INDEX, BP 125/78 MM HG, HR 85 /MIN, RR 18 /MIN, TEMP 97.9 F, OXYGEN SAT % 99%, SAFE IN ENV? (Y/N) YES, NA INITIALS AW 0941, REVIEWED BY: KG. EXAMINATION GENERAL EXAMINATION: THE PATIENT IS ALERT, ORIENTED TIMES THREE AND COOPERATIVE. HEART SHOWS REGULAR RHYTHM, NO MURMURS AND NO GALLOPS. LUNGS ARE CLEAR TO AUSCULTATION. ASSESSMENTS INTERVERTEBRAL DISC DISORDERS WITH RADICULOPATHY, LUMBOSACRAL REGION - M51.17 TREATMENT INTERVERTEBRAL DISC DISORDERS WITH RADICULOPATHY, LUMBOSACRAL REGION [facility] FLUORO GUIDE SPINE INJECTION (PAIN)[id number] MEDICATION: VALIUM TAB 10MG ORALLY (DIAZEPAM)TEESTEFANI Erik 10/29/2020 10:03:09 AM > LOT: [id number], EXP: 06/10. VERIFIED. RENARD PENG 10/29/2020 10:04:59 AM > GIVEN MEDICATION: OXYCODONE HCL TAB 10MG ORALLYTEESTEFANI Valencia 10/29/2020 10:03:42 AM > LOT: [id number], EXP: 12/2021. VERIFIED. RENARD PENG 10/29/2020 10:05:23 AM > GIVEN PROCEDURES PAIN NURSING RECORD PRE-PROCEDURE IV SITE N/A, PRE-PROCEDURE ORAL MEDICATIONS YES GIVEN PRESCRIBED PROCEDURE IN ROOM 1028, PHYSICIAN IN ROOM 1043, START 1049, FINISH 1055, PHYSICIAN OUT OF ROOM 1058, OUT OF ROOM 1105, STEROID DEPOMEDROL, ECG NORMAL SINUS, PATIENT SHIELDED YES, SAFETY STRAP YES, PREP BETADINE, DRESSING TEGADERM LOC: 1. ALERT, ORIENTED, RENARD PENG 10/29/2020 10:29:28 AM > RESP: 1. REGULAR, NO DYSPNEA, RENARD PENG 10/29/2020 10:29:34 AM > COLOR: 1. PINK SKIN: 1. WARM, DRY POSITION: 1. PRONE VITALS: 132/89 79 99% 18 JORDAN RN 1032 , RENARD PENG 10/29/2020 10:47:35 AM > 137/85 79 100% 18 NOTES PT BROUGHT BY STRETCHER TO THE ROOM DISCHARGE: DRESSING SITE DRY AND INTACT, GAIT STEADY WITH WALKER, TEACHING COMPLETED, PATIENT ACKNOWLEDGES UNDERSTANDING YES WENT OVER ENTIRE DC INCLUDING LIMITATIONS DUE TO PRESEDATE, PATIENT DISCHARGED AT 1115 PRE PROCEDURE DIAGNOSIS LUMBOSACRAL DISC DISORDER WITH RADICULOPATHY POST PROCEDURE DIAGNOSIS LUMBOSACRAL DISC DISORDER WITH RADICULOPATHY PROCEDURE LUMBAR EPIDURAL STEROID INJECTION UNDER FLUOROSCOPIC GUIDANCE SURGEON DR. CHRISTY SALINAS LUNCHROOM ATTENDANT NONE ANESTHESIA LOCAL PRE PROCEDURE NOTE THE PATIENT HAS A HISTORY OF CHRONIC LOW BACK PAIN. I EVALUATED THE PATIENT AND REVIEWED THE CHART. I WENT OVER THE RISKS, ALTERNATIVES, AND BENEFITS ASSOCIATED WITH THIS PROCEDURE. I DISCUSSED THAT THE USE OF STEROIDS MAY CONTRIBUTE TO IMMUNOSUPPRESSION OF THE PATIENT'S BODY AGAINST INFECTIONS SUCH COVID-19. THE PATIENT IS AWARE OF THE POTENTIAL COMPLICATIONS ASSOCIATED WITH THIS VIRUS, INCLUDING, BUT NOT LIMITED TO, . THE PATIENT WOULD LIKE TO PROCEED AND GIVE CONSENT TO PERFORMED THE PROCEDURE. THE PATIENT DENIES UNEXPLAINABLE WEIGHT LOSS, FEVER, CHILLS, OR NEW CHANGES IN URINARY OR BOWEL CONTROL. THE PATIENT IS COVID-19 NEGATIVE DESCRIPTION OF PROCEDURE THE PATIENT WAS BROUGHT TO THE PROCEDURE ROOM AND PLACED IN THE PRONE POSITION. THE LUMBOSACRAL AREA WAS CLEANED WITH BETADINE SOLUTION AND DRAPED ASEPTICALLY. THE PROCEDURE WAS DONE UNDER STERILE CONDITIONS. A TIMEOUT WAS PERFORMED WHERE LATERALITY AND THE SITE OF THE PROCEDURE WERE CHECKED AND CONFIRMED WITH EVERYONE IN THE ROOM. UNDER FLUOROSCOPIC GUIDANCE, THE TARGET POINT WAS SELECTED AT THE INTERLAMINAR LEVEL OF L5-S1. I CONFIRMED AGAIN WITH EVERYONE IN THE ROOM THE LATERALITY OF THE TARGET AT 1045. LIDOCAINE WAS USED TO NUMB THE SKIN AND THE SUBCUTANEOUS TISSUE BELOW IT. EPIDURAL TUOHY NEEDLE, 17-GAUGE 5 INCH, WAS ADVANCED UNDER FLUOROSCOPIC GUIDANCE AND FOLLOWING PATIENT FEEDBACK UNTIL THE EPIDURAL SPACE WAS REACHED 9 CM DEEP INTO THE SKIN BY THE LOSS OF RESISTANCE TECHNIQUE. ISOVUE-M DYE 30%, 0.25 ML, WAS INJECTED SHOWING ADEQUATE SPREAD OF THE DYE. THEN, A SOLUTION OF 3 ML OF NORMAL SALINE WITH DEPO-MEDROL 80 MG WAS INJECTED SLOWLY FOLLOWING PATIENT FEEDBACK. THE MEDICATIONS WERE VERIFIED WITH THE NURSE. THERE WAS NO EVIDENCE OF BLOOD, PARESTHESIA OR CEREBROSPINAL FLUID DURING THE PROCEDURE. THE PATIENT WAS SENT TO THE RECOVERY ROOM. THE PATIENT WAS MOVING THE EXTREMITIES AND DOING WELL. THERE WERE NO COMPLICATIONS DURING THE PROCEDURE. ESTIMATED BLOOD LOSS WAS LESS THAN 5 ML. FLUOROSCOPY TIME WAS 13 SECONDS POST PROCEDURE NOTE THE PATIENT WILL BE SEEN IN A FOLLOW UP IN THE NEXT FEW WEEKS. I AM LOOKING FOR LONG LASTING RELIEF FOR THE PATIENT WITH THIS INTERVENTION. INSTRUCTIONS WERE GIVEN, QUESTIONS WERE ANSWERED, AND THE PATIENT EXPRESSED UNDERSTANDING AND AGREES WITH THE PLAN. I, SCTOT MAGUIRE, DOCUMENTED THE ABOVE INFORMATION ACTING A SCRIBE FOR DR. SALINAS. I HAVE REVIEWED THE ABOVE DOCUMENT, WRITTEN BY SCOTT MAGUIRE, AIRCRAFT ENGINE INSTALLER, AND I VERIFY THAT IT IS ACCURATE PROCEDURE CODES 50234 LUMBAR/SACRAL W/ IMAGING DISPOSITION & COMMUNICATION FOLLOW UP FOLLOW UP WITH SCHOOL OPERATIONS MANAGER (REASON: POST LUMBAR EPIDURAL STEROID INJECTION) ELECTRONICALLY SIGNED BY CHRISTY SALINAS MD, MD ON 10/29/2020 AT 12:08 PM EST DISCLAIMER : THIS IS A VISIT SUMMARY EXTRACTED FROM THE [facility] CHART. IT IS NOT A COPY OF THE [employer] PROGRESS NOTE. PUNEET
== END ==
LOC: M PAIN 09:30
PROVIDERS: ATTEND Anesthesiology
DX: M51.17 Intervertebral disc disorders with radiculopathy, lumbosacral region (principal); E11.9 Type 2 diabetes mellitus without complications; J45.30 Mild persistent asthma, uncomplicated; M79.7 Fibromyalgia; Z88.0 Allergy status to penicillin; Z88.1 Allergy status to other antibiotic agents; Z88.5 Allergy status to narcotic agent; Z88.8 Allergy status to other drugs, medicaments and biological substances; E66.01 Morbid (severe) obesity due to excess calories; Z68.42 Body mass index [BMI] 45.0-49.9, adult; Z79.84 Long term (current) use of oral hypoglycemic drugs; Z79.899 Other long term (current) drug therapy
CPT/HCPCS: 62323; J1030; Q9967

== ENCOUNTER → 2020-11-19 | Outpatient (CLI) | payer MEDICARE ==
[~2020-11-19] MED LIST changes: -ISOVUE-M 300 61% 15ML VIAL As Ordered ONE; -LIDOCAINE 1% SDV 30ML VIAL As Ordered ONE; -diazePAM 5MG TABLET As Ordered ONE; -methylPREDNISolone SUSP 40MG/ML 1ML VIAL (DEPO MEDROL) As Ordered ONE; -oxyCODONE 5MG TAB As Ordered ONE
--- NOTE | 2020-11-23 23:06 | ECWPNPC ---
PATIENT NAME: MUNIR WILLAMS : 1960 GENDER: FEMALE VISIT DATE: 11/19/2020 DISCHARGE DATE: 11/19/20 1020 VISIT LOCKED DATE TIME: PHYSICIAN: TASHI RODRIGUEZ PHYSICIAN PAGER NO: ACTIVE RESOURCE: TASHI RODRIGUEZ HISTORY OF PRESENT ILLNESS PAIN CENTER INTAKE QUESTIONS: DO YOU HAVE A HISTORY OF MRSA? :NO DO YOU TAKE A BLOOD THINNERS? :NO DO YOU HAVE ANY BLEEDING DISORDERS? :NO ANY NEW NUMBNESS OR WEAKNESS IN YOUR LEGS OR ARMS? :NO ANY PACEMAKER,DEFIBRILLATOR, OR DORSAL COLUMN STIMULATOR? :NO DO YOU HAVE ANY RASHES OR OPEN SORES? :NO ARE YOU ALLERGIC TO IV DYE? :NO ARE YOU DIABETIC? :NO ANY NEW PROBLEMS WITH YOUR MEDICATIONS? :NO HAVE YOU RECEIVED A VACCINE IN THE PAST 30 DAYS? :NO DO YOU PLAN TO RECEIVE A VACCINE IN THE NEXT 21 DAYS? :NO DO YOU NEED ANY PRESCRIPTION? :NO DO YOU TAKE ANY IMMUNOSUPPRESSIVE MEDICATIONS? :NO IS THERE A CHANCE YOU COULD BE ? :NO ARE YOU BREAST FEEDING? :NO GENERAL: HERE FOR POST PROCEDURE FOLLOW-UP. HAD LUMBAR EPIDURAL STEROID INJECTION ON 10/29/2020. REPORTING MARKED REDUCTION IN RIGHT LOW BACK PAIN AND RIGHT LEG RADICULAR SYMPTOMS POST PROCEDURE THAT CONTINUES TODAY. RATING PAIN LEVEL A 0/10 VAS. CONTINUES TO HAVE INTERMITTENT RIGHT KNEE TO FOOT NERVE PAIN THAT IS RELIEVED WITH REPOSITIONING AND STRETCHING. SUFFERS FROM SEVERE LOWER EXTREMITY LYMPH EDEMA. -. FALL RISK SCREENING: SCREENING :NO FALLS REPORTED IN THE LAST YEAR PAIN SCREENING: PATIENT HAS A COMPLAINT OF ACUTE OR CHRONIC PAIN :YES LOCATION OF PAIN:BACK INTENSITY OF PAIN (SCALE OF 1 TO 10):0 NURSING NOTE: PATIENT IS HERE POST PROCEDURE AND REPORTS 0 HER PAIN-. CURRENT MEDICATIONS TAKING LISINOPRIL 10 MG TABLET 1 TABLET ORALLY ONCE A DAY, NOTES: 10-28-20 0800 TAKING METFORMIN HCL ER 500 MG TABLET EXTENDED RELEASE 24 HOUR 1 TABLET WITH EVENING MEAL ORALLY AC DINNER, NOTES: 10-28-20 2100 TAKING CYANOCOBALAMIN 500 MCG TABLET 1 TABLET ORALLY ONCE A DAY, NOTES: 10-28-20 0700 TAKING LEVOTHYROXINE SODIUM 100 MCG TABLET 1 TABLET ON AN EMPTY STOMACH IN THE MORNING ORALLY ONCE A DAY, NOTES: 10-28-20 0900 TAKING QVAR 80 MCG/ACT AEROSOL SOLUTION 1 PUFF INHALATION TWICE A DAY NEEDED, NOTES: NOT LATELY TAKING PROAIR HFA 108 (90 BASE) MCG/ACT AEROSOL SOLUTION 2 PUFFS NEEDED INHALATION QID PRN, NOTES: NOT LATELY TAKING MONTELUKAST SODIUM 10 MG TABLET 1 TABLET ORALLY AT BEDTIME, NOTES: 10-28-202099 TAKING FERROUS SULFATE 325 (65 FE) MG TABLET 1 TABLET ORALLY EVERY DAY, NOTES: 10-28-202099 TAKING FOLIC ACID 1 MG TABLET 1 TABLET ORALLY ONCE A DAY, NOTES: 10-28-201199 TAKING NASONEX 50 MCG/ACT SUSPENSION 2 SPRAYS IN EACH NOSTRIL NASALLY ONCE A DAY, NOTES: 10-28-20799 TAKING BUPROPION HCL 150 MG TABLET EXTENDED RELEASE 1 TAB ORALLY BID, NOTES: 10-28-202099 TAKING AMITRIPTYLINE HCL 25 MG TABLET 1 TAB ORALLY AT BEDTIME, NOTES: 10-28-202099 TAKING LANSOPRAZOLE 30 MG CAPSULE DELAYED RELEASE 1 CAPSULE ORALLY EVERY MORNING, NOTES: 10-28-202099 TAKING LANCETS - MISCELLANEOUS DIRECTED SUBCUTANEOUSLY DAILY DX: E11.9 TAKING ATORVASTATIN CALCIUM 20 MG TABLET 1 TABLET ORALLY ONCE A DAY, NOTES: 10-28-202099 TAKING CITALOPRAM HYDROBROMIDE 40 MG TABLET 1 TABLET ORALLY ONCE A DAY NOT-TAKING TYLENOL EXTRA STRENGTH 500 MG TABLET 3TABLETS ORALLY TWICE DAILY NOT-TAKING ERGOCALCIFEROL 37330 UNIT CAPSULE 1 CAPSULE ORALLY ONCE A WEEK NOT-TAKING TUMS ULTRA 1000 1000 MG TABLET CHEWABLE 1 TABLET ORALLY AT BEDTIME NOT-TAKING VITAMIN D 50 MCG (2000 UT) TABLET 1 TABLET ORALLY ONCE A DAY NOT-TAKING LEVOTHYROXINE SODIUM 100 MCG TABLET 1 TABLET ON AN EMPTY STOMACH IN THE MORNING ORALLY ONCE A DAY, NOTES: SEE ABOVE NOT-TAKING BLOOD GLUCOSE TEST - STRIP DIRECTED SUBCUTANEOUSLY DAILY DX: E11.9 NOT-TAKING MONTELUKAST SODIUM 10 MG TABLET 1 TABLET ORALLY AT BEDTIME, NOTES: SEE ABOVE NOT-TAKING TIZANIDINE HCL 2 MG TABLET 1 TAB ORALLY 1 TABLET IN THE MORNING AND 2 TABLETS AT BEDTIME UNKNOWN TRIAMTERENE-HCTZ 37.5-25 MG TABLET 1 TAB ORALLY DAILY, NOTES: 10-28-20799 PAST MEDICAL HISTORY ASTHMA, MILD PERSISTENT ALLERGIC RHINITIS MDD/MORRO, H/O ETHOH ABUSE-NONE SINCE 04/2016 BLE LYMPHEDEMA/LIPEDEMA SUPER OBESITY S/P MEAGAN GB 09/2007-PRESURGICAL WEIGHT 650 GERD/H/O GASTRITIS DX BY PREVIOUS EGD CKD III-09/2017 NORMAL B RENAL US S EVIDENCE OF MINH VITAMIN B12/FA DEFICIENCY-09/2017 IF 1 (0-1), PARIETAL 34 (0-20) R>L MARKED ADVANCED KNEE OA BY 09/2017 XRAY VITAMIN D DEFICIENCY IRITABLE BOWEL SYNDROME, CONSTIPATION-TYPE MDD/MORRO IFG LIPEDEMA 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, SEVERE L3/4 C GRADE 1 LITHESIS C B L3 COMPRESSION, MILD L4/5 C GRADE 1 LITHESIS, B L5 COMPRESSION IN NF BY 06/2018 MRI FIBROMYALGIA DIMINUITIVE HYPERPLASTIC AND ADENO P BY 07/03/19 COLON-R ALLERGIES MORPHINE: NAUSEA/VOMITING - SIDE EFFECTS REGLAN: ANAPHYLAXIS - ALLERGY "CILLIANS": HIVES - ALLERGY Z-PACK: HIVES - ALLERGY SYMBICORT: THRUSH SEVERE - SIDE EFFECTS SURGICAL HISTORY GALLBLADDER/LIVER STONE REMOVAL 1989 GASTRIC BYPASS-DR.WOLF FRENCH 09/2007 FAMILY HISTORY FATHER: ALIVE, FIRST [place] AT 58Y, T2DM DX IN 70S, DIAGNOSED WITH DIABETES MOTHER: 57 YRS, FIRST [place] AT 37, 2 [place], HEAVY SMOKER/ETHOH, UNSPECIFIED HEART DISEASE, UNSPECIFIED CEREBRAL ARTERY OCCLUSION WITH CEREBRAL INFARCTION MATERNAL GRAND FATHER: UNSPECIFIED HEART DISEASE, OTHER MALIGNANT NEOPLASM OF UNSPECIFIED SITE 1 SISTER(S) . SISTER-SVT\\\\\\\\N1\\\\\\\\\\\\\\/2 BROTHER-UNKNOWN\\\\\\\\N\\\\\\\\NNO CANCERS IN 1DR\\\\\\\\NFATHER -DIAGNOSED WITH DM. SOCIAL HISTORY GENERAL: TOBACCO USE ARE YOU A:NONSMOKER LATEX QUESTIONNAIRE LATEX ALLERGY : HAVE YOU EVER DEVELOPED ANY TYPE OF REACTION AFTER HANDLING LATEX PRODUCTS SUCH RUBBER GLOVES, CONDOMS, DIAPHRAGMS, BALLOONS, SOCKS, OR UNDERWEAR?NO LATEX ALLERGY : HAVE YOU EVER DEVELOPED ANY TYPE OF REACTION DURING OR AFTER DENTAL APPOINTMENT, VAGINAL/RECTAL EXAMINATION, SURGICAL PROCEDURE, OR ANY OTHER EXPOSURE?NO DATE ASKED : 10/28/2020 LATEX RISK : HAVE YOU EVER HAD ANY DIFFICULTY BREATHING OR HIVES AFTER EATING OR HANDLING ANY FRUITS, OR VEGETABLES; SUCH KIWI, BANANAS, STONE FRUITS, OR CHESTNUTSNO LATEX RISK : DO YOU HAVE A PREVIOUS PERSONAL HISTORY OF MORE THAN NINE SURGERIES, SPINA BIFIDA, OR REPEATED CATHERIZATIONS? NO LATEX RISK : ARE YOU FREQUENTLY EXPOSED TO LATEX PRODUCTS IN YOUR OCCUPATION?NO BMI CARE GOAL FOLLOW-UP ABOVE NORMAL BMI FOLLOW-UPGIVING ENCOURAGEMENT TO EXERCISE ALCOHOL SCREENING DID YOU HAVE A DRINK CONTAINING ALCOHOL IN THE PAST YEAR?NO POINTS0 INTERPRETATIONNEGATIVE RECREATIONAL DRUG USE DRUG USE?NO PATIENT DENIES ABUSE OR MISSUSED OF ANY MEDICATION. PATIENT DENIES USE OF ANY ILLEGAL SUBSTANCE INCLUDING MARIJUANA OR COCAINE. CAFFEINE CAFFEINE USE?YES HOW OFTEN AND HOW MUCH? 2 CUPS OF COFFEE PER DAY SEXUAL HX HAD SEX IN THE LAST 12 MONTHS (VAGINAL, ORAL, OR ANAL)?NO HIV / HEP-C SCREENING HIV TEST OFFERED TO PATIENT:YES DATE OFFERED:08/25/2017 TEST ACCEPTED:NO HEP-C TEST OFFERED TO PATIENT:YES DATE OFFERED:08/25/2017 REASON:PATIENT DECLINED TEST ACCEPTED:NO REASON:PATIENT DECLINED MANDAEN [id number] FAITH NO MANDAEN BELIEFS THAT WOULD IMPACT HEALTH CARE. LANGUAGE LANGUAGES SPOKEN:TOGOLESE LEARNING BARRIERS / SPECIAL NEEDS CHANGE FROM LAST VISIT?NO BARRIERS TO LEARNING?NO HEARING IMPAIRED?NO VISION IMPAIRED?YES COGNITIVELY IMPAIRED?NO :CORRECTIVE LENSES READINESS TO LEARN?YES LEARNING PREFERENCES?NO LEARNING CAPABILITIES PRESENT?YES EMOTIONAL BARRIERS?NO SPECIAL DEVICES?YES :CANE, WHEELCHAIR AUTO DESIGN DETAILER NEEDED?NO DOMESTIC VIOLENCE DO YOU FEEL SAFE IN YOUR ENVIRONMENT?YES DIET: LOW CARB, HIGH VEGETABLES AND FRUITS, 8-10 OZ PER DAY OF LEAN PROTEIN. MARITAL STATUS: . FROM 0-10, WHAT LEVEL IS YOUR PAIN TODAY? 0. PAIN CLINIC PFS, CLERGY, PUBLIC HEALTH REFERRALS HAS THE PATIENT BEEN EDUCATED REGARDING HIS/HER PLAN OF CARE?YES HAS THE PATIENT BEEN EDUCATED REGARDING PAIN, THE RISK FOR PAIN, THE IMPORTANCE OF EFFECTIVE PAIN MANAGEMENT, AND THE PAIN ASSESSMENT PROCESS?YES ADVANCE DIRECTIVE ADVANCE DIRECTIVE DISCUSSED WITH PATIENT:YES HEALTH CARE PROXY DAMI WILLAMS [phone] [facility] REVIEWED WITH PATIENT 10/28/20. HOSPITALIZATION/MAJOR DIAGNOSTIC PROCEDURE SURGERIES REVIEW OF SYSTEMS CONSTITUTIONAL: ANY RECENT FEVER NO . CHILLS NO . WEIGHT CHANGE OF UNKNOWN REASONS NO . GASTROENTEROLOGY: NEW UNEXPLAINABLE CHANGES IN BOWEL CONTROL NO . CONSTIPATION NO . GENITOURINARY: ANY NEW CHANGE IN BLADDER CONTROL? NO . NEUROLOGY: NEW ONSET DIZZINESS OR NEUROLOGICAL CHANGES NOT MENTIONED NO . NEW NUMBNESS OR PAIN PATTERNS NOT MENTIONED AND PERTINENT TO TODAY'S VISIT NO . CARDIOLOGY: NEW CHEST PRESSURE NO . NEW CHEST PAIN NO . RESPIRATORY: UNEXPLAINABLE COUGH NO . NEW SHORTNESS OF BREATH NO . VITAL SIGNS WT 316 LBS, HT 66", BMI 51.00 INDEX, BP 143/94 MM HG, HR 93 /MIN, RR 18 /MIN, TEMP 96.8 F, OXYGEN SAT % 98%, SAFE IN ENV? (Y/N) YES, NA INITIALS MT 09:55, REVIEWED BY: GRIS. EXAMINATION GENERAL EXAMINATION: GENERALAWAKE,ALERT ,PLEASANT . PSYCHAFFECT NORMAL . LUNGS:LUNG SANDRA ARE CLEAR TO AUSCULTATION BILATERALLY. GOOD MOVEMENT OF AIR . HEART:S1, S2 IN A REGULAR RATE AND RHYTHM. NO SIGNIFICANT MURMURS, RUBS OR GALLOPS NOTED . ASSESSMENTS OTHER CHRONIC PAIN - G89.29 (PRIMARY) INTERVERTEBRAL DISC DISORDERS WITH RADICULOPATHY, LUMBOSACRAL REGION - M51.17 TREATMENT OTHER CHRONIC PAIN PAIN PROCEDURE LOGDATE OF [id number]/09/2020PROCEDURE:LUMBAR EPIDURALAMOUNT OF PRE [id number] VALIUM 10 OXYCODONERESULT:REPORTING MARKED REDUCTION IN PAIN THAT CONTINUES TODAY RIGHT LOW BACK AND RIGHT LEG PROCEDURE CODES FA211 ESTABILISHED PATIENT [facility] CHARGE DISPOSITION & COMMUNICATION FOLLOW UP 3 MONTHS (REASON: LBP/RIGHT LEG RADICULOPATHY/RESPONDS WELL TO LESI) ELECTRONICALLY SIGNED BY FROYLAN LEUNG ON 11/23/2020 AT 03:38 PM EST DISCLAIMER : THIS IS A VISIT SUMMARY EXTRACTED FROM THE [employer] CHART. IT IS NOT A COPY OF THE [employer] PROGRESS NOTE. PUNEET
== END ==
LOC: M PAIN 09:45
PROVIDERS: ATTEND Nurse Practitioner Family
DX: M51.17 Intervertebral disc disorders with radiculopathy, lumbosacral region (principal); G89.29 Other chronic pain; J45.30 Mild persistent asthma, uncomplicated; K21.9 Gastro-esophageal reflux disease without esophagitis; R73.01 Impaired fasting glucose; M79.7 Fibromyalgia; Z86.59 Personal history of other mental and behavioral disorders; Z88.0 Allergy status to penicillin; Z88.1 Allergy status to other antibiotic agents; Z88.5 Allergy status to narcotic agent; Z88.8 Allergy status to other drugs, medicaments and biological substances; E66.01 Morbid (severe) obesity due to excess calories; Z68.43 Body mass index [BMI] 50.0-59.9, adult; Z79.84 Long term (current) use of oral hypoglycemic drugs; Z79.899 Other long term (current) drug therapy

== ENCOUNTER → 2021-02-03 | Outpatient (CLI) | payer MEDICARE ==
[~2021-02-03] MED LIST changes: +LISI10TA22 PO; -LISI10TA4 PO
--- NOTE | 2021-02-03 09:13 | REP ---
INDICATION: RENAL CYST. COMPARISON: 10/18/2017. TECHNIQUE: Real-time images of the kidneys bilaterally are performed. Additionally Doppler ultrasound of the renal arteries bilaterally is performed. FINDINGS: Bilateral renal ultrasound: In the right kidney measures 8.9 x 4.7 x 4.7 cm. The left kidney measures 9.2 x 4.3 by 4.6 cm. The kidneys are in the low normal size range. Renal cortical echogenicity is normal bilaterally. There is increased renal sinus fat bilaterally compatible with chronic renal disease. There is no hydronephrosis or calculus on the right or the left. There are no solid renal masses on the right or the left. There are no right renal cyst. There is a 7 x 8 x 6 mm left renal cyst at the midpole. Renal artery Doppler ultrasound bilaterally: Right kidney: Peak renal artery flow velocity: 108 centimeters/second. Peak aortic velocity: 100.6 centimeters/second Renal-aortic ratio: 1.1 Resistive index: Upper pole 0.76, mid pole 0.73, lower pole 0.83 Acceleration time: Upper pole 0.03, mid pole 0.03, lower pole 0.02 Left kidney: Peak renal artery flow velocity: 105.8 centimeters/second. Peak aortic velocity: 100.6 centimeters/second Renal-aortic ratio: 1.1 Resistive index: Upper pole 0.78, mid pole 0.71, lower pole 0.74 Acceleration time: Upper pole 0.03, mid pole 0.02, lower pole 0.03. IMPRESSION: The kidneys are in the low normal size range and there is increased renal sinus fat bilaterally. These findings are compatible with chronic renal disease. There is a small left renal cyst as described. Doppler evaluation of the renal arteries bilaterally is normal. There is no Doppler ultrasound evidence of renal artery stenosis. <Electronically signed by J Carlos Lawrence > 02/03/21 0909
== END ==
LOC: M RAD 07:06
PROVIDERS: ATTEND Family Medicine
DX: N28.1 Cyst of kidney, acquired (principal); N27.1 Small kidney, bilateral

== ENCOUNTER → 2021-02-16 | Outpatient (CLI) | payer MEDICARE ==
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
== END ==
LOC: M PAIN 14:45
PROVIDERS: ATTEND Nurse Practitioner Family
DX: M51.17 Intervertebral disc disorders with radiculopathy, lumbosacral region (principal); G89.29 Other chronic pain; E11.9 Type 2 diabetes mellitus without complications; J45.30 Mild persistent asthma, uncomplicated; E55.9 Vitamin D deficiency, unspecified; M79.7 Fibromyalgia; Z86.59 Personal history of other mental and behavioral disorders; Z88.0 Allergy status to penicillin; Z88.1 Allergy status to other antibiotic agents; Z88.5 Allergy status to narcotic agent; Z88.8 Allergy status to other drugs, medicaments and biological substances; E66.01 Morbid (severe) obesity due to excess calories; Z68.43 Body mass index [BMI] 50.0-59.9, adult; Z79.84 Long term (current) use of oral hypoglycemic drugs; Z79.899 Other long term (current) drug therapy

== ENCOUNTER → 2021-02-20 | Outpatient (REF) | payer MEDICARE ==
[2021-02-20 11:11] LABS: ALBUMIN 3.5 GM/DL (3.2-5.2); BILIRUBIN,TOTAL 0.3 MG/DL (0.2-1.0); CALCIUM LEVEL 9.2 MG/DL (8.5-10.1); CHOLESTEROL RISK RATIO 1.919 (<5); CREATININE FOR GFR 1.14 MG/DL (0.55-1.30); FREE T4 0.99 NG/DL (0.76-1.46); GLOMERULAR FILTRATION RATE 51.9 (>51); POTASSIUM SERUM 4.6 MEQ/L (3.5-5.1); THYROID STIMULATING HORMONE 2.08 uIU/ML (0.358-3.740); TOTAL 25(OH) VITAMIN D 31.2 NG/ML (30.0-100.0); TOTAL PROTEIN 6.7 GM/DL (6.4-8.2)
[2021-02-20 13:25] LABS: HEMOGLOBIN A1c 5.3 %
== END ==
LOC: M PLALAB 08:55
PROVIDERS: ATTEND Family Medicine
DX: R73.01 Impaired fasting glucose (principal); E06.3 Autoimmune thyroiditis; E55.9 Vitamin D deficiency, unspecified

== ENCOUNTER → 2021-02-20 | Outpatient (CLI) | payer MEDICARE | LOC: M LABSMTC 09:36 | PROVIDERS: ATTEND Anesthesiology | DX: Z20.822 Contact with and (suspected) exposure to COVID-19 (principal) ==

== ENCOUNTER → 2021-02-25 | Outpatient (CLI) | payer MEDICARE ==
[~2021-02-25] MED LIST changes: +ISOVUE-M 300 61% 15ML VIAL As Ordered ONE; +LIDOCAINE 1% SDV 30ML VIAL As Ordered ONE; +diazePAM 5MG TABLET As Ordered ONE; +methylPREDNISolone SUSP 40MG/ML 1ML VIAL (DEPO MEDROL) As Ordered ONE; +oxyCODONE 5MG TAB As Ordered ONE
--- NOTE | 2021-02-25 15:22 | REP ---
INDICATION: LUMBAR EPIDURAL STEROID INJECTION. COMPARISON: None. TECHNIQUE: C-arm views lower lumbar spine performed. FINDINGS: Needle is seen in the region of the lumbosacral junction. IMPRESSION: 23 seconds fluoroscopy time utilized. <Electronically signed by J Carlos Simmons > 02/25/21 8492
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
== END ==
LOC: M PAIN 08:30
PROVIDERS: ATTEND Anesthesiology
DX: M51.17 Intervertebral disc disorders with radiculopathy, lumbosacral region (principal); R73.03 Prediabetes; J45.30 Mild persistent asthma, uncomplicated; K21.9 Gastro-esophageal reflux disease without esophagitis; E55.9 Vitamin D deficiency, unspecified; M79.7 Fibromyalgia; Z86.59 Personal history of other mental and behavioral disorders; Z88.0 Allergy status to penicillin; Z88.1 Allergy status to other antibiotic agents; Z88.5 Allergy status to narcotic agent; Z88.8 Allergy status to other drugs, medicaments and biological substances; E66.01 Morbid (severe) obesity due to excess calories; Z68.43 Body mass index [BMI] 50.0-59.9, adult; Z79.84 Long term (current) use of oral hypoglycemic drugs; Z79.899 Other long term (current) drug therapy
CPT/HCPCS: 62323; J1030; Q9967

== ENCOUNTER → 2021-03-24 | Outpatient (CLI) | payer MEDICARE ==
[~2021-03-24] MED LIST changes: -ISOVUE-M 300 61% 15ML VIAL As Ordered ONE; -LIDOCAINE 1% SDV 30ML VIAL As Ordered ONE; -diazePAM 5MG TABLET As Ordered ONE; -methylPREDNISolone SUSP 40MG/ML 1ML VIAL (DEPO MEDROL) As Ordered ONE; -oxyCODONE 5MG TAB As Ordered ONE
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
== END ==
LOC: M PAIN 14:30
PROVIDERS: ATTEND Nurse Practitioner Family
DX: M51.17 Intervertebral disc disorders with radiculopathy, lumbosacral region (principal); G89.29 Other chronic pain; E11.9 Type 2 diabetes mellitus without complications; J45.30 Mild persistent asthma, uncomplicated; E55.9 Vitamin D deficiency, unspecified; M79.7 Fibromyalgia; Z86.59 Personal history of other mental and behavioral disorders; Z88.0 Allergy status to penicillin; Z88.1 Allergy status to other antibiotic agents; Z88.5 Allergy status to narcotic agent; Z88.8 Allergy status to other drugs, medicaments and biological substances; E66.01 Morbid (severe) obesity due to excess calories; Z68.43 Body mass index [BMI] 50.0-59.9, adult; Z79.84 Long term (current) use of oral hypoglycemic drugs; Z79.899 Other long term (current) drug therapy

== ENCOUNTER → 2021-05-20 | Outpatient (CLI) | payer MEDICARE, OTHER | LOC: M PLALAB 05-19 10:02 | PROVIDERS: ATTEND Family Medicine | DX: N18.30 Chronic kidney disease, stage 3 unspecified (principal) ==

== ENCOUNTER → 2021-06-24 | Outpatient (CLI) | payer MEDICARE ==
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
== END ==
LOC: M PAIN 14:45
PROVIDERS: ATTEND Nurse Practitioner Family
DX: M51.17 Intervertebral disc disorders with radiculopathy, lumbosacral region (principal); G89.29 Other chronic pain; E11.9 Type 2 diabetes mellitus without complications; J45.30 Mild persistent asthma, uncomplicated; K21.9 Gastro-esophageal reflux disease without esophagitis; M79.7 Fibromyalgia; Z86.59 Personal history of other mental and behavioral disorders; Z88.0 Allergy status to penicillin; Z88.1 Allergy status to other antibiotic agents; Z88.5 Allergy status to narcotic agent; Z88.8 Allergy status to other drugs, medicaments and biological substances; E66.01 Morbid (severe) obesity due to excess calories; Z68.43 Body mass index [BMI] 50.0-59.9, adult; Z79.84 Long term (current) use of oral hypoglycemic drugs; Z79.899 Other long term (current) drug therapy

== ENCOUNTER → 2021-07-23 | Outpatient (CLI) | payer MEDICARE | LOC: M LABSMTC 09:33 | PROVIDERS: ATTEND Anesthesiology | DX: Z01.812 Encounter for preprocedural laboratory examination (principal) ==

== ENCOUNTER → 2021-07-28 | Outpatient (CLI) | payer MEDICARE ==
[~2021-07-28] MED LIST changes: +ISOVUE-M 300 61% 15ML VIAL As Ordered ONE; +LIDOCAINE 1% SDV 30ML VIAL As Ordered ONE; +diazePAM 5MG TABLET As Ordered ONE; +methylPREDNISolone SUSP 40MG/ML 1ML VIAL (DEPO MEDROL) As Ordered ONE; +oxyCODONE 5MG TAB As Ordered ONE
--- NOTE | 2021-07-28 11:52 | REP ---
INDICATION: LUMBAR EPIDURAL STEROID INJECTION. COMPARISON: None. TECHNIQUE: A single views. 6.8 seconds of fluoroscopy time is reported. FINDINGS: A single last image hold fluoroscopically obtained spot radiograph(s) of the lumbar spine document(s) needle position(s) and contrast injection associated with injection procedure. IMPRESSION: Procedural imaging. <Electronically signed by Henry Alva > 07/28/21 [id number]
== END ==
LOC: M PAIN 08:30
PROVIDERS: ATTEND Anesthesiology
DX: M51.16 Intervertebral disc disorders with radiculopathy, lumbar region (principal); E11.9 Type 2 diabetes mellitus without complications; J45.30 Mild persistent asthma, uncomplicated; K21.9 Gastro-esophageal reflux disease without esophagitis; M79.7 Fibromyalgia; Z86.59 Personal history of other mental and behavioral disorders; Z88.0 Allergy status to penicillin; Z88.1 Allergy status to other antibiotic agents; Z88.5 Allergy status to narcotic agent; Z88.8 Allergy status to other drugs, medicaments and biological substances; E66.01 Morbid (severe) obesity due to excess calories; Z68.43 Body mass index [BMI] 50.0-59.9, adult; Z79.84 Long term (current) use of oral hypoglycemic drugs; Z79.899 Other long term (current) drug therapy
CPT/HCPCS: 62323; J1030; Q9967

== ENCOUNTER → 2021-09-09 | Outpatient (CLI) | payer MEDICARE ==
[~2021-09-09] MED LIST changes: -ISOVUE-M 300 61% 15ML VIAL As Ordered ONE; -LIDOCAINE 1% SDV 30ML VIAL As Ordered ONE; -diazePAM 5MG TABLET As Ordered ONE; -methylPREDNISolone SUSP 40MG/ML 1ML VIAL (DEPO MEDROL) As Ordered ONE; -oxyCODONE 5MG TAB As Ordered ONE
== END ==
LOC: M PAIN 11:30
PROVIDERS: ATTEND Anesthesiology
DX: M51.16 Intervertebral disc disorders with radiculopathy, lumbar region (principal); G89.29 Other chronic pain; E11.9 Type 2 diabetes mellitus without complications; E66.01 Morbid (severe) obesity due to excess calories; Z68.43 Body mass index [BMI] 50.0-59.9, adult; Z79.84 Long term (current) use of oral hypoglycemic drugs; Z79.899 Other long term (current) drug therapy

== ENCOUNTER → 2021-10-03 | Outpatient (CLI) | payer MEDICARE ==
[2021-10-03 11:25] LABS: BASO % 0.7 % (0.0-1.0); EOS # 0.1 10^3/uL (0.0-0.5); EOS % 1.4 % (0.0-3.0); HEMATOCRIT 37.6 % (36.0-47.0); HEMOGLOBIN 12.2 g/dl (12.0-15.5); LYMPH # 1.5 10^3/uL (1.5-5.0); LYMPH % 26.2 % (24.0-44.0); MEAN CORPUSCULAR HEMOGLOBIN 31.2 pg (27.0-33.0); MEAN CORPUSCULAR HGB CONC 32.4 g/dl (32.0-36.5); MEAN CORPUSCULAR VOLUME 96.2 fl (80.0-96.0); MONO # 0.5 10^3/uL (0.0-0.8); MONO % 8.5 % (2.0-8.0); NEUTROPHILS # 3.5 10^3/uL (1.5-8.5); NEUTROPHILS % 62.8 % (36.0-66.0); PLATELET COUNT, AUTOMATED 282 10^3/uL (150-450); RED BLOOD COUNT 3.91 10^6/uL (4.00-5.40); WHITE BLOOD COUNT 5.5 10^3/uL (4.0-10.0)
[2021-10-03 11:46] LABS: HEMOGLOBIN A1c 5.6 %
[2021-10-03 12:04] LABS: ALBUMIN 3.4 GM/DL (3.2-5.2); CALCIUM LEVEL 9.1 MG/DL (8.5-10.1); CREATININE FOR GFR 1.23 MG/DL (0.55-1.30); GLOMERULAR FILTRATION RATE 47.6 (>51); PHOSPHORUS LEVEL 3.2 MG/DL (2.5-4.9); POTASSIUM SERUM 4.8 MEQ/L (3.5-5.1)
[2021-10-05 11:04] LABS: TOTAL 25(OH) VITAMIN D 34.6 NG/ML (30.0-100.0)
[2021-10-05 11:05] LABS: PTH INTACT 137.4 PG/ML (18.5-88.0)
== END ==
LOC: M LAB 10:26
PROVIDERS: ATTEND Family Medicine
DX: R73.01 Impaired fasting glucose (principal); E55.9 Vitamin D deficiency, unspecified; D50.9 Iron deficiency anemia, unspecified; E53.8 Deficiency of other specified B group vitamins

== ENCOUNTER → 2021-10-06 | Outpatient (CLI) | payer MEDICARE ==
--- NOTE | 2021-10-06 18:22 | REPVR ---
PROCEDURE INFORMATION: Exam: MR Lumbar Spine Without Contrast Exam date and time: 10/06/2021 3:20 PM Age: 61 years old Clinical indication: Low back pain; Additional info: Intervertebral disc disorders w radiculopathy, lum TECHNIQUE: Imaging protocol: Multiplanar magnetic resonance images of the lumbar spine without intravenous contrast. COMPARISON: MRI-Spine, L.S. without con 07/15/2018 1:30 PM FINDINGS: Vertebral body heights are maintained. Multilevel Modic type 1 edematous degenerative endplate change. Stepwise 0.3 cm grade 1 anterolisthesis of L3 on L4 and L4 on L5.. No cord compression. No abnormal cord signal. Conus medullaris terminates at the L1 level. Paravertebral soft tissues are unremarkable. L1-L2: Broad-based disc bulge and facet hypertrophy cause mild canal narrowing and [id number] bilateral foraminal narrowing. L2-L3: Broad-based disc bulge and facet hypertrophy cause moderate canal narrowing and [id number] bilateral foraminal narrowing. L3-L4: Combination of anterolisthesis, broad-based disc bulge, and facet hypertrophy cause moderate canal narrowing with effacement of the bilateral lateral recesses. Moderate left and [id number] right foraminal narrowing. L4-L5: Combination of anterolisthesis, central disc protrusion superimposed over broad-based disc bulge broad-based disc bulge, and facet hypertrophy cause mild canal narrowing with slight effacement of the bilateral lateral recesses. Moderate bilateral foraminal narrowing. L5-S1: Broad-based disc bulge and facet hypertrophy cause severe bilateral foraminal narrowing with impingement upon the bilateral exiting L5 nerve roots. No significant canal narrowing. IMPRESSION: Multilevel advanced spondylotic changes of the lumbar spine, including severe bilateral neural foraminal narrowing at L5-S1 with impingement upon the bilateral exiting L5 nerve roots, as detailed above. Electronically signed by: Carlos Shaver On 10/06/2021 18:22:36 PM
== END ==
LOC: M PLAIMG 14:25
PROVIDERS: ATTEND Anesthesiology
DX: M51.16 Intervertebral disc disorders with radiculopathy, lumbar region (principal)

== ENCOUNTER → 2021-10-20 | Outpatient (CLI) | payer MEDICARE | LOC: M PAIN 14:45 | PROVIDERS: ATTEND Nurse Practitioner Family | DX: M51.16 Intervertebral disc disorders with radiculopathy, lumbar region (principal); G89.29 Other chronic pain; E11.9 Type 2 diabetes mellitus without complications; J45.30 Mild persistent asthma, uncomplicated; K21.9 Gastro-esophageal reflux disease without esophagitis; D50.9 Iron deficiency anemia, unspecified; M79.7 Fibromyalgia; Z86.59 Personal history of other mental and behavioral disorders; E66.01 Morbid (severe) obesity due to excess calories; Z68.43 Body mass index [BMI] 50.0-59.9, adult; Z79.84 Long term (current) use of oral hypoglycemic drugs; Z79.899 Other long term (current) drug therapy ==

== ENCOUNTER → 2021-11-02 | Outpatient (CLI) | payer MEDICARE | LOC: M RAD 15:40 | PROVIDERS: ATTEND Family Medicine | DX: N32.81 Overactive bladder (principal) ==

== ENCOUNTER → 2021-11-16 | Outpatient (CLI) | payer MEDICARE | LOC: M WHC 14:56 | PROVIDERS: ATTEND Family Medicine | DX: Z12.31 Encounter for screening mammogram for malignant neoplasm of breast (principal) ==

== ENCOUNTER 2021-11-17 14:45 | Outpatient (RCR) | payer MEDICARE | END 2021-11-20 | LOC: M PT 14:45 | PROVIDERS: ATTEND Family Medicine | DX: R33.9 Retention of urine, unspecified (principal) ==

== ENCOUNTER → 2021-11-19 | Outpatient (CLI) | payer MEDICARE | LOC: M LABSMTC 09:39 | PROVIDERS: ATTEND Anesthesiology | DX: Z01.818 Encounter for other preprocedural examination (principal); Z11.52 Encounter for screening for COVID-19 ==

== ENCOUNTER → 2021-11-24 | Outpatient (CLI) | payer MEDICARE ==
[~2021-11-24] MED LIST changes: +ISOVUE-M 300 61% 15ML VIAL As Ordered ONE; +LIDOCAINE 1% SDV 30ML VIAL As Ordered ONE; +diazePAM 5MG TABLET As Ordered ONE; +methylPREDNISolone SUSP 40MG/ML 1ML VIAL (DEPO MEDROL) As Ordered ONE; +oxyCODONE 5MG TAB As Ordered ONE
--- NOTE | 2021-11-24 10:34 | REP ---
INDICATION: LUMBAR EPIDURAL STEROID INJECTION. COMPARISON: None. TECHNIQUE: Single C-arm view lower lumbar spine. FINDINGS: A needle is visualized at what appears to be the L4 level. IMPRESSION: 33 seconds fluoroscopy time utilized <Electronically signed by J Carlos Simmons > 11/24/21 [id number]
== END ==
LOC: M PAIN 08:30
PROVIDERS: ATTEND Anesthesiology
DX: M51.16 Intervertebral disc disorders with radiculopathy, lumbar region (principal); J45.40 Moderate persistent asthma, uncomplicated; K21.9 Gastro-esophageal reflux disease without esophagitis; M79.7 Fibromyalgia; Z86.59 Personal history of other mental and behavioral disorders; Z98.84 Bariatric surgery status; Z88.0 Allergy status to penicillin; Z88.1 Allergy status to other antibiotic agents; Z88.5 Allergy status to narcotic agent; Z88.8 Allergy status to other drugs, medicaments and biological substances; E66.01 Morbid (severe) obesity due to excess calories; Z68.43 Body mass index [BMI] 50.0-59.9, adult; Z79.899 Other long term (current) drug therapy
CPT/HCPCS: 62323; J1030; Q9967

== ENCOUNTER → 2022-02-02 | Outpatient (CLI) | payer MEDICARE, OTHER ==
[~2022-02-02] MED LIST changes: -ISOVUE-M 300 61% 15ML VIAL As Ordered ONE; -LIDOCAINE 1% SDV 30ML VIAL As Ordered ONE; -diazePAM 5MG TABLET As Ordered ONE; -methylPREDNISolone SUSP 40MG/ML 1ML VIAL (DEPO MEDROL) As Ordered ONE; -oxyCODONE 5MG TAB As Ordered ONE
[2022-02-02 10:52] LABS: BASO % 0.5 % (0.0-1.0); EOS # 0.1 10^3/uL (0.0-0.5); EOS % 1.3 % (0.0-3.0); HEMATOCRIT 36.8 % (36.0-47.0); HEMOGLOBIN 12.1 g/dl (12.0-15.5); LYMPH # 1.5 10^3/uL (1.5-5.0); LYMPH % 27.5 % (24.0-44.0); MEAN CORPUSCULAR HGB CONC 32.9 g/dl (32.0-36.5); MEAN CORPUSCULAR VOLUME 94.4 fl (80.0-96.0); MONO # 0.5 10^3/uL (0.0-0.8); MONO % 9.3 % (2.0-8.0); NEUTROPHILS # 3.3 10^3/uL (1.5-8.5); NEUTROPHILS % 60.9 % (36.0-66.0); PLATELET COUNT, AUTOMATED 255 10^3/uL (150-450); WHITE BLOOD COUNT 5.5 10^3/uL (4.0-10.0)
[2022-02-02 11:30] LABS: C REACTIVE PROTEIN QUANTITATIV < 0.30 MG/DL (0.00-0.30); CHOLESTEROL LEVEL 154 MG/DL (<200); CHOLESTEROL RISK RATIO 1.673 (<5); FERRITIN 190 NG/ML (8-252); FREE T4 1.02 NG/DL (0.76-1.46); HDL CHOLESTEROL 92 MG/DL (>40); LDL CHOLESTEROL 46 MG/DL (<100); NON-HDL-C 62 MG/DL; TRIGLYCERIDES LEVEL 82 MG/DL (<150)
[2022-02-02 12:15] LABS: HEMOGLOBIN A1c 5.3 %
== END ==
LOC: M PLALAB 08:45
PROVIDERS: ATTEND Family Medicine
DX: D50.9 Iron deficiency anemia, unspecified (principal); E78.2 Mixed hyperlipidemia; R73.01 Impaired fasting glucose

== ENCOUNTER → 2022-03-29 | Outpatient (CLI) | payer MEDICARE | LOC: M PAIN 14:45 | PROVIDERS: ATTEND Nurse Practitioner Family | DX: M51.16 Intervertebral disc disorders with radiculopathy, lumbar region (principal); G89.29 Other chronic pain; E11.9 Type 2 diabetes mellitus without complications; J45.30 Mild persistent asthma, uncomplicated; M79.7 Fibromyalgia; K21.9 Gastro-esophageal reflux disease without esophagitis; Z86.59 Personal history of other mental and behavioral disorders; Z98.84 Bariatric surgery status; Z88.0 Allergy status to penicillin; Z88.1 Allergy status to other antibiotic agents; Z88.5 Allergy status to narcotic agent; Z88.8 Allergy status to other drugs, medicaments and biological substances; E66.01 Morbid (severe) obesity due to excess calories; Z68.43 Body mass index [BMI] 50.0-59.9, adult; Z79.84 Long term (current) use of oral hypoglycemic drugs; Z79.899 Other long term (current) drug therapy ==

== ENCOUNTER → 2022-04-17 | Outpatient (CLI) | payer MEDICARE ==
[~2022-04-17] MED LIST changes: +AMIT25TA17 PO; +CITRACAL; +CITRTAB10 PO; +FERR325T3 PO; +FLOM0.4C39 PO; +FLON1SPR NARES; +QVAR40AE12 INH; +REST0.05 OP; +ROCA0.25 PO; +TIZA2CAP PO; +TRUL10IN SC
== END ==
LOC: M LABSMTC 08:50
PROVIDERS: ATTEND Anesthesiology
DX: Z20.828 Contact with and (suspected) exposure to other viral communicable diseases (principal); Z11.59 Encounter for screening for other viral diseases

== ENCOUNTER → 2022-04-20 | Outpatient (CLI) | payer MEDICARE ==
[~2022-04-20] MED LIST changes: +ISOVUE-M 300 61% 15ML VIAL As Ordered ONE; +LIDOCAINE 1% SDV 30ML VIAL As Ordered ONE; +diazePAM 10 MG TAB As Ordered ONE; +methylPREDNISolone SUSP 40MG/ML 1ML VIAL (DEPO MEDROL) As Ordered ONE; +oxyCODONE 5MG TAB As Ordered ONE
[2022-04-20 12:15] VITALS: BP 134/76
== END ==
LOC: M IRPRO 10:20
PROVIDERS: ATTEND Anesthesiology
DX: M51.16 Intervertebral disc disorders with radiculopathy, lumbar region (principal); G89.29 Other chronic pain; J44.9 Chronic obstructive pulmonary disease, unspecified; E11.9 Type 2 diabetes mellitus without complications; E03.9 Hypothyroidism, unspecified; Z88.0 Allergy status to penicillin; Z88.1 Allergy status to other antibiotic agents; Z88.5 Allergy status to narcotic agent; Z88.8 Allergy status to other drugs, medicaments and biological substances; Z98.84 Bariatric surgery status; Z90.49 Acquired absence of other specified parts of digestive tract; Z86.59 Personal history of other mental and behavioral disorders
CPT/HCPCS: 62323; J1030; Q9967

== ENCOUNTER → 2022-08-30 | Outpatient (CLI) | payer MEDICARE, OTHER ==
[~2022-08-30] MED LIST changes: -ISOVUE-M 300 61% 15ML VIAL As Ordered ONE; -LIDOCAINE 1% SDV 30ML VIAL As Ordered ONE; -diazePAM 10 MG TAB As Ordered ONE; -methylPREDNISolone SUSP 40MG/ML 1ML VIAL (DEPO MEDROL) As Ordered ONE; -oxyCODONE 5MG TAB As Ordered ONE
== END ==
LOC: M WHC 09:05
PROVIDERS: ATTEND Family Medicine
DX: Z13.820 Encounter for screening for osteoporosis (principal); M85.852 Other specified disorders of bone density and structure, left thigh; M81.0 Age-related osteoporosis without current pathological fracture

== ENCOUNTER → 2022-08-30 | Outpatient (CLI) | payer MEDICARE ==
[2022-08-30 14:15] LABS: BASO % 0.7 % (0.0-1.0); EOS # 0.1 10^3/uL (0.0-0.5); EOS % 1.5 % (0.0-3.0); HEMATOCRIT 36.7 % (36.0-47.0); LYMPH # 1.4 10^3/uL (1.5-5.0); LYMPH % 25.1 % (24.0-44.0); MEAN CORPUSCULAR HGB CONC 32.7 g/dl (32.0-36.5); MEAN CORPUSCULAR VOLUME 97.9 fl (80.0-96.0); MONO # 0.6 10^3/uL (0.0-0.8); MONO % 11.5 % (2.0-8.0); NEUTROPHILS # 3.3 10^3/uL (1.5-8.5); NEUTROPHILS % 60.6 % (36.0-66.0); PLATELET COUNT, AUTOMATED 281 10^3/uL (150-450); RED BLOOD COUNT 3.75 10^6/uL (4.00-5.40); WHITE BLOOD COUNT 5.4 10^3/uL (4.0-10.0)
[2022-08-30 15:07] LABS: ALBUMIN 3.6 GM/DL (3.2-5.2); ALT/SGPT 36 U/L (12-78); BILIRUBIN,TOTAL 0.4 MG/DL (0.2-1.0); BLOOD UREA NITROGEN 30 MG/DL (7-18); CALCIUM LEVEL 9.2 MG/DL (8.8-10.2); CARBON DIOXIDE LEVEL 23 MEQ/L (21-32); CHLORIDE LEVEL 103 MEQ/L (98-107); FREE T4 0.94 NG/DL (0.76-1.46); GLOMERULAR FILTRATION RATE 48.8 (>45); GLUCOSE, FASTING 86 MG/DL (70-100); NT-PRO BNP 241 PG/ML (<125); POTASSIUM SERUM 4.4 MEQ/L (3.5-5.1); SODIUM LEVEL 134 MEQ/L (136-145); TOTAL PROTEIN 6.7 GM/DL (6.4-8.2)
[2022-08-30 16:07] LABS: PTH INTACT 101.9 PG/ML (18.5-88.0); TOTAL 25(OH) VITAMIN D 29.1 NG/ML (30.0-100.0)
[2022-08-30 16:08] LABS: VITAMIN B12 LEVEL > 2000 PG/ML (247-911)
== END ==
LOC: M PLALAB 08:34
PROVIDERS: ATTEND Family Medicine
DX: E53.8 Deficiency of other specified B group vitamins (principal); Z79.899 Other long term (current) drug therapy

== ENCOUNTER 2022-09-08 15:11 | Outpatient (CLI) | payer MEDICARE ==
[~2022-09-08] VITALS: Ht 167.6 cm; Wt 138.6 kg
[~2022-09-08 15:11] MED LIST changes: +ZOLEDRONIC ACID 5 MG in IV 1 EA IV ONE
[2022-09-08 15:25] VITALS: BP 129/65
[2022-09-08 16:12] VITALS: BP 129/65
== END 2022-09-08 16:15 | disposition home or self-care (01) ==
LOC: M INFU 15:11
PROVIDERS: ATTEND Family Medicine
DX: M81.0 Age-related osteoporosis without current pathological fracture (principal); Z88.0 Allergy status to penicillin; Z88.1 Allergy status to other antibiotic agents; Z88.6 Allergy status to analgesic agent
CPT/HCPCS: 96365; J3489

== ENCOUNTER → 2022-10-03 | Outpatient (CLI) | payer MEDICARE ==
[~2022-10-03] MED LIST changes: -ZOLEDRONIC ACID 5 MG in IV 1 EA IV ONE
== END ==
LOC: M LABSMTC 11:00
PROVIDERS: ATTEND Anesthesiology
DX: Z01.812 Encounter for preprocedural laboratory examination (principal); Z20.822 Contact with and (suspected) exposure to COVID-19

== ENCOUNTER → 2022-10-05 | Outpatient (CLI) | payer MEDICARE ==
[~2022-10-05] MED LIST changes: +ISOVUE-M 300 61% 15ML VIAL As Ordered ONE; +LIDOCAINE 1% SDV 30ML VIAL As Ordered ONE; +diazePAM 5MG TABLET As Ordered ONE; +methylPREDNISolone SUSP 40MG/ML 1ML VIAL (DEPO MEDROL) As Ordered ONE; +oxyCODONE 5MG TAB As Ordered ONE
== END ==
LOC: M PAIN 16:00
PROVIDERS: ATTEND Anesthesiology
DX: M51.16 Intervertebral disc disorders with radiculopathy, lumbar region (principal); G89.29 Other chronic pain; J45.30 Mild persistent asthma, uncomplicated; I10 Essential (primary) hypertension; K21.9 Gastro-esophageal reflux disease without esophagitis; M79.7 Fibromyalgia; Z86.59 Personal history of other mental and behavioral disorders; Z88.0 Allergy status to penicillin; Z88.1 Allergy status to other antibiotic agents; Z88.5 Allergy status to narcotic agent; Z88.8 Allergy status to other drugs, medicaments and biological substances; E66.01 Morbid (severe) obesity due to excess calories; Z68.43 Body mass index [BMI] 50.0-59.9, adult; Z79.899 Other long term (current) drug therapy
CPT/HCPCS: 62323; J1030; Q9967

== ENCOUNTER → 2022-10-27 | Outpatient (CLI) | payer MEDICARE ==
[~2022-10-27] MED LIST changes: -ISOVUE-M 300 61% 15ML VIAL As Ordered ONE; -LIDOCAINE 1% SDV 30ML VIAL As Ordered ONE; -diazePAM 5MG TABLET As Ordered ONE; -methylPREDNISolone SUSP 40MG/ML 1ML VIAL (DEPO MEDROL) As Ordered ONE; -oxyCODONE 5MG TAB As Ordered ONE
== END ==
LOC: M PAIN 14:00
PROVIDERS: ATTEND Anesthesiology
DX: M51.16 Intervertebral disc disorders with radiculopathy, lumbar region (principal); G89.29 Other chronic pain; E11.9 Type 2 diabetes mellitus without complications; J45.30 Mild persistent asthma, uncomplicated; I10 Essential (primary) hypertension; M79.7 Fibromyalgia; Z86.59 Personal history of other mental and behavioral disorders; Z98.84 Bariatric surgery status; Z88.0 Allergy status to penicillin; Z88.1 Allergy status to other antibiotic agents; Z88.5 Allergy status to narcotic agent; Z88.8 Allergy status to other drugs, medicaments and biological substances; Z79.84 Long term (current) use of oral hypoglycemic drugs; Z79.890 Hormone replacement therapy; Z79.899 Other long term (current) drug therapy

== ENCOUNTER → 2023-01-05 | Outpatient (CLI) | payer OTHER, MEDICARE ==
[~2023-01-05] MED LIST changes: +MONT-5 PO; -SING10TA32 PO
== END ==
LOC: M PAIN 15:15 → M TMPAIN 15:15
PROVIDERS: ATTEND Anesthesiology
DX: M51.16 Intervertebral disc disorders with radiculopathy, lumbar region (principal); G89.29 Other chronic pain; R73.03 Prediabetes; J45.30 Mild persistent asthma, uncomplicated; I10 Essential (primary) hypertension; K21.9 Gastro-esophageal reflux disease without esophagitis; D50.9 Iron deficiency anemia, unspecified; M79.7 Fibromyalgia; Z86.59 Personal history of other mental and behavioral disorders; Z98.84 Bariatric surgery status; Z88.0 Allergy status to penicillin; Z88.1 Allergy status to other antibiotic agents; Z88.5 Allergy status to narcotic agent; Z88.8 Allergy status to other drugs, medicaments and biological substances; Z79.84 Long term (current) use of oral hypoglycemic drugs; Z79.85 Long-term (current) use of injectable non-insulin antidiabetic drugs; Z79.899 Other long term (current) drug therapy

== ENCOUNTER → 2023-01-11 | Outpatient (CLI) | payer OTHER, MEDICARE ==
[~2023-01-11] MED LIST changes: -MONT-5 PO; +SING10TA32 PO
[2023-01-11 11:12] LABS: HEMATOCRIT 38.6 % (36.0-47.0)
[2023-01-11 11:15] LABS: BASO % 0.6 % (0.0-1.0); EOS # 0.1 10^3/uL (0.0-0.5); EOS % 1.4 % (0.0-3.0); HEMOGLOBIN 12.5 g/dl (12.0-15.5); LYMPH # 1.4 10^3/uL (1.5-5.0); LYMPH % 28.3 % (24.0-44.0); MEAN CORPUSCULAR HEMOGLOBIN 31.3 pg (27.0-33.0); MEAN CORPUSCULAR HGB CONC 32.1 g/dl (32.0-36.5); MEAN CORPUSCULAR VOLUME 97.7 fl (80.0-96.0); MONO # 0.5 10^3/uL (0.0-0.8); MONO % 9.4 % (2.0-8.0); NEUTROPHILS % 59.9 % (36.0-66.0); PLATELET COUNT, AUTOMATED 272 10^3/uL (150-450); RED BLOOD COUNT 3.99 10^6/uL (4.00-5.40)
[2023-01-11 11:24] LABS: HEMOGLOBIN A1c 5.3 % (4.0-6.0)
[2023-01-11 11:42] LABS: ALBUMIN 3.6 G/DL (3.2-5.2); BILIRUBIN,TOTAL 0.6 MG/DL (0.3-1.2); CALCIUM LEVEL 8.7 MG/DL (8.3-10.6); CREATININE FOR GFR 1.05 MG/DL (0.55-1.30); FERRITIN 194.4 NG/ML (7.3-270.7); GLOMERULAR FILTRATION RATE 56.9 (>45); MAGNESIUM LEVEL 1.8 MG/DL (1.8-2.4); TOTAL PROTEIN 6.5 G/DL (5.7-8.2)
[2023-01-12 08:10] LABS: APOLIPOPROTEIN B/A-1 RATIO 0.3 ratio (0.0-0.6); INSULIN LEVEL 4.8 uIU/mL (2.6-24.9)
== END ==
LOC: M PLALAB 08:24
PROVIDERS: ATTEND Family Medicine
DX: D50.9 Iron deficiency anemia, unspecified (principal)

== ENCOUNTER → 2023-02-14 | Outpatient (CLI) | payer OTHER, MEDICARE ==
[~2023-02-14] MED LIST changes: +MONT-5 PO; -SING10TA32 PO
== END ==
LOC: M LABSMTC 07:46
PROVIDERS: ATTEND Anesthesiology
DX: Z20.822 Contact with and (suspected) exposure to COVID-19 (principal)

== ENCOUNTER → 2023-02-18 | Outpatient (CLI) | payer OTHER, MEDICARE ==
[~2023-02-18] MED LIST changes: +ISOVUE-M 300 61% 15ML VIAL As Ordered ONE; +LIDOCAINE 1% SDV 30ML VIAL As Ordered ONE; +diazePAM 5MG TABLET As Ordered ONE; +methylPREDNISolone SUSP 40MG/ML 1ML VIAL (DEPO MEDROL) As Ordered ONE; +oxyCODONE 5MG TAB As Ordered ONE
== END ==
LOC: M PAIN 08:00
PROVIDERS: ATTEND Anesthesiology
DX: M51.16 Intervertebral disc disorders with radiculopathy, lumbar region (principal); G89.29 Other chronic pain; E11.9 Type 2 diabetes mellitus without complications; J45.30 Mild persistent asthma, uncomplicated; I10 Essential (primary) hypertension; K21.9 Gastro-esophageal reflux disease without esophagitis; M79.7 Fibromyalgia; Z86.59 Personal history of other mental and behavioral disorders; Z98.84 Bariatric surgery status; Z88.0 Allergy status to penicillin; Z88.1 Allergy status to other antibiotic agents; Z88.5 Allergy status to narcotic agent; Z88.8 Allergy status to other drugs, medicaments and biological substances; E66.01 Morbid (severe) obesity due to excess calories; Z68.43 Body mass index [BMI] 50.0-59.9, adult; Z79.84 Long term (current) use of oral hypoglycemic drugs; Z79.85 Long-term (current) use of injectable non-insulin antidiabetic drugs; Z79.899 Other long term (current) drug therapy
CPT/HCPCS: 62323; J1030; Q9967

== ENCOUNTER → 2023-05-16 | Outpatient (CLI) | payer OTHER, MEDICARE ==
[~2023-05-16] MED LIST changes: -ISOVUE-M 300 61% 15ML VIAL As Ordered ONE; -LIDOCAINE 1% SDV 30ML VIAL As Ordered ONE; -diazePAM 5MG TABLET As Ordered ONE; -methylPREDNISolone SUSP 40MG/ML 1ML VIAL (DEPO MEDROL) As Ordered ONE; -oxyCODONE 5MG TAB As Ordered ONE
== END ==
LOC: M RAD 08:52
PROVIDERS: ATTEND Anesthesiology
DX: M48.07 Spinal stenosis, lumbosacral region (principal); G89.29 Other chronic pain

== ENCOUNTER → 2023-06-20 | Outpatient (CLI) | payer MEDICARE ==
[~2023-06-20] MED LIST changes: -AMIT25TA17 PO; +AMIT25TA19 PO; +ISOVUE-M 300 61% 15ML VIAL As Ordered ONE; +LIDOCAINE 1% SDV 30ML VIAL As Ordered ONE; +dexAMETHasone 10MG/1ML VIAL PRES.FREE As Ordered ONE; +diazePAM 5MG TABLET As Ordered ONE; +oxyCODONE 5MG TAB As Ordered ONE
== END ==
LOC: M PAIN 08:00
PROVIDERS: ATTEND Anesthesiology
DX: M51.16 Intervertebral disc disorders with radiculopathy, lumbar region (principal); G89.29 Other chronic pain; E11.9 Type 2 diabetes mellitus without complications; J45.30 Mild persistent asthma, uncomplicated; I10 Essential (primary) hypertension; K21.9 Gastro-esophageal reflux disease without esophagitis; D50.9 Iron deficiency anemia, unspecified; M79.7 Fibromyalgia; Z86.59 Personal history of other mental and behavioral disorders; Z88.0 Allergy status to penicillin; Z88.1 Allergy status to other antibiotic agents; Z88.5 Allergy status to narcotic agent; Z88.8 Allergy status to other drugs, medicaments and biological substances; E66.01 Morbid (severe) obesity due to excess calories; Z68.43 Body mass index [BMI] 50.0-59.9, adult; Z79.84 Long term (current) use of oral hypoglycemic drugs; Z79.85 Long-term (current) use of injectable non-insulin antidiabetic drugs; Z79.899 Other long term (current) drug therapy
CPT/HCPCS: 64483; J0665; J1100; Q9967

== ENCOUNTER → 2023-08-06 | Outpatient (CLI) | payer MEDICARE, OTHER ==
[~2023-08-06] MED LIST changes: -ISOVUE-M 300 61% 15ML VIAL As Ordered ONE; -LIDOCAINE 1% SDV 30ML VIAL As Ordered ONE; -dexAMETHasone 10MG/1ML VIAL PRES.FREE As Ordered ONE; -diazePAM 5MG TABLET As Ordered ONE; -oxyCODONE 5MG TAB As Ordered ONE
[2023-08-06 11:28] LABS: BASO # 0.1 10^3/uL (0.0-0.2); EOS # 0.1 10^3/uL (0.0-0.5); EOS % 1.3 % (0.0-3.0); HEMATOCRIT 37.6 % (36.0-47.0); HEMOGLOBIN 12.3 g/dl (12.0-15.5); LYMPH # 1.4 10^3/uL (1.5-5.0); LYMPH % 25.7 % (24.0-44.0); MEAN CORPUSCULAR HEMOGLOBIN 31.5 pg (27.0-33.0); MEAN CORPUSCULAR HGB CONC 32.7 g/dl (32.0-36.5); MEAN CORPUSCULAR VOLUME 96.2 fl (80.0-96.0); MONO # 0.5 10^3/uL (0.0-0.8); MONO % 8.6 % (2.0-8.0); NEUTROPHILS # 3.3 10^3/uL (1.5-8.5); NEUTROPHILS % 63.2 % (36.0-66.0); PLATELET COUNT, AUTOMATED 232 10^3/uL (150-450); RED BLOOD COUNT 3.91 10^6/uL (4.00-5.40); WHITE BLOOD COUNT 5.3 10^3/uL (4.0-10.0)
[2023-08-06 11:47] LABS: THYROID STIMULATING HORMONE 3.539 uIU/ML (0.55-4.78)
[2023-08-06 11:48] LABS: TOTAL 25(OH) VITAMIN D 31.9 NG/ML (20.0-100.0)
[2023-08-06 11:49] LABS: ALBUMIN 3.7 G/DL (3.2-5.2); BILIRUBIN,TOTAL 0.5 MG/DL (0.3-1.2); CHOLESTEROL RISK RATIO 1.96 (<5); CREATININE FOR GFR 1.17 MG/DL (0.55-1.30); FREE T4 1.03 NG/DL (0.89-1.76); GLOMERULAR FILTRATION RATE 50.1 (>45); HDL CHOLESTEROL 85.6 MG/DL (>40); LDL CHOLESTEROL 68.4 MG/DL (<100); NON-HDL-C 82.4 MG/DL; POTASSIUM SERUM 4.6 MMOL/L (3.5-5.1); TOTAL PROTEIN 6.5 G/DL (5.7-8.2)
[2023-08-06 12:44] LABS: PTH INTACT 167.6 PG/ML (18.5-88.0)
[2023-08-06 12:49] LABS: HEMOGLOBIN A1c 4.7 % (4.0-6.0)
== END ==
LOC: M LAB 10:19
PROVIDERS: ATTEND Family Medicine
DX: I10 Essential (primary) hypertension (principal); E55.9 Vitamin D deficiency, unspecified; R73.01 Impaired fasting glucose; E06.3 Autoimmune thyroiditis

== ENCOUNTER → 2023-08-08 | Outpatient (CLI) | payer MEDICARE | LOC: M WHC 13:07 | PROVIDERS: ATTEND Family Medicine | DX: Z12.31 Encounter for screening mammogram for malignant neoplasm of breast (principal); E06.3 Autoimmune thyroiditis; R73.03 Prediabetes; I10 Essential (primary) hypertension; D50.9 Iron deficiency anemia, unspecified ==

== ENCOUNTER → 2023-08-23 | Outpatient (CLI) | payer MEDICARE, OTHER | LOC: M WHC 16:17 | PROVIDERS: ATTEND Family Medicine | DX: Z12.31 Encounter for screening mammogram for malignant neoplasm of breast (principal) ==

== ENCOUNTER → 2023-08-25 | Outpatient (CLI) | payer MEDICARE | LOC: M PAIN 15:00 | PROVIDERS: ATTEND Anesthesiology | DX: M51.16 Intervertebral disc disorders with radiculopathy, lumbar region (principal); G89.29 Other chronic pain; R73.03 Prediabetes; M79.7 Fibromyalgia; Z88.0 Allergy status to penicillin; Z88.1 Allergy status to other antibiotic agents; Z88.5 Allergy status to narcotic agent; Z88.8 Allergy status to other drugs, medicaments and biological substances; Z79.84 Long term (current) use of oral hypoglycemic drugs; Z79.85 Long-term (current) use of injectable non-insulin antidiabetic drugs; Z79.899 Other long term (current) drug therapy ==

== ENCOUNTER → 2023-09-12 | Outpatient (CLI) | payer MEDICARE ==
[2023-09-13 02:17] LABS: ALBUMIN 3.8 G/DL (3.2-5.2); CALCIUM LEVEL 9.6 MG/DL (8.3-10.6); CREATININE FOR GFR 1.22 MG/DL (0.55-1.30); GLOMERULAR FILTRATION RATE 47.7 (>45); PHOSPHORUS LEVEL 3.6 MG/DL (2.4-5.1); POTASSIUM SERUM 5.2 MMOL/L (3.5-5.1)
== END ==
LOC: M LAB 17:06
PROVIDERS: ATTEND Family Medicine
DX: M81.0 Age-related osteoporosis without current pathological fracture (principal)

== ENCOUNTER 2023-09-13 15:02 | Outpatient (CLI) | payer MEDICARE ==
[~2023-09-13 15:02] MED LIST changes: +ZOLEDRONIC ACID 5 MG in IV 1 EA IV ONE
[2023-09-13 15:05] VITALS: BP 120/68; O2SAT 99
[2023-09-13 16:40] VITALS: BP 128/64; O2SAT 99
== END 2023-09-13 16:40 | disposition home or self-care (01) ==
LOC: M INFU 15:02
PROVIDERS: ATTEND Family Medicine
DX: M81.8 Other osteoporosis without current pathological fracture (principal); Z88.0 Allergy status to penicillin; Z88.1 Allergy status to other antibiotic agents; Z88.5 Allergy status to narcotic agent
CPT/HCPCS: 96365; J3489

== ENCOUNTER → 2023-10-07 | Outpatient (CLI) | payer MEDICARE ==
[~2023-10-07] MED LIST changes: -ZOLEDRONIC ACID 5 MG in IV 1 EA IV ONE
== END ==
LOC: M PAIN 13:45
PROVIDERS: ATTEND Anesthesiology
DX: M51.16 Intervertebral disc disorders with radiculopathy, lumbar region (principal); G89.29 Other chronic pain; Z88.0 Allergy status to penicillin; Z88.1 Allergy status to other antibiotic agents; Z88.5 Allergy status to narcotic agent; Z88.8 Allergy status to other drugs, medicaments and biological substances; Z79.84 Long term (current) use of oral hypoglycemic drugs; Z79.85 Long-term (current) use of injectable non-insulin antidiabetic drugs; Z79.899 Other long term (current) drug therapy

== ENCOUNTER → 2023-10-19 | Outpatient (CLI) | payer MEDICARE | LOC: M PAIN 16:15 | PROVIDERS: ATTEND Anesthesiology | DX: M51.16 Intervertebral disc disorders with radiculopathy, lumbar region (principal); M51.17 Intervertebral disc disorders with radiculopathy, lumbosacral region; J45.20 Mild intermittent asthma, uncomplicated; I10 Essential (primary) hypertension; J30.9 Allergic rhinitis, unspecified; F32.9 Major depressive disorder, single episode, unspecified; F41.1 Generalized anxiety disorder; K21.9 Gastro-esophageal reflux disease without esophagitis; N18.31 Chronic kidney disease, stage 3a; E66.9 Obesity, unspecified; E55.9 Vitamin D deficiency, unspecified; M79.7 Fibromyalgia; R73.01 Impaired fasting glucose; K58.1 Irritable bowel syndrome with constipation; Z79.84 Long term (current) use of oral hypoglycemic drugs; Z79.899 Other long term (current) drug therapy; Z88.0 Allergy status to penicillin; Z88.5 Allergy status to narcotic agent; Z88.8 Allergy status to other drugs, medicaments and biological substances ==

== ENCOUNTER → 2023-11-16 | Outpatient (CLI) | payer MEDICARE | LOC: M PLAIMG 08:10 | PROVIDERS: ATTEND Anesthesiology | DX: M51.17 Intervertebral disc disorders with radiculopathy, lumbosacral region (principal); M48.061 Spinal stenosis, lumbar region without neurogenic claudication ==

== ENCOUNTER → 2023-12-10 | Outpatient (CLI) | payer MEDICARE ==
[2023-12-10 11:21] LABS: BASO % 0.6 % (0.0-1.0); EOS # 0.1 10^3/uL (0.0-0.5); HEMATOCRIT 35.3 % (36.0-47.0); HEMOGLOBIN 11.9 g/dl (12.0-15.5); LYMPH # 1.4 10^3/uL (1.5-5.0); LYMPH % 28.2 % (24.0-44.0); MEAN CORPUSCULAR HEMOGLOBIN 32.3 pg (27.0-33.0); MEAN CORPUSCULAR HGB CONC 33.7 g/dl (32.0-36.5); MEAN CORPUSCULAR VOLUME 95.9 fl (80.0-96.0); MONO # 0.5 10^3/uL (0.0-0.8); MONO % 9.8 % (2.0-8.0); PLATELET COUNT, AUTOMATED 269 10^3/uL (150-450); RED BLOOD COUNT 3.68 10^6/uL (4.00-5.40)
[2023-12-10 11:53] LABS: ALBUMIN 3.5 G/DL (3.2-5.2); BILIRUBIN,TOTAL 0.4 MG/DL (0.3-1.2); CALCIUM LEVEL 8.9 MG/DL (8.3-10.6); CREATININE FOR GFR 1.33 MG/DL (0.55-1.30); GLOMERULAR FILTRATION RATE 43.2 (>45); POTASSIUM SERUM 4.6 MMOL/L (3.5-5.1); TOTAL PROTEIN 6.4 G/DL (5.7-8.2)
[2023-12-10 11:55] LABS: FERRITIN 202.1 NG/ML (7.3-270.7); FREE T4 1.15 NG/DL (0.89-1.76); THYROID STIMULATING HORMONE 2.743 uIU/ML (0.55-4.78)
== END ==
LOC: M LAB 10:33
PROVIDERS: ATTEND Family Medicine
DX: E06.3 Autoimmune thyroiditis (principal); R73.01 Impaired fasting glucose; I10 Essential (primary) hypertension; D50.9 Iron deficiency anemia, unspecified; R06.9 Unspecified abnormalities of breathing

== ENCOUNTER → 2023-12-13 | Outpatient (REF) | payer MEDICARE, OTHER | LOC: M SFHCPLAZ 09:06 | PROVIDERS: ATTEND Family Medicine | DX: I50.32 Chronic diastolic (congestive) heart failure (principal); E06.3 Autoimmune thyroiditis; R73.01 Impaired fasting glucose; E53.8 Deficiency of other specified B group vitamins; K74.00 Hepatic fibrosis, unspecified ==

== ENCOUNTER → 2023-12-27 | Outpatient (CLI) | payer MEDICARE, OTHER | LOC: M RAD 06:22 | PROVIDERS: ATTEND Family Medicine | DX: N18.31 Chronic kidney disease, stage 3a (principal) ==

== ENCOUNTER → 2024-01-17 | Outpatient (CLI) | payer MEDICARE, OTHER ==
[~2024-01-17] MED LIST changes: +ISOVUE-M 300 61% 15ML VIAL As Ordered ONE; +LIDOCAINE 1% SDV 30ML VIAL As Ordered ONE; +dexAMETHasone 10MG/1ML VIAL PRES.FREE As Ordered ONE; +diazePAM 5MG TABLET As Ordered ONE; +oxyCODONE 5MG TAB As Ordered ONE
== END ==
LOC: M PAIN 08:30
PROVIDERS: ATTEND Anesthesiology
DX: M51.16 Intervertebral disc disorders with radiculopathy, lumbar region (principal); J45.20 Mild intermittent asthma, uncomplicated; I12.9 Hypertensive chronic kidney disease with stage 1 through stage 4 chronic kidney disease, or unspecified chronic kidney disease; F32.9 Major depressive disorder, single episode, unspecified; F41.1 Generalized anxiety disorder; E66.9 Obesity, unspecified; K21.9 Gastro-esophageal reflux disease without esophagitis; E53.8 Deficiency of other specified B group vitamins; E55.9 Vitamin D deficiency, unspecified; K58.1 Irritable bowel syndrome with constipation; Z79.84 Long term (current) use of oral hypoglycemic drugs; Z79.899 Other long term (current) drug therapy; Z88.0 Allergy status to penicillin; Z88.1 Allergy status to other antibiotic agents; Z88.8 Allergy status to other drugs, medicaments and biological substances; Z68.43 Body mass index [BMI] 50.0-59.9, adult
CPT/HCPCS: 64483; J0665; J1100; Q9967

== ENCOUNTER → 2024-02-14 | Outpatient (REF) | payer MEDICARE, OTHER ==
[~2024-02-14] MED LIST changes: -ISOVUE-M 300 61% 15ML VIAL As Ordered ONE; -LIDOCAINE 1% SDV 30ML VIAL As Ordered ONE; -dexAMETHasone 10MG/1ML VIAL PRES.FREE As Ordered ONE; -diazePAM 5MG TABLET As Ordered ONE; -oxyCODONE 5MG TAB As Ordered ONE
== END ==
LOC: M SFHCPLAZ 10:05
PROVIDERS: ATTEND Family Medicine
DX: I50.32 Chronic diastolic (congestive) heart failure (principal); E06.3 Autoimmune thyroiditis; E53.8 Deficiency of other specified B group vitamins; K74.00 Hepatic fibrosis, unspecified; E11.9 Type 2 diabetes mellitus without complications

== ENCOUNTER → 2024-02-16 | Outpatient (CLI) | payer MEDICARE, OTHER | LOC: M PAIN 16:30 | PROVIDERS: ATTEND Nurse Practitioner Family | DX: G89.29 Other chronic pain (principal); J45.30 Mild persistent asthma, uncomplicated; F32.9 Major depressive disorder, single episode, unspecified; I89.0 Lymphedema, not elsewhere classified; E66.01 Morbid (severe) obesity due to excess calories; K21.9 Gastro-esophageal reflux disease without esophagitis; N18.31 Chronic kidney disease, stage 3a; E53.8 Deficiency of other specified B group vitamins; E55.9 Vitamin D deficiency, unspecified; F41.1 Generalized anxiety disorder; M47.816 Spondylosis without myelopathy or radiculopathy, lumbar region; M79.7 Fibromyalgia; K58.1 Irritable bowel syndrome with constipation; Z88.0 Allergy status to penicillin; Z88.1 Allergy status to other antibiotic agents; Z88.5 Allergy status to narcotic agent; Z88.8 Allergy status to other drugs, medicaments and biological substances; Z68.43 Body mass index [BMI] 50.0-59.9, adult; Z98.84 Bariatric surgery status ==

== ENCOUNTER → 2024-04-16 | Outpatient (CLI) | payer MEDICARE, OTHER ==
[2024-04-16 12:26] LABS: BASO % 0.6 % (0.0-1.0); EOS # 0.1 10^3/uL (0.0-0.5); HEMATOCRIT 38.7 % (36.0-47.0); HEMOGLOBIN 13.1 g/dl (12.0-15.5); LYMPH # 1.6 10^3/uL (1.5-5.0); LYMPH % 31.4 % (24.0-44.0); MEAN CORPUSCULAR HEMOGLOBIN 32.1 pg (27.0-33.0); MEAN CORPUSCULAR HGB CONC 33.9 g/dl (32.0-36.5); MEAN CORPUSCULAR VOLUME 94.9 fl (80.0-96.0); MONO # 0.4 10^3/uL (0.0-0.8); NEUTROPHILS % 58.8 % (36.0-66.0); PLATELET COUNT, AUTOMATED 270 10^3/uL (150-450); RED BLOOD COUNT 4.08 10^6/uL (4.00-5.40); WHITE BLOOD COUNT 5.1 10^3/uL (4.0-10.0)
[2024-04-16 12:36] LABS: HEMOGLOBIN A1c 5.2 % (4.0-6.0)
[2024-04-16 12:54] LABS: ALBUMIN 3.5 G/DL (3.2-5.2); BILIRUBIN,TOTAL 0.5 MG/DL (0.3-1.2); CALCIUM LEVEL 8.8 MG/DL (8.3-10.6); CHOLESTEROL RISK RATIO 1.9 (<5); CREATININE FOR GFR 1.16 MG/DL (0.55-1.30); GLOMERULAR FILTRATION RATE 50.4 (>45); HDL CHOLESTEROL 80.4 MG/DL (>40); LDL CHOLESTEROL 54.8 MG/DL (<100); NON-HDL-C 72.6 MG/DL; TOTAL PROTEIN 6.5 G/DL (5.7-8.2)
[2024-04-16 12:55] LABS: FERRITIN 178.9 NG/ML (7.3-270.7); THYROID STIMULATING HORMONE 2.172 uIU/ML (0.55-4.78)
[2024-04-16 12:56] LABS: FREE T4 1.07 NG/DL (0.89-1.76)
[2024-04-19 03:07] LABS: INSULIN LEVEL 7.3 uIU/mL (2.6-24.9)
== END ==
LOC: M LAB 11:22
PROVIDERS: ATTEND Family Medicine
DX: I50.32 Chronic diastolic (congestive) heart failure (principal); E06.3 Autoimmune thyroiditis; R73.01 Impaired fasting glucose; E53.8 Deficiency of other specified B group vitamins; K74.00 Hepatic fibrosis, unspecified

== ENCOUNTER → 2024-04-19 | Outpatient (CLI) | payer MEDICARE, OTHER | LOC: M PAIN 16:30 | PROVIDERS: ATTEND Nurse Practitioner Family | DX: M51.16 Intervertebral disc disorders with radiculopathy, lumbar region (principal); J45.30 Mild persistent asthma, uncomplicated; J30.89 Other allergic rhinitis; I10 Essential (primary) hypertension; E78.2 Mixed hyperlipidemia; E11.9 Type 2 diabetes mellitus without complications; Z79.02 Long term (current) use of antithrombotics/antiplatelets; Z79.51 Long term (current) use of inhaled steroids; Z79.52 Long term (current) use of systemic steroids; Z79.1 Long term (current) use of non-steroidal anti-inflammatories (NSAID); Z79.84 Long term (current) use of oral hypoglycemic drugs; Z79.899 Other long term (current) drug therapy; Z88.0 Allergy status to penicillin; Z88.1 Allergy status to other antibiotic agents; Z88.5 Allergy status to narcotic agent; Z88.8 Allergy status to other drugs, medicaments and biological substances ==

== ENCOUNTER → 2024-05-17 | Outpatient (CLI) | payer MEDICARE, OTHER | LOC: M PLAIMG 07:41 | PROVIDERS: ATTEND Family Medicine | DX: I50.32 Chronic diastolic (congestive) heart failure (principal) ==

== ENCOUNTER → 2024-08-07 | Outpatient (CLI) | payer MEDICARE, OTHER ==
[~2024-08-07] MED LIST changes: +ISOVUE-M 300 61% 15ML VIAL As Ordered ONE; +LIDOCAINE 1% SDV 30ML VIAL As Ordered ONE; +dexAMETHasone 10MG/1ML VIAL PRES.FREE As Ordered ONE; +diazePAM 5MG TABLET As Ordered ONE; +oxyCODONE 5MG TAB As Ordered ONE
== END ==
LOC: M PAIN 08:30
PROVIDERS: ATTEND Anesthesiology
DX: M51.16 Intervertebral disc disorders with radiculopathy, lumbar region (principal); G89.29 Other chronic pain; J45.30 Mild persistent asthma, uncomplicated; I12.9 Hypertensive chronic kidney disease with stage 1 through stage 4 chronic kidney disease, or unspecified chronic kidney disease; F41.1 Generalized anxiety disorder; K21.9 Gastro-esophageal reflux disease without esophagitis; N18.31 Chronic kidney disease, stage 3a; E55.9 Vitamin D deficiency, unspecified; M47.816 Spondylosis without myelopathy or radiculopathy, lumbar region; K58.1 Irritable bowel syndrome with constipation; Z98.84 Bariatric surgery status; Z79.84 Long term (current) use of oral hypoglycemic drugs; Z79.899 Other long term (current) drug therapy; Z88.0 Allergy status to penicillin; Z88.1 Allergy status to other antibiotic agents; Z88.5 Allergy status to narcotic agent; Z88.7 Allergy status to serum and vaccine; Z88.8 Allergy status to other drugs, medicaments and biological substances; E66.01 Morbid (severe) obesity due to excess calories; Z68.42 Body mass index [BMI] 45.0-49.9, adult
CPT/HCPCS: 64483; J0665; J1100; Q9967

== ENCOUNTER → 2024-09-01 | Outpatient (CLI) | payer MEDICARE, OTHER ==
[~2024-09-01] MED LIST changes: -ISOVUE-M 300 61% 15ML VIAL As Ordered ONE; -LIDOCAINE 1% SDV 30ML VIAL As Ordered ONE; -dexAMETHasone 10MG/1ML VIAL PRES.FREE As Ordered ONE; -diazePAM 5MG TABLET As Ordered ONE; -oxyCODONE 5MG TAB As Ordered ONE
[2024-09-01 11:11] LABS: BASO % 0.6 % (0.0-1.0); EOS # 0.1 10^3/uL (0.0-0.5); EOS % 0.9 % (0.0-3.0); HEMATOCRIT 35.3 % (36.0-47.0); HEMOGLOBIN 11.8 g/dl (12.0-15.5); LYMPH # 1.8 10^3/uL (1.5-5.0); LYMPH % 27.1 % (24.0-44.0); MEAN CORPUSCULAR HEMOGLOBIN 32.3 pg (27.0-33.0); MEAN CORPUSCULAR HGB CONC 33.4 g/dl (32.0-36.5); MEAN CORPUSCULAR VOLUME 96.7 fl (80.0-96.0); MONO # 0.5 10^3/uL (0.0-0.8); MONO % 7.8 % (2.0-8.0); NEUTROPHILS # 4.3 10^3/uL (1.5-8.5); NEUTROPHILS % 62.6 % (36.0-66.0); PLATELET COUNT, AUTOMATED 288 10^3/uL (150-450); RED BLOOD COUNT 3.65 10^6/uL (4.00-5.40); WHITE BLOOD COUNT 6.8 10^3/uL (4.0-10.0)
[2024-09-01 11:39] LABS: ALBUMIN 3.3 G/DL (3.2-5.2); BILIRUBIN,TOTAL 0.5 MG/DL (0.3-1.2); CALCIUM LEVEL 9.5 MG/DL (8.3-10.6); CHOLESTEROL RISK RATIO 2.1 (<5); CREATININE FOR GFR 1.12 MG/DL (0.55-1.30); GLOMERULAR FILTRATION RATE 52.5 (>45); HDL CHOLESTEROL 72.1 MG/DL (>40); LDL CHOLESTEROL 58.7 MG/DL (<100); NON-HDL-C 79.9 MG/DL; POTASSIUM SERUM 4.2 MMOL/L (3.5-5.1); TOTAL PROTEIN 6.3 G/DL (5.7-8.2)
[2024-09-01 11:40] LABS: HEMOGLOBIN A1c 5.1 % (4.0-6.0)
[2024-09-01 11:41] LABS: FERRITIN 288.7 NG/ML (7.3-270.7); FREE T4 1.1 NG/DL (0.89-1.76); THYROID STIMULATING HORMONE 3.026 uIU/ML (0.55-4.78)
== END ==
LOC: M LAB 10:27
PROVIDERS: ATTEND Family Medicine
DX: E11.9 Type 2 diabetes mellitus without complications (principal); E53.8 Deficiency of other specified B group vitamins; E06.3 Autoimmune thyroiditis; I50.32 Chronic diastolic (congestive) heart failure

== ENCOUNTER → 2024-09-06 | Outpatient (CLI) | payer MEDICARE, OTHER | LOC: M PAIN 16:30 | PROVIDERS: ATTEND Nurse Practitioner Family | DX: M51.16 Intervertebral disc disorders with radiculopathy, lumbar region (principal); G89.29 Other chronic pain; E11.9 Type 2 diabetes mellitus without complications; Z79.890 Hormone replacement therapy; Z79.899 Other long term (current) drug therapy; Z79.84 Long term (current) use of oral hypoglycemic drugs ==

== ENCOUNTER 2024-10-01 14:31 | Outpatient (CLI) | payer MEDICARE, OTHER ==
[~2024-10-01] VITALS: Ht 167.6 cm; Wt 123.6 kg
[2024-10-01 14:45] VITALS: BP 135/76; O2SAT 99
[2024-10-01] MEDS: ZOLEDRONIC ACID 5 MG in IV 1 EA IV ONE (14:45)
[2024-10-01 15:19] VITALS: BP 128/94; O2SAT 98
== END 2024-10-01 15:20 ==
LOC: M INFU 14:31
PROVIDERS: ATTEND Family Medicine
DX: M81.0 Age-related osteoporosis without current pathological fracture (principal); Z88.0 Allergy status to penicillin; Z88.1 Allergy status to other antibiotic agents; Z88.5 Allergy status to narcotic agent; Z88.8 Allergy status to other drugs, medicaments and biological substances
CPT/HCPCS: 96365; J3489

== ENCOUNTER → 2024-11-15 | Outpatient (CLI) | payer MEDICARE, OTHER | LOC: M PAIN 10:00 | PROVIDERS: ATTEND Nurse Practitioner Family | DX: M51.16 Intervertebral disc disorders with radiculopathy, lumbar region (principal); G89.29 Other chronic pain; J45.30 Mild persistent asthma, uncomplicated; I12.9 Hypertensive chronic kidney disease with stage 1 through stage 4 chronic kidney disease, or unspecified chronic kidney disease; F41.1 Generalized anxiety disorder; K21.9 Gastro-esophageal reflux disease without esophagitis; N18.31 Chronic kidney disease, stage 3a; E53.8 Deficiency of other specified B group vitamins; E55.9 Vitamin D deficiency, unspecified; M47.816 Spondylosis without myelopathy or radiculopathy, lumbar region; M79.7 Fibromyalgia; K58.1 Irritable bowel syndrome with constipation; E66.01 Morbid (severe) obesity due to excess calories; Z79.84 Long term (current) use of oral hypoglycemic drugs; Z79.890 Hormone replacement therapy; Z79.899 Other long term (current) drug therapy; Z88.0 Allergy status to penicillin; Z88.5 Allergy status to narcotic agent; Z88.7 Allergy status to serum and vaccine; Z88.8 Allergy status to other drugs, medicaments and biological substances; Z68.41 Body mass index [BMI] 40.0-44.9, adult ==

== ENCOUNTER 2024-12-11 06:50 | Day surgery (SDC) | payer MEDICARE, OTHER ==
[~2024-12-11] VITALS: Ht 162.6 cm; Wt 129.3 kg
[~2024-12-11 06:50] MED LIST changes: +BUPR-71 PO; +CALC1CAP31 PO; +CITA40TA6 PO; -CITRTAB10 PO; +CITRTAB11 PO; +CITRTAB18 PO; +DULA3PEN SC; +FERR325T19 PO; +FLUTISP; +LANS30CA93 PO; +LEVO112T2 PO; +MONT10TA97 PO; +PROA1AER2 INH; +RECL5INJ2 IV; +TAMS1CAP17 PO
[2024-12-11] MEDS ORDERED: LIDOCAINE 2% MDV 20ML VIAL As Ordered ONE (08:51)
[2024-12-11] MEDS ORDERED: propofoL 500 MG/50 ML VIAL As Ordered ONE (08:51)
[2024-12-11] MEDS ORDERED: SIMETHICONE 40MG/0.6ML DROPS 30ML As Ordered ONE (08:56)
[2024-12-11] MEDS ORDERED: NS 250 ML IV ONE (09:00)
[2024-12-11 09:35] VITALS: BP 102/72; TEMP 96.9; O2SAT 98
== END 2024-12-11 09:45 | disposition home or self-care (01) ==
LOC: M OPP 06:50
PROVIDERS: ATTEND Internal Medicine Gastroenterology
DX: Z86.0100 Personal history of colon polyps, unspecified (principal); Z88.0 Allergy status to penicillin; Z88.1 Allergy status to other antibiotic agents; Z88.5 Allergy status to narcotic agent; Z88.8 Allergy status to other drugs, medicaments and biological substances; Z79.84 Long term (current) use of oral hypoglycemic drugs; Z79.85 Long-term (current) use of injectable non-insulin antidiabetic drugs; Z79.899 Other long term (current) drug therapy; Z98.84 Bariatric surgery status; J45.909 Unspecified asthma, uncomplicated

== ENCOUNTER → 2025-01-02 | Outpatient (CLI) | payer MEDICARE, OTHER ==
[2025-01-02 15:06] LABS: BASO # 0.1 10^3/uL (0.0-0.2); BASO % 0.8 % (0.0-1.0); EOS # 0.1 10^3/uL (0.0-0.5); EOS % 1.2 % (0.0-3.0); HEMATOCRIT 40.4 % (36.0-47.0); LYMPH # 1.5 10^3/uL (1.5-5.0); LYMPH % 22.6 % (24.0-44.0); MEAN CORPUSCULAR HGB CONC 32.2 g/dl (32.0-36.5); MEAN CORPUSCULAR VOLUME 99.5 fl (80.0-96.0); MONO # 0.5 10^3/uL (0.0-0.8); MONO % 7.5 % (2.0-8.0); NEUTROPHILS # 4.3 10^3/uL (1.5-8.5); NEUTROPHILS % 67.6 % (36.0-66.0); PLATELET COUNT, AUTOMATED 300 10^3/uL (150-450); RED BLOOD COUNT 4.06 10^6/uL (4.00-5.40); WHITE BLOOD COUNT 6.4 10^3/uL (4.0-10.0)
[2025-01-02 15:16] LABS: HEMATOCRIT 39.7 % (36.0-47.0)
[2025-01-02 15:52] LABS: ALBUMIN 3.5 G/DL (3.2-5.2); ALKALINE PHOSPHATASE 155 U/L (35-104); ALT/SGPT 36 U/L (7.0-40); AST/SGOT 26 U/L (<34); BILIRUBIN,TOTAL 0.4 MG/DL (0.3-1.2); BLOOD UREA NITROGEN 24 MG/DL (9-23); CALCIUM LEVEL 9.2 MG/DL (8.3-10.6); CARBON DIOXIDE LEVEL 22 MMOL/L (20-31); CHLORIDE LEVEL 101 MMOL/L (98-107); CREATININE FOR GFR 1.14 MG/DL (0.55-1.30); FREE T4 1.13 NG/DL (0.89-1.76); GLOMERULAR FILTRATION RATE 51.4 (>45); GLUCOSE, FASTING 84 MG/DL (74-106); POTASSIUM SERUM 4.7 MMOL/L (3.5-5.1); SODIUM LEVEL 135 MMOL/L (136-145); THYROID STIMULATING HORMONE 3.658 uIU/ML (0.55-4.78); TOTAL 25(OH) VITAMIN D 31.3 NG/ML (20.0-100.0); TOTAL PROTEIN 6.8 G/DL (5.7-8.2)
[2025-01-02 15:54] LABS: VITAMIN B12 LEVEL > 2000 PG/ML (211-911)
[2025-01-02 16:07] LABS: HEMOGLOBIN A1c 4.9 % (4.0-6.0)
== END ==
LOC: M PLALAB 09:05
PROVIDERS: ATTEND Family Medicine
DX: E53.8 Deficiency of other specified B group vitamins (principal); E06.3 Autoimmune thyroiditis; E11.9 Type 2 diabetes mellitus without complications; I50.32 Chronic diastolic (congestive) heart failure; E21.3 Hyperparathyroidism, unspecified

== ENCOUNTER → 2025-01-24 | Outpatient (CLI) | payer MEDICARE, OTHER | LOC: M WHC 14:03 | PROVIDERS: ATTEND Family Medicine | DX: Z12.31 Encounter for screening mammogram for malignant neoplasm of breast (principal); M85.852 Other specified disorders of bone density and structure, left thigh; R92.313 Mammographic fatty tissue density, bilateral breasts ==

== ENCOUNTER → 2025-07-10 | Outpatient (CLI) | payer MEDICARE ==
[~2025-07-10] MED LIST changes: -FLOM0.4C39 PO; +TAMS-18 PO
[2025-07-10 12:03] LABS: BASO # 0.0 10^3/uL (0.0-0.2); BASO % 0.7 % (0.0-1.0); EOS # 0.1 10^3/uL (0.0-0.5); EOS % 1.0 % (0.0-3.0); LYMPH # 1.4 10^3/uL (1.5-5.0); LYMPH % 23.3 % (24.0-44.0); MONO # 0.5 10^3/uL (0.0-0.8); MONO % 8.0 % (2.0-8.0); NEUTROPHILS # 4.1 10^3/uL (1.5-8.5); NEUTROPHILS % 66.7 % (36.0-66.0); PLATELET COUNT, AUTOMATED 272 10^3/uL (150-450)
[2025-07-10 12:15] LABS: ESTIMATED AVERAGE GLUCOSE 103.0 MG/DL (60-110)
[2025-07-10 12:36] LABS: FREE T4 1.24 NG/DL (0.89-1.76); TOTAL 25(OH) VITAMIN D 29.8 NG/ML (20.0-100.0)
[2025-07-10 12:44] LABS: ALT/SGPT 35.0 U/L (7.0-40); AST/SGOT 22.0 U/L (<34); CALCIUM LEVEL 9.5 MG/DL (8.3-10.6); CARBON DIOXIDE LEVEL 21.0 MMOL/L (20-31); CHLORIDE LEVEL 103.0 MMOL/L (98-107); CHOLESTEROL LEVEL 162.0 MG/DL (<200); CHOLESTEROL RISK RATIO 1.92 (<5); CREATININE FOR GFR 1.5 MG/DL (0.55-1.30); GLOMERULAR FILTRATION RATE 38.9 (>45); LDL CHOLESTEROL 59.6 MG/DL (<100); NON-HDL-C 77.8 MG/DL; POTASSIUM SERUM 4.7 MMOL/L (3.5-5.1); PTH INTACT 137.3 PG/ML (18.5-88.0); SODIUM LEVEL 134.0 MMOL/L (136-145); TRIGLYCERIDES LEVEL 91.0 MG/DL (<150)
== END ==
LOC: M LAB 09:31
PROVIDERS: ATTEND Family Medicine
DX: E53.8 Deficiency of other specified B group vitamins (principal); E06.3 Autoimmune thyroiditis; E11.9 Type 2 diabetes mellitus without complications; E21.3 Hyperparathyroidism, unspecified; I50.32 Chronic diastolic (congestive) heart failure; D50.9 Iron deficiency anemia, unspecified; E78.2 Mixed hyperlipidemia

== ENCOUNTER → 2025-10-12 | Outpatient (CLI) | payer MEDICARE ==
[2025-10-12 12:23] LABS: BASO # 0.0 10^3/uL (0.0-0.2); BASO % 0.7 % (0.0-1.0); EOS # 0.1 10^3/uL (0.0-0.5); EOS % 1.2 % (0.0-3.0); LYMPH # 1.5 10^3/uL (1.5-5.0); LYMPH % 25.6 % (24.0-44.0); MONO # 0.5 10^3/uL (0.0-0.8); MONO % 8.3 % (2.0-8.0); NEUTROPHILS # 3.6 10^3/uL (1.5-8.5); NEUTROPHILS % 63.7 % (36.0-66.0); PLATELET COUNT, AUTOMATED 262 10^3/uL (150-450)
[2025-10-12 12:57] LABS: ALT/SGPT 34.0 U/L (7.0-40); AST/SGOT 24.0 U/L (<34); CALCIUM LEVEL 9.1 MG/DL (8.3-10.6); CARBON DIOXIDE LEVEL 22.0 MMOL/L (20-31); CHLORIDE LEVEL 105.0 MMOL/L (98-107); CHOLESTEROL LEVEL 145.0 MG/DL (<200); CHOLESTEROL RISK RATIO 1.84 (<5); CREATININE FOR GFR 1.28 MG/DL (0.55-1.30); GLOMERULAR FILTRATION RATE 47.1 (>45); LDL CHOLESTEROL 51.1 MG/DL (<100); NON-HDL-C 66.3 MG/DL; POTASSIUM SERUM 4.6 MMOL/L (3.5-5.1); SODIUM LEVEL 136.0 MMOL/L (136-145); TRIGLYCERIDES LEVEL 76.0 MG/DL (<150)
[2025-10-12 12:59] LABS: PTH INTACT 102.3 PG/ML (18.5-88.0)
[2025-10-12 13:00] LABS: TOTAL 25(OH) VITAMIN D 31.9 NG/ML (20.0-100.0)
[2025-10-12 13:01] LABS: FREE T4 1.09 NG/DL (0.89-1.76); VITAMIN B12 LEVEL 734.0 PG/ML (211-911)
== END ==
LOC: M LAB 11:15
PROVIDERS: ATTEND Family Medicine
DX: I50.32 Chronic diastolic (congestive) heart failure (principal); E06.3 Autoimmune thyroiditis; E53.8 Deficiency of other specified B group vitamins; E21.3 Hyperparathyroidism, unspecified; N18.31 Chronic kidney disease, stage 3a; D50.9 Iron deficiency anemia, unspecified; E78.2 Mixed hyperlipidemia

== ENCOUNTER → 2025-10-21 | Outpatient (CLI) | payer MEDICARE ==
[~2025-10-21] VITALS: Ht 167.6 cm; Wt 117.7 kg
[2025-10-21 16:50] VITALS: BP 117/71; O2SAT 97
[2025-10-21] MEDS: ZOLEDRONIC ACID 5 MG in IV 1 EA IV ONE (17:09)
[2025-10-21 17:44] VITALS: BP 119/76; O2SAT 99
== END ==
LOC: M INFU 16:44
PROVIDERS: ATTEND Family Medicine
DX: M81.0 Age-related osteoporosis without current pathological fracture (principal); Z88.0 Allergy status to penicillin; Z88.1 Allergy status to other antibiotic agents; Z88.5 Allergy status to narcotic agent; Z88.8 Allergy status to other drugs, medicaments and biological substances
CPT/HCPCS: 96365; J3489